=== PATIENT | male | born 1935 | race Caucasian/White ===

== ENCOUNTER → 2016-11-27 | Outpatient (CLI) | payer MEDICARE ==
[2016-11-27 10:07] LABS: ANION GAP 12 (5-19); BLOOD UREA NITROGEN 22 mg/dL (7-20); CALCIUM 8.8 mg/dL (8.4-10.2); CARBON DIOXIDE 26 mmol/L (22-30); CHLORIDE 103 mmol/L (98-107); CREATININE RESULT 1.17 mg/dL (0.52-1.25); GLUCOSE 99 mg/dL (75-110); POTASSIUM 4.2 mmol/L (3.6-5.0); SODIUM 140.5 mmol/L (137-145)
== END ==
LOC: OD 08:36
PROVIDERS: ATTEND Internal Medicine
DX: I50.22 Chronic systolic (congestive) heart failure (principal); I10 Essential (primary) hypertension; I49.3 Ventricular premature depolarization; I27.2 Other secondary pulmonary hypertension; I42.9 Cardiomyopathy, unspecified; J44.9 Chronic obstructive pulmonary disease, unspecified; Z79.899 Other long term (current) drug therapy
CPT/HCPCS: 36415; 80048; 83880

== ENCOUNTER → 2017-02-16 | Outpatient (CLI) | payer MEDICARE ==
--- NOTE | 2017-02-16 11:06 | RADIOLOGY REPORT (SQ) ---
EXAM DESCRIPTION: CHEST PA/LATERAL COMPLETED DATE/TIME: 02/16/2017 10:07 am REASON FOR STUDY: CHRONIC OBSTRUCTIVE PULMONARY DISEASE, UNSPECIFIED COMPARISON: 12/07/2015 EXAM PARAMETERS: NUMBER OF VIEWS: two views TECHNIQUE: Digital Frontal and Lateral radiographic views of the chest acquired. RADIATION DOSE: NA LIMITATIONS: none FINDINGS: LUNGS AND PLEURA: An ill-defined infiltrate is present the right middle lobe. MEDIASTINUM AND HILAR STRUCTURES: No masses or contour abnormalities. HEART AND VASCULAR STRUCTURES: Cardiomegaly with no evidence of failure. BONES: No acute findings. HARDWARE: None in the chest. OTHER: No other significant finding. IMPRESSION: Ill-defined right middle lobe pneumonia. TECHNICAL DOCUMENTATION: JOB ID: [id number] [employer]- All Rights Reserved
== END ==
LOC: OD 09:52
PROVIDERS: ATTEND Physician Assistant
DX: J44.9 Chronic obstructive pulmonary disease, unspecified (principal)
CPT/HCPCS: 71020

== ENCOUNTER 2017-02-19 12:29 | Inpatient (IN) | payer MEDICARE ==
--- NOTE | 2017-02-19 11:35 | PDOC H&P ---
History of Present Illness Admission Date/PCP: 02/19/17 11:09 JOELLEN JIMENEZ MD Patient complains of: Shortness of the breath and weakness History of Present Illness: DARCIE AUSTIN is a 81 year old male This is a 81-year-old male with significant history of the COPD and history of the congestive heart failure and hypertension's came to the last Sunday with increasing more cough congestion of the fever and patient's chest x-ray was consistent with the pneumoniaAnd patient was started on the p.o. Levaquin. Patient's white count was also normalPatients came today in office is not feeling well still complaining of a lot of short of breath and increasing more cough and some low-grade fever.Patient also noticed was some black stools for the last couple of days. Patient is not taking any anticoagulationsPatient have a recently endoscopy and colonoscopy done couple of years back by Dr. Lunsford and was stable Patient also see her Dr. Medrano 2 weeks back and suggest a follow echocardiogram in 2 months Patients at this point decided to admit in the hospital for further evaluation and treatments and discussed with the family and all agree Patient's desire to be a no code Past Medical History Cardiac Medical History: Reports: Hypertension Pulmonary Medical History: Reports: Asthma, Bronchitis, Chronic Obstructive Pulmonary Disease (COPD), Pneumonia Denies: Tuberculosis Neurological Medical History: Denies: Seizures Neurological History Note: Acoustic neuroma Malignancy Medical History: Reports: Other Malignancy History Note: Prostate cancer GI Medical History: Reports: Gastroesophageal Reflux Disease Musculoskeltal Medical History: Reports: Arthritis Psychiatric Medical History: Reports: Depression Past Surgical History Past Surgical History: Reports: Herniorrhaphy - Bilateral inguinal repair Denies: Pacemaker Social History Smoking Status: Former Smoker Frequency of Alcohol Use: None Hx Recreational Drug Use: No Drugs: None Hx Prescription Drug Abuse: No Family History Family History: Reviewed & Not Pertinent Parental Family History Reviewed: Yes Children Family History Reviewed: Yes Sibling(s) Family History Reviewed.: Yes Medication/Allergy Home Medications: Aspirin [Ecotrin 81 mg EC Tablet] 81 mg PO DAILY 09/18/11 Meclizine HCl [Antivert 25 mg Tablet] 25 mg PO BID 09/18/11 Omeprazole [Prilosec] 20 mg PO DAILY 09/18/11 Terazosin HCl 10 mg PO DAILY 09/18/11 Tramadol HCl [Ultram 50 mg Tablet] 50 mg PO BID PRN 09/18/11 Hydralazine HCl [Apresoline 25 Mg Tablet] 25 mg PO BID 09/22/11 Ascorbate Calcium [Vitamin C] 500 mg PO DAILY 08/18/15 Budesonide/Formoterol Fumarate [Symbicort HFA 160-4.5 mcg Inhaler 6 gm] 2 puff IH BID 08/18/15 Clotrimazole/Betamethasone Dip [Lotrisone Cream] 1 applic TP BID 08/18/15 Dm/PE/Acetaminophen/Doxylamine [[place] Plus Allerg-Cough] 1 cap PO DAILY 08/18/15 Hydrochlorothiazide 12.5 mg PO DAILY 08/18/15 Multivitamin [Multivitamins] 1 tab PO DAILY 08/18/15 Mupirocin [Bactroban 2% Ointment 22 gm] 1 applic TP TID 08/18/15 Nifedipine [Nifedipine ER] 60 mg PO BID 08/18/15 Polyethylene Glycol 3350 [Miralax Powder 17 gm/Packet] 17 gm PO DAILY 08/18/15 Tiotropium [place] [Spiriva Handihaler 18 mcg/dose (30 Dose)] 18 mcg IH DAILY Allergies/Adverse Reactions: meperidine HCl [From Demerol] Allergy (Verified 01/15/12 23:43) Review of Systems Constitutional: PRESENT: chills, fatigue, fever(s), weakness. ABSENT: headache( s), weight gain, weight loss Eyes: ABSENT: visual disturbances Ears: ABSENT: hearing changes Cardiovascular: PRESENT: dyspnea on exertion. ABSENT: chest pain, edema, orthropnea, palpitations Respiratory: PRESENT: cough, dyspnea. ABSENT: hemoptysis Gastrointestinal: ABSENT: abdominal pain, constipation, diarrhea, hematemesis, hematochezia, nausea, vomiting Genitourinary: ABSENT: dysuria, hematuria Musculoskeletal: ABSENT: joint swelling Integumentary: ABSENT: rash, wounds Neurological: ABSENT: abnormal gait, abnormal speech, confusion, dizziness, focal weakness, syncope Psychiatric: ABSENT: anxiety, depression, homidical ideation, suicidal ideation Endocrine: ABSENT: cold intolerance, heat intolerance, menstrual abnormalities, polydipsia, polyuria Hematologic/Lymphatic: ABSENT: easy bleeding, easy bruising, lymphadenopathy Physical Exam General appearance: PRESENT: no acute distress, well-developed, well-nourished Head exam: PRESENT: atraumatic, normocephalic Eye exam: PRESENT: conjunctiva pink, EOMI, PERRLA. ABSENT: scleral icterus Ear exam: PRESENT: normal external ear exam Mouth exam: PRESENT: moist, tongue midline Neck exam: PRESENT: full ROM. ABSENT: carotid bruit, JVD, lymphadenopathy, thyromegaly Respiratory exam: PRESENT: decreased breath sounds, wheezes Cardiovascular exam: PRESENT: RRR, +S1, +S2. ABSENT: diastolic murmur, rubs, systolic murmur Pulses: PRESENT: normal dorsalis pedis pul, +2 pedal pulses bilateral Vascular exam: PRESENT: normal capillary refill GI/Abdominal exam: PRESENT: normal bowel sounds, soft. ABSENT: distended, guarding, mass, organolmegaly, rebound, tenderness Rectal exam: PRESENT: deferred Extremities exam: ABSENT: pedal edema Musculoskeletal exam: PRESENT: ambulatory Neurological exam: PRESENT: alert, awake, oriented to person, oriented to place , oriented to time, oriented to situation, CN II-XII grossly intact. ABSENT: motor sensory deficit Psychiatric exam: PRESENT: appropriate affect, normal mood. ABSENT: homicidal ideation, suicidal ideation Skin exam: PRESENT: dry, intact, warm. ABSENT: cyanosis, rash Assessment & Plan - Diagnosis (1) Pneumonia Qualifiers: Pneumonia type: due to unspecified organism Laterality: unspecified laterality Is this a current diagnosis for this admission?: YesPlan: Start the patient on IV antibiotic patient spelled the p.o. antibiotic (2) COPD (chronic obstructive pulmonary disease) with acute bronchitis Is this a current diagnosis for this admission?: YesPlan: Start the patient on nebulizer treatments (3) Diastolic heart failure Qualifiers: Heart failure chronicity: acute on chronic Qualified Code(s): I50.33 - Acute on chronic diastolic (congestive) heart failure Is this a current diagnosis for this admission?: YesPlan: Start the patient on IV Lasix patient echo was done in 2014 the EF was 50-55 persons and patient supposed to have another echo done by Dr. álvarez office consult to Dr. urias (4) Dyslipidemia Is this a current diagnosis for this admission?: YesPlan: Continues to current medications (5) Hypertension Qualifiers: Hypertension type: essential hypertension Qualified Code(s): I10 - Essential (primary) hypertension Is this a current diagnosis for this admission?: YesPlan: Continues current med (6) Anemia Qualifiers: Anemia type: other cause Is this a current diagnosis for this admission?: YesPlan: Patient is complaining of some black stool with rule out the GI bleed and consult Dr. Lunsford (7) Prostate cancer Is this a current diagnosis for this admission?: YesPlan: We will check the PSA (8) Chronic kidney disease Qualifiers: Chronic kidney disease stage: stage 2 (mild) Qualified Code(s): N18.2 - Chronic kidney disease, stage 2 (mild) Is this a current diagnosis for this admission?: YesPlan: Currently stable (9) Weakness Is this a current diagnosis for this admission?: YesPlan: Due to multiple comorbidity will get the physical therapy - Time Time Spent: 30 to 50 Minutes Medications reviewed and adjusted accordingly: Yes Anticipated discharge: Home Within: Other - Inpatient Certification Medical Necessity: Need Close Monitoring Due to Risk of Patient Decompensation, Need for IV Antibiotics 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 Patients expressed DNR/DNI
[~2017-02-19 12:29] MED LIST: ACETAMINOPHEN 325 MG TABLET PO PRN; CEFTRIAXONE 1 GM/D5W RTU 50 ML IV SCH; LEVOFLOXACIN 500 MG/D5W RTU 100 ML IV SCH
[2017-02-19] MEDS ORDERED: ACETAMINOPHEN 325 MG TABLET PO PRN (12:33)
[2017-02-19] MEDS ORDERED: CEFTRIAXONE 1 GM/D5W RTU 1 GM/50 ML RTUPB IV ONE (13:00)
[2017-02-19] MEDS ORDERED: LEVOFLOXACIN 500 MG/D5W RTU 500 MG/100 ML RTUPB IV ONE ×2 (13:00→18:30)
[2017-02-19] MEDS ORDERED: LEVALBUTEROL HCL NEB 1.25 MG/3 ML AMPUL NEB SCH (14:00)
[2017-02-19] MEDS ORDERED: FUROSEMIDE INJ/PF 20 MG/2 ML SDV IV SCH (14:00)
[2017-02-19 14:19] LABS: ABSOLUTE LYMPHOCYTES (AUTO) 0.8 10^3/uL (0.5-4.7); ABSOLUTE NEUT (AUTO) 7.4 10^3/uL (1.7-8.2); BASOPHILS % (AUTO) 0.3 % (0-2); EOSINOPHILS % (AUTO) 0.3 % (0-6); HEMOGLOBIN 9.3 g/dL (13.5-17.0); HGB HCT DIFFERENCE -0.1; LYMPHOCYTES % (AUTO) 8.3 % (13-45); MEAN CORPUSCULAR HEMOGLOBIN 29.5 pg (27.0-33.4); MEAN CORPUSCULAR HGB CONC 33.4 g/dL (32.0-36.0); MEAN CORPUSCULAR VOLUME 88 fl (80-97); MONOCYTES % (AUTO) 11.1 % (3-13); RED BLOOD COUNT 3.17 10^6/uL (4.35-5.55); RED CELL DISTRIBUTION WIDTH 13.8 % (11.5-14.0); WHITE BLOOD COUNT 9.2 10^3/uL (4.0-10.5)
[2017-02-19 14:42] LABS: ALANINE AMINOTRANSFERASE 25 U/L (21-72); ALBUMIN 3.2 g/dL (3.5-5.0); ALKALINE PHOSPHATASE 98 U/L (38-126); ANION GAP 12 (5-19); ASPARTATE AMINO TRANSFERASE 24 U/L (17-59); BILIRUBIN,DIRECT 0.4 mg/dL (0.0-0.4); BLOOD UREA NITROGEN 43 mg/dL (7-20); CALCIUM 8.5 mg/dL (8.4-10.2); CARBON DIOXIDE 28 mmol/L (22-30); CHLORIDE 93 mmol/L (98-107); GLUCOSE 103 mg/dL (75-110); POTASSIUM 4.2 mmol/L (3.6-5.0); SODIUM 132.7 mmol/L (137-145)
[2017-02-19] MEDS ORDERED: LEVALBUTEROL HCL NEB 1.25 MG/3 ML AMPUL NEB ONE ×2 (14:46→21:00)
--- NOTE | 2017-02-19 15:43 | RADIOLOGY REPORT (SQ) ---
EXAM DESCRIPTION: CHEST PA/LAT COMPLETED DATE/TIME: 02/19/2017 3:33 pm REASON FOR STUDY: pnemonia COMPARISON: 12/07/2015 EXAM PARAMETERS: NUMBER OF VIEWS: two views TECHNIQUE: Digital Frontal and Lateral radiographic views of the chest acquired. RADIATION DOSE: NA LIMITATIONS: none FINDINGS: LUNGS AND PLEURA: There is bilateral perihilar and basilar interstitial airspace disease. There is hyperexpansion. Small effusions cannot be excluded. MEDIASTINUM AND HILAR STRUCTURES: No masses or contour abnormalities. HEART AND VASCULAR STRUCTURES: Heart is enlarged. There is central vascular prominence. BONES: No acute findings. HARDWARE: None in the chest. OTHER: No other significant finding. IMPRESSION: Findings are most consistent with vascular congestion rather than pneumonia. Clinical c orrelation is needed. TECHNICAL DOCUMENTATION: JOB ID: [id number] [employer]- All Rights Reserved
[2017-02-19] MEDS ORDERED: LANSOPRAZOLE 30 MG TAB.RAP.DR PO SCH (17:00)
[2017-02-19] MEDS ORDERED: FUROSEMIDE INJ/PF 20 MG/2 ML SDV IV ONE ×2 (17:30→23:00)
[2017-02-19] MEDS ORDERED: LANSOPRAZOLE 30 MG TAB.RAP.DR PO ONE (17:30)
[2017-02-19] MEDS: CEFTRIAXONE 1 GM/D5W RTU 1 GM/50 ML RTUPB IV SCH (17:46)
[2017-02-19] MEDS: DOCUSATE SODIUM 100 MG CAPSULE PO SCH (17:46)
--- NOTE | 2017-02-19 17:57 | EKG REPORT ---
SEVERITY:- ABNORMAL ECG - SINUS RHYTHM ABERRANT COMPLEX NONSPECIFIC INTRAVENTRICULAR CONDUCTION DELAY BORDERLINE R WAVE PROGRESSION, ANTERIOR LEADS : Confirmed by: Saranya Medrano MD 19-Feb-2017 17:55:43
[2017-02-19] MEDS ORDERED: DOCUSATE SODIUM 100 MG CAPSULE PO SCH (18:00)
[2017-02-19] MEDS ORDERED: FUROSEMIDE INJ/PF 40 MG/4 ML SDV IV ONE (20:15)
--- NOTE | 2017-02-19 20:36 | PDOC CONSULTATION ---
Consultation Consult Date: 02/19/17 Attending physician:: JOELLEN JIMENEZ Consult reason:: CHF History of Present Illness Admission Date/PCP: 02/19/17 12:34 JOELLEN JIMENEZ MD Patient complains of: Shortness of breath History of Present Illness: DARCIE AUSTIN is a 81 year old male with significant history of the COPD and history of the congestive heart failure and hypertension's came to the last Sunday with increasing more cough, congestion and fever. Patient's chest x-ray was consistent with the pneumonia. Patient was started on the p.o. Levaquin. Patient's white count was also normal. Patients came today in office is not feeling well still complaining of a lot of short of breath and increasing more cough and some low-grade fever. Patient also noticed was some black stools for the last couple of days. Patient is not taking any anticoagulations. Patient have a recently endoscopy and colonoscopy done couple of years back by Dr. Lunsford and was stable Patient also see her Dr. Medrano 2 weeks back and suggest a follow echocardiogram in 2 months Patients at this point decided to admit in the hospital for further evaluation and I was consulted to help with management. When patient seen this evening, patient was noted to be short of breath and was noted to be hypoxemic with O2 sat of 87% even with oxygen. Patient was ordered to be placed on bilevel therapy with positive pressure ventilation and ordered that patient be given IV Lasix 40 mg in addition to 20 mg that he had received earlier in the emergency room. On questioning patient admitted to being short of breath and significant pedal edema but denied any chest discomfort. Patient's desire to be a no code Past Medical History Cardiac Medical History: Reports: Hypertension Pulmonary Medical History: Reports: Asthma, Bronchitis, Chronic Obstructive Pulmonary Disease (COPD), Pneumonia Denies: Tuberculosis Neurological Medical History: Denies: Seizures Malignancy Medical History: Reports: Other GI Medical History: Reports: Gastroesophageal Reflux Disease Musculoskeltal Medical History: Reports: Arthritis Psychiatric Medical History: Reports: Depression Past Surgical History Past Surgical History: Reports: Herniorrhaphy - Bilateral inguinal repair Denies: Pacemaker Social History Information Source: Patient Smoking Status: Former Smoker Frequency of Alcohol Use: Rare Hx Recreational Drug Use: No Drugs: None Hx Prescription Drug Abuse: No - Advance Directive Resuscitation Status: Do Not Resuscitate Surrogate healthcare decision maker:: Patient's Family History Family History: CAD, Hypertension Parental Family History Reviewed: Yes Children Family History Reviewed: Yes Sibling(s) Family History Reviewed.: Yes Medication/Allergy Home Medications: Acetaminophen [Tylenol 325 mg Tablet] 650 mg PO Q6HP PRN 02/19/17 Amiodarone HCl [Cordarone 200 mg Tablet] 200 mg PO DAILY 02/19/17 Ascorbic Acid [Vitamin C 500 mg Tablet] 500 mg PO DAILY 02/19/17 Aspirin [Aspirin 81 mg Chewable Tablet] 81 mg PO DAILY 02/19/17 Docusate Sodium [Colace 100 mg Capsule] 100 mg PO DAILY 02/19/17 Doxazosin Mesylate [Cardura] 8 mg PO DAILY 02/19/17 Isosorbide Mononitrate [Imdur 60 mg Tablet.er] 60 mg PO DAILY 02/19/17 Levalbuterol HCl [Xopenex Neb 0.63 mg/3 ml Ampul] 0.63 mg NEB [id number] PRN Metoprolol Tartrate [Lopressor 25 mg Tablet] 25 mg PO Q12 02/19/17 Multivit-Min/FA/Lycopen/Lutein [Centrum Silver Men Tablet] 1 tab PO DAILY Nifedipine [Procardia XL 60 mg Tablet] 60 mg PO Q12 02/19/17 Polyethylene Glycol 3350 [Miralax Powder 17 gm/Packet] 1 packet PO DAILY Tiotropium [place] [Spiriva Handihaler 18 mcg/dose (30 Dose)] 1 cap IH DAILY Allergies/Adverse Reactions: meperidine HCl [From Demerol] Allergy (Verified 01/15/12 23:43) Review of Systems Review of Systems: Please see history of present illness and past medical history as wall. Constitutional: Positive fever or chills reported. Head : No recent chronic headaches, recent head injury. Eyes: No recent eye pain, diplopia, redness, discharge, acute visual changes. Ears: No recent chronic ear pain, acute hearing loss, ear discharge. Oral cavity: No recent ulcerations, bleeding, oral cavity discomfort. Neck: No recent acute neck pain reported. Hematologic: No recent easy bruising or bleeding or hematologic malignancy reported. Lymphatic: No recent lymphatic malignancy, chronic lymphadenopathy reported yet Cardiovascular system review: See history of present illness. Increasing pedal edema noted. Respiratory system review: No recent chronic cough, hemoptysis, blood clots in the lungs reported. Shortness of breath on exertion Gastrointestinal system review: Negative for any recent acute or chronic abdominal pain, hematemesis, melena, recent change in bowel habits. Genitourinary system review: No recent acute or chronic hematuria, flank pain, UTI etc. reported. Skin system review: Negative for any recent abnormal bruising, no rash, no pruritus reported. Neurologic: No prior history of strokes, mini strokes, seizure disorder. Psychologic: No history of major psychosis or major depression reported. Musculoskeletal: Minor aches and pains reported. No acute joint swelling reported. Endocrine: No recent polyuria, polydipsia, recent heat or cold intolerance. Physical Exam Vital Signs: Temp Pulse Resp BP Pulse Ox 97.6 F 68 24 H 137/46 H 92 02/19/17 17:51 02/19/17 17:51 02/19/17 17:51 02/19/17 17:51 02/19/17 17:51 Intake & Output 02/18/17 02/19/17 02/20/17 06:59 06:59 06:59 Weight 108.1 kg Exam: GENERAL: well-nourished and in no acute distress. Alert and oriented x3 HEAD: Atraumatic, normocephalic. EYES: Pupils equal round and reactive to light, extraocular movements intact, sclera anicteric, conjunctiva are normal. ENT: TMs normal, nares patent, oropharynx clear without exudates. Moist mucous membranes. No oral ulcerations or bleeding gums noted NECK: supple without lymphadenopathy. Trachea is central. No cervical or axillary lymphadenopathy noted. Carotids are 2+, JVD 14 cm LUNGS: Respiration seems nonlabored, no significant accessory muscle action noted. Bibasilar fine crackles noted and mild dullness noted both bases. CHEST: Palpation of the chest wall shows no significant chest wall tenderness. No other significant abnormalities noted. 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 ABDOMEN: Soft, no significant tenderness appreciated, normoactive bowel sounds. No guarding, no rebound. No rigidity noted . No masses appreciated. EXTREMITIES: Pedal pulses are 1-2+, no calf tenderness noted. No clubbing or cyanosis. 2-3 + pedal edema noted NEUROLOGICAL: Focused neurological exam showed no significant neurologic deficit. Normal speech, no focal weakness appreciated. PSYCH: Normal mood, normal affect. Judgment and insight within normal limits. SKIN: No significant ecchymosis, rash, ulcerations or signs of pruritus noted. MUSCULOSKELETAL EXAM: No significant joint swelling noted. Results Laboratory Results: 02/19/17 14:00 02/19/17 14:00 02/19/17 02/19/17 02/19/17 14:00 14:00 14:00 WBC 9.2 RBC 3.17 L Hgb 9.3 L Hct 28.0 L MCV 88 MCH 29.5 MCHC 33.4 RDW 13.8 Plt Count 227 Seg Neutrophils % 80.0 H Lymphocytes % 8.3 L Monocytes % 11.1 Eosinophils % 0.3 Basophils % 0.3 Absolute Neutrophils 7.4 Absolute Lymphocytes 0.8 Absolute Monocytes 1.0 Absolute Eosinophils 0.0 Absolute Basophils 0.0 Sodium 132.7 L Potassium 4.2 Chloride 93 L Carbon Dioxide 28 Anion Gap 12 BUN 43 H Creatinine 1.90 H Est GFR ( Amer) 42 L Est GFR (Non-Af Amer) 34 L Glucose 103 Calcium 8.5 Total Bilirubin 1.0 AST 24 ALT 25 Alkaline Phosphatase 98 Total Protein 6.0 L Albumin 3.2 L TSH 3.34 02/19/17 14:00 NT-Pro-B Natriuret Pep 5880 H EKG Comments: Sinus rhythm, nonspecific IVCD left bundle branch block type, primary T-wave changes lateral chest leads Impressions: Chest X-Ray 02/19/17 11:18 IMPRESSION: Findings are most consistent with vascular congestion rather than pneumonia. Clinical correlation is needed. Assessment & Plan - Diagnosis (1) Congestive heart failure Is this a current diagnosis for this admission?: Yes (2) Acute and chronic respiratory failure Qualifiers: Respiratory failure complication: hypoxia Qualified Code(s): J96.21 - Acute and chronic respiratory failure with hypoxia Is this a current diagnosis for this admission?: Yes (3) Chronic kidney disease Qualifiers: Chronic kidney disease stage: stage 3 (moderate) Qualified Code(s): N18.3 - Chronic kidney disease, stage 3 (moderate) Is this a current diagnosis for this admission?: Yes (4) COPD (chronic obstructive pulmonary disease) with acute bronchitis Is this a current diagnosis for this admission?: Yes (5) Dyslipidemia Is this a current diagnosis for this admission?: Yes (6) Hypertension Qualifiers: Hypertension type: essential hypertension Qualified Code(s): I10 - Essential (primary) hypertension Is this a current diagnosis for this admission?: Yes - Notes Notes: 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 Twelve-lead EKG, these were reviewed. Chest x-ray: Results reviewed. Medications: These were reviewed. Labs: These were reviewed. 2D echo ordered. IV Lasix 40 mg ordered to be given now. Bilevel therapy to be monitored by respiratory therapy ordered. Adjust bilevel therapy to maintain O2 sat above 92%. Treatment/care plan: This was reviewed and discussed with involved personnel in the care of this patient and patient. CHF: Patient clearly volume overloaded. IV Lasix ordered. Acute on chronic hypoxemic respiratory failure: Apply positive pressure bilevel noninvasive ventilatory support and supplement oxygen. May consider pulmonary evaluation. Patient may benefit from a sleep study to be scheduled as an outpatient if not performed previously. Chronic kidney disease: Monitor renal function. Avoid nephrotoxic agents. COPD with acute bronchitis: Continue with bronchodilator antibiotic therapy. Consider pulmonary consultation and evaluation. Dyslipidemia: Recommend statin therapy. Hypertension: Recommend good control of blood pressure but avoid any hypotension. - Time Time Spent: 50 to 70 Minutes - CODE STATUS was discussed, patient remains full code. Surrogate decision-maker patient's son.. Multiple medical problems were addressed. More than 50% of the time spent coordinating care, discussing management plans with involved caregivers. Management plans discussed with involved personnels. Medical decision making was of moderate to high complexity , patient's has multiple comorbidities. Medications reviewed and adjusted accordingly: Yes
[2017-02-20] MEDS: LEVALBUTEROL HCL NEB 1.25 MG/3 ML AMPUL NEB SCH ×4 (02:29→19:59)
[2017-02-20] MEDS: LANSOPRAZOLE 30 MG TAB.RAP.DR PO SCH ×2 (05:21→17:33)
[2017-02-20] MEDS: FUROSEMIDE INJ/PF 20 MG/2 ML SDV IV SCH ×3 (05:21→21:18)
[2017-02-20 05:55] LABS: ABSOLUTE EOSINOPHILS # (AUTO) 0.1 10^3/uL (0.0-0.6); ABSOLUTE LYMPHOCYTES (AUTO) 0.7 10^3/uL (0.5-4.7); ABSOLUTE MONOCYTES (AUTO) 0.8 10^3/uL (0.1-1.4); ABSOLUTE NEUT (AUTO) 5.5 10^3/uL (1.7-8.2); BASOPHILS % (AUTO) 0.4 % (0-2); EOSINOPHILS % (AUTO) 0.7 % (0-6); HEMATOCRIT 26.2 % (37.9-51.0); HGB HCT DIFFERENCE 0.8; LYMPHOCYTES % (AUTO) 9.9 % (13-45); MEAN CORPUSCULAR HEMOGLOBIN 29.9 pg (27.0-33.4); MEAN CORPUSCULAR HGB CONC 34.4 g/dL (32.0-36.0); MEAN CORPUSCULAR VOLUME 87 fl (80-97); MONOCYTES % (AUTO) 11.1 % (3-13); RED BLOOD COUNT 3.01 10^6/uL (4.35-5.55); RED CELL DISTRIBUTION WIDTH 13.6 % (11.5-14.0); SEGMENTED NEUTROPHILS % (AUTO) 77.9 % (42-78); WHITE BLOOD COUNT 7.1 10^3/uL (4.0-10.5)
[2017-02-20 06:15] LABS: CALCIUM 8.2 mg/dL (8.4-10.2); GLUCOSE 121 mg/dL (75-110)
[2017-02-20 06:16] LABS: ANION GAP 11 (5-19); BLOOD UREA NITROGEN 37 mg/dL (7-20); CARBON DIOXIDE 26 mmol/L (22-30); CHLORIDE 97 mmol/L (98-107); CREATININE RESULT 1.75 mg/dL (0.52-1.25); POTASSIUM 3.6 mmol/L (3.6-5.0); SODIUM 134.2 mmol/L (137-145)
[2017-02-20] MEDS ORDERED: ACETAMINOPHEN 325 MG TABLET PO PRN (07:19)
[2017-02-20] MEDS: ASPIRIN 81 MG TABLET, CHEWABLE PO SCH (09:03)
[2017-02-20] MEDS: MULTIVITAMIN TABLET PO SCH (09:03)
[2017-02-20] MEDS: ASCORBIC ACID 500 MG TABLET PO SCH (09:03)
[2017-02-20] MEDS: DOXAZOSIN MESYLATE 4 MG TABLET PO SCH (09:03)
[2017-02-20] MEDS: ISOSORBIDE MONONITRATE 60 MG TAB.ER.24H PO SCH (09:04)
[2017-02-20] MEDS: AMIODARONE HCL 200 MG TABLET PO SCH (09:04)
[2017-02-20] MEDS: METOPROLOL TARTRATE 25 MG TABLET PO SCH ×2 (09:04→21:18)
[2017-02-20] MEDS: NIFEDIPINE 30 MG TAB.ER.24 PO SCH ×2 (09:04→21:18)
[2017-02-20] MEDS: DOCUSATE SODIUM 100 MG CAPSULE PO SCH ×2 (09:05→17:26)
[2017-02-20] MEDS: POLYETHYLENE GLYCOL 3350 POWDER 17 GM/1 PACKET PO SCH (09:05)
[2017-02-20] MEDS ORDERED: (PENDING PHARMACY ID) (Multivit-Min/Fa/Lycopen/Lutein [Centrum Silver Men Tablet] 1 TAB) PO SCH (10:00)
[2017-02-20] MEDS ORDERED: (PENDING PHARMACY ID) (Doxazosin Mesylate [Cardura] 8 MG) PO SCH (10:00)
[2017-02-20] MEDS ORDERED: CEFTRIAXONE 1 GM/D5W RTU 1 GM/50 ML RTUPB IV SCH (10:00)
[2017-02-20] MEDS ORDERED: (PENDING PHARMACY ID) (Nifedipine [Procardia Xl 60 Mg Tablet] 60 MG) PO SCH (10:00)
--- NOTE | 2017-02-20 11:47 | PDOC PROGRESS REPORT ---
Subjective Progress Note for:: 02/20/17 Subjective:: Patient seems to be doing better with gradual improvement. Pt is denying any chest arm or neck discomfort. Patient denying any PND, orthopnea. Patient denied any sustained palpitations, dizziness, syncope, near syncope. Patient denying any fever chills. Patient denying any other significant discomfort. Patient is maintaining sinus rhythm. Review of systems: Rest review of systems negative. Medications: Medications have been reviewed. Physical Exam Vital Signs: Temp Pulse Resp BP Pulse Ox 98.2 F 75 22 H 146/54 H 96 02/20/17 07:38 02/20/17 07:38 02/20/17 07:38 02/20/17 07:38 02/20/17 07:38 Intake & Output 02/19/17 02/20/17 02/21/17 06:59 06:59 06:59 Intake Total 38 Output Total 100 Balance -62 Weight 108.8 kg Exam: GENERAL: well-nourished and in no acute distress. Alert and oriented x3 HEAD: Atraumatic, normocephalic. EYES: Pupils equal round and reactive to light, extraocular movements intact, sclera anicteric, conjunctiva are normal. ENT: TMs normal, nares patent, oropharynx clear without exudates. Moist mucous membranes. No oral ulcerations or bleeding gums noted NECK: supple without lymphadenopathy. Trachea is central. No cervical or axillary lymphadenopathy noted. Carotids are 2+, JVD 12 cm LUNGS: Respiration seems nonlabored, no significant accessory muscle action noted. Bibasilar fine crackles and few wheezes rales or rhonchi noted. No significant dullness noted on percussion. CHEST: Palpation of the chest wall shows no significant chest wall tenderness. No other significant abnormalities noted. 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 ABDOMEN: Soft, no significant tenderness appreciated, normoactive bowel sounds. No guarding, no rebound. No rigidity noted . No masses appreciated. EXTREMITIES: Pedal pulses are 1-2+, no calf tenderness noted. No clubbing or cyanosis. 2 + pedal edema noted NEUROLOGICAL: Focused neurological exam showed no significant neurologic deficit. Normal speech, no focal weakness appreciated. PSYCH: Normal mood, normal affect. Judgment and insight within normal limits. SKIN: No significant ecchymosis, rash, ulcerations or signs of pruritus noted. MUSCULOSKELETAL EXAM: No significant joint swelling noted. Results Laboratory Results: 02/20/17 05:29 02/20/17 05:29 02/19/17 02/19/17 02/19/17 14:00 14:00 14:00 WBC 9.2 RBC 3.17 L Hgb 9.3 L Hct 28.0 L MCV 88 MCH 29.5 MCHC 33.4 RDW 13.8 Plt Count 227 Seg Neutrophils % 80.0 H Lymphocytes % 8.3 L Monocytes % 11.1 Eosinophils % 0.3 Basophils % 0.3 Absolute Neutrophils 7.4 Absolute Lymphocytes 0.8 Absolute Monocytes 1.0 Absolute Eosinophils 0.0 Absolute Basophils 0.0 Sodium 132.7 L Potassium 4.2 Chloride 93 L Carbon Dioxide 28 Anion Gap 12 BUN 43 H Creatinine 1.90 H Est GFR ( Amer) 42 L Est GFR (Non-Af Amer) 34 L Glucose 103 Calcium 8.5 Total Bilirubin 1.0 AST 24 ALT 25 Alkaline Phosphatase 98 Total Protein 6.0 L Albumin 3.2 L TSH 3.34 02/20/17 02/20/17 05:29 05:29 WBC 7.1 RBC 3.01 L Hgb 9.0 L Hct 26.2 L MCV 87 MCH 29.9 MCHC 34.4 RDW 13.6 Plt Count 217 Seg Neutrophils % 77.9 Lymphocytes % 9.9 L Monocytes % 11.1 Eosinophils % 0.7 Basophils % 0.4 Absolute Neutrophils 5.5 Absolute Lymphocytes 0.7 Absolute Monocytes 0.8 Absolute Eosinophils 0.1 Absolute Basophils 0.0 Sodium 134.2 L Potassium 3.6 Chloride 97 L Carbon Dioxide 26 Anion Gap 11 BUN 37 H Creatinine 1.75 H Est GFR ( Amer) 46 L Est GFR (Non-Af Amer) 38 L Glucose 121 H Calcium 8.2 L Total Bilirubin AST ALT Alkaline Phosphatase Total Protein Albumin TSH 02/20/17 05:25 Sputum Gram Stain - Final 02/20/17 05:25 Sputum Sputum Culture - Final 02/19/17 14:00 NT-Pro-B Natriuret Pep 5880 H Impressions: Chest X-Ray 02/19/17 11:18 IMPRESSION: Findings are most consistent with vascular congestion rather than pneumonia. Clinical correlation is needed. Assessment & Plan - Diagnosis (1) Congestive heart failure Is this a current diagnosis for this admission?: Yes (2) Acute and chronic respiratory failure Qualifiers: Respiratory failure complication: hypoxia Qualified Code(s): J96.21 - Acute and chronic respiratory failure with hypoxia Is this a current diagnosis for this admission?: Yes (3) Chronic kidney disease Qualifiers: Chronic kidney disease stage: stage 3 (moderate) Qualified Code(s): N18.3 - Chronic kidney disease, stage 3 (moderate) Is this a current diagnosis for this admission?: Yes (4) COPD (chronic obstructive pulmonary disease) with acute bronchitis Is this a current diagnosis for this admission?: Yes (5) Dyslipidemia Is this a current diagnosis for this admission?: Yes (6) Hypertension Qualifiers: Hypertension type: essential hypertension Qualified Code(s): I10 - Essential (primary) hypertension Is this a current diagnosis for this admission?: Yes - Notes Notes: monitoring manager, 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 Twelve-lead EKG, these were reviewed. Showed sinus with left bundle branch block pattern. Chest x-ray: Results reviewed. It showed congestive heart failure and cardiomegaly. Medications: These were reviewed. Labs: These were reviewed. Treatment/care plan: This was reviewed and discussed with involved personnel in the care of this patient and patient. CHF: This seems decompensated on clinical exam. Continue baseline diuretic therapy. Patient should be educated in CHF pathway. This should include salt and fluid restriction, daily weighing, adjustment of diuretic therapy based on weight gain et cetera. Patient to be educated that if there is gain of more than 2 pounds in a day or more than 5 pounds in a week, this indicates fluid retention and patient may need to adjust the diuretic therapy. Symptoms associated with CHF exacerbation to be discussed with the patient. This could include rapid weight gain, abdominal bloating, increased shortness of breath, fatigue, tiredness, cardiac arrhythmias et cetera. Acute on chronic respiratory failure: This has improved with treatment of CHF. Chronic kidney disease: Lab work reviewed. This seems stable. Continue to monitor renal functions. COPD with acute bronchitis: Continue bronchodilator therapy. Dyslipidemia: Currently stable. Hypertension: Currently blood pressure is under satisfactory control. Further adjustment will be made after 2D echocardiogram. Patient's medical regimen reviewed. This seems satisfactory at this point. Further adjustment will be made as needed. - Time Time with patient: Greater than 35 minutes - More than 50% of the time spent coordinating care, discussing management plans with involved caregivers. Management plans discussed with involved personnels. Medical decision making was of high complexity, patient's has multiple comorbidities. CODE STATUS was discussed, patient remains full code. Surrogate decision-maker patient's son. Multiple medical problems were addressed. Medications reviewed and adjusted accordingly: Yes
--- NOTE | 2017-02-20 12:24 | PDOC PROGRESS REPORT ---
Subjective Progress Note for:: 02/20/17 Subjective:: Patient's currently denied any chest pain denied any shortness of the breath. Patient having no fever overnight. Patient's chest x-ray was consistent for some vascular congestions and a heart failure. Patient was complaining some more loose stool denied any abdominal painPatient seen by the cardiology and waiting for GI evaluations Physical Exam Vital Signs: Temp Pulse Resp BP Pulse Ox 98.4 F 69 20 135/54 H 93 02/20/17 11:19 02/20/17 11:19 02/20/17 11:19 02/20/17 11:19 02/20/17 11:19 Intake & Output 02/19/17 02/20/17 02/21/17 06:59 06:59 06:59 Intake Total 38 Output Total 100 Balance -62 Weight 108.8 kg General appearance: PRESENT: no acute distress, well-developed, well-nourished Head exam: PRESENT: atraumatic, normocephalic Eye exam: PRESENT: conjunctiva pink, EOMI, PERRLA. ABSENT: scleral icterus Ear exam: PRESENT: normal external ear exam Mouth exam: PRESENT: moist, tongue midline Neck exam: PRESENT: full ROM. ABSENT: carotid bruit, JVD, lymphadenopathy, thyromegaly Respiratory exam: PRESENT: clear to auscultation alphonse Cardiovascular exam: PRESENT: RRR. ABSENT: diastolic murmur, rubs, systolic murmur Pulses: PRESENT: normal dorsalis pedis pul, +2 pedal pulses bilateral Vascular exam: PRESENT: normal capillary refill GI/Abdominal exam: PRESENT: normal bowel sounds, soft. ABSENT: distended, guarding, mass, organolmegaly, rebound, tenderness Rectal exam: PRESENT: deferred Neurological exam: PRESENT: alert, awake, oriented to person, oriented to place , oriented to time, oriented to situation, CN II-XII grossly intact. ABSENT: motor sensory deficit Psychiatric exam: PRESENT: appropriate affect, normal mood. ABSENT: homicidal ideation, suicidal ideation Skin exam: PRESENT: dry, intact, warm. ABSENT: cyanosis, rash Results Laboratory Results: 02/20/17 05:29 02/20/17 05:29 02/19/17 02/19/17 02/19/17 14:00 14:00 14:00 WBC 9.2 RBC 3.17 L Hgb 9.3 L Hct 28.0 L MCV 88 MCH 29.5 MCHC 33.4 RDW 13.8 Plt Count 227 Seg Neutrophils % 80.0 H Lymphocytes % 8.3 L Monocytes % 11.1 Eosinophils % 0.3 Basophils % 0.3 Absolute Neutrophils 7.4 Absolute Lymphocytes 0.8 Absolute Monocytes 1.0 Absolute Eosinophils 0.0 Absolute Basophils 0.0 Sodium 132.7 L Potassium 4.2 Chloride 93 L Carbon Dioxide 28 Anion Gap 12 BUN 43 H Creatinine 1.90 H Est GFR ( Amer) 42 L Est GFR (Non-Af Amer) 34 L Glucose 103 Calcium 8.5 Total Bilirubin 1.0 AST 24 ALT 25 Alkaline Phosphatase 98 Total Protein 6.0 L Albumin 3.2 L TSH 3.34 02/20/17 02/20/17 05:29 05:29 WBC 7.1 RBC 3.01 L Hgb 9.0 L Hct 26.2 L MCV 87 MCH 29.9 MCHC 34.4 RDW 13.6 Plt Count 217 Seg Neutrophils % 77.9 Lymphocytes % 9.9 L Monocytes % 11.1 Eosinophils % 0.7 Basophils % 0.4 Absolute Neutrophils 5.5 Absolute Lymphocytes 0.7 Absolute Monocytes 0.8 Absolute Eosinophils 0.1 Absolute Basophils 0.0 Sodium 134.2 L Potassium 3.6 Chloride 97 L Carbon Dioxide 26 Anion Gap 11 BUN 37 H Creatinine 1.75 H Est GFR ( Amer) 46 L Est GFR (Non-Af Amer) 38 L Glucose 121 H Calcium 8.2 L Total Bilirubin AST ALT Alkaline Phosphatase Total Protein Albumin TSH 02/20/17 05:25 Sputum Gram Stain - Final 02/20/17 05:25 Sputum Sputum Culture - Final 02/19/17 14:00 NT-Pro-B Natriuret Pep 5880 H Impressions: Chest X-Ray 02/19/17 11:18 IMPRESSION: Findings are most consistent with vascular congestion rather than pneumonia. Clinical correlation is needed. Assessment & Plan - Diagnosis (1) Pneumonia Qualifiers: Pneumonia type: due to unspecified organism Laterality: unspecified laterality Is this a current diagnosis for this admission?: YesPlan: Start the patient on IV antibiotic patient spelled the p.o. antibiotic (2) COPD (chronic obstructive pulmonary disease) with acute bronchitis Is this a current diagnosis for this admission?: YesPlan: Start the patient on nebulizer treatments (3) Diastolic heart failure Qualifiers: Heart failure chronicity: acute on chronic Qualified Code(s): I50.33 - Acute on chronic diastolic (congestive) heart failure Is this a current diagnosis for this admission?: YesPlan: Start the patient on IV Lasix patient echo was done in 2014 the EF was 50-55 persons and patient supposed to have another echo done by Dr. álvarez office consult to Dr. urias (4) Dyslipidemia Is this a current diagnosis for this admission?: YesPlan: Continues to current medications (5) Hypertension Qualifiers: Hypertension type: essential hypertension Qualified Code(s): I10 - Essential (primary) hypertension Is this a current diagnosis for this admission?: YesPlan: Continues current med (6) Anemia Qualifiers: Anemia type: other cause Is this a current diagnosis for this admission?: YesPlan: Patient is complaining of some black stool with rule out the GI bleed and consult Dr. Lunsford (7) Prostate cancer Is this a current diagnosis for this admission?: Yes (8) Chronic kidney disease Qualifiers: Chronic kidney disease stage: stage 3 (moderate) Qualified Code(s): N18.3 - Chronic kidney disease, stage 3 (moderate) Is this a current diagnosis for this admission?: YesPlan: Currently stable (9) Weakness Is this a current diagnosis for this admission?: YesPlan: Due to multiple comorbidity will get the physical therapy - Time Time Spent with patient: 15-24 minutes Medications reviewed and adjusted accordingly: Yes Anticipated discharge: Home Within: Other - Inpatient Certification Medical Necessity: Need Close Monitoring Due to Risk of Patient Decompensation, Need for IV Antibiotics 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
[2017-02-20] MEDS ORDERED: LEVOFLOXACIN 500 MG/D5W RTU 500 MG/100 ML RTUPB IV SCH (14:00)
[2017-02-20] MEDS ORDERED: NALOXONE HCL INJ/PF 0.4 MG/1 ML SDV ONE (15:20)
[2017-02-20] MEDS ORDERED: GLUCAGON,HUMAN RECOMB 1 MG INJ ONE (15:21)
[2017-02-20] MEDS ORDERED: FENTANYL CITRATE INJ/PF 100 MCG/2 ML AMPUL ONE (15:21)
[2017-02-20] MEDS ORDERED: FLUMAZENIL INJ 0.5 MG/5 ML VIAL IV ONE (15:21)
[2017-02-20] MEDS ORDERED: EPINEPHRINE INJ 1 MG/10 ML DISP.SYRIN ONE (15:21)
[2017-02-20] MEDS: MIDAZOLAM 2 MG/2 ML INJ ONE ×2 (16:35→16:40)
--- NOTE | 2017-02-20 16:55 | PDOC CONSULTATION ---
Consultation Consult Date: 02/19/17 History of Present Illness Admission Date/PCP: 02/19/17 12:34 JOELLEN JIMENEZ MD History of Present Illness: This is a 81-year-old patient who was admitted with possible pneumonia and COPD. Consultation was requested for anemia and melena. Patient has a chronic history of anemia and review of his previous blood work showed a hemoglobin of 9.2 in August 2015 10.2 in December 2015 and 9.3 on admission this time. He was evaluated for anemia about a year ago with an EGD, colonoscopy, and capsule endoscopy. No significant pathology was identified. He is not taking any anticoagulant. He denies abdominal pain, nausea, or vomiting Past Medical History Cardiac Medical History: Reports: Hypertension Pulmonary Medical History: Reports: Asthma, Bronchitis, Chronic Obstructive Pulmonary Disease (COPD), Pneumonia Denies: Tuberculosis Neurological Medical History: Denies: Seizures Malignancy Medical History: Reports: Other GI Medical History: Reports: Gastroesophageal Reflux Disease Musculoskeltal Medical History: Reports: Arthritis Psychiatric Medical History: Reports: Depression Past Surgical History Past Surgical History: EGD, colonoscopy, and capsule endoscopy in January 2016 Past Surgical History: Reports: Herniorrhaphy - Bilateral inguinal repair Denies: Pacemaker Social History Smoking Status: Former Smoker Frequency of Alcohol Use: Rare Hx Recreational Drug Use: No Drugs: None Hx Prescription Drug Abuse: No - Advance Directive Resuscitation Status: Full Code Family History Family History: CAD, Hypertension Parental Family History Reviewed: No Children Family History Reviewed: NA Sibling(s) Family History Reviewed.: NA Medication/Allergy Home Medications: Acetaminophen [Tylenol 325 mg Tablet] 650 mg PO Q6HP PRN 02/19/17 Amiodarone HCl [Cordarone 200 mg Tablet] 200 mg PO DAILY 02/19/17 Ascorbic Acid [Vitamin C 500 mg Tablet] 500 mg PO DAILY 02/19/17 Aspirin [Aspirin 81 mg Chewable Tablet] 81 mg PO DAILY 02/19/17 Docusate Sodium [Colace 100 mg Capsule] 100 mg PO DAILY 02/19/17 Doxazosin Mesylate [Cardura] 8 mg PO DAILY 02/19/17 Isosorbide Mononitrate [Imdur 60 mg Tablet.er] 60 mg PO DAILY 02/19/17 Levalbuterol HCl [Xopenex Neb 0.63 mg/3 ml Ampul] 0.63 mg NEB RTQ8HP PRN Metoprolol Tartrate [Lopressor 25 mg Tablet] 25 mg PO Q12 02/19/17 Multivit-Min/FA/Lycopen/Lutein [Centrum Silver Men Tablet] 1 tab PO DAILY Nifedipine [Procardia XL 60 mg Tablet] 60 mg PO Q12 02/19/17 Polyethylene Glycol 3350 [Miralax Powder 17 gm/Packet] 1 packet PO DAILY Tiotropium [place] [Spiriva Handihaler 18 mcg/dose (30 Dose)] 1 cap IH DAILY Allergies/Adverse Reactions: meperidine HCl [From Demerol] Allergy (Verified 01/15/12 23:43) Review of Systems All systems: reviewed and no additional remarkable complaints except as stated Physical Exam Vital Signs: Temp Pulse Resp BP Pulse Ox 98.4 F 69 21 H 134/45 H 89 L 02/20/17 15:18 02/20/17 16:50 02/20/17 16:50 02/20/17 16:50 02/20/17 16:50 Intake & Output 02/19/17 02/20/17 02/21/17 06:59 06:59 06:59 Intake Total 38 410 Output Total 100 775 Balance -62 -365 Weight 108.8 kg Exam: General: Patient is alert and looks well. HEENT: There is some pallor but no jaundice PERRLA. Oropharynx normal Respiratory: Kyphosis. No respiratory distress. Chest wall palpitation was unremarkable. Breath sounds were normal Cardiovascular: Heart sounds 1 and 2 normal with no murmurs. Abdominal: Not distended. Soft and nontender. Liver and spleen not palpable. No ascites demonstrated. Bowel sounds active. Rectal examination was deferred. Extremities: No edema Neurological: Alert and oriented x4. Grossly nonfocal. Normal speech Skin: No significant rash Psychological: Normal affect Results Laboratory Results: 02/20/17 05:29 02/20/17 05:29 02/20/17 02/20/17 02/20/17 05:29 05:29 11:58 WBC 7.1 RBC 3.01 L Hgb 9.0 L Hct 26.2 L MCV 87 MCH 29.9 MCHC 34.4 RDW 13.6 Plt Count 217 Seg Neutrophils % 77.9 Lymphocytes % 9.9 L Monocytes % 11.1 Eosinophils % 0.7 Basophils % 0.4 Absolute Neutrophils 5.5 Absolute Lymphocytes 0.7 Absolute Monocytes 0.8 Absolute Eosinophils 0.1 Absolute Basophils 0.0 Sodium 134.2 L Potassium 3.6 Chloride 97 L Carbon Dioxide 26 Anion Gap 11 BUN 37 H Creatinine 1.75 H Est GFR ( Amer) 46 L Est GFR (Non-Af Amer) 38 L Glucose 121 H Calcium 8.2 L Stool Occult Blood NEGATIVE 02/20/17 05:25 Sputum Gram Stain - Final 02/20/17 05:25 Sputum Sputum Culture - Final 02/19/17 14:00 NT-Pro-B Natriuret Pep 5880 H Impressions: Chest X-Ray 02/19/17 11:18 IMPRESSION: Findings are most consistent with vascular congestion rather than pneumonia. Clinical correlation is needed. Assessment & Plan - Diagnosis (1) Melena Is this a current diagnosis for this admission?: YesPlan: He did have some dark or black stools for a few days which I suspect may have been from diet. He will undergo an EGD to rule out any significant pathology. He had a colonoscopy about a year ago that was unremarkable. (2) Anemia Qualifiers: Anemia type: other cause Is this a current diagnosis for this admission?: YesPlan: He has chronic anemia with a stable hemoglobin. (3) COPD (chronic obstructive pulmonary disease) with acute bronchitis Is this a current diagnosis for this admission?: Yes (4) Hypertension Qualifiers: Hypertension type: essential hypertension Qualified Code(s): I10 - Essential (primary) hypertension Is this a current diagnosis for this admission?: Yes
--- NOTE | 2017-02-20 16:57 | Operative Report ---
Operative Report DATE OF SURGERY: 02/20/17 Operative Report: Pre-op diagnosis: Anemia and melena Post-op diagnosis: Antral gastritis Surgery: Esophagogastroduodenoscopy with biopsy Medications: Versed 2mg Fentanyl 50mcg IV push Tissue removed: Antral biopsy for pathology Procedure: After informed consent obtained from patient, the throat was sprayed with Hurricane and conscious sedation was achieved. The upper endoscope was inserted into the esophagus under direct vision and advanced into the stomach. The duodenum was entered and examined to the second part. Endoscope was then slowly pulled out of the patient as the mucosa was examined into details. Patient tolerated procedure well. Findings Esophagus: Normal Z-line at: 40 cm Antrum: Mild erythema with some areas of atrophy Body: Normal Fundus: Normal Duodenum first part: Normal Duodenum second part: Normal Plan: Await pathology. Continue Prevacid OPERATION: .
[2017-02-20] MEDS: CEFTRIAXONE 1 GM/D5W RTU 1 GM/50 ML RTUPB IV SCH (17:33)
--- NOTE | 2017-02-20 18:50 | XCELERA REPORT ---
[address] [address] Transthoracic Echocardiogram Report Name: DARCIE AUSTIN Age: 81 yrs Gender: Male : 1935 Patient Status: Inpatient Patient Location: [id number]\S\336\S\A Study Date: 02/20/2017 10:07 AM Height: 70 in Weight: 238 lb BSA: 2.2 m2 Procedure: A complete two-dimensional transthoracic echocardiogram was performed (2D, M-mode, spectral and color flow Doppler). The study was technically difficult with many images being suboptimal in quality. Reason For Study: CHF Ordering Physician: AISHA KLEIN Performed By: Day Brennan Interpretation Summary The study was technically difficult with many images being suboptimal in quality. Left ventricular systolic function is low normal. Doppler measurements suggest pseudonormalized left ventricular relaxation, which is associated with grade II/IV or mild to moderate diastolic dysfunction There is mild concentric left ventricular hypertrophy. The left ventricle is grossly normal size. Regional wall motion abnormalities cannot be excluded due to limited visualization. The right ventricle is mildly dilated. The right ventricular systolic function is normal. The right ventricle appears to be hypertrophied The left atrium is moderately dilated. The right atrium is mildly dilated. There is a mild to moderate amount of mitral regurgitation There is no mitral valve stenosis. There is a trace amount of aortic regurgitation There is no aortic valve stenosis There is a mild amount of tricuspid regurgitation There is moderate pulmonary hypertension by echo Right ventricular systolic pressure is estimated to be elevated at 50- 60mmHg. The aortic root is not well visualized but is probably normal size. The inferior vena cava appeared normal and decreased < 50% with respiration (RAP 10-15 mmHg) Minimal pericardial effusion. MMode/2D Measurements \T\ Calculations RVDd: 3.7 cm LVIDd: 6.5 cm FS: 34.6 % Ao root diam: 3.3 cm IVSd: 1.0 cm LVIDs: 4.2 cm EDV(Teich): 212.5 ml LVPWd: 0.95 cm ESV(Teich): 79.4 ml Ao root area: 8.5 cm2 EF(Teich): 62.7 % LA dimension: 4.6 cm Doppler Measurements \T\ Calculations MV E max sofia: MV P1/2t max sofia: Ao V2 max: LV V1 max P.4 cm/sec 119.9 cm/sec 172.6 cm/sec 5.6 mmHg MV A max sofia: MV P1/2t: 83.5 msec Ao max PG: LV V1 max: 103.7 cm/sec 11.9 mmHg 118.5 cm/sec MV E/A: 1.2 MVA(P1/2t): 2.6 cm2 MV dec slope: 420.5 cm/sec2 MV dec time: 0.29 sec PA V2 max: TR max sofia: 103.2 cm/sec 326.9 cm/sec PA max PG: TR max P.7 mmHg 4.3 mmHg Left Ventricle The left ventricle is grossly normal size. There is mild concentric left ventricular hypertrophy. Left ventricular systolic function is low normal. Doppler measurements suggest pseudonormalized left ventricular relaxation, which is associated with grade II/IV or mild to moderate diastolic dysfunction. Regional wall motion abnormalities cannot be excluded due to limited visualization. Right Ventricle The right ventricle is mildly dilated. The right ventricle appears to be hypertrophied. The right ventricular systolic function is normal. Atria The right atrium is mildly dilated. The left atrium is moderately dilated. Interarterial septum not well visualized and not well dopplered. Cannot comment on ASD/PFO presence. Mitral Valve The mitral valve leaflets are sclerotic, but show no functional abnormalities. There is no mitral valve stenosis. There is a mild to moderate amount of mitral regurgitation. Aortic Valve The aortic valve is not well visualized secondary to technical limitations. There is no aortic valve stenosis. There is a trace amount of aortic regurgitation. Tricuspid Valve The tricuspid valve is not well visualized, but is grossly normal. There is no tricuspid stenosis. There is a mild amount of tricuspid regurgitation. There is moderate pulmonary hypertension by echo. Right ventricular systolic pressure is estimated to be elevated at 50-60mmHg. Pulmonic Valve The pulmonic valve is not well visualized. Great Vessels The aortic root is not well visualized but is probably normal size. The inferior vena cava appeared normal and decreased < 50% with respiration (RAP 10-15 mmHg). Effusions Minimal pericardial effusion. : AISHA KLEIN > Aisha Klein
[2017-02-21] MEDS: LEVALBUTEROL HCL NEB 1.25 MG/3 ML AMPUL NEB SCH ×4 (02:14→20:43)
[2017-02-21] MEDS: LANSOPRAZOLE 30 MG TAB.RAP.DR PO SCH ×2 (05:48→17:12)
[2017-02-21] MEDS: FUROSEMIDE INJ/PF 20 MG/2 ML SDV IV SCH (05:49)
[2017-02-21 05:56] LABS: ABSOLUTE EOSINOPHILS # (AUTO) 0.2 10^3/uL (0.0-0.6); ABSOLUTE LYMPHOCYTES (AUTO) 0.8 10^3/uL (0.5-4.7); ABSOLUTE MONOCYTES (AUTO) 0.8 10^3/uL (0.1-1.4); ABSOLUTE NEUT (AUTO) 4.5 10^3/uL (1.7-8.2); BASOPHILS % (AUTO) 0.6 % (0-2); EOSINOPHILS % (AUTO) 3.3 % (0-6); HEMATOCRIT 28.9 % (37.9-51.0); HEMOGLOBIN 9.5 g/dL (13.5-17.0); HGB HCT DIFFERENCE -0.4; LYMPHOCYTES % (AUTO) 13.1 % (13-45); MEAN CORPUSCULAR HEMOGLOBIN 29.6 pg (27.0-33.4); MEAN CORPUSCULAR VOLUME 90 fl (80-97); MONOCYTES % (AUTO) 12.1 % (3-13); RED BLOOD COUNT 3.22 10^6/uL (4.35-5.55); RED CELL DISTRIBUTION WIDTH 13.9 % (11.5-14.0); SEGMENTED NEUTROPHILS % (AUTO) 70.9 % (42-78); WHITE BLOOD COUNT 6.3 10^3/uL (4.0-10.5)
[2017-02-21 06:08] LABS: ANION GAP 10 (5-19); BLOOD UREA NITROGEN 24 mg/dL (7-20); CALCIUM 8.3 mg/dL (8.4-10.2); CARBON DIOXIDE 28 mmol/L (22-30); CHLORIDE 101 mmol/L (98-107); CREATININE RESULT 1.39 mg/dL (0.52-1.25); GLUCOSE 98 mg/dL (75-110); POTASSIUM 3.7 mmol/L (3.6-5.0); SODIUM 138.6 mmol/L (137-145)
[2017-02-21 08:47] LABS: PROSTATE SPECIFIC ANTIGEN <0.1 ng/mL (0.0-4.0); PSA FREE <0.01 ng/mL
[2017-02-21] MEDS: LEVOFLOXACIN 500 MG TABLET PO SCH (10:17)
[2017-02-21] MEDS: ISOSORBIDE MONONITRATE 60 MG TAB.ER.24H PO SCH (10:17)
[2017-02-21] MEDS: DOXAZOSIN MESYLATE 4 MG TABLET PO SCH (10:18)
[2017-02-21] MEDS: MULTIVITAMIN TABLET PO SCH (10:18)
[2017-02-21] MEDS: FUROSEMIDE 40 MG TABLET PO SCH ×2 (10:18→17:12)
[2017-02-21] MEDS: NIFEDIPINE 30 MG TAB.ER.24 PO SCH ×2 (10:18→21:19)
[2017-02-21] MEDS: ASPIRIN 81 MG TABLET, CHEWABLE PO SCH (10:18)
[2017-02-21] MEDS: ASCORBIC ACID 500 MG TABLET PO SCH (10:18)
[2017-02-21] MEDS: AMIODARONE HCL 200 MG TABLET PO SCH (10:19)
[2017-02-21] MEDS: POLYETHYLENE GLYCOL 3350 POWDER 17 GM/1 PACKET PO SCH (10:19)
[2017-02-21] MEDS: DOCUSATE SODIUM 100 MG CAPSULE PO SCH ×2 (10:19→17:13)
[2017-02-21] MEDS: METOPROLOL TARTRATE 25 MG TABLET PO SCH (10:19)
--- NOTE | 2017-02-21 11:15 | PDOC PROGRESS REPORT ---
Subjective Progress Note for:: 02/21/17 Subjective:: Patient is currently doing wellPatient have endoscopy done yesterday no active bleeding is not is. Patient's denied any chest pain denied any shortness of the breath Physical Exam Vital Signs: Temp Pulse Resp BP Pulse Ox 98.0 F 95 17 145/68 H 91 L 02/21/17 07:38 02/21/17 08:21 02/21/17 08:21 02/21/17 07:38 02/21/17 08:21 Intake & Output 02/20/17 02/21/17 02/22/17 06:59 06:59 06:59 Intake Total 38 621 Output Total 100 1999 Balance -62 -6503 Weight 108.8 kg 108.3 kg General appearance: PRESENT: no acute distress, well-developed, well-nourished Head exam: PRESENT: atraumatic, normocephalic Eye exam: PRESENT: conjunctiva pink, EOMI, PERRLA. ABSENT: scleral icterus Ear exam: PRESENT: normal external ear exam Mouth exam: PRESENT: moist, tongue midline Neck exam: PRESENT: full ROM. ABSENT: carotid bruit, JVD, lymphadenopathy, thyromegaly Respiratory exam: PRESENT: clear to auscultation alphonse Cardiovascular exam: PRESENT: RRR. ABSENT: diastolic murmur, rubs, systolic murmur Pulses: PRESENT: normal dorsalis pedis pul, +2 pedal pulses bilateral Vascular exam: PRESENT: normal capillary refill GI/Abdominal exam: PRESENT: normal bowel sounds, soft. ABSENT: distended, guarding, mass, organolmegaly, rebound, tenderness Rectal exam: PRESENT: deferred Neurological exam: PRESENT: alert, awake, oriented to person, oriented to place , oriented to time, oriented to situation, CN II-XII grossly intact. ABSENT: motor sensory deficit Psychiatric exam: PRESENT: appropriate affect, normal mood. ABSENT: homicidal ideation, suicidal ideation Skin exam: PRESENT: dry, intact, warm. ABSENT: cyanosis, rash Results Laboratory Results: 02/21/17 05:38 02/21/17 05:38 02/20/17 02/20/17 02/21/17 05:29 11:58 05:38 WBC 6.3 RBC 3.22 L Hgb 9.5 L Hct 28.9 L MCV 90 MCH 29.6 MCHC 33.0 RDW 13.9 Plt Count 234 Seg Neutrophils % 70.9 Lymphocytes % 13.1 Monocytes % 12.1 Eosinophils % 3.3 Basophils % 0.6 Absolute Neutrophils 4.5 Absolute Lymphocytes 0.8 Absolute Monocytes 0.8 Absolute Eosinophils 0.2 Absolute Basophils 0.0 Sodium Potassium Chloride Carbon Dioxide Anion Gap BUN Creatinine Est GFR ( Amer) Est GFR (Non-Af Amer) Glucose Calcium Prostate Specific Ag <0.1 Free PSA <0.01 % Free PSA TNP Stool Occult Blood NEGATIVE 02/21/17 05:38 WBC RBC Hgb Hct MCV MCH MCHC RDW Plt Count Seg Neutrophils % Lymphocytes % Monocytes % Eosinophils % Basophils % Absolute Neutrophils Absolute Lymphocytes Absolute Monocytes Absolute Eosinophils Absolute Basophils Sodium 138.6 Potassium 3.7 Chloride 101 Carbon Dioxide 28 Anion Gap 10 BUN 24 H Creatinine 1.39 H Est GFR ( Amer) > 60 Est GFR (Non-Af Amer) 49 L Glucose 98 Calcium 8.3 L Prostate Specific Ag Free PSA % Free PSA Stool Occult Blood 02/20/17 05:25 Sputum Gram Stain - Final 02/20/17 05:25 Sputum Sputum Culture - Final 02/19/17 14:00 NT-Pro-B Natriuret Pep 5880 H Impressions: Chest X-Ray 02/19/17 11:18 IMPRESSION: Findings are most consistent with vascular congestion rather than pneumonia. Clinical correlation is needed. Assessment & Plan - Diagnosis (1) Pneumonia Qualifiers: Pneumonia type: due to unspecified organism Laterality: unspecified laterality Is this a current diagnosis for this admission?: YesPlan: All resolved with switch the p.o. antibiotic (2) COPD (chronic obstructive pulmonary disease) with acute bronchitis Is this a current diagnosis for this admission?: YesPlan: Start the patient on nebulizer treatments (3) Diastolic heart failure Qualifiers: Heart failure chronicity: acute on chronic Qualified Code(s): I50.33 - Acute on chronic diastolic (congestive) heart failure Is this a current diagnosis for this admission?: YesPlan: Switch IV to the p.o. Lasix (4) Dyslipidemia Is this a current diagnosis for this admission?: YesPlan: Continues to current medications (5) Hypertension Qualifiers: Hypertension type: essential hypertension Qualified Code(s): I10 - Essential (primary) hypertension Is this a current diagnosis for this admission?: YesPlan: Continues current med (6) Anemia Qualifiers: Anemia type: other cause Is this a current diagnosis for this admission?: YesPlan: Currently all stable status post endoscopy (7) Prostate cancer Is this a current diagnosis for this admission?: YesPlan: While PSA is normal (8) Chronic kidney disease Qualifiers: Chronic kidney disease stage: stage 3 (moderate) Qualified Code(s): N18.3 - Chronic kidney disease, stage 3 (moderate) Is this a current diagnosis for this admission?: YesPlan: Currently all improving (9) Weakness Is this a current diagnosis for this admission?: YesPlan: Feeling much better continues to physical therapy - Time Time Spent with patient: 15-24 minutes Medications reviewed and adjusted accordingly: Yes Anticipated discharge: Home Within: within 24 hours - Inpatient Certification Medical Necessity: Need Close Monitoring Due to Risk of Patient Decompensation, Need for IV Antibiotics Post Hospital Care: D/C Ict Development Manager Documentation - Plan Summary Plan Summary: We will switch to the IV to the p.o. medications continues to physical therapy repeat the chest x-ray and if is remained stable discharge home soon
--- NOTE | 2017-02-21 13:03 | RADIOLOGY REPORT (SQ) ---
EXAM DESCRIPTION: CHEST PA/LAT COMPLETED DATE/TIME: 02/21/2017 12:44 pm REASON FOR STUDY: chf COMPARISON: CT chest 11/20/2006 Chest films 12/07/2015, 02/16/2017, 02/19/2017 EXAM PARAMETERS: NUMBER OF VIEWS: two views TECHNIQUE: Digital Frontal and Lateral radiographic views of the chest acquired. RADIATION DOSE: NA LIMITATIONS: none FINDINGS: LUNGS AND PLEURA: Low lung volumes. Trace fluid in the lateral and posterior costophrenic sulci with patchy airspace disease just above the right and left hemidiaphragms. More diffuse airsp mary disease in the right upper lobe. Findings likely represent fluid overload or congestive failure are with patchy alveolar edema and trace pleural effusions. No pneumothorax. No dense lobar consolidation worrisome for pneumonia MEDIASTINUM AND HILAR STRUCTURES: No masses or contour abnormalities. HEART AND VASCULAR STRUCTURES: Moderate cardiomegaly. No evidence for failure. BONES: No acute findings. HARDWARE: None in the chest. OTHER: No other significant finding. IMPRESSION: Mild alveolar edema with trace bilateral pleural effusions. TECHNICAL DOCUMENTATION: JOB ID: [id number]- All Rights Reserved
[2017-02-21 18:43] LABS: ARTERIAL BLOOD BASE EXCESS 4.1 mmol/L; ARTERIAL BLOOD O2 SATURATION 94.2 % (94-98)
[2017-02-22] MEDS: LEVALBUTEROL HCL NEB 1.25 MG/3 ML AMPUL NEB SCH ×4 (02:55→20:28)
[2017-02-22] MEDS: LANSOPRAZOLE 30 MG TAB.RAP.DR PO SCH ×2 (04:59→17:20)
[2017-02-22 06:16] LABS: ABSOLUTE BASOPHILS # (AUTO) 0.1 10^3/uL (0.0-0.2); ABSOLUTE EOSINOPHILS # (AUTO) 0.3 10^3/uL (0.0-0.6); ABSOLUTE LYMPHOCYTES (AUTO) 0.9 10^3/uL (0.5-4.7); ABSOLUTE MONOCYTES (AUTO) 0.9 10^3/uL (0.1-1.4); ABSOLUTE NEUT (AUTO) 5.1 10^3/uL (1.7-8.2); BASOPHILS % (AUTO) 0.7 % (0-2); EOSINOPHILS % (AUTO) 4.7 % (0-6); HEMATOCRIT 29.8 % (37.9-51.0); HEMOGLOBIN 9.7 g/dL (13.5-17.0); HGB HCT DIFFERENCE -0.7; LYMPHOCYTES % (AUTO) 12.4 % (13-45); MEAN CORPUSCULAR HEMOGLOBIN 29.1 pg (27.0-33.4); MEAN CORPUSCULAR HGB CONC 32.7 g/dL (32.0-36.0); MEAN CORPUSCULAR VOLUME 89 fl (80-97); MONOCYTES % (AUTO) 11.9 % (3-13); RED BLOOD COUNT 3.35 10^6/uL (4.35-5.55); RED CELL DISTRIBUTION WIDTH 13.6 % (11.5-14.0); SEGMENTED NEUTROPHILS % (AUTO) 70.3 % (42-78); WHITE BLOOD COUNT 7.3 10^3/uL (4.0-10.5)
[2017-02-22 06:33] LABS: ANION GAP 10 (5-19); BLOOD UREA NITROGEN 20 mg/dL (7-20); CALCIUM 8.2 mg/dL (8.4-10.2); CARBON DIOXIDE 28 mmol/L (22-30); CHLORIDE 101 mmol/L (98-107); GLUCOSE 104 mg/dL (75-110); POTASSIUM 3.7 mmol/L (3.6-5.0)
--- NOTE | 2017-02-22 09:50 | PDOC PROGRESS REPORT ---
Subjective Progress Note for:: 02/22/17 Subjective:: Patient is currently doing fair. No chest pain no shortness of the breath. Patient heart rate was running low yesterday and Dr. Araujo stop the amiodarone and the beta-danyelle.Patient's otherwise did not walk yesterday Physical Exam Vital Signs: Temp Pulse Resp BP Pulse Ox 97.5 F 80 19 118/59 L 92 02/22/17 07:32 02/22/17 07:32 02/22/17 07:32 02/22/17 07:32 02/22/17 07:32 Intake & Output 02/21/17 02/22/17 02/23/17 06:59 06:59 06:59 Intake Total 621 974 Output Total 1999 2400 Balance -1379 -1426 Weight 108.3 kg 108 kg General appearance: PRESENT: no acute distress, well-developed, well-nourished Head exam: PRESENT: atraumatic, normocephalic Eye exam: PRESENT: conjunctiva pink, EOMI, PERRLA. ABSENT: scleral icterus Ear exam: PRESENT: normal external ear exam Mouth exam: PRESENT: moist, tongue midline Neck exam: PRESENT: full ROM. ABSENT: carotid bruit, JVD, lymphadenopathy, thyromegaly Respiratory exam: PRESENT: clear to auscultation alphonse Cardiovascular exam: PRESENT: RRR. ABSENT: diastolic murmur, rubs, systolic murmur Pulses: PRESENT: normal dorsalis pedis pul, +2 pedal pulses bilateral Vascular exam: PRESENT: normal capillary refill GI/Abdominal exam: PRESENT: normal bowel sounds, soft. ABSENT: distended, guarding, mass, organolmegaly, rebound, tenderness Rectal exam: PRESENT: deferred Neurological exam: PRESENT: alert, awake, oriented to person, oriented to place , oriented to time, oriented to situation, CN II-XII grossly intact. ABSENT: motor sensory deficit Psychiatric exam: PRESENT: appropriate affect, normal mood. ABSENT: homicidal ideation, suicidal ideation Skin exam: PRESENT: dry, intact, warm. ABSENT: cyanosis, rash Results Laboratory Results: 02/22/17 05:53 02/22/17 05:53 02/21/17 02/22/17 02/22/17 18:34 05:53 05:53 WBC 7.3 RBC 3.35 L Hgb 9.7 L Hct 29.8 L MCV 89 MCH 29.1 MCHC 32.7 RDW 13.6 Plt Count 253 Seg Neutrophils % 70.3 Lymphocytes % 12.4 L Monocytes % 11.9 Eosinophils % 4.7 Basophils % 0.7 Absolute Neutrophils 5.1 Absolute Lymphocytes 0.9 Absolute Monocytes 0.9 Absolute Eosinophils 0.3 Absolute Basophils 0.1 Carbonic Acid 1.16 HCO3/H2CO3 Ratio 23:1 ABG pH 7.48 H ABG pCO2 38.4 ABG pO2 65.3 L ABG HCO3 27.8 H ABG O2 Saturation 94.2 ABG Base Excess 4.1 FiO2 2L Sodium 139.0 Potassium 3.7 Chloride 101 Carbon Dioxide 28 Anion Gap 10 BUN 20 Creatinine 1.40 H Est GFR ( Amer) 59 L Est GFR (Non-Af Amer) 49 L Glucose 104 Calcium 8.2 L 02/19/17 02/22/17 14:00 05:53 NT-Pro-B Natriuret Pep 5880 H 3900 H Impressions: Chest X-Ray 02/21/17 00:00 IMPRESSION: Mild alveolar edema with trace bilateral pleural effusions. Assessment & Plan - Diagnosis (1) Pneumonia Qualifiers: Pneumonia type: due to unspecified organism Laterality: unspecified laterality Is this a current diagnosis for this admission?: YesPlan: Continues to p.oHaresh John (2) COPD (chronic obstructive pulmonary disease) with acute bronchitis Is this a current diagnosis for this admission?: YesPlan: Start the patient on nebulizer treatments (3) Diastolic heart failure Qualifiers: Heart failure chronicity: acute on chronic Qualified Code(s): I50.33 - Acute on chronic diastolic (congestive) heart failure Is this a current diagnosis for this admission?: YesPlan: Continues to p.o. Lassandra (4) Dyslipidemia Is this a current diagnosis for this admission?: YesPlan: Continues to current medications (5) Hypertension Qualifiers: Hypertension type: essential hypertension Qualified Code(s): I10 - Essential (primary) hypertension Is this a current diagnosis for this admission?: YesPlan: Continues current med (6) Anemia Qualifiers: Anemia type: other cause Is this a current diagnosis for this admission?: YesPlan: Currently all stable status post endoscopy (7) Prostate cancer Is this a current diagnosis for this admission?: YesPlan: While PSA is normal (8) Chronic kidney disease Qualifiers: Chronic kidney disease stage: stage 3 (moderate) Qualified Code(s): N18.3 - Chronic kidney disease, stage 3 (moderate) Is this a current diagnosis for this admission?: YesPlan: Currently all improving (9) Weakness Is this a current diagnosis for this admission?: Yes - Time Time Spent with patient: 15-24 minutes Medications reviewed and adjusted accordingly: Yes Anticipated discharge: Home Within: within 24 hours - Inpatient Certification Medical Necessity: Need Close Monitoring Due to Risk of Patient Decompensation Post Hospital Care: D/C Engraver Tender Documentation - Plan Summary Plan Summary: Today get the physical therapy evaluations continues to current p.o. medications
[2017-02-22] MEDS: DOXAZOSIN MESYLATE 4 MG TABLET PO SCH (10:08)
[2017-02-22] MEDS: LEVOFLOXACIN 500 MG TABLET PO SCH (10:09)
[2017-02-22] MEDS: FUROSEMIDE 40 MG TABLET PO SCH ×2 (10:09→17:20)
[2017-02-22] MEDS: ASCORBIC ACID 500 MG TABLET PO SCH (10:09)
[2017-02-22] MEDS: NIFEDIPINE 30 MG TAB.ER.24 PO SCH ×2 (10:09→23:11)
[2017-02-22] MEDS: ISOSORBIDE MONONITRATE 60 MG TAB.ER.24H PO SCH (10:10)
[2017-02-22] MEDS: ASPIRIN 81 MG TABLET, CHEWABLE PO SCH (10:10)
[2017-02-22] MEDS: DOCUSATE SODIUM 100 MG CAPSULE PO SCH ×2 (10:10→17:23)
[2017-02-22] MEDS: POLYETHYLENE GLYCOL 3350 POWDER 17 GM/1 PACKET PO SCH (10:10)
[2017-02-22] MEDS: MULTIVITAMIN TABLET PO SCH (10:10)
--- NOTE | 2017-02-22 10:45 | EKG REPORT ---
SEVERITY:- ABNORMAL ECG - SINUS RHYTHM FIRST DEGREE AV BLOCK RBBB AND LPFB ST DEPRESSION, CONSIDER ISCHEMIA, ANT-LAT LDS : Confirmed by: Saranya Medrano MD 22-Feb-2017 10:45:12
--- NOTE | 2017-02-22 12:14 | PDOC PROGRESS REPORT ---
Subjective Progress Note for:: 02/21/17 Subjective:: Patient seems to be doing better with gradual improvement. Pt is denying any chest arm or neck discomfort. Patient denying any PND, orthopnea. Patient denied any sustained palpitations, dizziness, syncope, near syncope. Patient denying any fever chills. Patient denying any other significant discomfort. Patient is maintaining sinus rhythm. I was called back to see patient in the evening when he was noted to be severely bradycardic. Review of systems: Rest review of systems negative. Medications: Medications have been reviewed. Physical Exam Vital Signs: Temp Pulse Resp BP Pulse Ox 98.1 F 63 19 149/46 H 95 02/21/17 16:39 02/21/17 16:39 02/21/17 16:39 02/21/17 16:39 02/21/17 16:39 Intake & Output 02/20/17 02/21/17 02/22/17 06:59 06:59 06:59 Intake Total 38 621 490 Output Total 100 2000 900 Balance -62 -1916 -410 Weight 108.8 kg 108.3 kg Exam: GENERAL: well-nourished and in no acute distress. Alert and oriented x3 HEAD: Atraumatic, normocephalic. EYES: Pupils equal round and reactive to light, extraocular movements intact, sclera anicteric, conjunctiva are normal. ENT: TMs normal, nares patent, oropharynx clear without exudates. Moist mucous membranes. No oral ulcerations or bleeding gums noted NECK: supple without lymphadenopathy. Trachea is central. No cervical or axillary lymphadenopathy noted. Carotids are 2+, JVD 10 cm LUNGS: Respiration seems nonlabored, no significant accessory muscle action noted. Breath sounds clear to auscultation bilaterally and equal noted. No wheezes rales or rhonchi noted. No significant dullness noted on percussion. CHEST: Palpation of the chest wall shows no significant chest wall tenderness. No other significant abnormalities noted. HEART: [place] VBA DEVELOPER, No PSH, 1/6 PEDRO aortic area, 1/6 fan systolic murmur mitral area, no rubs, no gallops. ABDOMEN: Soft, no significant tenderness appreciated, normoactive bowel sounds. No guarding, no rebound. No rigidity noted . No masses appreciated. EXTREMITIES: Pedal pulses are 1-2+, no calf tenderness noted. No clubbing or cyanosis. 1+ pedal edema noted NEUROLOGICAL: Focused neurological exam showed no significant neurologic deficit. Normal speech, no focal weakness appreciated. PSYCH: Normal mood, normal affect. Judgment and insight within normal limits. SKIN: No significant ecchymosis, rash, ulcerations or signs of pruritus noted. MUSCULOSKELETAL EXAM: No significant joint swelling noted. Results Laboratory Results: 02/21/17 05:38 02/21/17 05:38 02/20/17 02/21/17 02/21/17 05:29 05:38 05:38 WBC 6.3 RBC 3.22 L Hgb 9.5 L Hct 28.9 L MCV 90 MCH 29.6 MCHC 33.0 RDW 13.9 Plt Count 234 Seg Neutrophils % 70.9 Lymphocytes % 13.1 Monocytes % 12.1 Eosinophils % 3.3 Basophils % 0.6 Absolute Neutrophils 4.5 Absolute Lymphocytes 0.8 Absolute Monocytes 0.8 Absolute Eosinophils 0.2 Absolute Basophils 0.0 Carbonic Acid HCO3/H2CO3 Ratio ABG pH ABG pCO2 ABG pO2 ABG HCO3 ABG O2 Saturation ABG Base Excess FiO2 Sodium 138.6 Potassium 3.7 Chloride 101 Carbon Dioxide 28 Anion Gap 10 BUN 24 H Creatinine 1.39 H Est GFR ( Amer) > 60 Est GFR (Non-Af Amer) 49 L Glucose 98 Calcium 8.3 L Prostate Specific Ag <0.1 Free PSA <0.01 % Free PSA TNP 02/21/17 18:34 WBC RBC Hgb Hct MCV MCH MCHC RDW Plt Count Seg Neutrophils % Lymphocytes % Monocytes % Eosinophils % Basophils % Absolute Neutrophils Absolute Lymphocytes Absolute Monocytes Absolute Eosinophils Absolute Basophils Carbonic Acid 1.16 HCO3/H2CO3 Ratio 23:1 ABG pH 7.48 H ABG pCO2 38.4 ABG pO2 65.3 L ABG HCO3 27.8 H ABG O2 Saturation 94.2 ABG Base Excess 4.1 FiO2 2L Sodium Potassium Chloride Carbon Dioxide Anion Gap BUN Creatinine Est GFR ( Amer) Est GFR (Non-Af Amer) Glucose Calcium Prostate Specific Ag Free PSA % Free PSA 02/19/17 14:00 NT-Pro-B Natriuret Pep 5880 H EKG Comments: EKG rhythm strips reviewed. 12-lead EKG is reviewed which showed sinus rhythm with nonspecific IVCD. Impressions: Chest X-Ray 02/21/17 00:00 IMPRESSION: Mild alveolar edema with trace bilateral pleural effusions. Assessment & Plan - Diagnosis (1) Congestive heart failure Is this a current diagnosis for this admission?: Yes (2) Acute and chronic respiratory failure Qualifiers: Respiratory failure complication: hypoxia Qualified Code(s): J96.21 - Acute and chronic respiratory failure with hypoxia Is this a current diagnosis for this admission?: Yes (3) Chronic kidney disease Qualifiers: Chronic kidney disease stage: stage 3 (moderate) Qualified Code(s): N18.3 - Chronic kidney disease, stage 3 (moderate) Is this a current diagnosis for this admission?: Yes (4) COPD (chronic obstructive pulmonary disease) with acute bronchitis Is this a current diagnosis for this admission?: Yes (5) Dyslipidemia Is this a current diagnosis for this admission?: Yes (6) Hypertension Qualifiers: Hypertension type: essential hypertension Qualified Code(s): I10 - Essential (primary) hypertension Is this a current diagnosis for this admission?: Yes (7) Bradycardia Is this a current diagnosis for this admission?: Yes - Notes Notes: I was called to see the patient again because of severe bradycardia at around 5 PM. Patient telemetry strips were reviewed. Have ordered to discontinue beta- danyelle and amiodarone pending further review of patient's cardiovascular status. Twelve-lead EKG was ordered. ABG ordered. vehicle monitor technician, 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 Patient noted to have intermittent severe bradycardia with heart rate in the high 30s. Twelve-lead EKG, these were reviewed. Showed sinus with nonspecific IVCD. Chest x-ray: Results reviewed. It showed congestive heart failure and cardiomegaly. Medications: These were reviewed. Labs: These were reviewed. Treatment/care plan: This was reviewed and discussed with involved personnel in the care of this patient and patient. Bradycardia: Most likely related to underlying sick sinus syndrome and conduction disease. Have discontinued beta-danyelle and amiodarone. Recommend event monitoring. CHF: This seems significantly improved on clinical exam. Continue baseline diuretic therapy. Patient should be educated in CHF pathway. This should include salt and fluid restriction, daily weighing, adjustment of diuretic therapy based on weight gain et cetera. Patient to be educated that if there is gain of more than 2 pounds in a day or more than 5 pounds in a week, this indicates fluid retention and patient may need to adjust the diuretic therapy. Symptoms associated with CHF exacerbation to be discussed with the patient. This could include rapid weight gain, abdominal bloating, increased shortness of breath, fatigue, tiredness, cardiac arrhythmias et cetera. Acute on chronic respiratory failure: This has improved with treatment of CHF. Chronic kidney disease: Lab work reviewed. This seems stable. Continue to monitor renal functions. COPD with acute bronchitis: Continue bronchodilator therapy. Dyslipidemia: Currently stable. Hypertension: Currently blood pressure is under satisfactory control. Patient's medical regimen reviewed. This seems satisfactory at this point. Further adjustment will be made as needed. - Time Time with patient: Greater than 35 minutes - Patient was seen twice. Total time exceeds about 40 minutes. CODE STATUS was discussed, patient remains full code. Surrogate decision-maker unchanged. Multiple medical problems were addressed. More than 50% of the time spent coordinating care, discussing management plans with involved caregivers. Management plans discussed with involved personnels. Medical decision making was of high complexity, patient's has multiple comorbidities. Medications reviewed and adjusted accordingly: Yes
--- NOTE | 2017-02-22 12:27 | PDOC PROGRESS REPORT ---
Subjective Progress Note for:: 02/22/17 Subjective:: Patient seems to be doing better with gradual improvement. Pt is denying any chest arm or neck discomfort. Patient denying any PND, orthopnea. Patient denied any sustained palpitations, dizziness, syncope, near syncope. Patient denying any fever chills. Patient denying any other significant discomfort. Patient is maintaining sinus rhythm. Heart rhythm more stable, no further bradycardia noted. Review of systems: Rest review of systems negative. Medications: Medications have been reviewed. Physical Exam Vital Signs: Temp Pulse Resp BP Pulse Ox 97.5 F 80 19 118/59 L 92 02/22/17 07:32 02/22/17 07:32 02/22/17 07:32 02/22/17 07:32 02/22/17 07:32 Intake & Output 02/21/17 02/22/17 02/23/17 06:59 06:59 06:59 Intake Total 621 974 Output Total 2000 2400 Balance -1379 -1426 Weight 108.3 kg 108 kg Exam: GENERAL: well-nourished and in no acute distress. Alert and oriented x3 HEAD: Atraumatic, normocephalic. EYES: Pupils equal round and reactive to light, extraocular movements intact, sclera anicteric, conjunctiva are normal. ENT: TMs normal, nares patent, oropharynx clear without exudates. Moist mucous membranes. No oral ulcerations or bleeding gums noted NECK: supple without lymphadenopathy. Trachea is central. No cervical or axillary lymphadenopathy noted. Carotids are 2+, JVD WNL LUNGS: Respiration seems nonlabored, no significant accessory muscle action noted. Breath sounds clear to auscultation bilaterally and equal noted. No wheezes rales or rhonchi noted. No significant dullness noted on percussion. CHEST: Palpation of the chest wall shows no significant chest wall tenderness. No other significant abnormalities noted. 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 ABDOMEN: Soft, no significant tenderness appreciated, normoactive bowel sounds. No guarding, no rebound. No rigidity noted . No masses appreciated. EXTREMITIES: Pedal pulses are 1-2+, no calf tenderness noted. No clubbing or cyanosis. 1+ pedal edema noted NEUROLOGICAL: Focused neurological exam showed no significant neurologic deficit. Normal speech, no focal weakness appreciated. PSYCH: Normal mood, normal affect. Judgment and insight within normal limits. SKIN: No significant ecchymosis, rash, ulcerations or signs of pruritus noted. MUSCULOSKELETAL EXAM: No significant joint swelling noted. Results Laboratory Results: 02/22/17 05:53 02/22/17 05:53 02/21/17 02/22/17 02/22/17 18:34 05:53 05:53 WBC 7.3 RBC 3.35 L Hgb 9.7 L Hct 29.8 L MCV 89 MCH 29.1 MCHC 32.7 RDW 13.6 Plt Count 253 Seg Neutrophils % 70.3 Lymphocytes % 12.4 L Monocytes % 11.9 Eosinophils % 4.7 Basophils % 0.7 Absolute Neutrophils 5.1 Absolute Lymphocytes 0.9 Absolute Monocytes 0.9 Absolute Eosinophils 0.3 Absolute Basophils 0.1 Carbonic Acid 1.16 HCO3/H2CO3 Ratio 23:1 ABG pH 7.48 H ABG pCO2 38.4 ABG pO2 65.3 L ABG HCO3 27.8 H ABG O2 Saturation 94.2 ABG Base Excess 4.1 FiO2 2L Sodium 139.0 Potassium 3.7 Chloride 101 Carbon Dioxide 28 Anion Gap 10 BUN 20 Creatinine 1.40 H Est GFR ( Amer) 59 L Est GFR (Non-Af Amer) 49 L Glucose 104 Calcium 8.2 L 02/20/17 05:25 Clean Catch Midstream Urine Culture - Final NO GROWTH 2 DAYS 02/19/17 02/22/17 14:00 05:53 NT-Pro-B Natriuret Pep 5880 H 3900 H EKG Comments: ABDs and twelve-lead EKG from yesterday reviewed. Impressions: Chest X-Ray 02/21/17 00:00 IMPRESSION: Mild alveolar edema with trace bilateral pleural effusions. Assessment & Plan - Diagnosis (1) Congestive heart failure Is this a current diagnosis for this admission?: Yes (2) Acute and chronic respiratory failure Qualifiers: Respiratory failure complication: hypoxia Qualified Code(s): J96.21 - Acute and chronic respiratory failure with hypoxia Is this a current diagnosis for this admission?: Yes (3) Chronic kidney disease Qualifiers: Chronic kidney disease stage: stage 3 (moderate) Qualified Code(s): N18.3 - Chronic kidney disease, stage 3 (moderate) Is this a current diagnosis for this admission?: Yes (4) COPD (chronic obstructive pulmonary disease) with acute bronchitis Is this a current diagnosis for this admission?: Yes (5) Dyslipidemia Is this a current diagnosis for this admission?: Yes (6) Hypertension Qualifiers: Hypertension type: essential hypertension Qualified Code(s): I10 - Essential (primary) hypertension Is this a current diagnosis for this admission?: Yes (7) Bradycardia Is this a current diagnosis for this admission?: Yes - Notes Notes: quality assurance monitor chassis, 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 Twelve-lead EKG, these were reviewed. Showed sinus with left bundle branch block pattern. Chest x-ray: Results reviewed from yesterday. It showed congestive heart failure and cardiomegaly. Medications: These were reviewed. Stop beta-danyelle and amiodarone. Labs: These were reviewed. Treatment/care plan: This was reviewed and discussed with involved personnel in the care of this patient and patient. CHF: This seems improved on clinical exam. Continue current dose of diuretics. Patient should be educated in CHF pathway. This should include salt and fluid restriction, daily weighing, adjustment of diuretic therapy based on weight gain et cetera. Patient to be educated that if there is gain of more than 2 pounds in a day or more than 5 pounds in a week, this indicates fluid retention and patient may need to adjust the diuretic therapy. Symptoms associated with CHF exacerbation to be discussed with the patient. This could include rapid weight gain, abdominal bloating, increased shortness of breath, fatigue, tiredness, cardiac arrhythmias et cetera. Acute on chronic respiratory failure: This has improved with treatment of CHF. Chronic kidney disease: Lab work reviewed. This seems stable. Continue to monitor renal functions. COPD with acute bronchitis: Continue bronchodilator therapy. Dyslipidemia: Currently stable. Hypertension: Currently blood pressure is under satisfactory control. 2D echo shows low normal LVEF. This was reviewed with the patient and patient' s attending. Patient's medical regimen reviewed. This seems satisfactory at this point. Further adjustment will be made as needed. - Time Time with patient: Greater than 35 minutes - CODE STATUS was discussed, patient remains full code. Surrogate decision-maker unchanged. Multiple medical problems were addressed. More than 50% of the time spent coordinating care, discussing management plans with involved caregivers. Management plans discussed with involved personnels. Medical decision making was of moderate to high complexity, patient's has multiple comorbidities. Medications reviewed and adjusted accordingly: Yes
[2017-02-23] MEDS: LEVALBUTEROL HCL NEB 1.25 MG/3 ML AMPUL NEB SCH ×4 (02:05→20:24)
[2017-02-23] MEDS: LANSOPRAZOLE 30 MG TAB.RAP.DR PO SCH ×2 (05:18→17:42)
[2017-02-23 06:07] LABS: ANION GAP 11 (5-19); BLOOD UREA NITROGEN 22 mg/dL (7-20); CALCIUM 8.3 mg/dL (8.4-10.2); CARBON DIOXIDE 29 mmol/L (22-30); CHLORIDE 100 mmol/L (98-107); CREATININE RESULT 1.51 mg/dL (0.52-1.25); GLUCOSE 110 mg/dL (75-110); POTASSIUM 3.9 mmol/L (3.6-5.0); SODIUM 139.5 mmol/L (137-145)
--- NOTE | 2017-02-23 09:26 | RADIOLOGY REPORT (SQ) ---
EXAM DESCRIPTION: CHEST PA/LAT COMPLETED DATE/TIME: 02/23/2017 8:45 am REASON FOR STUDY: chf COMPARISON: 02/21/2017 EXAM PARAMETERS: NUMBER OF VIEWS: two views TECHNIQUE: Digital Frontal and Lateral radiographic views of the chest acquired. RADIATION DOSE: NA LIMITATIONS: none FINDINGS: LUNGS AND PLEURA: The previously described alveolar edema appears improved. There is some minimal residual blunting of the costophrenic angles consistent with tiny pleural effusions. MEDIASTINUM AND HILAR STRUCTURES: No masses or contour abnormalities. HEART AND VASCULAR STRUCTURES: Cardiac silhouette appears less prominent. BONES: No acute findings. HARDWARE: None in the chest. OTHER: No other significant finding. IMPRESSION: Interval improvement as noted above. TECHNICAL DOCUMENTATION: JOB ID: [id number] [facility]- All Rights Reserved
[2017-02-23] MEDS: NIFEDIPINE 30 MG TAB.ER.24 PO SCH ×2 (10:02→22:19)
[2017-02-23] MEDS: POLYETHYLENE GLYCOL 3350 POWDER 17 GM/1 PACKET PO SCH (10:02)
[2017-02-23] MEDS: ISOSORBIDE MONONITRATE 60 MG TAB.ER.24H PO SCH (10:03)
[2017-02-23] MEDS: DOXAZOSIN MESYLATE 4 MG TABLET PO SCH (10:03)
[2017-02-23] MEDS: DOCUSATE SODIUM 100 MG CAPSULE PO SCH ×2 (10:03→17:42)
[2017-02-23] MEDS: FUROSEMIDE 40 MG TABLET PO SCH (10:04)
[2017-02-23] MEDS: MULTIVITAMIN TABLET PO SCH (10:04)
[2017-02-23] MEDS: LEVOFLOXACIN 500 MG TABLET PO SCH (10:04)
[2017-02-23] MEDS: ASCORBIC ACID 500 MG TABLET PO SCH (10:04)
[2017-02-23] MEDS: ASPIRIN 81 MG TABLET, CHEWABLE PO SCH (10:05)
--- NOTE | 2017-02-23 15:21 | PDOC PROGRESS REPORT ---
Subjective Progress Note for:: 02/23/17 Subjective:: Patient is feeling much better. Patient's denied any chest pain denied any shortness of the breath.Patients walk on the hallway without any oxygen's yesterday. Patient still needed oxygen at night go to up to 88 Patient's chest x-ray is also improving Discussed with the Dr. Gayle and suggest the patient schedule total 60 mg Lasix daily and follow outpatient Physical Exam Vital Signs: Temp Pulse Resp BP Pulse Ox 97.7 F 70 16 148/51 H 94 02/23/17 07:37 02/23/17 08:20 02/23/17 08:20 02/23/17 07:37 02/23/17 08:20 Intake & Output 02/22/17 02/23/17 02/24/17 06:59 06:59 06:59 Intake Total 974 1088 Output Total 2400 800 Balance -1426 288 Weight 108 kg 108 kg General appearance: PRESENT: no acute distress, well-developed, well-nourished Head exam: PRESENT: atraumatic, normocephalic Eye exam: PRESENT: conjunctiva pink, EOMI, PERRLA. ABSENT: scleral icterus Ear exam: PRESENT: normal external ear exam Mouth exam: PRESENT: moist, tongue midline Neck exam: PRESENT: full ROM. ABSENT: carotid bruit, JVD, lymphadenopathy, thyromegaly Respiratory exam: PRESENT: clear to auscultation alphonse Cardiovascular exam: PRESENT: RRR. ABSENT: diastolic murmur, rubs, systolic murmur Pulses: PRESENT: normal dorsalis pedis pul, +2 pedal pulses bilateral Vascular exam: PRESENT: normal capillary refill GI/Abdominal exam: PRESENT: normal bowel sounds, soft. ABSENT: distended, guarding, mass, organolmegaly, rebound, tenderness Rectal exam: PRESENT: deferred Neurological exam: PRESENT: alert, awake, oriented to person, oriented to place , oriented to time, oriented to situation, CN II-XII grossly intact. ABSENT: motor sensory deficit Psychiatric exam: PRESENT: appropriate affect, normal mood. ABSENT: homicidal ideation, suicidal ideation Skin exam: PRESENT: dry, intact, warm. ABSENT: cyanosis, rash Results Laboratory Results: 02/22/17 05:53 02/23/17 05:25 02/23/17 05:25 Sodium 139.5 Potassium 3.9 Chloride 100 Carbon Dioxide 29 Anion Gap 11 BUN 22 H Creatinine 1.51 H Est GFR ( Amer) 54 L Est GFR (Non-Af Amer) 45 L Glucose 110 Calcium 8.3 L 02/20/17 11:58 Stool - Stool - Final 02/20/17 11:58 Stool - Stool Stool Culture - Final C.albicans/C.dubliniensis 02/20/17 05:25 Clean Catch Midstream Urine Culture - Final NO GROWTH 2 DAYS 02/19/17 02/22/17 14:00 05:53 NT-Pro-B Natriuret Pep 5880 H 3900 H Impressions: Chest X-Ray 02/23/17 00:00 IMPRESSION: Interval improvement as noted above. Assessment & Plan - Diagnosis (1) Pneumonia Qualifiers: Pneumonia type: due to unspecified organism Laterality: unspecified laterality Is this a current diagnosis for this admission?: YesPlan: Continues to p.o. Levaquin for another 5 days (2) COPD (chronic obstructive pulmonary disease) with acute bronchitis Is this a current diagnosis for this admission?: YesPlan: Start the patient on nebulizer treatments (3) Diastolic heart failure Qualifiers: Heart failure chronicity: acute on chronic Qualified Code(s): I50.33 - Acute on chronic diastolic (congestive) heart failure Is this a current diagnosis for this admission?: YesPlan: Continues to Lasix total 60 mg daily (4) Dyslipidemia Is this a current diagnosis for this admission?: YesPlan: Continues to current medications (5) Hypertension Qualifiers: Hypertension type: essential hypertension Qualified Code(s): I10 - Essential (primary) hypertension Is this a current diagnosis for this admission?: YesPlan: Continues current med (6) Anemia Qualifiers: Anemia type: other cause Is this a current diagnosis for this admission?: YesPlan: Currently all stable status post endoscopy (7) Prostate cancer Is this a current diagnosis for this admission?: YesPlan: While PSA is normal (8) Chronic kidney disease Qualifiers: Chronic kidney disease stage: stage 3 (moderate) Qualified Code(s): N18.3 - Chronic kidney disease, stage 3 (moderate) Is this a current diagnosis for this admission?: YesPlan: Currently all improving (9) Weakness Is this a current diagnosis for this admission?: YesPlan: Feeling much better continues to physical therapy - Time Time Spent with patient: 15-24 minutes Medications reviewed and adjusted accordingly: Yes Within: within 24 hours - Inpatient Certification Medical Necessity: Need Close Monitoring Due to Risk of Patient Decompensation Post Hospital Care: D/C Business Developer Documentation - Plan Summary Plan Summary: Continues current medications. As per discussed with the Dr. Medrano patient 's discharge home with the 60 mg Lasix and follow outpatients with him in the Levaquin 500 mg daily for 5 days
--- NOTE | 2017-02-23 20:38 | PROGRESS NOTE E ---
Progress Note NAME: DARCIE AUSTIN : 1935 AGE: 81Y DATE: 02/23/2017 ROOM: 336 SUBJECTIVE: Note that the patient denies any chest pain or discomfort. There is no shortness of breath. There is no PND or orthopnea. He desaturates if he takes his oxygen off and hence, he is on oxygen now. The patient remains in sinus rhythm, although the bradycardia resolved with the pulse rate being 68 to 70. At one episode the patient had where the heart rate went down to 38 beats per minute with stable blood pressure and the patient was asymptomatic. There is no PND, orthopnea, leg edema or TIA or CVA symptoms. His weakness is much improved. There is no dizziness, syncope or near syncope. Note that his medications have been reviewed. REVIEW OF SYMPTOMS: Negative except for history of present illness done in the progress note in the above. OBJECTIVE: GENERAL: The patient is mildly obese in no acute distress. VITAL SIGNS: Earlier this morning, he was afebrile with a temperature of 97.7 degrees Fahrenheit. Pulse is 70 beats per minute. Blood pressure 148/51. Respirations 18 per minute. O2 saturation 96% on 2.5L of nasal cannula. HEENT: Head is atraumatic and normocephalic. Eyes, pupils are equal, round, regular, reactive to light and accommodation. Extraocular movements are normal. There is no conjunctival pallor. There is no scleral icterus. ENT; the tympanic membranes are intact. External auditory canal clear. Nose, there is no deviated nasal septum. There is no inflammation of the nasal mucous membranes. Mouth; mucous membranes of the mouth are moist. Tongue is moist. There are no ulcers and no bleeding from the gums. Throat, there is redness of the oropharynx. There are no exudates. NECK: Neck is supple. There is no JVD. Carotids are equal without any bruits. There is no goiter. Trachea is central. There is no cervical or axillary lymph note enlargement. LUNGS: Respirations are nonlabored. There is no accessory muscles or respiration in use. Breath sounds are clear. There are no wheezing, rales or rhonchi noted. There is no significant dullness noted on percussion. There is diminished air entry and prolonged expiration. There is hyperresonance on percussion. CHEST: Palpation of the chest wall shows no tenderness. HEART: S1 and S2 are heard. There is no S3 gallop. There is no S4 gallop. There is a systolic murmur at the left sternal border at the apex. There is no rub. ABDOMEN: Soft, nontender. There is no hepatosplenomegaly. Bowel sounds are well heard. There are no tender areas or masses. EXTREMITIES: Femorals are slightly diminished. There are no femoral bruits. Leg pulses are mildly diminished. There is trace pedal edema. There is no cyanosis or clubbing. There is no calf tenderness. CENTRAL NERVOUS SYSTEM: The patient is conscious, awake, alert, oriented x3 with no focal deficits. PSYCHIATRIC: The patient's judgment and insight are intact. His affect is normal. SKIN: There is no ecchymosis, rash, ulcerations or other signs of pruritus. INTAKE AND OUTPUT: The patient's 24-hour intake was 1088 mL, output of 800 mL. IMAGING: The patient's chest x-ray shows improvement in the patient's congestive heart failure. The heart appears to be less prominent in size. LABORATORY: Sodium 139.5, potassium 3.9, chloride 100, CO2 of 29, BUN 22, creatinine 1.51, GFR 45 which is chronic kidney disease stage 3, glucose 110, calcium 8.3. NT-proBNP yesterday was 3900. IMPRESSION: 1. CONGESTIVE HEART FAILURE. At present, he seems to be much improved and at present, compensated. 2. ACUTE ON CHRONIC RESPIRATORY FAILURE WITH HYPOXIA DUE TO COPD ACUTE EXACERBATION AND CONGESTIVE HEART FAILURE, NOW MUCH IMPROVED. Patient much more stable, but still requires oxygen. Continue respiratory therapy with Xopenex. 3. CHRONIC KIDNEY DISEASE STAGE 3. The patient's renal function seems to be stable. 4. COPD WITH ACUTE EXACERBATION/ACUTE BRONCHITIS. The patient is on anti-COPD medication, continue that. Also continue Levaquin at 500 mg p.o. daily. 5. DYSLIPIDEMIA. The patient is on diet control. 6. BRADYCARDIA SECONDARY TO MEDICATION. This seems to have resolved, although the patient had 1 episode. Note that the patient's metoprolol and amiodarone have been discontinued. Would strongly recommend that the patient have a 30 day event monitor which can be done as an outpatient. 7. HYPERTENSION. Blood pressure seems to be well controlled. The patient denies any history of coronary artery disease or history of [place]. His LV function is low normal, hence, I am not sure why the patient is on isosorbide. We will leave that to *------*, discussed with him, the attending patient on record. We will also check the patient's office records to see if her really needs the isosorbide. RECOMMENDATIONS: I would strongly recommend that the patient have an outpatient 30 day event monitor which can be arranged at my office since he is a patient of mine. TIME SPENT: 25 minutes spent on this patient, including review of patient's medications and I have discussed with the other caregiving providers on the case. The patient's congestive heart failure is most likely secondary to systolic heart failure due to volume overload due to the patient's chronic kidney disease. Would agree with starting the patient on amiodarone and the patient's beta danyelle in view of the bradycardia. Note, this was a moderate to high complex medical decision making on this case in view of the bradycardia and the multiple comorbidities. Will sign off the case, please call us if you needs us. DISPOSITION: The patient is a FULL CODE. His son is surrogate healthcare decision maker. DICTATING PHYSICIAN: JOSE ALFREDO SCHULZ M.D. [id number] HAN#: [id number] ID: [id number] JOB#: [id number] ACCT: [id number] cc: >
[2017-02-24] MEDS: LEVALBUTEROL HCL NEB 1.25 MG/3 ML AMPUL NEB SCH ×4 (02:25→20:12)
[2017-02-24] MEDS: LANSOPRAZOLE 30 MG TAB.RAP.DR PO SCH ×2 (06:12→17:30)
[2017-02-24] MEDS: LEVOFLOXACIN 500 MG TABLET PO SCH (09:33)
[2017-02-24] MEDS: ASPIRIN 81 MG TABLET, CHEWABLE PO SCH (09:33)
[2017-02-24] MEDS: POLYETHYLENE GLYCOL 3350 POWDER 17 GM/1 PACKET PO SCH (09:33)
[2017-02-24] MEDS: MULTIVITAMIN TABLET PO SCH (09:33)
[2017-02-24] MEDS: ASCORBIC ACID 500 MG TABLET PO SCH (09:33)
[2017-02-24] MEDS: ISOSORBIDE MONONITRATE 60 MG TAB.ER.24H PO SCH (09:33)
[2017-02-24] MEDS: DOCUSATE SODIUM 100 MG CAPSULE PO SCH ×2 (09:33→17:30)
[2017-02-24] MEDS: FUROSEMIDE 20 MG TABLET PO SCH (09:33)
[2017-02-24] MEDS: NIFEDIPINE 30 MG TAB.ER.24 PO SCH ×2 (09:33→21:31)
[2017-02-24] MEDS: DOXAZOSIN MESYLATE 4 MG TABLET PO SCH (09:34)
[2017-02-24] MEDS ORDERED: FUROSEMIDE 40 MG TABLET PO SCH (10:00)
--- NOTE | 2017-02-24 12:37 | PDOC PROGRESS REPORT ---
Subjective Progress Note for:: 02/24/17 Subjective:: Patient seems to be doing better with gradual improvement. Pt is denying any chest arm or neck discomfort. Patient denying any PND, orthopnea. Patient denied any sustained palpitations, dizziness, syncope, near syncope. Patient denying any fever chills. Patient denying any other significant discomfort. Patient is maintaining sinus rhythm. Rhythm strip shows grouped beating indicative of Wenckebach but happened in the pharmaceutical representative hours. Heart rhythm more stable, no symptomatic bradycardia noted. Review of systems: Rest review of systems negative. Medications: Medications have been reviewed. Physical Exam Vital Signs: Temp Pulse Resp BP Pulse Ox 98.1 F 62 20 138/47 H 94 02/24/17 07:55 02/24/17 08:57 02/24/17 08:57 02/24/17 07:55 02/24/17 08:57 Pulse Oximeter Nocturnal Start: 02/23/17 22: 26 Freq: Status: Active Document 02/24/17 04:25 JSM (Rec: 02/24/17 04:33 JSM [email or web address]) Nocturnal Pulse Oximetry Equipment Usage Equipment in Use Oxygen Delivery Method (includes room Room Air air) O2 Sat by Pulse Oximetry (92-100) 87 Continuous SpO2 Machine # 1 Other Placed pt on 1LPM O2. Sat up to 90% Intake & Output 02/23/17 02/24/17 02/25/17 06:59 06:59 06:59 Intake Total 1088 956 Output Total 800 1150 Balance 288 -194 Weight 108 kg 110 kg Exam: GENERAL: well-nourished and in no acute distress. Alert and oriented x3 HEAD: Atraumatic, normocephalic. EYES: Pupils equal round and reactive to light, extraocular movements intact, sclera anicteric, conjunctiva are normal. ENT: TMs normal, nares patent, oropharynx clear without exudates. Moist mucous membranes. No oral ulcerations or bleeding gums noted NECK: supple without lymphadenopathy. Trachea is central. No cervical or axillary lymphadenopathy noted. Carotids are 2+, JVD WNL LUNGS: Respiration seems nonlabored, no significant accessory muscle action noted. Breath sounds clear to auscultation bilaterally and equal noted. No wheezes rales or rhonchi noted. No significant dullness noted on percussion. CHEST: Palpation of the chest wall shows no significant chest wall tenderness. No other significant abnormalities noted. HEART: [place] [employer], No PSH, 1/6 PEDRO aortic area, 1/6 fan systolic murmur mitral area, no rubs, no gallops. ABDOMEN: Soft, no significant tenderness appreciated, normoactive bowel sounds. No guarding, no rebound. No rigidity noted . No masses appreciated. EXTREMITIES: Pedal pulses are 1-2+, no calf tenderness noted. No clubbing or cyanosis. 1+ pedal edema noted NEUROLOGICAL: Focused neurological exam showed no significant neurologic deficit. Normal speech, no focal weakness appreciated. PSYCH: Normal mood, normal affect. Judgment and insight within normal limits. SKIN: No significant ecchymosis, rash, ulcerations or signs of pruritus noted. MUSCULOSKELETAL EXAM: No significant joint swelling noted. Results Laboratory Results: 02/22/17 05:53 02/23/17 05:25 02/19/17 02/22/17 14:00 05:53 NT-Pro-B Natriuret Pep 5880 H 3900 H Impressions: Chest X-Ray 02/23/17 00:00 IMPRESSION: Interval improvement as noted above. Assessment & Plan - Diagnosis (1) Congestive heart failure Is this a current diagnosis for this admission?: Yes (2) Acute and chronic respiratory failure Qualifiers: Respiratory failure complication: hypoxia Qualified Code(s): J96.21 - Acute and chronic respiratory failure with hypoxia Is this a current diagnosis for this admission?: Yes (3) Chronic kidney disease Qualifiers: Chronic kidney disease stage: stage 3 (moderate) Qualified Code(s): N18.3 - Chronic kidney disease, stage 3 (moderate) Is this a current diagnosis for this admission?: Yes (4) COPD (chronic obstructive pulmonary disease) with acute bronchitis Is this a current diagnosis for this admission?: Yes (5) Dyslipidemia Is this a current diagnosis for this admission?: Yes (6) Hypertension Qualifiers: Hypertension type: essential hypertension Qualified Code(s): I10 - Essential (primary) hypertension Is this a current diagnosis for this admission?: Yes (7) Bradycardia Is this a current diagnosis for this admission?: Yes - Notes Notes: athletic monitor, 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 Grouped beating indicative of Wenckebach and increased vagal tone noted. This was in the pharmaceutical representative hours. Previous twelve-lead EKG, these were reviewed. Chest x-ray: Yesterday's chest x-ray reviewed. It showed improved congestive heart failure and mild cardiomegaly. Medications: These were reviewed. Stop beta-danyelle and amiodarone. Labs: These were reviewed. Treatment/care plan: This was reviewed and discussed with involved personnel in the care of this patient and patient. Bradycardia: Currently is stable. Patient has conduction system disease therefore high likelihood of ending up needing pacemaker. Patient will benefit from close follow-up including event monitor. Would also recommend that patient be scheduled for a sleep study as sleep apnea is associated with increased need for needing pacemaker. CHF: This seems improved on clinical exam. Patient placed on p.o. diuretics. Patient should be educated in CHF pathway. This should include salt and fluid restriction, daily weighing, adjustment of diuretic therapy based on weight gain et cetera. Patient to be educated that if there is gain of more than 2 pounds in a day or more than 5 pounds in a week, this indicates fluid retention and patient may need to adjust the diuretic therapy. Symptoms associated with CHF exacerbation to be discussed with the patient. This could include rapid weight gain, abdominal bloating, increased shortness of breath, fatigue, tiredness, cardiac arrhythmias et cetera. Acute on chronic respiratory failure: This has improved with treatment of CHF. Chronic kidney disease: Lab work reviewed. This seems stable. Continue to monitor renal functions. COPD with acute bronchitis: Continue bronchodilator therapy. Dyslipidemia: Currently stable. Hypertension: Currently blood pressure is under satisfactory control. 2D echo shows low normal LVEF. This was reviewed with the patient and patient' s attending. Patient's medical regimen reviewed. This seems satisfactory at this point. Further adjustment will be made as needed. - Time Time with patient: Greater than 35 minutes - CODE STATUS was discussed, patient remains full code. Surrogate decision-maker unchanged. Multiple medical problems were addressed. More than 50% of the time spent coordinating care, discussing management plans with involved caregivers. Management plans discussed with involved personnels. Medical decision making was of moderate to high complexity, patient's has multiple comorbidities. Medications reviewed and adjusted accordingly: Yes
--- NOTE | 2017-02-24 15:03 | PDOC PROGRESS REPORT ---
Subjective Progress Note for:: 02/24/17 Subjective:: He was seen by the bedside, he was admitted for the management of pneumonia Physical Exam Vital Signs: Temp Pulse Resp BP Pulse Ox 97.6 F 65 18 135/54 H 94 02/24/17 11:46 02/24/17 14:25 02/24/17 14:25 02/24/17 11:46 02/24/17 14:25 Pulse Oximeter Nocturnal Start: 02/23/17 22: 26 Freq: Status: Active Document 02/24/17 04:25 JSM (Rec: 02/24/17 04:33 JSM [email or web address]) Nocturnal Pulse Oximetry Equipment Usage Equipment in Use Oxygen Delivery Method (includes room Room Air air) O2 Sat by Pulse Oximetry (92-100) 87 Continuous SpO2 Machine # 1 Other Placed pt on 1LPM O2. Sat up to 90% Intake & Output 02/23/17 02/24/17 02/25/17 06:59 06:59 06:59 Intake Total 1088 956 598 Output Total 800 1150 600 Balance 288 -194 -2 Weight 108 kg 110 kg General appearance: PRESENT: no acute distress Eye exam: PRESENT: PERRLA Respiratory exam: PRESENT: rhonchi Cardiovascular exam: PRESENT: +S1, +S2 GI/Abdominal exam: PRESENT: soft Neurological exam: PRESENT: alert, CN II-XII grossly intact Results Laboratory Results: 02/22/17 05:53 02/23/17 05:25 02/19/17 14:00 Blood Blood Culture - Final NO GROWTH IN 5 DAYS 02/19/17 02/22/17 14:00 05:53 NT-Pro-B Natriuret Pep 5880 H 3900 H Impressions: Chest X-Ray 02/23/17 00:00 IMPRESSION: Interval improvement as noted above. Assessment & Plan - Diagnosis (1) Acute and chronic respiratory failure Qualifiers: Respiratory failure complication: hypoxia Qualified Code(s): J96.21 - Acute and chronic respiratory failure with hypoxia Is this a current diagnosis for this admission?: Yes (2) Chronic kidney disease Qualifiers: Chronic kidney disease stage: stage 3 (moderate) Qualified Code(s): N18.3 - Chronic kidney disease, stage 3 (moderate) Is this a current diagnosis for this admission?: Yes (3) Congestive heart failure Is this a current diagnosis for this admission?: Yes (4) Pneumonia Is this a current diagnosis for this admission?: Yes (5) Prostate cancer Is this a current diagnosis for this admission?: Yes - Plan Summary Plan Summary: Continue antibiotic and other treatment
[2017-02-25] MEDS: LEVALBUTEROL HCL NEB 1.25 MG/3 ML AMPUL NEB SCH ×4 (02:15→20:15)
[2017-02-25] MEDS: LANSOPRAZOLE 30 MG TAB.RAP.DR PO SCH ×2 (05:04→17:10)
[2017-02-25] MEDS: ASPIRIN 81 MG TABLET, CHEWABLE PO SCH (09:18)
[2017-02-25] MEDS: LEVOFLOXACIN 500 MG TABLET PO SCH (09:18)
[2017-02-25] MEDS: ISOSORBIDE MONONITRATE 60 MG TAB.ER.24H PO SCH (09:18)
[2017-02-25] MEDS: ASCORBIC ACID 500 MG TABLET PO SCH (09:18)
[2017-02-25] MEDS: POLYETHYLENE GLYCOL 3350 POWDER 17 GM/1 PACKET PO SCH (09:18)
[2017-02-25] MEDS: NIFEDIPINE 30 MG TAB.ER.24 PO SCH ×2 (09:19→22:17)
[2017-02-25] MEDS: DOXAZOSIN MESYLATE 4 MG TABLET PO SCH (09:19)
[2017-02-25] MEDS: DOCUSATE SODIUM 100 MG CAPSULE PO SCH ×2 (09:19→17:10)
[2017-02-25] MEDS: FUROSEMIDE 20 MG TABLET PO SCH (09:19)
[2017-02-25] MEDS: MULTIVITAMIN TABLET PO SCH (09:19)
--- NOTE | 2017-02-25 13:36 | PDOC PROGRESS REPORT ---
Subjective Progress Note for:: 02/25/17 Subjective:: He was seen by the bedside, he was admitted for the management of pneumonia Physical Exam Vital Signs: Temp Pulse Resp BP Pulse Ox 97.6 F 85 18 120/79 96 02/25/17 11:37 02/25/17 11:37 02/25/17 11:37 02/25/17 11:37 02/25/17 11:37 Pulse Oximeter Nocturnal Start: 02/23/17 22: 26 Freq: Status: Active Document 02/24/17 04:25 JSM (Rec: 02/24/17 04:33 JSM [email or web address]) Nocturnal Pulse Oximetry Equipment Usage Equipment in Use Oxygen Delivery Method (includes room Room Air air) O2 Sat by Pulse Oximetry (92-100) 87 Continuous SpO2 Machine # 1 Other Placed pt on 1LPM O2. Sat up to 90% Intake & Output 02/24/17 02/25/17 02/26/17 06:59 06:59 06:59 Intake Total 956 1877 Output Total 1150 1900 Balance -194 -23 Weight 110 kg 98.2 kg General appearance: PRESENT: no acute distress Eye exam: PRESENT: PERRLA Respiratory exam: PRESENT: rhonchi Cardiovascular exam: PRESENT: +S1, +S2 GI/Abdominal exam: PRESENT: soft Neurological exam: PRESENT: alert, CN II-XII grossly intact Results Laboratory Results: 02/22/17 05:53 02/23/17 05:25 02/19/17 16:35 Blood Blood Culture - Final NO GROWTH IN 5 DAYS 02/19/17 14:00 Blood Blood Culture - Final NO GROWTH IN 5 DAYS 02/19/17 02/22/17 14:00 05:53 NT-Pro-B Natriuret Pep 5880 H 3900 H Impressions: Chest X-Ray 02/23/17 00:00 IMPRESSION: Interval improvement as noted above. Assessment & Plan - Diagnosis (1) Acute and chronic respiratory failure Qualifiers: Respiratory failure complication: hypoxia Qualified Code(s): J96.21 - Acute and chronic respiratory failure with hypoxia Is this a current diagnosis for this admission?: Yes (2) Chronic kidney disease Qualifiers: Chronic kidney disease stage: stage 3 (moderate) Qualified Code(s): N18.3 - Chronic kidney disease, stage 3 (moderate) Is this a current diagnosis for this admission?: Yes (3) Congestive heart failure Is this a current diagnosis for this admission?: Yes (4) Pneumonia Is this a current diagnosis for this admission?: Yes (5) Prostate cancer Is this a current diagnosis for this admission?: Yes
[2017-02-26] MEDS: LEVALBUTEROL HCL NEB 1.25 MG/3 ML AMPUL NEB SCH ×2 (01:47→08:48)
[2017-02-26 06:15] LABS: HEMATOCRIT 31.5 % (37.9-51.0); HEMOGLOBIN 10.6 g/dL (13.5-17.0); HGB HCT DIFFERENCE 0.3; MEAN CORPUSCULAR HEMOGLOBIN 29.7 pg (27.0-33.4); MEAN CORPUSCULAR HGB CONC 33.6 g/dL (32.0-36.0); MEAN CORPUSCULAR VOLUME 88 fl (80-97); RED BLOOD COUNT 3.58 10^6/uL (4.35-5.55); RED CELL DISTRIBUTION WIDTH 13.9 % (11.5-14.0); WHITE BLOOD COUNT 7.5 10^3/uL (4.0-10.5)
[2017-02-26 06:30] LABS: ANION GAP 11 (5-19); BLOOD UREA NITROGEN 20 mg/dL (7-20); CALCIUM 8.7 mg/dL (8.4-10.2); CARBON DIOXIDE 24 mmol/L (22-30); CHLORIDE 104 mmol/L (98-107); CREATININE RESULT 1.35 mg/dL (0.52-1.25); GLUCOSE 99 mg/dL (75-110); POTASSIUM 4.2 mmol/L (3.6-5.0); SODIUM 138.8 mmol/L (137-145)
[2017-02-26] MEDS: LANSOPRAZOLE 30 MG TAB.RAP.DR PO SCH (06:34)
[2017-02-26 06:39] LABS: BAND NEUTROPHILS % (MANUAL) 1 % (3-5); BASOPHILS % (MANUAL) 1 % (0-2); EOSINOPHILS % (MANUAL) 3 % (0-6); LYMPHOCYTES % (MANUAL) 13 % (13-45); TOTAL CELLS COUNTED 100
[2017-02-26 06:40] LABS: ACANTHOCYTES 1+; OVALOCYTES 1+; POIKILOCYTOSIS 1+; TOXIC GRANULATION 1+
[2017-02-26 09:31] VITALS: BP 137/46
[2017-02-26] MEDS: FUROSEMIDE 20 MG TABLET PO SCH (10:03)
[2017-02-26] MEDS: ASPIRIN 81 MG TABLET, CHEWABLE PO SCH (10:03)
[2017-02-26] MEDS: LEVOFLOXACIN 500 MG TABLET PO SCH (10:05)
[2017-02-26] MEDS: ASCORBIC ACID 500 MG TABLET PO SCH (10:05)
[2017-02-26] MEDS: DOXAZOSIN MESYLATE 4 MG TABLET PO SCH (10:06)
[2017-02-26] MEDS: NIFEDIPINE 30 MG TAB.ER.24 PO SCH (10:06)
[2017-02-26] MEDS: MULTIVITAMIN TABLET PO SCH (10:07)
[2017-02-26] MEDS: DOCUSATE SODIUM 100 MG CAPSULE PO SCH (10:07)
[2017-02-26] MEDS: POLYETHYLENE GLYCOL 3350 POWDER 17 GM/1 PACKET PO SCH (10:08)
[2017-02-26] MEDS: ISOSORBIDE MONONITRATE 60 MG TAB.ER.24H PO SCH (10:08)
--- NOTE | 2017-02-26 11:26 | PDOC DISCHARGE SUMMARY ---
General - Admit/Disc Date/PCP Admission Date/Primary Care Provider: 02/19/17 12:34 JOELLEN JIMENEZ MD Discharge Date: 02/26/17 - Discharge Diagnosis (1) Pneumonia Is this a current diagnosis for this admission?: YesSummary: All resolved (2) COPD (chronic obstructive pulmonary disease) with acute bronchitis Is this a current diagnosis for this admission?: YesSummary: All resolved Patient O2 sats to go up to 80%'s during the night and patient needed 2 L oxygen 's at night (3) Diastolic heart failure Is this a current diagnosis for this admission?: YesSummary: Continues to Lasix 40 mg p.o. daily (4) Dyslipidemia Is this a current diagnosis for this admission?: YesSummary: Continues current medications (5) Hypertension Is this a current diagnosis for this admission?: Yes (6) Anemia Is this a current diagnosis for this admission?: YesSummary: Currently all stable status post endoscopy (7) Prostate cancer Is this a current diagnosis for this admission?: YesSummary: PSA is all normal (8) Chronic kidney disease Is this a current diagnosis for this admission?: YesSummary: The creatinine discharge is 1.35 (9) Weakness Is this a current diagnosis for this admission?: YesSummary: Patient's p.o. intake is good and patient's walk in the hallway without any problems and no need an oxygen's. - Additional Information Resuscitation Status: Full Code Discharge Diet: Cardiac Discharge Activity: Activity As Tolerated, Balance Activity w/Rest, Weigh Daily Home Medications: Acetaminophen [Tylenol 325 mg Tablet] 650 mg PO Q6HP PRN 02/19/17 Ascorbic Acid [Vitamin C 500 mg Tablet] 500 mg PO DAILY 02/19/17 Aspirin [Aspirin 81 mg Chewable Tablet] 81 mg PO DAILY 02/19/17 Docusate Sodium [Colace 100 mg Capsule] 100 mg PO DAILY 02/19/17 Doxazosin Mesylate [Cardura] 8 mg PO DAILY 02/19/17 Isosorbide Mononitrate [Imdur 60 mg Tablet.er] 60 mg PO DAILY 02/19/17 Levalbuterol HCl [Xopenex Neb 0.63 mg/3 ml Ampul] 0.63 mg NEB RTQ8HP PRN Multivit-Min/FA/Lycopen/Lutein [Centrum Silver Men Tablet] 1 tab PO DAILY Nifedipine [Procardia XL 60 mg Tablet] 60 mg PO Q12 02/19/17 Polyethylene Glycol 3350 [Miralax Powder 17 gm/Packet] 1 packet PO DAILY Tiotropium [place] [Spiriva Handihaler 18 mcg/dose (30 Dose)] 1 cap IH DAILY Furosemide [Lasix 20 mg Tablet] 20 mg PO BID #60 tablet 02/26/17 History of Present Illness History of Present Illness: DARCIE AUSTIN is a 81 year old male This is a 81-year-old male with significant history of the COPD and history of the congestive heart failure and hypertension's came to the last Sunday with increasing more cough congestion of the fever and patient's chest x-ray was consistent with the pneumoniaAnd patient was started on the p.o. Levaquin. Patient's white count was also normalPatients came today in office is not feeling well still complaining of a lot of short of breath and increasing more cough and some low-grade fever.Patient also noticed was some black stools for the last couple of days. Patient is not taking any anticoagulationsPatient have a recently endoscopy and colonoscopy done couple of years back by Dr. Lunsford and was stable Patient also see her Dr. Medrano 2 weeks back and suggest a follow echocardiogram in 2 months Patients at this point decided to admit in the hospital for further evaluation and treatments and discussed with the family and all agree Patient's desire to be a no code Hospital Course Hospital Course: This is a 81-year-old male with the history of pneumonia and COPD and CHF came to the office with a failed to the p.o. antibiotic and patient was admitting in the hospitalBut IV antibiotic and for the CHF. Patient's have echocardiogram done in the EF is in the lower range and cardiology was consulted and adjust the medications Patient also running some bradycardia and patient's beta-danyelle and amiodarone was completely stop and discussed with the cardiology and suggest the events monitor and follow outpatient Patient's otherwise all the pneumonia is resolved and the heart failure is also resolved Patient's p.o. intake is good patient walking the hallway without any problem Patient's discharge home with the stable conditions and discussed with the family about the patient's current condition and follow-up Physical Exam Vital Signs: Temp Pulse Resp BP Pulse Ox 98.0 F 71 18 137/46 H 93 02/26/17 09:16 02/26/17 09:16 02/26/17 09:16 02/26/17 09:16 02/26/17 09:16 Pulse Oximeter Nocturnal Start: 02/23/17 22: 26 Freq: Status: Active Document 02/24/17 04:25 JSM (Rec: 02/24/17 04:33 JSM [email or web address]) Nocturnal Pulse Oximetry Equipment Usage Equipment in Use Oxygen Delivery Method (includes room Room Air air) O2 Sat by Pulse Oximetry (92-100) 87 Continuous SpO2 Machine # 1 Other Placed pt on 1LPM O2. Sat up to 90% Intake & Output 02/25/17 02/26/17 02/27/17 06:59 06:59 06:59 Intake Total 1877 992 Output Total 1900 1475 Balance -23 -483 Weight 98.2 kg 99.2 kg General appearance: PRESENT: no acute distress, well-developed, well-nourished Head exam: PRESENT: atraumatic, normocephalic Eye exam: PRESENT: conjunctiva pink, EOMI, PERRLA. ABSENT: scleral icterus Ear exam: PRESENT: normal external ear exam Mouth exam: PRESENT: moist, tongue midline Neck exam: PRESENT: full ROM. ABSENT: carotid bruit, JVD, lymphadenopathy, thyromegaly Respiratory exam: PRESENT: clear to auscultation alphonse Cardiovascular exam: PRESENT: RRR. ABSENT: diastolic murmur, rubs, systolic murmur Pulses: PRESENT: normal dorsalis pedis pul, +2 pedal pulses bilateral Vascular exam: PRESENT: normal capillary refill GI/Abdominal exam: PRESENT: normal bowel sounds, soft. ABSENT: distended, guarding, mass, organolmegaly, rebound, tenderness Rectal exam: PRESENT: deferred Neurological exam: PRESENT: alert, awake, oriented to person, oriented to place , oriented to time, oriented to situation, CN II-XII grossly intact. ABSENT: motor sensory deficit Psychiatric exam: PRESENT: appropriate affect, normal mood. ABSENT: homicidal ideation, suicidal ideation Skin exam: PRESENT: dry, intact, warm. ABSENT: cyanosis, rash Results Laboratory Results: 02/26/17 05:57 02/26/17 05:57 02/26/17 02/26/17 05:57 05:57 WBC 7.5 RBC 3.58 L Hgb 10.6 L Hct 31.5 L MCV 88 MCH 29.7 MCHC 33.6 RDW 13.9 Plt Count 271 Seg Neutrophils % Not Reportable Lymphocytes % Not Reportable Monocytes % Not Reportable Eosinophils % Not Reportable Basophils % Not Reportable Absolute Neutrophils Not Reportable Absolute Lymphocytes Not Reportable Absolute Monocytes Not Reportable Absolute Eosinophils Not Reportable Absolute Basophils Not Reportable Sodium 138.8 Potassium 4.2 Chloride 104 Carbon Dioxide 24 Anion Gap 11 BUN 20 Creatinine 1.35 H Est GFR ( Amer) > 60 Est GFR (Non-Af Amer) 51 L Glucose 99 Calcium 8.7 02/19/17 02/22/17 14:00 05:53 NT-Pro-B Natriuret Pep 5880 H 3900 H Impressions: Chest X-Ray 02/23/17 00:00 IMPRESSION: Interval improvement as noted above. Plan Time Spent: Greater than 30 Minutes - Patient's discharge home with the home O2 at night and patient is to follow with the cardiology office but the events monitor. Patient's metoprolol and amiodarone was DC Following office in 1 week and will repeat the Chem-7 and CBC
== END 2017-02-26 13:16 | disposition home health service (06) | DRG 189 ==
LOC: EDSTATUS 12:29 → ER 12:29 → EH 12:34 → 3S 14:36
PROVIDERS: ADMIT Family Medicine; ATTEND Family Medicine
PROC: 0DB68ZX Excision of Stomach, Via Natural or Artificial Opening Endoscopic, Diagnostic (ICD-10-PCS; principal; 2017-02-20 17:30)
DX: J96.21 Acute and chronic respiratory failure with hypoxia (principal); J18.9 Pneumonia, unspecified organism; I50.33 Acute on chronic diastolic (congestive) heart failure; J44.0 Chronic obstructive pulmonary disease with (acute) lower respiratory infection; I13.0 Hypertensive heart and chronic kidney disease with heart failure and stage 1 through stage 4 chronic kidney disease, or unspecified chronic kidney disease; N18.3 Chronic kidney disease, stage 3 (moderate); J20.9 Acute bronchitis, unspecified; K29.70 Gastritis, unspecified, without bleeding; D64.9 Anemia, unspecified; R00.1 Bradycardia, unspecified; T50.995A Adverse effect of other drugs, medicaments and biological substances, initial encounter; C61 Malignant neoplasm of prostate; K21.9 Gastro-esophageal reflux disease without esophagitis; E78.5 Hyperlipidemia, unspecified; M19.90 Unspecified osteoarthritis, unspecified site; F32.9 Major depressive disorder, single episode, unspecified; Z79.82 Long term (current) use of aspirin; Z79.899 Other long term (current) drug therapy; Z87.891 Personal history of nicotine dependence; Z88.8 Allergy status to other drugs, medicaments and biological substances
CPT/HCPCS: 36415; 43239; 71020; 80048; 80053; 82272; 82803; 82962; 83880; 84154; 84443; 85025; 87040; 87045; 87086; 87205; 87493; 88305; 88342; 93005; 93010; 93306; 94640; 94762; G8978-GP; G8979-GP; J0171; J0696; J1610; J1940; J1956; J2250; J2310; J3010; J3490

== ENCOUNTER → 2017-09-13 | Outpatient (CLI) | payer MEDICARE ==
[2017-09-13 09:42] LABS: ANION GAP 10 (5-19); BLOOD UREA NITROGEN 20 mg/dL (7-20); CALCIUM 9.1 mg/dL (8.4-10.2); CARBON DIOXIDE 28 mmol/L (22-30); CHLORIDE 101 mmol/L (98-107); GLUCOSE 82 mg/dL (75-110); POTASSIUM 4.3 mmol/L (3.6-5.0); SODIUM 138.9 mmol/L (137-145)
[2017-09-13 09:57] LABS: FREE T3 3.26 pg/mL (2.77-5.27)
[2017-09-13 10:03] LABS: FREE T4 (FREE THYROXINE) 1.06 ng/dL (0.78-2.19)
[2017-09-13 10:11] LABS: THYROID STIMULATING HORMONE 3.41 uIU/mL (0.47-4.68)
== END ==
LOC: OD 08:18
PROVIDERS: ATTEND Internal Medicine
DX: I50.32 Chronic diastolic (congestive) heart failure (principal); I10 Essential (primary) hypertension; I49.3 Ventricular premature depolarization; I27.20 Pulmonary hypertension, unspecified; I42.9 Cardiomyopathy, unspecified; J44.9 Chronic obstructive pulmonary disease, unspecified; R06.09 Other forms of dyspnea; E78.5 Hyperlipidemia, unspecified; Z79.899 Other long term (current) drug therapy
CPT/HCPCS: 36415; 80048; 84439; 84443; 84481

== ENCOUNTER 2017-12-16 15:40 | Inpatient (IN) | payer MEDICARE, MEDICAID ==
--- NOTE | 2017-12-16 15:49 | ER Document Report ---
ED Respiratory Problem - General Stated Complaint: RESPIRATORY DISTRESS Time Seen by Provider: 12/16/17 15:48 Mode of Arrival: Medic Information source: Patient, Relative Notes: 82-year-old gentleman with past medical history of right-sided heart failure, COPD? Who presented today for evaluation of shortness of breath as well as fever. Patient reported that his shortness of breath has been getting worse for the past few weeks. Yesterday patient went to the mailbox and was very dyspneic and short of breath after walking approximately 20 feet. Patient appears to be febrile, short of breath as well as hypoxic. Patient able to maintain his airway at present time. Patient's primary care physician is Dr. Talavera. TRAVEL OUTSIDE OF THE [place] IN LAST 30 DAYS: No - Related Data Allergies/Adverse Reactions: meperidine HCl [From Demerol] Allergy (Verified 01/15/12 23:43) Past Medical History - General Information source: Patient - Social History Smoking Status: Unknown if Ever Smoked Family History: CAD, Hypertension - Past Medical History Cardiac Medical History: Reports: Hx Hypertension Pulmonary Medical History: Reports: Hx Asthma, Hx Bronchitis, Hx COPD, Hx Pneumonia Denies: Hx Tuberculosis Neurological Medical History: Denies: Hx Seizures Renal/ Medical History: Reports: Hx Benign Prostatic Hyperplasia GI Medical History: Reports: Hx Gastroesophageal Reflux Disease Musculoskeltal Medical History: Reports Hx Arthritis Psychiatric Medical History: Reports: Hx Depression Past Surgical History: Reports: Hx Herniorrhaphy - Bilateral inguinal repair. Denies: Hx Pacemaker - Immunizations Hx Diphtheria, Pertussis, Tetanus Vaccination: Yes Hx Pneumococcal Vaccination: 09/03/11 Review of Systems - Review of Systems Notes: REVIEW OF SYSTEMS: CONSTITUTIONAL: +fevers, -chills EENT: -eye pain, -difficulty swallowing, -nasal congestion CARDIOVASCULAR: -chest pain, -syncope, + lower extremity edema RESPIRATORY: + Cough, + shortness of breath, + dyspnea GASTROINTESTINAL: -abdominal pain, -nausea, -vomiting, -diarrhea GENITOURINARY: -dysuria, -hematuria MUSCULOSKELETAL: -back pain, -neck pain SKIN: -rash or skin lesions. HEMATOLOGIC: -easy bruising or bleeding. LYMPHATIC: -swollen, enlarged glands. NEUROLOGICAL: -altered mental status or loss of consciousness, -headache, - neurologic symptoms PSYCHIATRIC: -anxiety, -depression. ALL OTHER SYSTEMS REVIEWED AND NEGATIVE. Physical Exam - Vital signs Vitals: Pulse Ox 90 L 12/16/17 15:40 - Notes Notes: Reviewed vital signs and nursing note as charted by RN. CONSTITUTIONAL: Alert and oriented and responds appropriately to questions HEAD: Normocephalic; atraumatic EYES: PERRL; Conjunctivae clear, sclerae non-icteric ENT: normal nose NECK: Supple without meningismus; non-tender; no cervical lymphadenopathy, no masses CARD: Bradycardia; no murmurs, no clicks, no rubs, no gallops; symmetric distal pulses RESP: Patient has mild respiratory distress with hypoxemia, patient has crackles at his bases bilaterally ABD/GI: Normal bowel sounds; non-distended; soft, no tenderness BACK: The back appears normal and is non-tender to palpation EXT: Normal ROM in all joints; non-tender to palpation; no cyanosis, no effusions, lower extremity edema SKIN: Warm and diaphoretic NEURO: .Cranial nerves 3-12 intact. Motor strength 5/5 bilaterally. Sensation intact to touch bilaterally. No pronator drift. Finger to nose intact bilaterally PSYCH: The patient's mood and manner are appropriate. Grooming and personal hygiene are appropriate. Course - Re-evaluation Re-evalutation: 82-year-old male with past medical history of heart failure who is here for evaluation of dyspnea and shortness of breath Patient noted to be febrile upon arrival Differential diagnoses includes pneumonia, pleural effusion, heart failure exacerbation, viral illness, acute cystitis, sepsis We will obtain basic lab work including CBC, CMP, urinalysis, blood cultures, lactic acid level Chest x-ray, EKG, cardiac biomarkers, BNP VBG Continuous cardiac monitoring as well as pulse oximetry We will place patient on supplemental oxygen We will give patient a dose of Lasix as well as a dose of steroids and DuoNeb Reassess patient 12/16/17 17:20 Patient has leukocytosis, chest x-ray with no obvious infiltrate but possible early pneumonia Patient also has slightly elevated troponin, will continue to trend the troponins Patient was started on levofloxacin IV Anticipate admission to Dr. Felton given that he is covering Dr. Talavera's patient's today No response at 5:20 PM 12/16/17 17:50 Discussed the case with Dr. Felton, agree with admission - Vital Signs Vital signs: Temp Pulse Resp BP Pulse Ox 98.7 F 18 171/57 H 90 L 12/16/17 15:57 12/16/17 16:01 12/16/17 16:01 12/16/17 16:01 - Laboratory Result Diagrams: 12/16/17 15:48 12/16/17 15:48 Laboratory results interpreted by me: 12/16/17 12/16/17 12/16/17 15:48 15:48 15:48 WBC 14.1 H RBC 4.00 L Hgb 11.6 L Hct 34.6 L Seg Neutrophils % 79.1 H Lymphocytes % 5.9 L Monocytes % 14.8 H Absolute Neutrophils 11.2 H Absolute Monocytes 2.1 H VBG pH 7.44 H BUN 22 H Est GFR (Non-Af Amer) 58 L Glucose 157 H ALT 14 L Creatine Kinase 53 L Urine Protein Urine Blood 12/16/17 17:15 WBC RBC Hgb Hct Seg Neutrophils % Lymphocytes % Monocytes % Absolute Neutrophils Absolute Monocytes VBG pH BUN Est GFR (Non-Af Amer) Glucose ALT Creatine Kinase Urine Protein 30 H Urine Blood SMALL H - Diagnostic Test Radiology reviewed: Image reviewed - EXAM DESCRIPTION: CHEST SINGLE VIEW COMPLETED DATE/TIME: 12/16/2017 4:08 pm REASON FOR STUDY: sob COMPARISON: NUMBER OF VIEWS: One view. TECHNIQUE: Single frontal radiographic view of the chest acquired. LIMITATIONS: None. FINDINGS: LUNGS AND PLEURA: No opacities, masses or pneumothorax. No pleural effusion. MEDIASTINUM AND HILAR STRUCTURES: No masses or contour abnormality. HEART AND VASCULATURE: Cardiac enlargement. Vascular congestion. BONES: No acute findings. HARDWARE: None in the chest. OTHER: No other significant finding. IMPRESSION: CARDIAC ENLARGEMENT. VASCULAR CONGESTION. TECHNICAL DOCUMENTATION: JOB ID: [id number] [employer]- All Rights Reserved Reading location - IP/ workstation name: [email or web address] Dictated by: ASHLEY CYR MD DD: [id number] CC: RALPH CHEUNG MD Critical Care Note - Critical Care Note Comments: Critical Care Time: 35 minutes Critical care provider statement: Critical care time was exclusive of: Separately billable procedures and treating other patients and teaching time Critical care was time spent personally by me on the following activities: Blood draw for specimens, development of treatment plan with patient or surrogate, evaluation of patient's response to treatment, examination of patient , obtaining history from patient or surrogate, ordering and performing treatments and interventions, ordering and review of laboratory studies, ordering and review of radiographic studies, pulse oximetry, re-evaluation of patient's condition and review of old charts I assumed direction of critical care for this patient from another provider in my specialty: no Discharge - Discharge Clinical Impression: Hypoxemia Acute heart failure Qualifiers: Heart failure type: unspecified Qualified Code(s): I50.9 - Heart failure, unspecified Pneumonia Qualifiers: Aspiration pneumonia type: unspecified Laterality: unspecified laterality Lung location: unspecified part of lung Condition: Stable Disposition: ADMITTED INPATIENT Admitting Provider: [facility] Unit Admitted: IMCU Referrals: JOELLEN TALAVERA MD [Primary Care Provider] - Follow up as needed
[2017-12-16] MEDS ORDERED: IPRATROPIUM/ALBUTEROL 0.5-2.5 MG/3 ML AMPUL NEB ONE ×2 (15:52→21:00)
[2017-12-16] MEDS ORDERED: FUROSEMIDE INJ/PF 40 MG/4 ML SDV IV ONE ×2 (15:52→22:30)
[2017-12-16] MEDS ORDERED: METHYLPREDNISOLONE INJ 125 MG/2 ML SDV IV ONE (15:53)
--- NOTE | 2017-12-16 16:21 | RADIOLOGY REPORT (SQ) ---
EXAM DESCRIPTION: CHEST SINGLE VIEW COMPLETED DATE/TIME: 12/16/2017 4:08 pm REASON FOR STUDY: sob COMPARISON: 02/23/2017 NUMBER OF VIEWS: One view. TECHNIQUE: Single frontal radiographic view of the chest acquired. LIMITATIONS: None. FINDINGS: LUNGS AND PLEURA: No opacities, masses or pneumothorax. No pleural effusion. MEDIASTINUM AND HILAR STRUCTURES: No masses or contour abnormality. HEART AND VASCULATURE: Cardiac enlargement. Vascular congestion. BONES: No acute findings. HARDWARE: None in the chest. OTHER: No other significant finding. IMPRESSION: CARDIAC ENLARGEMENT. VASCULAR CONGESTION. TECHNICAL DOCUMENTATION: JOB ID: [id number] [employer]- All Rights Reserved Reading location - IP/workstation name: [email or web address]
[2017-12-16 16:22] LABS: ABSOLUTE LYMPHOCYTES (AUTO) 0.8 10^3/uL (0.5-4.7); ABSOLUTE MONOCYTES (AUTO) 2.1 10^3/uL (0.1-1.4); ABSOLUTE NEUT (AUTO) 11.2 10^3/uL (1.7-8.2); BASOPHILS % (AUTO) 0.2 % (0-2); HEMATOCRIT 34.6 % (37.9-51.0); HEMOGLOBIN 11.6 g/dL (13.5-17.0); LYMPHOCYTES % (AUTO) 5.9 % (13-45); MEAN CORPUSCULAR HEMOGLOBIN 28.9 pg (27.0-33.4); MEAN CORPUSCULAR HGB CONC 33.4 g/dL (32.0-36.0); MEAN CORPUSCULAR VOLUME 87 fl (80-97); MONOCYTES % (AUTO) 14.8 % (3-13); PLATELET COUNT 184 10^3/uL (150-450); RED CELL DISTRIBUTION WIDTH 13.9 % (11.5-14.0); SEGMENTED NEUTROPHILS % (AUTO) 79.1 % (42-78); TOTAL CELLS COUNTED % (AUTO) 100 %; WHITE BLOOD COUNT 14.1 10^3/uL (4.0-10.5)
[2017-12-16 16:24] LABS: VENOUS BLOOD HCO3 26.1 mmol/L (20-32); VENOUS BLOOD PH 7.44 (7.30-7.42)
[2017-12-16 16:28] LABS: ALANINE AMINOTRANSFERASE 14 U/L (21-72); ALBUMIN 3.9 g/dL (3.5-5.0); ALKALINE PHOSPHATASE 108 U/L (38-126); ANION GAP 14 (5-19); ASPARTATE AMINO TRANSFERASE 17 U/L (17-59); BILIRUBIN,DIRECT 0.1 mg/dL (0.0-0.4); BILIRUBIN,TOTAL 0.8 mg/dL (0.2-1.3); BLOOD UREA NITROGEN 22 mg/dL (7-20); CALCIUM 8.6 mg/dL (8.4-10.2); CARBON DIOXIDE 25 mmol/L (22-30); CHLORIDE 99 mmol/L (98-107); CREATINE KINASE 53 U/L (55-170); GLUCOSE 157 mg/dL (75-110); POTASSIUM 4.2 mmol/L (3.6-5.0); SODIUM 138.2 mmol/L (137-145); TOTAL PROTEIN 6.4 g/dL (6.3-8.2)
[2017-12-16 16:40] LABS: CREATINE KINASE MB 0.59 ng/mL (<4.55)
[2017-12-16 16:43] LABS: TROPONIN I 0.126 ng/mL
[2017-12-16] MEDS ORDERED: LEVOFLOXACIN 750 MG/D5W RTU 750 MG/150 ML RTUPB IV SCH (17:00)
[2017-12-16 17:31] LABS: APPEARANCE,URINE CLEAR; BILIRUBIN,URINE NEGATIVE (NEGATIVE); COLOR,URINE STRAW; GLUCOSE, URINE NEGATIVE (NEGATIVE); KETONES,URINE NEGATIVE (NEGATIVE); LEUKOCYTE ESTERASE,URINE NEGATIVE (NEGATIVE); NITRITE,URINE NEGATIVE (NEGATIVE); PROTEIN,URINE 30 mg/dL (NEGATIVE); URINE SPECIFIC GRAVITY 1.004; UROBILINOGEN,URINE NEGATIVE mg/dL (<2.0)
--- NOTE | 2017-12-16 20:08 | EKG REPORT ---
SEVERITY:- ABNORMAL ECG - SINUS BRADYCARDIA 31/MIN COMPLETE AVB WITH IDIOVENTRICULAR RHYTHM AT 58 /MIN. : Confirmed by: Flaquito Amado MD 16-Dec-2017 20:07:34
[2017-12-16 21:24] LABS: PHOSPHORUS 3.4 mg/dL (2.5-4.5)
[2017-12-16 21:26] LABS: AMYLASE < 30 U/L (30-110)
--- NOTE | 2017-12-16 21:37 | RADIOLOGY REPORT (SQ) ---
EXAM DESCRIPTION: CTA CHEST COMPLETED DATE/TIME: 12/16/2017 9:26 pm REASON FOR STUDY: SHORTNESS OF BREATH ? PE COMPARISON: Chest TECHNIQUE: CT scan of the chest performed using helical scanning technique with dynamic intravenous contrast injection. Images reviewed with lung, soft tissue and bone windows. Reconstructed coronal and sagittal MPR images reviewed. Additional 3 dimensional post-processing performed to develop Maximal Intensity Projection images (CO P). All images stored on PACS. All CT scanners at this facility use dose modulation, iterative reconstruction, and/or weight based d osing when appropriate to reduce radiation dose to as low as reasonably achievable (ALARA). [facility]: Dose Right [facility]: CareDose [facility]: Dose Right [facility]: Teradose 4D [facility]: Keldeal CONTRAST TYPE AND DOSE: contrast/concentration: Isovue 370.00 mg/ml; Total Contrast Delivered: 80.0 ml; Total Saline Delivered: 110.0 ml Contrast bolus optimized for the pulmonary arteries. Not diagnostic for the aorta. RENAL FUNCTION: Creatinine 1.21 RADIATION DOSE: CT Rad equipment meets quality standard of care and radiation dose reduction techniq ues were employed. CTDIvol: 23.2 - 26.6 mGy. DLP: 1181 mGy-cm. . LIMITATIONS: None. FINDINGS: LUNGS AND PLEURA: Bilateral pleural effusions parenchymal opacities at the bases. Some mo tion artifact. Patchy areas of ground-glass opacity. AORTA AND GREAT VESSELS: No aneurysm. Contrast bolus not optimized for the aorta. HEART: No pericardial effusion. No significant coronary artery calcifications. PULMONARY ARTERIES: No emboli visualized in the main pulmonary arteries or the segmental branches. HILAR AND MEDIASTINAL STRUCTURES: No identified masses or abnormal nodes. HARDWARE: None in the chest. UPPER ABDOMEN: No significant findings. Limited exam. THYROID AND OTHER SOFT TISSUES: No masses. No adenopathy. BONES: No acute or significant finding. 3D MIPS: Confirm above findings. OTHER: No other significant finding. IMPRESSION: Bilateral pleural effusions with basilar opacities. Patchy areas of ground-glass. No p ulmonary emboli. Vascular congestion. COMMENT: Quality ID # [id number]: Final reports with documentation of one or more dose reduction techniques (e.g., Automated exposure control, adjustment of the mA and/or kV according to patient size, use of iterative reconstruction technique) TECHNICAL DOCUMENTATION: JOB ID: [id number] [employer]- All Rights Reserved Reading location - IP/workstation name: [email or web address]
[2017-12-16 21:38] LABS: CREATINE KINASE MB 1.09 ng/mL (<4.55); D-DIMER 0.69 ug/mL (0.00-0.50); INTERNATIONAL RATION (INR) 1.15; PARTIAL THROMBOPLASTIN TIME 43.3 SEC (23.5-35.8); PROTHROMBIN TIME 15.3 SEC (11.4-15.4)
[2017-12-16 21:42] LABS: FREE T4 (FREE THYROXINE) 0.96 ng/dL (0.78-2.19)
[2017-12-16 21:45] LABS: TROPONIN I 0.162 ng/mL
[2017-12-16 21:56] LABS: THYROID STIMULATING HORMONE 0.91 uIU/mL (0.47-4.68)
[2017-12-16 22:06] LABS: ARTERIAL BLOOD BASE EXCESS 1.2 mmol/L; ARTERIAL BLOOD HCO3 24.9 mmol/L (20-26); ARTERIAL BLOOD O2 SATURATION 96.1 % (94-98); ARTERIAL BLOOD PCO2 36.4 mmHg (35-45); ARTERIAL BLOOD PH 7.45 (7.35-7.45); ARTERIAL BLOOD PO2 77.9 mmHg (80-100)
[2017-12-16 22:07] LABS: ARTERIAL BLOOD FIO2 4.5L
[2017-12-16] MEDS: IPRATROPIUM/ALBUTEROL 0.5-2.5 MG/3 ML AMPUL NEB SCH (23:54)
[2017-12-17 00:46] LABS: APPEARANCE,URINE CLEAR; BILIRUBIN,URINE NEGATIVE (NEGATIVE); COLOR,URINE STRAW; GLUCOSE, URINE NEGATIVE (NEGATIVE); KETONES,URINE NEGATIVE (NEGATIVE); LEUKOCYTE ESTERASE,URINE NEGATIVE (NEGATIVE); NITRITE,URINE NEGATIVE (NEGATIVE); PROTEIN,URINE 100 mg/dL (NEGATIVE); URINE SPECIFIC GRAVITY 1.018; UROBILINOGEN,URINE NEGATIVE mg/dL (<2.0)
[2017-12-17 01:20] LABS: URINE AMPHETAMINES SCREEN NEGATIVE; URINE BARBITURATES SCREEN NEGATIVE; URINE BENZODIAZEPINES SCREEN NEGATIVE; URINE MARIJUANA (THC) SCREEN NEGATIVE; URINE METHADONE SCREEN NEGATIVE; URINE PHENCYCLIDINE SCREEN NEGATIVE
[2017-12-17] MEDS: IPRATROPIUM/ALBUTEROL 0.5-2.5 MG/3 ML AMPUL NEB SCH ×2 (03:03→08:31)
[2017-12-17 03:07] LABS: HEMATOCRIT 33.1 % (37.9-51.0); HEMOGLOBIN 11.4 g/dL (13.5-17.0); MEAN CORPUSCULAR HEMOGLOBIN 29.4 pg (27.0-33.4); MEAN CORPUSCULAR HGB CONC 34.4 g/dL (32.0-36.0); MEAN CORPUSCULAR VOLUME 85 fl (80-97); PLATELET COUNT 164 10^3/uL (150-450); RED BLOOD COUNT 3.89 10^6/uL (4.35-5.55); RED CELL DISTRIBUTION WIDTH 13.7 % (11.5-14.0); WHITE BLOOD COUNT 8.5 10^3/uL (4.0-10.5)
[2017-12-17 03:18] LABS: URINE COCAINE SCREEN NEGATIVE
[2017-12-17 03:22] LABS: ALANINE AMINOTRANSFERASE 14 U/L (21-72); ALBUMIN 3.5 g/dL (3.5-5.0); ALKALINE PHOSPHATASE 83 U/L (38-126); ANION GAP 12 (5-19); ASPARTATE AMINO TRANSFERASE 16 U/L (17-59); BILIRUBIN,DIRECT 0.4 mg/dL (0.0-0.4); BILIRUBIN,TOTAL 0.5 mg/dL (0.2-1.3); BLOOD UREA NITROGEN 26 mg/dL (7-20); CALCIUM 8.6 mg/dL (8.4-10.2); CARBON DIOXIDE 24 mmol/L (22-30); CHLORIDE 104 mmol/L (98-107); CHOLESTEROL 115.39 mg/dL (0-200); GLUCOSE 201 mg/dL (75-110); POTASSIUM 3.8 mmol/L (3.6-5.0); TOTAL PROTEIN 6.1 g/dL (6.3-8.2); TRIGLYCERIDES 40 mg/dL (<150)
[2017-12-17 03:29] LABS: ABSOLUTE LYMPHOCYTES# (MANUAL) 0.5 10^3/uL (0.5-4.7); ABSOLUTE MONOCYTES # (MANUAL) 0.4 10^3/uL (0.1-1.4); ABSOLUTE NEUTROPHILS# (MANUAL) 7.6 10^3/uL (1.7-8.2); BAND NEUTROPHILS % (MANUAL) 3 % (3-5); BASOPHILS % (MANUAL) 0 % (0-2); EOSINOPHILS % (MANUAL) 0 % (0-6); LYMPHOCYTES % (MANUAL) 6 % (13-45); MONOCYTES % (MANUAL) 5 % (3-13); PLATELET COMMENT ADEQUATE; SEGMENTED NEUTROPHILS % (MAN) 86 % (42-78); TOTAL CELLS COUNTED 100
[2017-12-17 03:30] LABS: RBC MORPHOLOGY COMMENT NORMO-CYTIC/CHROMIC
[2017-12-17 03:32] LABS: CREATINE KINASE MB 1.51 ng/mL (<4.55)
[2017-12-17 03:33] LABS: DIRECT LDL 55 mg/dL (<100)
[2017-12-17 03:40] LABS: TROPONIN I 0.114 ng/mL
--- NOTE | 2017-12-17 06:14 | EKG REPORT ---
SEVERITY:- ABNORMAL ECG - SINUS RHYTHM WITH AVB, AND ESCAPE RHYTHM VENTRICULAR PREMATURE COMPLEX LEFT BUNDLE BRANCH BLOCK : Confirmed by: Flaquito Amado MD 17-Dec-2017 06:13:42
[2017-12-17] MEDS ORDERED: ACETAMINOPHEN 325 MG TABLET PO PRN (06:46)
[2017-12-17] MEDS ORDERED: LANSOPRAZOLE 30 MG TAB.RAP.DR PO ONE (07:30)
[2017-12-17 09:40] LABS: CREATINE KINASE MB 1.77 ng/mL (<4.55); TROPONIN I 0.088 ng/mL
[2017-12-17] MEDS ORDERED: (PENDING PHARMACY ID) (Nifedipine [Procardia Xl 60 Mg Tablet] 60 MG) PO SCH (10:00)
[2017-12-17] MEDS ORDERED: ENOXAPARIN SODIUM INJ 40 MG/0.4 ML DISP.SYRIN SUBCUT SCH (10:00)
[2017-12-17] MEDS ORDERED: (PENDING PHARMACY ID) (Doxazosin Mesylate [Cardura] 8 MG) PO SCH (10:00)
[2017-12-17] MEDS: DOCUSATE SODIUM 100 MG CAPSULE PO SCH (11:38)
[2017-12-17] MEDS: FERROUS SULFATE 325 MG TABLET PO SCH (11:38)
[2017-12-17] MEDS: ISOSORBIDE MONONITRATE 60 MG TAB.ER.24H PO SCH (11:38)
[2017-12-17] MEDS: ASPIRIN 81 MG TABLET, CHEWABLE PO SCH (11:39)
[2017-12-17] MEDS: NIFEDIPINE 30 MG TAB.ER.24 PO SCH ×2 (11:39→23:02)
[2017-12-17] MEDS: POLYETHYLENE GLYCOL 3350 POWDER 17 GM/1 PACKET PO SCH (11:40)
[2017-12-17] MEDS: ASCORBIC ACID 500 MG TABLET PO SCH (11:40)
[2017-12-17] MEDS: TIOTROPIUM BROMIDE DPI 5 CAP/KIT (18 MCG/CAP) IH SCH (11:40)
--- NOTE | 2017-12-17 13:05 | PDOC H&P ---
History of Present Illness Admission Date/PCP: 12/16/17 18:23 MESFIN HOLMAN MD Patient complains of: Shortness of the breath History of Present Illness: DARCIE AUSTIN is a 82 year old male This is a 82-year-old male with a significant history of the COPD and a history of the congestive heart failure with the mostly a diastolic dysfunctions with low normal EF and a history of the multiple other issues not as increasing the leg swelling in the shortness of the breath since last 3 daysAnd patients came to the emergency departments where patient was found with the bronchitis and congestive heart failure and patients decided to admit in the hospital for further evaluations When I saw the patient's patients denied any chest pain denied any shortness of the blood patients. Much better Patients received the prednisone and also received IV antibiotic in the ER and IV Lasix An initial evaluations the patient's troponin was 0.162 and trending down and no any acute EKG changes in patients clinically denied any chest pain Discussed with the [facility] cardiology and suggest that most likely from underlying CHF and patients does not have any symptoms and trending down just need echocardiogram no need for cardiac cath and no need for transfer unless patients wants to comeAll the patient have a develop any clinical symptoms Patient's at this point discuss with him patient's preferred not to go to the [facility] at this point we will does not have any symptoms Patient also see her Dr. Medrano as outpatients and according to the patient everything was stable when the last time was on the last month Past Medical History Cardiac Medical History: Reports: Hypertension Pulmonary Medical History: Reports: Asthma, Bronchitis, Chronic Obstructive Pulmonary Disease (COPD), Pneumonia Denies: Tuberculosis Neurological Medical History: Denies: Seizures GI Medical History: Reports: Gastroesophageal Reflux Disease Musculoskeltal Medical History: Reports: Arthritis Psychiatric Medical History: Reports: Depression Past Surgical History Past Surgical History: Reports: Herniorrhaphy - Bilateral inguinal repair Denies: Pacemaker Social History Smoking Status: Former Smoker Last Time Smoked: 1983 Frequency of Alcohol Use: Rare Hx Recreational Drug Use: No Drugs: None Hx Prescription Drug Abuse: No - Advance Directive Resuscitation Status: Full Code Family History Family History: Reviewed & Not Pertinent, CAD, Hypertension Parental Family History Reviewed: Yes Children Family History Reviewed: Yes Sibling(s) Family History Reviewed.: Yes Medication/Allergy Home Medications: Budesonide/Formoterol Fumarate [Symbicort HFA 160-4.5 mcg Inhaler 6 gm] 2 puff IH Q12 12/17/17 Cetirizine HCl [Zyrtec 10 mg Tablet] 10 mg PO DAILY 12/17/17 Doxazosin Mesylate [Cardura] 8 mg PO DAILY 12/17/17 Ferrous Sulfate [Feosol 325 mg Tablet] 325 mg PO DAILY 12/17/17 Fluticasone Propionate [Flonase Nasal Whitney 50 Mcg/Whitney 16 gm] 1 spray NASL DAILY 12/17/17 Furosemide [Lasix 20 mg Tablet] 20 mg PO BID 12/17/17 Isosorbide Mononitrate [Imdur 60 mg Tablet.er] 60 mg PO DAILY 12/17/17 Nifedipine [Nifedipine ER] 60 mg PO Q12 12/17/17 Omeprazole 40 mg PO DAILY 12/17/17 Polyethylene Glycol 3350 [Miralax Powder 17 gm/Packet] 17 gm PO DAILYP PRN 12/17 Tiotropium [place] [Spiriva Handihaler 5 Cap/Kit (18 Mcg/Cap)] 1 puff IH DAILY 12/17/17 Allergies/Adverse Reactions: meperidine HCl [From Demerol] Allergy (Verified 01/15/12 23:43) Review of Systems Constitutional: ABSENT: chills, fever(s), headache(s), weight gain, weight loss Eyes: ABSENT: visual disturbances Ears: ABSENT: hearing changes Cardiovascular: PRESENT: dyspnea on exertion. ABSENT: chest pain, edema, orthropnea, palpitations Respiratory: PRESENT: cough, dyspnea. ABSENT: hemoptysis Gastrointestinal: ABSENT: abdominal pain, constipation, diarrhea, hematemesis, hematochezia, nausea, vomiting Genitourinary: ABSENT: dysuria, hematuria Musculoskeletal: ABSENT: joint swelling Integumentary: ABSENT: rash, wounds Neurological: ABSENT: abnormal gait, abnormal speech, confusion, dizziness, focal weakness, syncope Psychiatric: ABSENT: anxiety, depression, homidical ideation, suicidal ideation Endocrine: ABSENT: cold intolerance, heat intolerance, menstrual abnormalities, polydipsia, polyuria Hematologic/Lymphatic: ABSENT: easy bleeding, easy bruising, lymphadenopathy Physical Exam Vital Signs: Temp Pulse Resp BP Pulse Ox 98.0 F 54 L 18 155/79 H 96 12/17/17 07:45 12/17/17 08:31 12/17/17 08:31 12/17/17 07:45 12/17/17 08:31 Intake & Output 12/16/17 12/17/17 12/18/17 06:59 06:59 06:59 Intake Total 514 Output Total 1350 Balance -836 Weight 99.2 kg General appearance: PRESENT: no acute distress, well-developed, well-nourished Head exam: PRESENT: atraumatic, normocephalic Eye exam: PRESENT: conjunctiva pink, EOMI, PERRLA. ABSENT: scleral icterus Ear exam: PRESENT: normal external ear exam Mouth exam: PRESENT: moist, tongue midline Neck exam: PRESENT: full ROM. ABSENT: carotid bruit, JVD, lymphadenopathy, thyromegaly Respiratory exam: PRESENT: clear to auscultation alphonse Cardiovascular exam: PRESENT: RRR. ABSENT: diastolic murmur, rubs, systolic murmur Pulses: PRESENT: normal dorsalis pedis pul, +2 pedal pulses bilateral Vascular exam: PRESENT: normal capillary refill GI/Abdominal exam: PRESENT: normal bowel sounds, soft. ABSENT: distended, guarding, mass, organolmegaly, rebound, tenderness Rectal exam: PRESENT: deferred Neurological exam: PRESENT: alert, awake, oriented to person, oriented to place , oriented to time, oriented to situation, CN II-XII grossly intact. ABSENT: motor sensory deficit Psychiatric exam: PRESENT: appropriate affect, normal mood. ABSENT: homicidal ideation, suicidal ideation Skin exam: PRESENT: dry, intact, warm. ABSENT: cyanosis, rash Results Laboratory Results: 12/17/17 02:52 12/17/17 02:52 12/16/17 12/16/17 12/16/17 20:55 20:55 20:55 WBC RBC Hgb Hct MCV MCH MCHC RDW Plt Count Seg Neutrophils % Lymphocytes % Monocytes % Eosinophils % Basophils % Absolute Neutrophils Absolute Lymphocytes Absolute Monocytes Absolute Eosinophils Absolute Basophils Carbonic Acid HCO3/H2CO3 Ratio ABG pH ABG pCO2 ABG pO2 ABG HCO3 ABG O2 Saturation ABG Base Excess FiO2 Sodium Potassium Chloride Carbon Dioxide Anion Gap BUN Creatinine Est GFR ( Amer) Est GFR (Non-Af Amer) Glucose Calcium Phosphorus 3.4 Magnesium 2.8 H Total Bilirubin AST ALT Alkaline Phosphatase Ammonia < 8.7 L Total Protein Albumin Triglycerides Cholesterol LDL Cholesterol Direct VLDL Cholesterol HDL Cholesterol Amylase < 30 L Lipase 37.0 TSH 0.91 Free T4 0.96 Urine Color Urine Appearance Urine pH Ur Specific [place] Urine Protein Urine Glucose (UA) Urine Ketones Urine Blood Urine Nitrite Ur Leukocyte Esterase Urine RBC (Auto) 12/16/17 12/17/17 12/17/17 21:50 00:00 02:52 WBC 8.5 RBC 3.89 L Hgb 11.4 L Hct 33.1 L MCV 85 MCH 29.4 MCHC 34.4 RDW 13.7 Plt Count 164 Seg Neutrophils % Not Reportable Lymphocytes % Not Reportable Monocytes % Not Reportable Eosinophils % Not Reportable Basophils % Not Reportable Absolute Neutrophils Not Reportable Absolute Lymphocytes Not Reportable Absolute Monocytes Not Reportable Absolute Eosinophils Not Reportable Absolute Basophils Not Reportable Carbonic Acid 1.10 HCO3/H2CO3 Ratio 22:1 ABG pH 7.45 ABG pCO2 36.4 ABG pO2 77.9 L ABG HCO3 24.9 ABG O2 Saturation 96.1 ABG Base Excess 1.2 FiO2 4.5L Sodium Potassium Chloride Carbon Dioxide Anion Gap BUN Creatinine Est GFR ( Amer) Est GFR (Non-Af Amer) Glucose Calcium Phosphorus Magnesium Total Bilirubin AST ALT Alkaline Phosphatase Ammonia Total Protein Albumin Triglycerides Cholesterol LDL Cholesterol Direct VLDL Cholesterol HDL Cholesterol Amylase Lipase TSH Free T4 Urine Color STRAW Urine Appearance CLEAR Urine pH 8.0 Ur Specific [place] 1.018 Urine Protein 100 H Urine Glucose (UA) NEGATIVE Urine Ketones NEGATIVE Urine Blood NEGATIVE Urine Nitrite NEGATIVE Ur Leukocyte Esterase NEGATIVE Urine RBC (Auto) 1 12/17/17 02:52 WBC RBC Hgb Hct MCV MCH MCHC RDW Plt Count Seg Neutrophils % Lymphocytes % Monocytes % Eosinophils % Basophils % Absolute Neutrophils Absolute Lymphocytes Absolute Monocytes Absolute Eosinophils Absolute Basophils Carbonic Acid HCO3/H2CO3 Ratio ABG pH ABG pCO2 ABG pO2 ABG HCO3 ABG O2 Saturation ABG Base Excess FiO2 Sodium 140.0 Potassium 3.8 Chloride 104 Carbon Dioxide 24 Anion Gap 12 BUN 26 H Creatinine 1.28 H Est GFR ( Amer) > 60 Est GFR (Non-Af Amer) 54 L Glucose 201 H Calcium 8.6 Phosphorus Magnesium Total Bilirubin 0.5 AST 16 L ALT 14 L Alkaline Phosphatase 83 Ammonia Total Protein 6.1 L Albumin 3.5 Triglycerides 40 Cholesterol 115.39 LDL Cholesterol Direct 55 VLDL Cholesterol 8.0 L HDL Cholesterol 44 Amylase Lipase TSH Free T4 Urine Color Urine Appearance Urine pH Ur Specific [place] Urine Protein Urine Glucose (UA) Urine Ketones Urine Blood Urine Nitrite Ur Leukocyte Esterase Urine RBC (Auto) 12/16/17 12/16/17 12/16/17 20:55 20:55 20:55 Creatine Kinase Cancelled 59 CK-MB (CK-2) 1.09 Troponin I 0.162 NT-Pro-B Natriuret Pep 12/17/17 12/17/17 12/17/17 02:52 02:52 02:52 Creatine Kinase 52 L CK-MB (CK-2) 1.51 Troponin I 0.114 NT-Pro-B Natriuret Pep [id number] H 12/17/17 12/17/17 08:28 08:28 Creatine Kinase 49 L CK-MB (CK-2) 1.77 Troponin I 0.088 NT-Pro-B Natriuret Pep Impressions: Chest/Abdomen CTA 12/16/17 00:00 IMPRESSION: Bilateral pleural effusions with basilar opacities. Patchy areas of ground-glass. No pulmonary emboli. Vascular congestion. Chest X-Ray 12/16/17 15:47 IMPRESSION: CARDIAC ENLARGEMENT. VASCULAR CONGESTION. Assessment & Plan - Diagnosis (1) Congestive heart failure Is this a current diagnosis for this admission?: Yes Plan: Most likely her diastolic heart failure we will continues IV LasixGet the echocardiogram (2) Hypoxemia Is this a current diagnosis for this admission?: Yes Plan: Patient was CT angiogram was all negative currently all stable with the cannula Consult the cardiology and pulmonary for further evaluations (3) Acute and chronic respiratory failure Qualifiers: Respiratory failure complication: hypoxia Qualified Code(s): J96.21 - Acute and chronic respiratory failure with hypoxia Is this a current diagnosis for this admission?: Yes Plan: Currently all stable (4) COPD (chronic obstructive pulmonary disease) with acute bronchitis Is this a current diagnosis for this admission?: Yes Plan: Continues to nebulizer treatments (5) Chronic kidney disease Qualifiers: Chronic kidney disease stage: stage 3 (moderate) Qualified Code(s): N18.3 - Chronic kidney disease, stage 3 (moderate) Is this a current diagnosis for this admission?: Yes Plan: Will continues to monitor due to the IV contrast (6) Dyslipidemia Is this a current diagnosis for this admission?: Yes (7) Hypertension Qualifiers: Hypertension type: essential hypertension Qualified Code(s): I10 - Essential (primary) hypertension Is this a current diagnosis for this admission?: Yes (8) Bradycardia Is this a current diagnosis for this admission?: Yes Plan: The last admissions patient have a bradycardic episode which unable to tolerate the amiodarone and beta-danyelle (9) Paroxysmal atrial fibrillation Is this a current diagnosis for this admission?: Yes Plan: As per discussed with Dr. Araujo start the patient on Eliquis and will get the echocardiogram (10) Elevated troponin Is this a current diagnosis for this admission?: Yes Plan: Most likely due to the hypoxia and the congestive heart failure as per discussed with the cardiology at [facility] no need to transport and patient do not want to go well patient does not have any symptoms will continues closely monitor and repeat the cardiac enzyme and EKG (11) Leukocytosis Qualifiers: Leukocytosis type: unspecified Qualified Code(s): D72.829 - Elevated white blood cell count, unspecified Is this a current diagnosis for this admission?: Yes Plan: Start the patient on IV antibiotics get the blood culture urine culture and sputum culture to rule out any infectious process - Time Time Spent: 30 to 50 Minutes Medications reviewed and adjusted accordingly: Yes Anticipated discharge: Home Within: Other - Inpatient Certification Medical Necessity: Need Close Monitoring Due to Risk of Patient Decompensation, Need For IV Fluids, Need for IV Antibiotics Post Hospital Care: 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
[2017-12-17] MEDS: LEVALBUTEROL HCL NEB 1.25 MG/3 ML AMPUL NEB SCH ×2 (14:00→20:39)
--- NOTE | 2017-12-17 14:24 | PDOC CONSULTATION ---
Consultation Consult Date: 12/17/17 Attending physician:: JOELLEN JIMENEZ Consult reason:: Dyspnea/chest pain History of Present Illness Admission Date/PCP: 12/16/17 18:23 MESFIN HOLMAN MD History of Present Illness: DARCIE AUSTIN is a 82 year old male with a history of chest pain and dyspnea that increased while at home and subsequently that him to come to the emergency room and negative CTA and EKGs appeared to be normal he does have a history of COPD and wears oxygen at home at night he also has a history of coronary artery disease. He denies a cough or hemoptysis his PPD status is unknown is in no history of chronic lung disease as a child or adolescent he admits to exposure to large amounts of passive smoke as a child as well as an adult. He is self smoked 2 packs a day for approximately 47 years but has not smoked in the last 20 years. 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 He admits to snoring restless sleep nocturia 2-3 times per night unrestful sleep and excessive daytime somnolence. Past Medical History Cardiac Medical History: Reports: Hypertension Pulmonary Medical History: Reports: Asthma, Bronchitis, Chronic Obstructive Pulmonary Disease (COPD), Pneumonia Denies: Tuberculosis Neurological Medical History: Denies: Seizures GI Medical History: Reports: Gastroesophageal Reflux Disease Musculoskeltal Medical History: Reports: Arthritis Psychiatric Medical History: Reports: Depression Past Surgical History Past Surgical History: Reports: Herniorrhaphy - Bilateral inguinal repair Denies: Pacemaker Social History Information Source: Parent, [facility] Records Smoking Status: Former Smoker Cigarettes Packs Per Day: 2 Last Time Smoked: 1983 Passive smoke exposure as: Both Frequency of Alcohol Use: Rare Hx Recreational Drug Use: No Drugs: None Hx Prescription Drug Abuse: No Do you have pets?: No Have you had any respiratory illnesses as a child?: No Have you been exposed to any sick contacts recently?: No Have you had any recent respiratory illnesses?: No Have you travelled outside of [place] in the past 12 months?: No - Advance Directive Resuscitation Status: Full Code Family History Family History: CAD, Hypertension Parental Family History Reviewed: Yes Children Family History Reviewed: Yes Sibling(s) Family History Reviewed.: Yes Medication/Allergy Home Medications: Budesonide/Formoterol Fumarate [Symbicort HFA 160-4.5 mcg Inhaler 6 gm] 2 puff IH Q12 12/17/17 Cetirizine HCl [Zyrtec 10 mg Tablet] 10 mg PO DAILY 12/17/17 Doxazosin Mesylate [Cardura] 8 mg PO DAILY 12/17/17 Ferrous Sulfate [Feosol 325 mg Tablet] 325 mg PO DAILY 12/17/17 Fluticasone Propionate [Flonase Nasal [place] 50 Mcg/[place] 16 gm] 1 spray NASL DAILY 12/17/17 Furosemide [Lasix 20 mg Tablet] 20 mg PO BID 12/17/17 Isosorbide Mononitrate [Imdur 60 mg Tablet.er] 60 mg PO DAILY 12/17/17 Nifedipine [Nifedipine ER] 60 mg PO Q12 12/17/17 Omeprazole 40 mg PO DAILY 12/17/17 Polyethylene Glycol 3350 [Miralax Powder 17 gm/Packet] 17 gm PO DAILYP PRN 12/17 Tiotropium [place] [Spiriva Handihaler 5 Cap/Kit (18 Mcg/Cap)] 1 puff IH DAILY 12/17/17 Allergies/Adverse Reactions: meperidine HCl [From Demerol] Allergy (Verified 01/15/12 23:43) Review of Systems Constitutional: ABSENT: anorexia, chills, fever(s), night sweats Eyes: ABSENT: visual disturbances Ears: ABSENT: hearing changes Nose, Mouth, and Throat: ABSENT: mouth pain, sore throat Cardiovascular: PRESENT: chest pain, edema. ABSENT: orthropnea, palpitations Respiratory: ABSENT: cough, hemoptysis Gastrointestinal: PRESENT: heartburn. ABSENT: abdominal pain, bloating, coffee ground emesis, diarrhea, hematemesis, hematochezia, melena, nausea, vomiting Genitourinary: PRESENT: nocturia. ABSENT: difficulty urinating, dysuria, hematuria Musculoskeletal: ABSENT: deformity, joint swelling Integumentary: ABSENT: pruritus, rash Neurological: ABSENT: abnormal gait, abnormal movements, abnormal speech, confusion, focal weakness, frequent falls, lack of coordination, memory loss, syncope Psychiatric: ABSENT: hallucinations, homidical ideation, suicidal ideation Endocrine: ABSENT: cold intolerance, heat intolerance, polydipsia, polyuria Hematologic/Lymphatic: ABSENT: easy bruising Allergic/Immunologic: ABSENT: seasonal rhinorrhea Physical Exam Vital Signs: Temp Pulse Resp BP Pulse Ox 98.0 F 54 L 18 155/79 H 96 12/17/17 07:45 12/17/17 08:31 12/17/17 08:31 12/17/17 07:45 12/17/17 08:31 Intake & Output 12/16/17 12/17/17 12/18/17 06:59 06:59 06:59 Intake Total 514 Output Total 1350 Balance -836 Weight 99.2 kg Neck exam: ABSENT: carotid bruit, JVD, lymphadenopathy, thyromegaly, tracheal deviation, tracheostomy Respiratory exam: PRESENT: decreased breath sounds, prolonged expiratory phas, rales, rhonchi, symmetrical, unlabored, wheezes. ABSENT: retraction, stridor, tachypnea Cardiovascular exam: PRESENT: RRR, +S1, +S2 Pulses: PRESENT: normal radial pulses GI/Abdominal exam: PRESENT: diminished bowel sounds, soft Extremities exam: ABSENT: calf tenderness, clubbing, joint swelling Musculoskeletal exam: ABSENT: deformity, dislocation Neurological exam: PRESENT: alert, awake Psychiatric exam: PRESENT: flat affect Skin exam: PRESENT: dry, warm Results Laboratory Results: 12/17/17 02:52 12/17/17 02:52 12/16/17 12/16/17 12/16/17 20:55 20:55 20:55 WBC RBC Hgb Hct MCV MCH MCHC RDW Plt Count Seg Neutrophils % Lymphocytes % Monocytes % Eosinophils % Basophils % Absolute Neutrophils Absolute Lymphocytes Absolute Monocytes Absolute Eosinophils Absolute Basophils Carbonic Acid HCO3/H2CO3 Ratio ABG pH ABG pCO2 ABG pO2 ABG HCO3 ABG O2 Saturation ABG Base Excess FiO2 Sodium Potassium Chloride Carbon Dioxide Anion Gap BUN Creatinine Est GFR ( Amer) Est GFR (Non-Af Amer) Glucose Calcium Phosphorus 3.4 Magnesium 2.8 H Total Bilirubin AST ALT Alkaline Phosphatase Ammonia < 8.7 L Total Protein Albumin Triglycerides Cholesterol LDL Cholesterol Direct VLDL Cholesterol HDL Cholesterol Amylase < 30 L Lipase 37.0 TSH 0.91 Free T4 0.96 Urine Color Urine Appearance Urine pH Ur Specific [place] Urine Protein Urine Glucose (UA) Urine Ketones Urine Blood Urine Nitrite Ur Leukocyte Esterase Urine RBC (Auto) 12/16/17 12/17/17 12/17/17 21:50 00:00 02:52 WBC 8.5 RBC 3.89 L Hgb 11.4 L Hct 33.1 L MCV 85 MCH 29.4 MCHC 34.4 RDW 13.7 Plt Count 164 Seg Neutrophils % Not Reportable Lymphocytes % Not Reportable Monocytes % Not Reportable Eosinophils % Not Reportable Basophils % Not Reportable Absolute Neutrophils Not Reportable Absolute Lymphocytes Not Reportable Absolute Monocytes Not Reportable Absolute Eosinophils Not Reportable Absolute Basophils Not Reportable Carbonic Acid 1.10 HCO3/H2CO3 Ratio 22:1 ABG pH 7.45 ABG pCO2 36.4 ABG pO2 77.9 L ABG HCO3 24.9 ABG O2 Saturation 96.1 ABG Base Excess 1.2 FiO2 4.5L Sodium Potassium Chloride Carbon Dioxide Anion Gap BUN Creatinine Est GFR ( Amer) Est GFR (Non-Af Amer) Glucose Calcium Phosphorus Magnesium Total Bilirubin AST ALT Alkaline Phosphatase Ammonia Total Protein Albumin Triglycerides Cholesterol LDL Cholesterol Direct VLDL Cholesterol HDL Cholesterol Amylase Lipase TSH Free T4 Urine Color STRAW Urine Appearance CLEAR Urine pH 8.0 Ur Specific [place] 1.018 Urine Protein 100 H Urine Glucose (UA) NEGATIVE Urine Ketones NEGATIVE Urine Blood NEGATIVE Urine Nitrite NEGATIVE Ur Leukocyte Esterase NEGATIVE Urine RBC (Auto) 1 12/17/17 02:52 WBC RBC Hgb Hct MCV MCH MCHC RDW Plt Count Seg Neutrophils % Lymphocytes % Monocytes % Eosinophils % Basophils % Absolute Neutrophils Absolute Lymphocytes Absolute Monocytes Absolute Eosinophils Absolute Basophils Carbonic Acid HCO3/H2CO3 Ratio ABG pH ABG pCO2 ABG pO2 ABG HCO3 ABG O2 Saturation ABG Base Excess FiO2 Sodium 140.0 Potassium 3.8 Chloride 104 Carbon Dioxide 24 Anion Gap 12 BUN 26 H Creatinine 1.28 H Est GFR ( Amer) > 60 Est GFR (Non-Af Amer) 54 L Glucose 201 H Calcium 8.6 Phosphorus Magnesium Total Bilirubin 0.5 AST 16 L ALT 14 L Alkaline Phosphatase 83 Ammonia Total Protein 6.1 L Albumin 3.5 Triglycerides 40 Cholesterol 115.39 LDL Cholesterol Direct 55 VLDL Cholesterol 8.0 L HDL Cholesterol 44 Amylase Lipase TSH Free T4 Urine Color Urine Appearance Urine pH Ur Specific [place] Urine Protein Urine Glucose (UA) Urine Ketones Urine Blood Urine Nitrite Ur Leukocyte Esterase Urine RBC (Auto) 12/16/17 12/16/17 12/16/17 20:55 20:55 20:55 Creatine Kinase Cancelled 59 CK-MB (CK-2) 1.09 Troponin I 0.162 NT-Pro-B Natriuret Pep 12/17/17 12/17/17 12/17/17 02:52 02:52 02:52 Creatine Kinase 52 L CK-MB (CK-2) 1.51 Troponin I 0.114 NT-Pro-B Natriuret Pep [id number] H 12/17/17 12/17/17 08:28 08:28 Creatine Kinase 49 L CK-MB (CK-2) 1.77 Troponin I 0.088 NT-Pro-B Natriuret Pep Impressions: Chest/Abdomen CTA 12/16/17 00:00 IMPRESSION: Bilateral pleural effusions with basilar opacities. Patchy areas of ground-glass. No pulmonary emboli. Vascular congestion. Chest X-Ray 12/16/17 15:47 IMPRESSION: CARDIAC ENLARGEMENT. VASCULAR CONGESTION. Assessment & Plan - Diagnosis (1) Acute heart failure Qualifiers: Heart failure type: unspecified Qualified Code(s): I50.9 - Heart failure, unspecified (2) Hypoxemia Is this a current diagnosis for this admission?: Yes (3) Leukocytosis Qualifiers: Leukocytosis type: unspecified Qualified Code(s): D72.829 - Elevated white blood cell count, unspecified Is this a current diagnosis for this admission?: Yes (4) Paroxysmal atrial fibrillation Is this a current diagnosis for this admission?: Yes (5) Acute and chronic respiratory failure Qualifiers: Respiratory failure complication: hypoxia Qualified Code(s): J96.21 - Acute and chronic respiratory failure with hypoxia Is this a current diagnosis for this admission?: Yes
[2017-12-17] MEDS: FUROSEMIDE INJ/PF 20 MG/2 ML SDV IV SCH ×2 (14:56→23:01)
[2017-12-17 15:10] LABS: CREATINE KINASE MB 1.96 ng/mL (<4.55); TROPONIN I 0.083 ng/mL
--- NOTE | 2017-12-17 15:10 | EKG REPORT ---
SEVERITY:- ABNORMAL ECG - ATRIAL FIBRILLATION VENTRICULAR BIGEMINY LEFT BUNDLE BRANCH BLOCK VS V PACED BEATS : Confirmed by: Aisha Araujo 17-Dec-2017 15:10:04
[2017-12-17] MEDS: APIXABAN 2.5 MG TABLET PO SCH (18:57)
[2017-12-17] MEDS ORDERED: DOXAZOSIN MESYLATE 4 MG TABLET PO SCH (22:00)
[2017-12-17] MEDS ORDERED: (PENDING PHARMACY ID) (Magnesium [Magnesium] 250 MG) PO SCH (22:00)
[2017-12-17] MEDS ORDERED: MAGNESIUM OXIDE 400 MG TABLET PO SCH (22:00)
[2017-12-17 22:03] LABS: CREATINE KINASE MB 2.04 ng/mL (<4.55); TROPONIN I 0.069 ng/mL
[2017-12-18] MEDS: LEVALBUTEROL HCL NEB 1.25 MG/3 ML AMPUL NEB SCH ×4 (02:02→19:51)
[2017-12-18] MEDS: FUROSEMIDE INJ/PF 20 MG/2 ML SDV IV SCH ×3 (05:45→21:21)
[2017-12-18] MEDS: LANSOPRAZOLE 30 MG TAB.RAP.DR PO SCH (05:54)
[2017-12-18 06:26] LABS: ABSOLUTE MONOCYTES (AUTO) 1.1 10^3/uL (0.1-1.4); ABSOLUTE NEUT (AUTO) 8.1 10^3/uL (1.7-8.2); BASOPHILS % (AUTO) 0.3 % (0-2); EOSINOPHILS % (AUTO) 0.4 % (0-6); HEMATOCRIT 29.3 % (37.9-51.0); LYMPHOCYTES % (AUTO) 9.6 % (13-45); MEAN CORPUSCULAR HEMOGLOBIN 29.3 pg (27.0-33.4); MEAN CORPUSCULAR HGB CONC 34.2 g/dL (32.0-36.0); MEAN CORPUSCULAR VOLUME 86 fl (80-97); MONOCYTES % (AUTO) 11.1 % (3-13); PLATELET COUNT 166 10^3/uL (150-450); RED BLOOD COUNT 3.42 10^6/uL (4.35-5.55); RED CELL DISTRIBUTION WIDTH 13.9 % (11.5-14.0); SEGMENTED NEUTROPHILS % (AUTO) 78.6 % (42-78); TOTAL CELLS COUNTED % (AUTO) 100 %; WHITE BLOOD COUNT 10.3 10^3/uL (4.0-10.5)
[2017-12-18 06:42] LABS: ALANINE AMINOTRANSFERASE 24 U/L (21-72); ALBUMIN 3.2 g/dL (3.5-5.0); ALKALINE PHOSPHATASE 81 U/L (38-126); ANION GAP 8 (5-19); ASPARTATE AMINO TRANSFERASE 18 U/L (17-59); BILIRUBIN,DIRECT 0.1 mg/dL (0.0-0.4); BILIRUBIN,TOTAL 0.3 mg/dL (0.2-1.3); BLOOD UREA NITROGEN 36 mg/dL (7-20); CALCIUM 8.3 mg/dL (8.4-10.2); CARBON DIOXIDE 27 mmol/L (22-30); CHLORIDE 104 mmol/L (98-107); GLUCOSE 123 mg/dL (75-110); POTASSIUM 3.4 mmol/L (3.6-5.0); SODIUM 139.4 mmol/L (137-145); TOTAL PROTEIN 5.7 g/dL (6.3-8.2)
[2017-12-18] MEDS ORDERED: POTASSIUM CHLORIDE 10 MEQ TABLET.SA PO ONE (09:00)
[2017-12-18] MEDS: FERROUS SULFATE 325 MG TABLET PO SCH (09:14)
[2017-12-18] MEDS: ASPIRIN 81 MG TABLET, CHEWABLE PO SCH (09:15)
[2017-12-18] MEDS: ISOSORBIDE MONONITRATE 60 MG TAB.ER.24H PO SCH (09:15)
[2017-12-18] MEDS: ASCORBIC ACID 500 MG TABLET PO SCH (09:15)
[2017-12-18] MEDS: DOCUSATE SODIUM 100 MG CAPSULE PO SCH (09:15)
[2017-12-18] MEDS: NIFEDIPINE 30 MG TAB.ER.24 PO SCH ×2 (09:15→21:20)
[2017-12-18] MEDS: LEVOFLOXACIN 500 MG/D5W RTU 500 MG/100 ML RTUPB IV SCH (09:16)
[2017-12-18] MEDS: POLYETHYLENE GLYCOL 3350 POWDER 17 GM/1 PACKET PO SCH (09:17)
[2017-12-18] MEDS: TIOTROPIUM BROMIDE DPI 5 CAP/KIT (18 MCG/CAP) IH SCH (09:19)
[2017-12-18] MEDS: APIXABAN 2.5 MG TABLET PO SCH ×2 (09:19→17:37)
--- NOTE | 2017-12-18 09:25 | EKG REPORT ---
SEVERITY:- ABNORMAL ECG - ATRIAL FIBRILLATION NONSPECIFIC INTRAVENTRICULAR CONDUCTION DELAY PROBABLE LEFT VENTRICULAR HYPERTROPHY : Confirmed by: Aisha Araujo 18-Dec-2017 09:23:54
[2017-12-18 09:56] LABS: CREATINE KINASE MB 1.43 ng/mL (<4.55); TROPONIN I 0.049 ng/mL
--- NOTE | 2017-12-18 11:32 | PDOC PROGRESS REPORT ---
Subjective Progress Note for:: 12/18/17 Subjective:: Patient is currently feeling much better Patient's denied any chest pain denied any shortness of the breath Patient's cardiac enzyme is also trending down Reason For Visit: SHORTNESS OF BREATH ? ACUTE DIASTOLIC HEART Physical Exam Vital Signs: Temp Pulse Resp BP Pulse Ox 97.9 F 54 L 16 137/53 H 92 12/18/17 08:25 12/18/17 08:37 12/18/17 08:37 12/18/17 08:25 12/18/17 08:37 Intake & Output 12/17/17 12/18/17 12/19/17 06:59 06:59 06:59 Intake Total 514 1253 Output Total 1350 1950 Balance -836 -697 Weight 99.2 kg 99.9 kg General appearance: PRESENT: no acute distress, well-developed, well-nourished Head exam: PRESENT: atraumatic, normocephalic Eye exam: PRESENT: conjunctiva pink, EOMI, PERRLA. ABSENT: scleral icterus Ear exam: PRESENT: normal external ear exam Mouth exam: PRESENT: moist, tongue midline Neck exam: PRESENT: full ROM. ABSENT: carotid bruit, JVD, lymphadenopathy, thyromegaly Respiratory exam: PRESENT: clear to auscultation alphonse Cardiovascular exam: PRESENT: RRR. ABSENT: diastolic murmur, rubs, systolic murmur Pulses: PRESENT: normal dorsalis pedis pul, +2 pedal pulses bilateral Vascular exam: PRESENT: normal capillary refill GI/Abdominal exam: PRESENT: normal bowel sounds, soft. ABSENT: distended, guarding, mass, organolmegaly, rebound, tenderness Rectal exam: PRESENT: deferred Extremities exam: ABSENT: pedal edema Musculoskeletal exam: PRESENT: ambulatory Neurological exam: PRESENT: alert, awake, oriented to person, oriented to place , oriented to time, oriented to situation, CN II-XII grossly intact. ABSENT: motor sensory deficit Psychiatric exam: PRESENT: appropriate affect, normal mood. ABSENT: homicidal ideation, suicidal ideation Skin exam: PRESENT: dry, intact, warm. ABSENT: cyanosis, rash Results Laboratory Results: 12/18/17 05:35 12/18/17 05:35 12/18/17 12/18/17 05:35 05:35 WBC 10.3 RBC 3.42 L Hgb 10.0 L Hct 29.3 L MCV 86 MCH 29.3 MCHC 34.2 RDW 13.9 Plt Count 166 Seg Neutrophils % 78.6 H Lymphocytes % 9.6 L Monocytes % 11.1 Eosinophils % 0.4 Basophils % 0.3 Absolute Neutrophils 8.1 Absolute Lymphocytes 1.0 Absolute Monocytes 1.1 Absolute Eosinophils 0.0 Absolute Basophils 0.0 Sodium 139.4 Potassium 3.4 L Chloride 104 Carbon Dioxide 27 Anion Gap 8 BUN 36 H Creatinine 1.29 H Est GFR ( Amer) > 60 Est GFR (Non-Af Amer) 54 L Glucose 123 H Calcium 8.3 L Total Bilirubin 0.3 AST 18 ALT 24 Alkaline Phosphatase 81 Total Protein 5.7 L Albumin 3.2 L 12/16/17 12/16/17 12/16/17 20:55 20:55 20:55 Creatine Kinase Cancelled 59 CK-MB (CK-2) 1.09 Troponin I 0.162 NT-Pro-B Natriuret Pep 12/17/17 12/17/17 12/17/17 02:52 02:52 02:52 Creatine Kinase 52 L CK-MB (CK-2) 1.51 Troponin I 0.114 NT-Pro-B Natriuret Pep [id number] H 12/17/17 12/17/17 12/17/17 08:28 08:28 14:17 Creatine Kinase 49 L 48 L CK-MB (CK-2) 1.77 Troponin I 0.088 NT-Pro-B Natriuret Pep 12/17/17 12/17/17 12/17/17 14:17 21:20 21:20 Creatine Kinase 52 L CK-MB (CK-2) 1.96 2.04 Troponin I 0.083 0.069 NT-Pro-B Natriuret Pep 12/18/17 12/18/17 08:49 08:49 Creatine Kinase 45 L CK-MB (CK-2) 1.43 Troponin I 0.049 NT-Pro-B Natriuret Pep Impressions: Chest/Abdomen CTA 12/16/17 00:00 IMPRESSION: Bilateral pleural effusions with basilar opacities. Patchy areas of ground-glass. No pulmonary emboli. Vascular congestion. Chest X-Ray 12/16/17 15:47 IMPRESSION: CARDIAC ENLARGEMENT. VASCULAR CONGESTION. Assessment & Plan - Diagnosis (1) Congestive heart failure Is this a current diagnosis for this admission?: Yes Plan: Currently all improving (2) Hypoxemia Is this a current diagnosis for this admission?: Yes Plan: Patient was CT angiogram was all negative currently all stable with the cannula Consult the cardiology and pulmonary for further evaluations (3) Acute and chronic respiratory failure Qualifiers: Respiratory failure complication: hypoxia Qualified Code(s): J96.21 - Acute and chronic respiratory failure with hypoxia Is this a current diagnosis for this admission?: Yes Plan: Currently all stable (4) COPD (chronic obstructive pulmonary disease) with acute bronchitis Is this a current diagnosis for this admission?: Yes Plan: Continues to nebulizer treatments (5) Chronic kidney disease Qualifiers: Chronic kidney disease stage: stage 3 (moderate) Qualified Code(s): N18.3 - Chronic kidney disease, stage 3 (moderate) Is this a current diagnosis for this admission?: Yes Plan: Will continues to monitor due to the IV contrast (6) Dyslipidemia Is this a current diagnosis for this admission?: Yes (7) Hypertension Qualifiers: Hypertension type: essential hypertension Qualified Code(s): I10 - Essential (primary) hypertension Is this a current diagnosis for this admission?: Yes (8) Bradycardia Is this a current diagnosis for this admission?: Yes Plan: Currently follow with cardiology (9) Paroxysmal atrial fibrillation Is this a current diagnosis for this admission?: Yes Plan: Continues to Eliquis and follow with the cardiology (10) Elevated troponin Is this a current diagnosis for this admission?: Yes Plan: Most likely due to the hypoxia and the congestive heart failure as per discussed with the cardiology at [place] no need to transport and patient do not want to go well patient does not have any symptoms will continues closely monitor and repeat the cardiac enzyme and EKG (11) Leukocytosis Qualifiers: Leukocytosis type: unspecified Qualified Code(s): D72.829 - Elevated white blood cell count, unspecified Is this a current diagnosis for this admission?: Yes Plan: Start the patient on IV antibiotics get the blood culture urine culture and sputum culture to rule out any infectious process - Time Time Spent with patient: 15-24 minutes Medications reviewed and adjusted accordingly: Yes Anticipated discharge: Home Within: Other - Inpatient Certification Medical Necessity: Need Close Monitoring Due to Risk of Patient Decompensation Post Hospital Care: D/C Senior Caregiver Documentation - Plan Summary Plan Summary: Continues to current medications
[2017-12-18 16:12] LABS: CREATINE KINASE MB 1.41 ng/mL (<4.55); TROPONIN I 0.038 ng/mL
--- NOTE | 2017-12-18 19:26 | XCELERA REPORT ---
[address] [address] Transthoracic Echocardiogram Report Name: DARCIE AUSTIN Age: 82 yrs Gender: Male : 1935 Patient Status: Inpatient Patient Location: [address] [place] [address] Study Date: 12/18/2017 10:06 AM Height: 70 in Weight: 217 lb BSA: 2.2 m2 Procedure: A complete two-dimensional transthoracic echocardiogram was performed (2D, M-mode, spectral and color flow Doppler). The study was technically difficult with many images being suboptimal in quality. Reason For Study: Acute heart failure Ordering Physician: MESFIN HOLMNA Performed By: Shalonda Howell Interpretation Summary Left ventricular systolic function is mildly reduced. The Ejection Fraction estimate is 40-45% LV diastolic function could not be adequately assessed. There is mild global hypokinesis of the left ventricle. The left ventricle is grossly normal size. There is mild concentric left ventricular hypertrophy. Borderline right ventricular enlargement. The right ventricular systolic function is normal. The right atrium is mildly dilated. The left atrium is mildly dilated. There is a moderate amount of mitral regurgitation There is no mitral valve stenosis. There is no aortic valve stenosis No aortic regurgitation is present. There is a trace or physiologic amount of tricuspid regurgitation Tricuspid regurgitation jet envelope not well defined to measure RV systolic pressure accurately. The aortic root is not well visualized but is probably normal size. The inferior vena cava was not well visualized Minimal pericardial effusion. MMode/2D Measurements & Calculations RVDd: 2.3 cm LVIDd: 5.7 cm FS: 31.4 % Ao root diam: 2.5 cm IVSd: 1.1 cm LVIDs: 3.9 cm EDV(Teich): 161.3 ml LVPWd: 1.1 cm ESV(Teich): 67.0 ml Ao root area: 5.0 cm2 EF(Teich): 58.5 % Doppler Measurements & Calculations MV E max sofia: MV dec slope: Ao V2 max: LV V1 max P.3 cm/sec 187.1 cm/sec 3.6 mmHg MV A max sofia: 693.5 cm/sec2 Ao max PG: LV V1 max: 104.6 cm/sec MV dec time: 14.0 mmHg 94.3 cm/sec MV E/A: 1.4 0.20 sec PA V2 max: TR max sofia: 134.2 cm/sec 270.7 cm/sec PA max P.2 mmHg TR max P.7 mmHg Left Ventricle The left ventricle is grossly normal size. There is mild concentric left ventricular hypertrophy. Left ventricular systolic function is mildly reduced. The Ejection Fraction estimate is 40-45%. LV diastolic function could not be adequately assessed. There is mild global hypokinesis of the left ventricle. Right Ventricle Borderline right ventricular enlargement. There is normal right ventricular wall thickness. The right ventricular systolic function is normal. Atria The right atrium is mildly dilated. The left atrium is mildly dilated. Interarterial septum not well visualized and not well dopplered. Cannot comment on ASD/PFO presence. Mitral Valve The mitral valve leaflets are sclerotic, but show no functional abnormalities. There is no mitral valve stenosis. There is a moderate amount of mitral regurgitation. Aortic Valve The aortic valve is not well visualized secondary to technical limitations. There is no aortic valve stenosis. No aortic regurgitation is present. Tricuspid Valve The tricuspid valve is not well visualized, but is grossly normal. There is no tricuspid stenosis. There is a trace or physiologic amount of tricuspid regurgitation. Tricuspid regurgitation jet envelope not well defined to measure RV systolic pressure accurately. Pulmonic Valve The pulmonic valve is not well visualized. Great Vessels The aortic root is not well visualized but is probably normal size. The inferior vena cava was not well visualized. Effusions Minimal pericardial effusion. : MESFIN HOLMAN > Aisha Araujo
--- NOTE | 2017-12-18 19:46 | PDOC CONSULTATION ---
Consultation Consult Date: 12/18/17 Attending physician:: JOELLEN JIMENEZ Consult reason:: Cardiac dysrhythmia and CHF History of Present Illness Admission Date/PCP: 12/16/17 18:23 MESFIN HOLMAN MD Patient complains of: Shortness of breath History of Present Illness: DARCIE AUSTIN is a 82 year old male with a significant history of the COPD and a history of the congestive heart failure with the mostly a diastolic dysfunctions with low normal EF and a history of the multiple other issues not as increasing the leg swelling in the shortness of the breath since last 3 daysAnd patients came to the emergency departments where patient was found with the bronchitis and congestive heart failure and patients decided to admit in the hospital for further evaluations When I saw the patient's patients denied any chest pain denied any shortness of the blood patients. Much better Patients received the prednisone and also received IV antibiotic in the ER and IV Lasix An initial evaluations the patient's troponin was 0.162 and trending down and no any acute EKG changes in patients clinically denied any chest pain Discussed with the [facility] and suggest that most likely from underlying CHF and patients does not have any symptoms and trending down just need echocardiogram no need for cardiac cath and no need for transfer unless patients wants to comeAll the patient have a develop any clinical symptoms Patient's at this point discuss with him patient's preferred not to go to the [facility] at this point we will does not have any symptoms Patient also see Dr. Medrano as outpatients and according to the patient everything was stable when the last time was on the last month. My previous evaluations were reviewed. Patient on telemetry strips is noted to have frequent VPCs, some intermittent mild bradycardia. Patient however denied ever having any syncope, near syncope. He was admitted with progressive shortness of breath and some pedal edema. Currently denies any chest pain. He denied any known history of coronary artery disease. Past Medical History Cardiac Medical History: Reports: Hypertension Pulmonary Medical History: Reports: Asthma, Bronchitis, Chronic Obstructive Pulmonary Disease (COPD), Pneumonia Denies: Tuberculosis Neurological Medical History: Denies: Seizures GI Medical History: Reports: Gastroesophageal Reflux Disease Musculoskeltal Medical History: Reports: Arthritis Psychiatric Medical History: Reports: Depression Past Surgical History Past Surgical History: Reports: Herniorrhaphy - Bilateral inguinal repair Denies: Pacemaker Social History Information Source: Patient Smoking Status: Former Smoker Cigarettes Packs Per Day: 2 Last Time Smoked: 1983 Frequency of Alcohol Use: Rare Hx Recreational Drug Use: No Drugs: None Hx Prescription Drug Abuse: No - Advance Directive Resuscitation Status: Full Code Surrogate healthcare decision maker:: Patient's son is the surrogate decision-maker Family History Family History: CAD, Hypertension Parental Family History Reviewed: Yes Children Family History Reviewed: Yes Sibling(s) Family History Reviewed.: Yes Medication/Allergy Home Medications: Budesonide/Formoterol Fumarate [Symbicort HFA 160-4.5 mcg Inhaler 6 gm] 2 puff IH Q12 12/17/17 Cetirizine HCl [Zyrtec 10 mg Tablet] 10 mg PO DAILY 12/17/17 Doxazosin Mesylate [Cardura] 8 mg PO DAILY 12/17/17 Ferrous Sulfate [Feosol 325 mg Tablet] 325 mg PO DAILY 12/17/17 Fluticasone Propionate [Flonase Nasal [place] 50 Mcg/[place] 16 gm] 1 spray NASL DAILY 12/17/17 Furosemide [Lasix 20 mg Tablet] 20 mg PO BID 12/17/17 Isosorbide Mononitrate [Imdur 60 mg Tablet.er] 60 mg PO DAILY 12/17/17 Nifedipine [Nifedipine ER] 60 mg PO Q12 12/17/17 Omeprazole 40 mg PO DAILY 12/17/17 Polyethylene Glycol 3350 [Miralax Powder 17 gm/Packet] 17 gm PO DAILYP PRN 12/17 Tiotropium Cisco [Spiriva Handihaler 5 Cap/Kit (18 Mcg/Cap)] 1 puff IH DAILY 12/17/17 Allergies/Adverse Reactions: meperidine HCl [From Demerol] Allergy (Verified 01/15/12 23:43) Review of Systems Review of Systems: Please see history of present illness and past medical history as wall. Constitutional: No fever or chills reported. Head : No recent chronic headaches, recent head injury. Eyes: No recent eye pain, diplopia, redness, discharge, acute visual changes. Ears: No recent chronic ear pain, acute hearing loss, ear discharge. Oral cavity: No recent ulcerations, bleeding, oral cavity discomfort. Neck: No recent acute neck pain reported. Hematologic: No recent easy bruising or bleeding or hematologic malignancy reported. Lymphatic: No recent lymphatic malignancy, chronic lymphadenopathy reported yet Cardiovascular system review: See history of present illness. Respiratory system review: No recent chronic cough, hemoptysis, blood clots in the lungs reported. Shortness of breath on exertion. patient denied any prior history of syncope, near syncope. Gastrointestinal system review: Negative for any recent acute or chronic abdominal pain, hematemesis, melena, recent change in bowel habits. Genitourinary system review: No recent acute or chronic hematuria, flank pain, UTI etc. reported. Skin system review: Negative for any recent abnormal bruising, no rash, no pruritus reported. Neurologic: No prior history of strokes, mini strokes, seizure disorder. Psychologic: No history of major psychosis or major depression reported. Musculoskeletal: Minor aches and pains reported. No acute joint swelling reported. Endocrine: No recent polyuria, polydipsia, recent heat or cold intolerance. Physical Exam Vital Signs: Temp Pulse Resp BP Pulse Ox 98.0 F 51 L 16 128/44 H 95 12/18/17 16:35 12/18/17 16:35 12/18/17 16:35 12/18/17 16:35 12/18/17 16:35 Intake & Output 12/17/17 12/18/17 12/19/17 06:59 06:59 06:59 Intake Total 514 1253 1848 Output Total 1350 1950 750 Balance -836 -697 1098 Weight 99.2 kg 99.9 kg Exam: GENERAL: well-nourished and in no acute distress. Alert and oriented x3 HEAD: Atraumatic, normocephalic. EYES: Pupils equal round and reactive to light, extraocular movements intact, sclera anicteric, conjunctiva are normal. ENT: TMs normal, nares patent, oropharynx clear without exudates. Moist mucous membranes. No oral ulcerations or bleeding gums noted NECK: supple without lymphadenopathy. Trachea is central. No cervical or axillary lymphadenopathy noted. Carotids are 2+, JVD 10 cm LUNGS: Respiration seems nonlabored, no significant accessory muscle action noted. Bibasilar fine crackles are noted. No wheezes rales or rhonchi noted. No significant dullness noted on percussion. CHEST: Palpation of the chest wall shows no significant chest wall tenderness. No other significant abnormalities noted. HEART: [place] DELIVERY NURSE, No PSH, 1/6 PEDRO aortic area,2/6 fan systolic murmur mitral area , no rubs, no gallops. ABDOMEN: Soft, no significant tenderness appreciated, normoactive bowel sounds. No guarding, no rebound. No rigidity noted . No masses appreciated. EXTREMITIES: Pedal pulses are 1-2+, no calf tenderness noted. No clubbing or cyanosis. 1+ pedal edema noted NEUROLOGICAL: Focused neurological exam showed no significant neurologic deficit. Normal speech, no focal weakness appreciated. PSYCH: Normal mood, normal affect. Judgment and insight within normal limits. SKIN: No significant ecchymosis, skin is noted to be warm. MUSCULOSKELETAL EXAM: No significant acute joint swelling noted. Results Laboratory Results: 12/18/17 05:35 12/18/17 05:35 12/18/17 12/18/17 05:35 05:35 WBC 10.3 RBC 3.42 L Hgb 10.0 L Hct 29.3 L MCV 86 MCH 29.3 MCHC 34.2 RDW 13.9 Plt Count 166 Seg Neutrophils % 78.6 H Lymphocytes % 9.6 L Monocytes % 11.1 Eosinophils % 0.4 Basophils % 0.3 Absolute Neutrophils 8.1 Absolute Lymphocytes 1.0 Absolute Monocytes 1.1 Absolute Eosinophils 0.0 Absolute Basophils 0.0 Sodium 139.4 Potassium 3.4 L Chloride 104 Carbon Dioxide 27 Anion Gap 8 BUN 36 H Creatinine 1.29 H Est GFR ( Amer) > 60 Est GFR (Non-Af Amer) 54 L Glucose 123 H Calcium 8.3 L Total Bilirubin 0.3 AST 18 ALT 24 Alkaline Phosphatase 81 Total Protein 5.7 L Albumin 3.2 L 12/16/17 12/16/17 12/16/17 20:55 20:55 20:55 Creatine Kinase Cancelled 59 CK-MB (CK-2) 1.09 Troponin I 0.162 NT-Pro-B Natriuret Pep 12/17/17 12/17/17 12/17/17 02:52 02:52 02:52 Creatine Kinase 52 L CK-MB (CK-2) 1.51 Troponin I 0.114 NT-Pro-B Natriuret Pep 18468 H 12/17/17 12/17/17 12/17/17 08:28 08:28 14:17 Creatine Kinase 49 L 48 L CK-MB (CK-2) 1.77 Troponin I 0.088 NT-Pro-B Natriuret Pep 12/17/17 12/17/17 12/17/17 14:17 21:20 21:20 Creatine Kinase 52 L CK-MB (CK-2) 1.96 2.04 Troponin I 0.083 0.069 NT-Pro-B Natriuret Pep 12/18/17 12/18/17 12/18/17 08:49 08:49 15:25 Creatine Kinase 45 L 43 L CK-MB (CK-2) 1.43 Troponin I 0.049 NT-Pro-B Natriuret Pep 12/18/17 15:25 Creatine Kinase CK-MB (CK-2) 1.41 Troponin I 0.038 NT-Pro-B Natriuret Pep EKG Comments: Twelve-lead EKG shows atrial fibrillation with frequent VPCs. Impressions: Chest/Abdomen CTA 12/16/17 00:00 IMPRESSION: Bilateral pleural effusions with basilar opacities. Patchy areas of ground-glass. No pulmonary emboli. Vascular congestion. Chest X-Ray 12/16/17 15:47 IMPRESSION: CARDIAC ENLARGEMENT. VASCULAR CONGESTION. Assessment & Plan - Diagnosis (1) Congestive heart failure Is this a current diagnosis for this admission?: Yes (2) Atrial fibrillation Qualifiers: Atrial fibrillation type: unspecified Qualified Code(s): I48.91 - Unspecified atrial fibrillation Is this a current diagnosis for this admission?: Yes (3) Hypertension Qualifiers: Hypertension type: essential hypertension Qualified Code(s): I10 - Essential (primary) hypertension Is this a current diagnosis for this admission?: Yes (4) Bradycardia Is this a current diagnosis for this admission?: Yes (5) Mitral regurgitation Qualifiers: Cardiac valve disease etiology: etiology unspecified Qualified Code(s): I34.0 - Nonrheumatic mitral (valve) insufficiency Is this a current diagnosis for this admission?: Yes (6) Elevated troponin I level Is this a current diagnosis for this admission?: Yes (7) Elevated troponin Is this a current diagnosis for this admission?: Yes - Notes Notes: Congestive heart failure: Most likely related to systolic and diastolic dysfunction along with contribution from mitral regurgitation. Patient definitely has fluid overload. Agree with IV Lasix. Will place patient on entresto. Recommend hydralazine nitrate combination. Mitral regurgitation: Patient has moderate mitral regurgitation. Recommend stopping or gradually reducing nifedipine and replacing with hydralazine nitrate combination. Entresto therapy will also help. Bradycardia: Currently mild and asymptomatic. Observe patient. Low threshold for pacemaker placement since patient has CHF. So far do not have any evidence for symptomatic bradycardia. Elevated troponin I: Possibly related to CHF. Atrial fibrillation: Probably paroxysmal. Patient already on Eliquis therapy. Continue with it. Rate is well controlled. Overall prognosis is guarded. - Time Time Spent: 50 to 70 Minutes - CODE STATUS was discussed, patient remains full code. Surrogate decision-maker unchanged. Multiple medical problems were addressed. More than 50% of the time spent coordinating care, discussing management plans with involved caregivers. Management plans discussed with involved personnels. Medical decision making was of moderate to high complexity , patient's has multiple comorbidities. Medications reviewed and adjusted accordingly: Yes
[2017-12-18] MEDS ORDERED: TAMSULOSIN HCL 0.4 MG CAP.SR.24H PO ONE (20:30)
[2017-12-18] MEDS ORDERED: SACUBITRIL/VALSARTAN 24 MG/26 MG TABLET PO ONE (20:30)
[2017-12-18 22:04] LABS: CREATINE KINASE MB 1.57 ng/mL (<4.55); TROPONIN I 0.039 ng/mL
[2017-12-19] MEDS: LEVALBUTEROL HCL NEB 1.25 MG/3 ML AMPUL NEB SCH ×4 (01:40→19:48)
[2017-12-19] MEDS: LANSOPRAZOLE 30 MG TAB.RAP.DR PO SCH (05:36)
[2017-12-19] MEDS: FUROSEMIDE INJ/PF 20 MG/2 ML SDV IV SCH ×3 (05:37→22:20)
[2017-12-19 06:48] LABS: ABSOLUTE EOSINOPHILS # (AUTO) 0.5 10^3/uL (0.0-0.6); ABSOLUTE LYMPHOCYTES (AUTO) 1.2 10^3/uL (0.5-4.7); ABSOLUTE MONOCYTES (AUTO) 0.8 10^3/uL (0.1-1.4); ABSOLUTE NEUT (AUTO) 5.3 10^3/uL (1.7-8.2); BASOPHILS % (AUTO) 0.6 % (0-2); EOSINOPHILS % (AUTO) 5.7 % (0-6); HEMATOCRIT 30.1 % (37.9-51.0); HEMOGLOBIN 10.2 g/dL (13.5-17.0); LYMPHOCYTES % (AUTO) 15.3 % (13-45); MEAN CORPUSCULAR HEMOGLOBIN 29.2 pg (27.0-33.4); MEAN CORPUSCULAR HGB CONC 33.9 g/dL (32.0-36.0); MEAN CORPUSCULAR VOLUME 86 fl (80-97); MONOCYTES % (AUTO) 10.6 % (3-13); PLATELET COUNT 194 10^3/uL (150-450); RED CELL DISTRIBUTION WIDTH 13.6 % (11.5-14.0); SEGMENTED NEUTROPHILS % (AUTO) 67.8 % (42-78); TOTAL CELLS COUNTED % (AUTO) 100 %; WHITE BLOOD COUNT 7.9 10^3/uL (4.0-10.5)
[2017-12-19 07:07] LABS: BLOOD UREA NITROGEN 37 mg/dL (7-20); CALCIUM 8.5 mg/dL (8.4-10.2); GLUCOSE 110 mg/dL (75-110)
[2017-12-19 07:08] LABS: ALANINE AMINOTRANSFERASE 21 U/L (21-72); ALBUMIN 3.2 g/dL (3.5-5.0); ALKALINE PHOSPHATASE 83 U/L (38-126); ANION GAP 12 (5-19); ASPARTATE AMINO TRANSFERASE 12 U/L (17-59); BILIRUBIN,DIRECT 0.3 mg/dL (0.0-0.4); BILIRUBIN,TOTAL 0.4 mg/dL (0.2-1.3); CARBON DIOXIDE 24 mmol/L (22-30); CHLORIDE 106 mmol/L (98-107); POTASSIUM 3.8 mmol/L (3.6-5.0); SODIUM 141.8 mmol/L (137-145); TOTAL PROTEIN 5.6 g/dL (6.3-8.2)
--- NOTE | 2017-12-19 08:31 | PDOC PROGRESS REPORT ---
Subjective Progress Note for:: 12/19/17 Subjective:: Patient is feeling much better but still short of breath Patient's denied any chest pain denied any nausea no vomiting Patient have a frequent PVC As per discussed with the cardiology start on entesto And adjust the nifedipine dose Reason For Visit: SHORTNESS OF BREATH ? ACUTE DIASTOLIC HEART Physical Exam Vital Signs: Temp Pulse Resp BP Pulse Ox 98.2 F 49 L 18 126/48 H 95 12/19/17 03:40 12/19/17 07:00 12/19/17 03:40 12/19/17 03:40 12/19/17 03:40 Intake & Output 12/18/17 12/19/17 12/20/17 06:59 06:59 06:59 Intake Total 1253 2178 Output Total 1950 1150 Balance -697 1028 Weight 99.9 kg 99.2 kg General appearance: PRESENT: no acute distress, well-developed, well-nourished Head exam: PRESENT: atraumatic, normocephalic Eye exam: PRESENT: conjunctiva pink, EOMI, PERRLA. ABSENT: scleral icterus Ear exam: PRESENT: normal external ear exam Mouth exam: PRESENT: moist, tongue midline Neck exam: PRESENT: full ROM. ABSENT: carotid bruit, JVD, lymphadenopathy, thyromegaly Respiratory exam: PRESENT: clear to auscultation alphonse Cardiovascular exam: PRESENT: RRR. ABSENT: diastolic murmur, rubs, systolic murmur Pulses: PRESENT: normal dorsalis pedis pul, +2 pedal pulses bilateral Vascular exam: PRESENT: normal capillary refill GI/Abdominal exam: PRESENT: normal bowel sounds, soft. ABSENT: distended, guarding, mass, organolmegaly, rebound, tenderness Rectal exam: PRESENT: deferred Extremities exam: ABSENT: pedal edema Musculoskeletal exam: PRESENT: ambulatory Neurological exam: PRESENT: alert, awake, oriented to person, oriented to place , oriented to time, oriented to situation, CN II-XII grossly intact. ABSENT: motor sensory deficit Psychiatric exam: PRESENT: appropriate affect, normal mood. ABSENT: homicidal ideation, suicidal ideation Skin exam: PRESENT: dry, intact, warm. ABSENT: cyanosis, rash Results Laboratory Results: 12/19/17 05:50 12/19/17 05:50 12/19/17 12/19/17 05:50 05:50 WBC 7.9 RBC 3.50 L Hgb 10.2 L Hct 30.1 L MCV 86 MCH 29.2 MCHC 33.9 RDW 13.6 Plt Count 194 Seg Neutrophils % 67.8 Lymphocytes % 15.3 Monocytes % 10.6 Eosinophils % 5.7 Basophils % 0.6 Absolute Neutrophils 5.3 Absolute Lymphocytes 1.2 Absolute Monocytes 0.8 Absolute Eosinophils 0.5 Absolute Basophils 0.0 Sodium 141.8 Potassium 3.8 Chloride 106 Carbon Dioxide 24 Anion Gap 12 BUN 37 H Creatinine 1.41 H Est GFR ( Amer) 59 L Est GFR (Non-Af Amer) 48 L Glucose 110 Calcium 8.5 Total Bilirubin 0.4 AST 12 L ALT 21 Alkaline Phosphatase 83 Total Protein 5.6 L Albumin 3.2 L 12/16/17 12/16/17 12/16/17 20:55 20:55 20:55 Creatine Kinase Cancelled 59 CK-MB (CK-2) 1.09 Troponin I 0.162 NT-Pro-B Natriuret Pep 12/17/17 12/17/17 12/17/17 02:52 02:52 02:52 Creatine Kinase 52 L CK-MB (CK-2) 1.51 Troponin I 0.114 NT-Pro-B Natriuret Pep 56404 H 12/17/17 12/17/17 12/17/17 08:28 08:28 14:17 Creatine Kinase 49 L 48 L CK-MB (CK-2) 1.77 Troponin I 0.088 NT-Pro-B Natriuret Pep 12/17/17 12/17/17 12/17/17 14:17 21:20 21:20 Creatine Kinase 52 L CK-MB (CK-2) 1.96 2.04 Troponin I 0.083 0.069 NT-Pro-B Natriuret Pep 12/18/17 12/18/17 12/18/17 08:49 08:49 15:25 Creatine Kinase 45 L 43 L CK-MB (CK-2) 1.43 Troponin I 0.049 NT-Pro-B Natriuret Pep 12/18/17 12/18/17 12/18/17 15:25 21:05 21:05 Creatine Kinase 48 L CK-MB (CK-2) 1.41 1.57 Troponin I 0.038 0.039 NT-Pro-B Natriuret Pep Impressions: Chest/Abdomen CTA 12/16/17 00:00 IMPRESSION: Bilateral pleural effusions with basilar opacities. Patchy areas of ground-glass. No pulmonary emboli. Vascular congestion. Chest X-Ray 12/16/17 15:47 IMPRESSION: CARDIAC ENLARGEMENT. VASCULAR CONGESTION. Assessment & Plan - Diagnosis (1) Congestive heart failure Is this a current diagnosis for this admission?: Yes Plan: Reduce the Lasix twice a day due to the worsening the creatinineFollow with cardiology (2) Hypoxemia Is this a current diagnosis for this admission?: Yes Plan: Patient was CT angiogram was all negative currently all stable with the cannula Consult the cardiology and pulmonary for further evaluations (3) Acute and chronic respiratory failure Qualifiers: Respiratory failure complication: hypoxia Qualified Code(s): J96.21 - Acute and chronic respiratory failure with hypoxia Is this a current diagnosis for this admission?: Yes Plan: Currently all stable (4) COPD (chronic obstructive pulmonary disease) with acute bronchitis Is this a current diagnosis for this admission?: Yes Plan: Continues to nebulizer treatments (5) Chronic kidney disease Qualifiers: Chronic kidney disease stage: stage 3 (moderate) Qualified Code(s): N18.3 - Chronic kidney disease, stage 3 (moderate) Is this a current diagnosis for this admission?: Yes Plan: Will continues to monitor due to the IV contrast (6) Dyslipidemia Is this a current diagnosis for this admission?: Yes (7) Hypertension Qualifiers: Hypertension type: essential hypertension Qualified Code(s): I10 - Essential (primary) hypertension Is this a current diagnosis for this admission?: Yes (8) Bradycardia Is this a current diagnosis for this admission?: Yes Plan: Currently follow with cardiology (9) Paroxysmal atrial fibrillation Is this a current diagnosis for this admission?: Yes Plan: Continues to Eliquis and follow with the cardiology (10) Elevated troponin Is this a current diagnosis for this admission?: Yes Plan: Most likely underlying congestive heart failure as per appian bpm developer (11) Leukocytosis Qualifiers: Leukocytosis type: unspecified Qualified Code(s): D72.829 - Elevated white blood cell count, unspecified Is this a current diagnosis for this admission?: Yes - Time Time Spent with patient: 15-24 minutes Medications reviewed and adjusted accordingly: Yes Anticipated discharge: Home Within: Other - Inpatient Certification Medical Necessity: Need Close Monitoring Due to Risk of Patient Decompensation, Need for IV Antibiotics Post Hospital Care: D/C [facility] Documentation - Plan Summary Plan Summary: We will repeat the chest x-ray reduce the Lasix dose follow with the appian bpm developer discussed with the patient about all the test reports
[2017-12-19] MEDS: FERROUS SULFATE 325 MG TABLET PO SCH (09:13)
[2017-12-19] MEDS: DOCUSATE SODIUM 100 MG CAPSULE PO SCH (09:13)
[2017-12-19] MEDS: ISOSORBIDE MONONITRATE 60 MG TAB.ER.24H PO SCH (09:14)
[2017-12-19] MEDS: ASCORBIC ACID 500 MG TABLET PO SCH (09:14)
[2017-12-19] MEDS: POLYETHYLENE GLYCOL 3350 POWDER 17 GM/1 PACKET PO SCH (09:14)
[2017-12-19] MEDS: ASPIRIN 81 MG TABLET, CHEWABLE PO SCH (09:14)
[2017-12-19] MEDS: NIFEDIPINE 30 MG TAB.ER.24 PO SCH ×2 (09:14→22:21)
[2017-12-19] MEDS: LEVOFLOXACIN 500 MG/D5W RTU 500 MG/100 ML RTUPB IV SCH (09:14)
[2017-12-19] MEDS: TIOTROPIUM BROMIDE DPI 5 CAP/KIT (18 MCG/CAP) IH SCH (09:21)
[2017-12-19] MEDS: APIXABAN 2.5 MG TABLET PO SCH ×2 (09:21→17:41)
[2017-12-19] MEDS: SACUBITRIL/VALSARTAN 24 MG/26 MG TABLET PO SCH ×2 (09:21→17:41)
--- NOTE | 2017-12-19 09:44 | EKG REPORT ---
SEVERITY:- ABNORMAL ECG - SINUS RHYTHM VENTRICULAR BIGEMINY LEFT BUNDLE BRANCH BLOCK : Confirmed by: Aisha Araujo 19-Dec-2017 09:43:28
--- NOTE | 2017-12-19 10:43 | RADIOLOGY REPORT (SQ) ---
EXAM DESCRIPTION: CHEST 2 VIEWS COMPLETED DATE/TIME: 12/19/2017 9:44 am REASON FOR STUDY: chf/copd COMPARISON: None. TECHNIQUE: Frontal and lateral radiographic views of the chest acquired. NUMBER OF VIEWS: Two view. LIMITATIONS: None. FINDINGS: LUNGS AND PLEURA: Mild central vascular congestion. Small pleural effusions with blunting of the costophrenic angles bilaterally. MEDIASTINUM AND HILAR STRUCTURES: Grossly stable contours. HEART AND VASCULAR STRUCTURES: Cardiac enlargement. BONES: No acute findings. HARDWARE: None in the chest. OTHER: No other significant finding. IMPRESSION: Findings likely reflecting mild CHF. Vascular congestion and cardiomegaly. TECHNICAL DOCUMENTATION: JOB ID: [id number] [email or web address] Rights Reserved Reading location - IP/workstation name: [email or web address]
[2017-12-19] MEDS: TAMSULOSIN HCL 0.4 MG CAP.SR.24H PO SCH (17:41)
--- NOTE | 2017-12-19 20:09 | PDOC PROGRESS REPORT ---
Subjective Progress Note for:: 12/19/17 Subjective:: Patient seems to be doing better with gradual improvement. Patient still has shortness of breath. Pt is denying any chest arm or neck discomfort. Patient denying any PND, orthopnea. Patient denied any sustained palpitations, dizziness, syncope, near syncope. Patient denying any fever chills. Patient denying any other significant discomfort. Patient underlying heart rhythm is difficult to assess. Patient noted to have frequent ventricular ectopy and occasional Wenckebach. Review of systems: Rest review of systems negative. Medications: Medications have been reviewed. Reason For Visit: SHORTNESS OF BREATH ? ACUTE DIASTOLIC HEART Physical Exam Vital Signs: Temp Pulse Resp BP Pulse Ox 97.4 F 84 20 146/81 H 95 12/19/17 19:19 12/19/17 19:19 12/19/17 19:19 12/19/17 19:19 12/19/17 19:19 Intake & Output 12/18/17 12/19/17 12/20/17 06:59 06:59 06:59 Intake Total 1253 2178 2128 Output Total 1950 1150 275 Balance -697 1028 1853 Weight 99.9 kg 99.2 kg Exam: GENERAL: well-nourished and in no acute distress. Alert and oriented x3 HEAD: Atraumatic, normocephalic. EYES: Pupils equal round and reactive to light, extraocular movements intact, sclera anicteric, conjunctiva are normal. ENT: TMs normal, nares patent, oropharynx clear without exudates. Moist mucous membranes. No oral ulcerations or bleeding gums noted NECK: supple without lymphadenopathy. Trachea is central. No cervical or axillary lymphadenopathy noted. Carotids are 2+, JVD 8-10 cm LUNGS: Respiration seems nonlabored, no significant accessory muscle action noted. Bibasilar fine crackles are noted. No wheezes rales or rhonchi noted. No significant dullness noted on percussion. CHEST: Palpation of the chest wall shows no significant chest wall tenderness. No other significant abnormalities noted. 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 ABDOMEN: Soft, no significant tenderness appreciated, normoactive bowel sounds. No guarding, no rebound. No rigidity noted . No masses appreciated. EXTREMITIES: Pedal pulses are 1-2+, no calf tenderness noted. No clubbing or cyanosis. negative pedal edema noted NEUROLOGICAL: Focused neurological exam showed no significant neurologic deficit. Normal speech, no focal weakness appreciated. PSYCH: Normal mood, normal affect. Judgment and insight within normal limits. SKIN: No significant ecchymosis, skin is noted to be warm. MUSCULOSKELETAL EXAM: No significant acute joint swelling noted. Results Laboratory Results: 12/19/17 05:50 12/19/17 05:50 12/19/17 12/19/17 12/19/17 05:50 05:50 05:50 WBC 7.9 RBC 3.50 L Hgb 10.2 L Hct 30.1 L MCV 86 MCH 29.2 MCHC 33.9 RDW 13.6 Plt Count 194 Seg Neutrophils % 67.8 Lymphocytes % 15.3 Monocytes % 10.6 Eosinophils % 5.7 Basophils % 0.6 Absolute Neutrophils 5.3 Absolute Lymphocytes 1.2 Absolute Monocytes 0.8 Absolute Eosinophils 0.5 Absolute Basophils 0.0 Sodium 141.8 Potassium 3.8 Chloride 106 Carbon Dioxide 24 Anion Gap 12 BUN 37 H Creatinine 1.41 H Est GFR ( Amer) 59 L Est GFR (Non-Af Amer) 48 L Glucose 110 Calcium 8.5 Magnesium 2.1 Total Bilirubin 0.4 AST 12 L ALT 21 Alkaline Phosphatase 83 Total Protein 5.6 L Albumin 3.2 L 12/17/17 00:00 Clean Catch Midstream Urine Culture - Final NO GROWTH 2 DAYS 12/16/17 12/16/17 12/16/17 20:55 20:55 20:55 Creatine Kinase Cancelled 59 CK-MB (CK-2) 1.09 Troponin I 0.162 NT-Pro-B Natriuret Pep 12/17/17 12/17/17 12/17/17 02:52 02:52 02:52 Creatine Kinase 52 L CK-MB (CK-2) 1.51 Troponin I 0.114 NT-Pro-B Natriuret Pep 99319 H 12/17/17 12/17/17 12/17/17 08:28 08:28 14:17 Creatine Kinase 49 L 48 L CK-MB (CK-2) 1.77 Troponin I 0.088 NT-Pro-B Natriuret Pep 12/17/17 12/17/17 12/17/17 14:17 21:20 21:20 Creatine Kinase 52 L CK-MB (CK-2) 1.96 2.04 Troponin I 0.083 0.069 NT-Pro-B Natriuret Pep 12/18/17 12/18/17 12/18/17 08:49 08:49 15:25 Creatine Kinase 45 L 43 L CK-MB (CK-2) 1.43 Troponin I 0.049 NT-Pro-B Natriuret Pep 12/18/17 12/18/17 12/18/17 15:25 21:05 21:05 Creatine Kinase 48 L CK-MB (CK-2) 1.41 1.57 Troponin I 0.038 0.039 NT-Pro-B Natriuret Pep EKG Comments: Shows frequent ventricular ectopy and occasional Wenckebach. Impressions: Chest/Abdomen CTA 12/16/17 00:00 IMPRESSION: Bilateral pleural effusions with basilar opacities. Patchy areas of ground-glass. No pulmonary emboli. Vascular congestion. Chest X-Ray 12/19/17 00:00 IMPRESSION: Findings likely reflecting mild CHF. Vascular congestion and cardiomegaly. Assessment & Plan - Diagnosis (1) Congestive heart failure Is this a current diagnosis for this admission?: Yes (2) Atrial fibrillation Qualifiers: Atrial fibrillation type: unspecified Qualified Code(s): I48.91 - Unspecified atrial fibrillation Is this a current diagnosis for this admission?: Yes (3) Hypertension Qualifiers: Hypertension type: essential hypertension Qualified Code(s): I10 - Essential (primary) hypertension Is this a current diagnosis for this admission?: Yes (4) Bradycardia Is this a current diagnosis for this admission?: Yes (5) Mitral regurgitation Qualifiers: Cardiac valve disease etiology: etiology unspecified Qualified Code(s): I34.0 - Nonrheumatic mitral (valve) insufficiency Is this a current diagnosis for this admission?: Yes (6) Elevated troponin I level Is this a current diagnosis for this admission?: Yes (7) Elevated troponin Is this a current diagnosis for this admission?: Yes - Notes Notes: Patient is symptomatically improved. Chest x-ray and telemetry strips reviewed. Medication changes performed as noted below. Please see orders. Congestive heart failure: Most likely related to systolic and diastolic dysfunction along with contribution from mitral regurgitation. Patient definitely has fluid overload. Agree with IV Lasix. Continue patient on entresto. Recommend hydralazine nitrate combination. Have reduced Procardia XL to 30 mg p.o. twice daily. Will replace with hydralazine as blood pressure will allow. Mitral regurgitation: Patient has moderate mitral regurgitation. Recommend stopping or gradually reducing nifedipine and replacing with hydralazine nitrate combination. Entresto therapy will also help. Bradycardia: Currently mild and asymptomatic. Observe patient. Low threshold for pacemaker placement since patient has CHF. So far do not have any evidence for symptomatic bradycardia. Elevated troponin I: Possibly related to CHF. Atrial fibrillation: Probably paroxysmal. Patient already on Eliquis therapy. Continue with it. Rate is well controlled. Overall prognosis is guarded. - Time Time with patient: Greater than 35 minutes - CODE STATUS was discussed, patient remains full code. Surrogate decision-maker unchanged. Multiple medical problems were addressed. More than 50% of the time spent coordinating care, discussing management plans with involved caregivers. Management plans discussed with involved personnels. Medical decision making was of moderate to high complexity, patient's has multiple comorbidities. 2D echocardiogram results were reviewed with the patient in detail. Patient questions were answered. Medications reviewed and adjusted accordingly: Yes
[2017-12-20] MEDS: LEVALBUTEROL HCL NEB 1.25 MG/3 ML AMPUL NEB SCH ×4 (01:41→20:30)
[2017-12-20 05:39] LABS: ABSOLUTE EOSINOPHILS # (AUTO) 0.7 10^3/uL (0.0-0.6); ABSOLUTE LYMPHOCYTES (AUTO) 1.2 10^3/uL (0.5-4.7); ABSOLUTE MONOCYTES (AUTO) 0.8 10^3/uL (0.1-1.4); ABSOLUTE NEUT (AUTO) 4.2 10^3/uL (1.7-8.2); BASOPHILS % (AUTO) 0.6 % (0-2); EOSINOPHILS % (AUTO) 10.5 % (0-6); HEMATOCRIT 31.8 % (37.9-51.0); HEMOGLOBIN 10.8 g/dL (13.5-17.0); LYMPHOCYTES % (AUTO) 17.7 % (13-45); MEAN CORPUSCULAR HEMOGLOBIN 29.1 pg (27.0-33.4); MEAN CORPUSCULAR HGB CONC 33.8 g/dL (32.0-36.0); MEAN CORPUSCULAR VOLUME 86 fl (80-97); MONOCYTES % (AUTO) 10.8 % (3-13); PLATELET COUNT 224 10^3/uL (150-450); RED CELL DISTRIBUTION WIDTH 13.7 % (11.5-14.0); SEGMENTED NEUTROPHILS % (AUTO) 60.4 % (42-78); TOTAL CELLS COUNTED % (AUTO) 100 %
[2017-12-20 05:55] LABS: ANION GAP 11 (5-19); BLOOD UREA NITROGEN 35 mg/dL (7-20); CALCIUM 8.2 mg/dL (8.4-10.2); CARBON DIOXIDE 26 mmol/L (22-30); CHLORIDE 105 mmol/L (98-107); GLUCOSE 110 mg/dL (75-110); POTASSIUM 4.1 mmol/L (3.6-5.0); SODIUM 141.9 mmol/L (137-145)
[2017-12-20] MEDS: LANSOPRAZOLE 30 MG TAB.RAP.DR PO SCH (06:49)
--- NOTE | 2017-12-20 09:05 | PDOC PROGRESS REPORT ---
Subjective Progress Note for:: 12/20/17 Subjective:: Patient is feeling much better Patient's denied any chest pain denied any shortness of the breath Patient's ambulateWithout any problems Reason For Visit: SHORTNESS OF BREATH ? ACUTE DIASTOLIC HEART Physical Exam Vital Signs: Temp Pulse Resp BP Pulse Ox 97.7 F 55 L 18 139/47 H 96 12/19/17 23:42 12/20/17 08:06 12/20/17 08:06 12/19/17 23:42 12/20/17 08:06 Intake & Output 12/19/17 12/20/17 12/21/17 06:59 06:59 06:59 Intake Total 2178 2688 Output Total 1150 770 Balance 1028 1918 Weight 99.2 kg 100 kg General appearance: PRESENT: no acute distress, well-developed, well-nourished Head exam: PRESENT: atraumatic, normocephalic Eye exam: PRESENT: conjunctiva pink, EOMI, PERRLA. ABSENT: scleral icterus Ear exam: PRESENT: normal external ear exam Mouth exam: PRESENT: moist, tongue midline Neck exam: PRESENT: full ROM. ABSENT: carotid bruit, JVD, lymphadenopathy, thyromegaly Respiratory exam: PRESENT: clear to auscultation alphonse Cardiovascular exam: PRESENT: RRR. ABSENT: diastolic murmur, rubs, systolic murmur Pulses: PRESENT: normal dorsalis pedis pul, +2 pedal pulses bilateral Vascular exam: PRESENT: normal capillary refill GI/Abdominal exam: PRESENT: normal bowel sounds, soft. ABSENT: distended, guarding, mass, organolmegaly, rebound, tenderness Rectal exam: PRESENT: deferred Musculoskeletal exam: PRESENT: ambulatory Neurological exam: PRESENT: alert, awake, oriented to person, oriented to place , oriented to time, oriented to situation, CN II-XII grossly intact. ABSENT: motor sensory deficit Psychiatric exam: PRESENT: appropriate affect, normal mood. ABSENT: homicidal ideation, suicidal ideation Skin exam: PRESENT: dry, intact, warm. ABSENT: cyanosis, rash Results Laboratory Results: 12/20/17 05:26 12/20/17 05:26 12/20/17 12/20/17 05:26 05:26 WBC 7.0 RBC 3.70 L Hgb 10.8 L Hct 31.8 L MCV 86 MCH 29.1 MCHC 33.8 RDW 13.7 Plt Count 224 Seg Neutrophils % 60.4 Lymphocytes % 17.7 Monocytes % 10.8 Eosinophils % 10.5 H Basophils % 0.6 Absolute Neutrophils 4.2 Absolute Lymphocytes 1.2 Absolute Monocytes 0.8 Absolute Eosinophils 0.7 H Absolute Basophils 0.0 Sodium 141.9 Potassium 4.1 Chloride 105 Carbon Dioxide 26 Anion Gap 11 BUN 35 H Creatinine 1.31 H Est GFR ( Amer) > 60 Est GFR (Non-Af Amer) 53 L Glucose 110 Calcium 8.2 L 12/17/17 00:00 Clean Catch Midstream Urine Culture - Final NO GROWTH 2 DAYS 12/16/17 12/16/17 12/16/17 20:55 20:55 20:55 Creatine Kinase Cancelled 59 CK-MB (CK-2) 1.09 Troponin I 0.162 NT-Pro-B Natriuret Pep 12/17/17 12/17/17 12/17/17 02:52 02:52 02:52 Creatine Kinase 52 L CK-MB (CK-2) 1.51 Troponin I 0.114 NT-Pro-B Natriuret Pep 79855 H 12/17/17 12/17/17 12/17/17 08:28 08:28 14:17 Creatine Kinase 49 L 48 L CK-MB (CK-2) 1.77 Troponin I 0.088 NT-Pro-B Natriuret Pep 12/17/17 12/17/17 12/17/17 14:17 21:20 21:20 Creatine Kinase 52 L CK-MB (CK-2) 1.96 2.04 Troponin I 0.083 0.069 NT-Pro-B Natriuret Pep 12/18/17 12/18/17 12/18/17 08:49 08:49 15:25 Creatine Kinase 45 L 43 L CK-MB (CK-2) 1.43 Troponin I 0.049 NT-Pro-B Natriuret Pep 12/18/17 12/18/17 12/18/17 15:25 21:05 21:05 Creatine Kinase 48 L CK-MB (CK-2) 1.41 1.57 Troponin I 0.038 0.039 NT-Pro-B Natriuret Pep Impressions: Chest/Abdomen CTA 12/16/17 00:00 IMPRESSION: Bilateral pleural effusions with basilar opacities. Patchy areas of ground-glass. No pulmonary emboli. Vascular congestion. Chest X-Ray 12/19/17 00:00 IMPRESSION: Findings likely reflecting mild CHF. Vascular congestion and cardiomegaly. Assessment & Plan - Diagnosis (1) Congestive heart failure Is this a current diagnosis for this admission?: Yes Plan: Currently doing well continues to current IV Lasix twice a day (2) Hypoxemia Is this a current diagnosis for this admission?: Yes Plan: Patient was CT angiogram was all negative currently all stable with the cannula Consult the cardiology and pulmonary for further evaluations (3) Acute and chronic respiratory failure Qualifiers: Respiratory failure complication: hypoxia Qualified Code(s): J96.21 - Acute and chronic respiratory failure with hypoxia Is this a current diagnosis for this admission?: Yes Plan: Currently all stable (4) COPD (chronic obstructive pulmonary disease) with acute bronchitis Is this a current diagnosis for this admission?: Yes Plan: Continues to nebulizer treatments (5) Chronic kidney disease Qualifiers: Chronic kidney disease stage: stage 3 (moderate) Qualified Code(s): N18.3 - Chronic kidney disease, stage 3 (moderate) Is this a current diagnosis for this admission?: Yes Plan: Will continues to monitor due to the IV contrast (6) Dyslipidemia Is this a current diagnosis for this admission?: Yes (7) Hypertension Qualifiers: Hypertension type: essential hypertension Qualified Code(s): I10 - Essential (primary) hypertension Is this a current diagnosis for this admission?: Yes (8) Bradycardia Is this a current diagnosis for this admission?: Yes (9) Paroxysmal atrial fibrillation Is this a current diagnosis for this admission?: Yes (10) Elevated troponin Is this a current diagnosis for this admission?: Yes (11) Leukocytosis Qualifiers: Leukocytosis type: unspecified Qualified Code(s): D72.829 - Elevated white blood cell count, unspecified Is this a current diagnosis for this admission?: Yes - Time Time Spent with patient: 15-24 minutes Medications reviewed and adjusted accordingly: Yes Anticipated discharge: Home, Other Within: Other - Inpatient Certification Medical Necessity: Need Close Monitoring Due to Risk of Patient Decompensation, Need for IV Antibiotics Post Hospital Care: D/C Careers Adviser Documentation - Plan Summary Plan Summary: Continues to current medications follow with the cardiology to adjust some medications
[2017-12-20] MEDS: ASPIRIN 81 MG TABLET, CHEWABLE PO SCH (09:20)
[2017-12-20] MEDS: FERROUS SULFATE 325 MG TABLET PO SCH (09:20)
[2017-12-20] MEDS: LEVOFLOXACIN 500 MG TABLET PO SCH (09:20)
[2017-12-20] MEDS: FUROSEMIDE INJ/PF 20 MG/2 ML SDV IV SCH ×2 (09:20→17:55)
[2017-12-20] MEDS: DOCUSATE SODIUM 100 MG CAPSULE PO SCH (09:21)
[2017-12-20] MEDS: APIXABAN 2.5 MG TABLET PO SCH ×2 (09:21→17:55)
[2017-12-20] MEDS: POLYETHYLENE GLYCOL 3350 POWDER 17 GM/1 PACKET PO SCH (09:21)
[2017-12-20] MEDS: ASCORBIC ACID 500 MG TABLET PO SCH (09:21)
[2017-12-20] MEDS: TIOTROPIUM BROMIDE DPI 5 CAP/KIT (18 MCG/CAP) IH SCH (09:21)
[2017-12-20] MEDS: SACUBITRIL/VALSARTAN 24 MG/26 MG TABLET PO SCH ×2 (14:26→17:55)
[2017-12-20] MEDS: ISOSORBIDE MONONITRATE 60 MG TAB.ER.24H PO SCH (14:26)
[2017-12-20] MEDS: NIFEDIPINE 30 MG TAB.ER.24 PO SCH ×2 (14:26→21:15)
[2017-12-20] MEDS: TAMSULOSIN HCL 0.4 MG CAP.SR.24H PO SCH (17:51)
--- NOTE | 2017-12-20 20:38 | PDOC PROGRESS REPORT ---
Subjective Progress Note for:: 12/20/17 Subjective:: Patient seems to be doing better with gradual improvement. Patient still has shortness of breath. Pt is denying any chest arm or neck discomfort. Patient denying any PND, orthopnea. Patient denied any sustained palpitations, dizziness, syncope, near syncope. Patient denying any fever chills. Patient denying any other significant discomfort. Patient underlying heart rhythm is difficult to assess. Patient noted to have frequent ventricular ectopy and occasional Wenckebach. Review of systems: Rest review of systems negative. Medications: Medications have been reviewed. Reason For Visit: SHORTNESS OF BREATH ? ACUTE DIASTOLIC HEART Physical Exam Vital Signs: Temp Pulse Resp BP Pulse Ox 97.2 F 67 20 166/107 H 97 12/20/17 19:44 12/20/17 19:44 12/20/17 19:44 12/20/17 19:44 12/20/17 19:44 Intake & Output 12/19/17 12/20/17 12/21/17 06:59 06:59 06:59 Intake Total 2178 2688 2468 Output Total 1150 770 Balance 1028 1918 2468 Weight 99.2 kg 100 kg Results Laboratory Results: 12/20/17 05:26 12/20/17 05:26 12/20/17 12/20/17 05:26 05:26 WBC 7.0 RBC 3.70 L Hgb 10.8 L Hct 31.8 L MCV 86 MCH 29.1 MCHC 33.8 RDW 13.7 Plt Count 224 Seg Neutrophils % 60.4 Lymphocytes % 17.7 Monocytes % 10.8 Eosinophils % 10.5 H Basophils % 0.6 Absolute Neutrophils 4.2 Absolute Lymphocytes 1.2 Absolute Monocytes 0.8 Absolute Eosinophils 0.7 H Absolute Basophils 0.0 Sodium 141.9 Potassium 4.1 Chloride 105 Carbon Dioxide 26 Anion Gap 11 BUN 35 H Creatinine 1.31 H Est GFR ( Amer) > 60 Est GFR (Non-Af Amer) 53 L Glucose 110 Calcium 8.2 L 12/16/17 12/16/17 12/16/17 20:55 20:55 20:55 Creatine Kinase Cancelled 59 CK-MB (CK-2) 1.09 Troponin I 0.162 NT-Pro-B Natriuret Pep 04/16/18 04/16/18 04/16/18 02:52 02:52 02:52 Creatine Kinase 52 L CK-MB (CK-2) 1.51 Troponin I 0.114 NT-Pro-B Natriuret Pep 16500 H 12/17/17 12/17/17 12/17/17 08:28 08:28 14:17 Creatine Kinase 49 L 48 L CK-MB (CK-2) 1.77 Troponin I 0.088 NT-Pro-B Natriuret Pep 12/17/17 12/17/17 12/17/17 14:17 21:20 21:20 Creatine Kinase 52 L CK-MB (CK-2) 1.96 2.04 Troponin I 0.083 0.069 NT-Pro-B Natriuret Pep 12/18/17 12/18/17 12/18/17 08:49 08:49 15:25 Creatine Kinase 45 L 43 L CK-MB (CK-2) 1.43 Troponin I 0.049 NT-Pro-B Natriuret Pep 12/18/17 12/18/17 12/18/17 15:25 21:05 21:05 Creatine Kinase 48 L CK-MB (CK-2) 1.41 1.57 Troponin I 0.038 0.039 NT-Pro-B Natriuret Pep Impressions: Chest/Abdomen CTA 12/16/17 00:00 IMPRESSION: Bilateral pleural effusions with basilar opacities. Patchy areas of ground-glass. No pulmonary emboli. Vascular congestion. Chest X-Ray 12/19/17 00:00 IMPRESSION: Findings likely reflecting mild CHF. Vascular congestion and cardiomegaly. Assessment & Plan - Diagnosis (1) Congestive heart failure Is this a current diagnosis for this admission?: Yes (2) Atrial fibrillation Qualifiers: Atrial fibrillation type: unspecified Qualified Code(s): I48.91 - Unspecified atrial fibrillation Is this a current diagnosis for this admission?: Yes (3) Hypertension Qualifiers: Hypertension type: essential hypertension Qualified Code(s): I10 - Essential (primary) hypertension Is this a current diagnosis for this admission?: Yes (4) Bradycardia Is this a current diagnosis for this admission?: Yes (5) Mitral regurgitation Qualifiers: Cardiac valve disease etiology: etiology unspecified Qualified Code(s): I34.0 - Nonrheumatic mitral (valve) insufficiency Is this a current diagnosis for this admission?: Yes (6) Elevated troponin I level Is this a current diagnosis for this admission?: Yes (7) Elevated troponin Is this a current diagnosis for this admission?: Yes - Notes Notes: Will review patient's records. Medication changes performed. Will evaluate need for any stress testing tomorrow morning. Will discuss management further with Dr. Talavera. Congestive heart failure: Most likely related to systolic and diastolic dysfunction along with contribution from mitral regurgitation. Patient definitely has fluid overload. Agree with IV Lasix. Continue patient on entresto, will upgrade to full dose as blood pressure will tolerate this. Recommend hydralazine nitrate combination. Have reduced Procardia XL to 30 mg p.o. twice daily. Will replace with hydralazine as blood pressure will allow. Mitral regurgitation: Patient has moderate mitral regurgitation. Recommend stopping or gradually reducing nifedipine and replacing with hydralazine nitrate combination. Entresto therapy will also help. Bradycardia: Currently mild and asymptomatic. Observe patient. Low threshold for pacemaker placement since patient has CHF. So far do not have any evidence for symptomatic bradycardia. Elevated troponin I: Possibly related to CHF. Atrial fibrillation: Probably paroxysmal. Patient already on Eliquis therapy. Continue with it. Rate is well controlled. Overall prognosis is guarded. - Time Time with patient: Greater than 35 minutes - CODE STATUS was discussed, patient remains full code. Surrogate decision-maker unchanged. Multiple medical problems were addressed. More than 50% of the time spent coordinating care, discussing management plans with involved caregivers. Management plans discussed with involved personnels. Medical decision making was of moderate to high complexity, patient's has multiple comorbidities. Medications reviewed and adjusted accordingly: Yes
--- NOTE | 2017-12-20 21:40 | PDOC PROGRESS REPORT ---
Subjective Progress Note for:: 12/20/17 Subjective:: getting better Reason For Visit: SHORTNESS OF BREATH ? ACUTE DIASTOLIC HEART Physical Exam Vital Signs: Temp Pulse Resp BP Pulse Ox 97.2 F 67 20 166/107 H 97 12/20/17 19:44 12/20/17 19:44 12/20/17 19:44 12/20/17 19:44 12/20/17 19:44 Intake & Output 12/19/17 12/20/17 12/21/17 06:59 06:59 06:59 Intake Total 2178 2688 2468 Output Total 1150 770 Balance 1028 1918 2468 Weight 99.2 kg 100 kg General appearance: PRESENT: no acute distress, cooperative, disheveled, obese, well-developed, well-nourished Head exam: PRESENT: atraumatic, normocephalic Eye exam: PRESENT: conjunctiva pale, EOMI. ABSENT: nystagmus, periorbital swelling, scleral icterus Mouth exam: PRESENT: dry mucosa, neck supple, tongue midline Neck exam: ABSENT: carotid bruit, JVD, lymphadenopathy, thyromegaly, tracheal deviation, tracheostomy Respiratory exam: PRESENT: decreased breath sounds, prolonged expiratory phas, rhonchi, symmetrical, unlabored, wheezes. ABSENT: retraction, stridor, tachypnea Cardiovascular exam: PRESENT: RRR, +S1, +S2, systolic murmur Pulses: PRESENT: normal radial pulses GI/Abdominal exam: PRESENT: diminished bowel sounds, soft Extremities exam: ABSENT: calf tenderness, clubbing, joint swelling Musculoskeletal exam: PRESENT: ambulatory, deformity, dislocation Neurological exam: PRESENT: alert, awake Psychiatric exam: PRESENT: normal mood Skin exam: PRESENT: dry, warm Results Laboratory Results: 12/20/17 05:26 12/20/17 05:26 12/20/17 12/20/17 05:26 05:26 WBC 7.0 RBC 3.70 L Hgb 10.8 L Hct 31.8 L MCV 86 MCH 29.1 MCHC 33.8 RDW 13.7 Plt Count 224 Seg Neutrophils % 60.4 Lymphocytes % 17.7 Monocytes % 10.8 Eosinophils % 10.5 H Basophils % 0.6 Absolute Neutrophils 4.2 Absolute Lymphocytes 1.2 Absolute Monocytes 0.8 Absolute Eosinophils 0.7 H Absolute Basophils 0.0 Sodium 141.9 Potassium 4.1 Chloride 105 Carbon Dioxide 26 Anion Gap 11 BUN 35 H Creatinine 1.31 H Est GFR ( Amer) > 60 Est GFR (Non-Af Amer) 53 L Glucose 110 Calcium 8.2 L 12/16/17 12/16/17 12/16/17 20:55 20:55 20:55 Creatine Kinase Cancelled 59 CK-MB (CK-2) 1.09 Troponin I 0.162 NT-Pro-B Natriuret Pep 12/17/17 12/17/17 12/17/17 02:52 02:52 02:52 Creatine Kinase 52 L CK-MB (CK-2) 1.51 Troponin I 0.114 NT-Pro-B Natriuret Pep 53709 H 12/17/17 12/17/17 12/17/17 08:28 08:28 14:17 Creatine Kinase 49 L 48 L CK-MB (CK-2) 1.77 Troponin I 0.088 NT-Pro-B Natriuret Pep 12/17/17 12/17/17 12/17/17 14:17 21:20 21:20 Creatine Kinase 52 L CK-MB (CK-2) 1.96 2.04 Troponin I 0.083 0.069 NT-Pro-B Natriuret Pep 12/18/17 12/18/17 12/18/17 08:49 08:49 15:25 Creatine Kinase 45 L 43 L CK-MB (CK-2) 1.43 Troponin I 0.049 NT-Pro-B Natriuret Pep 12/18/17 12/18/17 12/18/17 15:25 21:05 21:05 Creatine Kinase 48 L CK-MB (CK-2) 1.41 1.57 Troponin I 0.038 0.039 NT-Pro-B Natriuret Pep Impressions: Chest/Abdomen CTA 12/16/17 00:00 IMPRESSION: Bilateral pleural effusions with basilar opacities. Patchy areas of ground-glass. No pulmonary emboli. Vascular congestion. Chest X-Ray 12/19/17 00:00 IMPRESSION: Findings likely reflecting mild CHF. Vascular congestion and cardiomegaly. Assessment & Plan - Diagnosis (1) Acute heart failure Qualifiers: Heart failure type: unspecified Qualified Code(s): I50.9 - Heart failure, unspecified (2) Hypoxemia Is this a current diagnosis for this admission?: Yes (3) Leukocytosis Qualifiers: Leukocytosis type: unspecified Qualified Code(s): D72.829 - Elevated white blood cell count, unspecified Is this a current diagnosis for this admission?: No (4) Paroxysmal atrial fibrillation Is this a current diagnosis for this admission?: Yes (5) Acute and chronic respiratory failure Qualifiers: Respiratory failure complication: hypoxia Qualified Code(s): J96.21 - Acute and chronic respiratory failure with hypoxia Is this a current diagnosis for this admission?: Yes
--- NOTE | 2017-12-20 21:42 | PDOC PROGRESS REPORT ---
Subjective Progress Note for:: 12/19/17 Subjective:: a little weak Reason For Visit: SHORTNESS OF BREATH ? ACUTE DIASTOLIC HEART Physical Exam Vital Signs: Temp Pulse Resp BP Pulse Ox 98.1 F 61 17 141/41 H 91 L 12/19/17 07:46 12/19/17 14:20 12/19/17 14:20 12/19/17 07:46 12/19/17 14:20 Intake & Output 12/18/17 12/19/17 12/20/17 06:59 06:59 06:59 Intake Total 1253 2178 190 Output Total 1950 1150 Balance -697 1028 190 Weight 99.9 kg 99.2 kg General appearance: PRESENT: no acute distress, cooperative, disheveled, obese Head exam: PRESENT: atraumatic, normocephalic Eye exam: PRESENT: conjunctiva pale, EOMI. ABSENT: nystagmus, periorbital swelling, scleral icterus Mouth exam: PRESENT: dry mucosa, neck supple, tongue midline Neck exam: ABSENT: carotid bruit, JVD, lymphadenopathy, thyromegaly, tracheal deviation, tracheostomy Respiratory exam: PRESENT: decreased breath sounds, prolonged expiratory phas, rhonchi, symmetrical, unlabored, wheezes. ABSENT: retraction, stridor, tachypnea Cardiovascular exam: PRESENT: RRR, +S1, +S2, systolic murmur Pulses: PRESENT: normal radial pulses GI/Abdominal exam: PRESENT: diminished bowel sounds, soft Extremities exam: ABSENT: calf tenderness, clubbing, joint swelling Musculoskeletal exam: ABSENT: deformity, dislocation Neurological exam: PRESENT: alert, awake Psychiatric exam: PRESENT: normal mood Skin exam: PRESENT: dry, warm Results Laboratory Results: 12/19/17 05:50 12/19/17 05:50 12/19/17 12/19/17 12/19/17 05:50 05:50 05:50 WBC 7.9 RBC 3.50 L Hgb 10.2 L Hct 30.1 L MCV 86 MCH 29.2 MCHC 33.9 RDW 13.6 Plt Count 194 Seg Neutrophils % 67.8 Lymphocytes % 15.3 Monocytes % 10.6 Eosinophils % 5.7 Basophils % 0.6 Absolute Neutrophils 5.3 Absolute Lymphocytes 1.2 Absolute Monocytes 0.8 Absolute Eosinophils 0.5 Absolute Basophils 0.0 Sodium 141.8 Potassium 3.8 Chloride 106 Carbon Dioxide 24 Anion Gap 12 BUN 37 H Creatinine 1.41 H Est GFR ( Amer) 59 L Est GFR (Non-Af Amer) 48 L Glucose 110 Calcium 8.5 Magnesium 2.1 Total Bilirubin 0.4 AST 12 L ALT 21 Alkaline Phosphatase 83 Total Protein 5.6 L Albumin 3.2 L 12/17/17 00:00 Clean Catch Midstream Urine Culture - Final NO GROWTH 2 DAYS 12/16/17 12/16/17 12/16/17 20:55 20:55 20:55 Creatine Kinase Cancelled 59 CK-MB (CK-2) 1.09 Troponin I 0.162 NT-Pro-B Natriuret Pep 12/17/17 12/17/17 12/17/17 02:52 02:52 02:52 Creatine Kinase 52 L CK-MB (CK-2) 1.51 Troponin I 0.114 NT-Pro-B Natriuret Pep 49207 H 12/17/17 12/17/17 12/17/17 08:28 08:28 14:17 Creatine Kinase 49 L 48 L CK-MB (CK-2) 1.77 Troponin I 0.088 NT-Pro-B Natriuret Pep 12/17/17 12/17/17 12/17/17 14:17 21:20 21:20 Creatine Kinase 52 L CK-MB (CK-2) 1.96 2.04 Troponin I 0.083 0.069 NT-Pro-B Natriuret Pep 12/18/17 12/18/17 12/18/17 08:49 08:49 15:25 Creatine Kinase 45 L 43 L CK-MB (CK-2) 1.43 Troponin I 0.049 NT-Pro-B Natriuret Pep 12/18/17 12/18/17 12/18/17 15:25 21:05 21:05 Creatine Kinase 48 L CK-MB (CK-2) 1.41 1.57 Troponin I 0.038 0.039 NT-Pro-B Natriuret Pep Impressions: Chest/Abdomen CTA 12/16/17 00:00 IMPRESSION: Bilateral pleural effusions with basilar opacities. Patchy areas of ground-glass. No pulmonary emboli. Vascular congestion. Chest X-Ray 12/19/17 00:00 IMPRESSION: Findings likely reflecting mild CHF. Vascular congestion and cardiomegaly. Assessment & Plan - Diagnosis (1) Acute heart failure Qualifiers: Heart failure type: unspecified Qualified Code(s): I50.9 - Heart failure, unspecified (2) Hypoxemia Is this a current diagnosis for this admission?: Yes (3) Leukocytosis Qualifiers: Leukocytosis type: unspecified Qualified Code(s): D72.829 - Elevated white blood cell count, unspecified Is this a current diagnosis for this admission?: Yes (4) Paroxysmal atrial fibrillation Is this a current diagnosis for this admission?: Yes (5) Acute and chronic respiratory failure Qualifiers: Respiratory failure complication: hypoxia Qualified Code(s): J96.21 - Acute and chronic respiratory failure with hypoxia Is this a current diagnosis for this admission?: Yes
--- NOTE | 2017-12-20 21:43 | PDOC PROGRESS REPORT ---
Subjective Progress Note for:: 12/18/17 Subjective:: a little weak Reason For Visit: SHORTNESS OF BREATH ? ACUTE DIASTOLIC HEART Physical Exam Vital Signs: Temp Pulse Resp BP Pulse Ox 98.1 F 61 17 141/41 H 91 L 12/19/17 07:46 12/19/17 14:20 12/19/17 14:20 12/19/17 07:46 12/19/17 14:20 Intake & Output 12/18/17 12/19/17 12/20/17 06:59 06:59 06:59 Intake Total 1253 2178 190 Output Total 1950 1150 Balance -697 1028 190 Weight 99.9 kg 99.2 kg General appearance: PRESENT: no acute distress, cooperative, disheveled, obese, well-developed Head exam: PRESENT: atraumatic, normocephalic Eye exam: PRESENT: conjunctiva pale, EOMI. ABSENT: nystagmus, periorbital swelling, scleral icterus Mouth exam: PRESENT: dry mucosa, neck supple, tongue midline Neck exam: ABSENT: carotid bruit, JVD, lymphadenopathy, thyromegaly, tracheal deviation, tracheostomy Respiratory exam: PRESENT: decreased breath sounds, prolonged expiratory phas, rhonchi, symmetrical, unlabored, wheezes. ABSENT: retraction, stridor, tachypnea Cardiovascular exam: PRESENT: RRR, +S1, +S2, systolic murmur. ABSENT: tachycardia Pulses: PRESENT: normal radial pulses GI/Abdominal exam: PRESENT: diminished bowel sounds, soft Extremities exam: ABSENT: calf tenderness, clubbing, joint swelling Musculoskeletal exam: ABSENT: deformity, dislocation Neurological exam: PRESENT: alert, awake Psychiatric exam: PRESENT: normal mood Skin exam: PRESENT: dry, warm Results Laboratory Results: 12/19/17 05:50 12/19/17 05:50 12/19/17 12/19/17 12/19/17 05:50 05:50 05:50 WBC 7.9 RBC 3.50 L Hgb 10.2 L Hct 30.1 L MCV 86 MCH 29.2 MCHC 33.9 RDW 13.6 Plt Count 194 Seg Neutrophils % 67.8 Lymphocytes % 15.3 Monocytes % 10.6 Eosinophils % 5.7 Basophils % 0.6 Absolute Neutrophils 5.3 Absolute Lymphocytes 1.2 Absolute Monocytes 0.8 Absolute Eosinophils 0.5 Absolute Basophils 0.0 Sodium 141.8 Potassium 3.8 Chloride 106 Carbon Dioxide 24 Anion Gap 12 BUN 37 H Creatinine 1.41 H Est GFR ( Amer) 59 L Est GFR (Non-Af Amer) 48 L Glucose 110 Calcium 8.5 Magnesium 2.1 Total Bilirubin 0.4 AST 12 L ALT 21 Alkaline Phosphatase 83 Total Protein 5.6 L Albumin 3.2 L 12/17/17 00:00 Clean Catch Midstream Urine Culture - Final NO GROWTH 2 DAYS 12/16/17 12/16/17 12/16/17 20:55 20:55 20:55 Creatine Kinase Cancelled 59 CK-MB (CK-2) 1.09 Troponin I 0.162 NT-Pro-B Natriuret Pep 12/17/17 12/17/17 12/17/17 02:52 02:52 02:52 Creatine Kinase 52 L CK-MB (CK-2) 1.51 Troponin I 0.114 NT-Pro-B Natriuret Pep 60038 H 12/17/17 12/17/17 12/17/17 08:28 08:28 14:17 Creatine Kinase 49 L 48 L CK-MB (CK-2) 1.77 Troponin I 0.088 NT-Pro-B Natriuret Pep 12/17/17 12/17/17 12/17/17 14:17 21:20 21:20 Creatine Kinase 52 L CK-MB (CK-2) 1.96 2.04 Troponin I 0.083 0.069 NT-Pro-B Natriuret Pep 12/18/17 12/18/17 12/18/17 08:49 08:49 15:25 Creatine Kinase 45 L 43 L CK-MB (CK-2) 1.43 Troponin I 0.049 NT-Pro-B Natriuret Pep 12/18/17 12/18/17 12/18/17 15:25 21:05 21:05 Creatine Kinase 48 L CK-MB (CK-2) 1.41 1.57 Troponin I 0.038 0.039 NT-Pro-B Natriuret Pep Impressions: Chest/Abdomen CTA 12/16/17 00:00 IMPRESSION: Bilateral pleural effusions with basilar opacities. Patchy areas of ground-glass. No pulmonary emboli. Vascular congestion. Chest X-Ray 12/19/17 00:00 IMPRESSION: Findings likely reflecting mild CHF. Vascular congestion and cardiomegaly. Assessment & Plan - Diagnosis (1) Acute heart failure Qualifiers: Heart failure type: unspecified Qualified Code(s): I50.9 - Heart failure, unspecified (2) Hypoxemia Is this a current diagnosis for this admission?: Yes (3) Leukocytosis Qualifiers: Leukocytosis type: unspecified Qualified Code(s): D72.829 - Elevated white blood cell count, unspecified Is this a current diagnosis for this admission?: Yes (4) Paroxysmal atrial fibrillation Is this a current diagnosis for this admission?: Yes (5) Acute and chronic respiratory failure Qualifiers: Respiratory failure complication: hypoxia Qualified Code(s): J96.21 - Acute and chronic respiratory failure with hypoxia Is this a current diagnosis for this admission?: Yes
[2017-12-21] MEDS: LEVALBUTEROL HCL NEB 1.25 MG/3 ML AMPUL NEB SCH ×4 (01:45→20:59)
[2017-12-21] MEDS: FUROSEMIDE INJ/PF 20 MG/2 ML SDV IV SCH ×2 (05:35→17:22)
[2017-12-21] MEDS: LANSOPRAZOLE 30 MG TAB.RAP.DR PO SCH (05:36)
[2017-12-21 06:13] LABS: ANION GAP 11 (5-19); BLOOD UREA NITROGEN 33 mg/dL (7-20); CALCIUM 8.4 mg/dL (8.4-10.2); CARBON DIOXIDE 23 mmol/L (22-30); CHLORIDE 107 mmol/L (98-107); GLUCOSE 103 mg/dL (75-110); POTASSIUM 3.9 mmol/L (3.6-5.0); SODIUM 140.7 mmol/L (137-145)
--- NOTE | 2017-12-21 09:20 | PDOC PROGRESS REPORT ---
Subjective Progress Note for:: 12/21/17 Subjective:: Patient is currently doing much better Patient's denied any chest pain denied any shortness of the breath Patient's heart rate is still going down to bradycardia range Patient's otherwise denied any other complaints Reason For Visit: SHORTNESS OF BREATH ? ACUTE DIASTOLIC HEART Physical Exam Vital Signs: Temp Pulse Resp BP Pulse Ox 97.8 F 58 L 16 155/53 H 98 12/21/17 07:45 12/21/17 07:58 12/21/17 07:58 12/21/17 07:45 12/21/17 07:58 Intake & Output 12/20/17 12/21/17 12/22/17 06:59 06:59 06:59 Intake Total 2688 2838 Output Total 770 Balance 1918 2838 Weight 100 kg 98.5 kg General appearance: PRESENT: no acute distress, well-developed, well-nourished Head exam: PRESENT: atraumatic, normocephalic Eye exam: PRESENT: conjunctiva pink, EOMI, PERRLA. ABSENT: scleral icterus Ear exam: PRESENT: normal external ear exam Mouth exam: PRESENT: moist, tongue midline Neck exam: PRESENT: full ROM. ABSENT: carotid bruit, JVD, lymphadenopathy, thyromegaly Respiratory exam: PRESENT: clear to auscultation alphonse Cardiovascular exam: PRESENT: RRR. ABSENT: diastolic murmur, rubs, systolic murmur Pulses: PRESENT: normal dorsalis pedis pul, +2 pedal pulses bilateral Vascular exam: PRESENT: normal capillary refill GI/Abdominal exam: PRESENT: normal bowel sounds, soft. ABSENT: distended, guarding, mass, organolmegaly, rebound, tenderness Rectal exam: PRESENT: deferred Extremities exam: ABSENT: pedal edema Musculoskeletal exam: PRESENT: ambulatory Neurological exam: PRESENT: alert, awake, oriented to person, oriented to place , oriented to time, oriented to situation, CN II-XII grossly intact. ABSENT: motor sensory deficit Psychiatric exam: PRESENT: appropriate affect, normal mood. ABSENT: homicidal ideation, suicidal ideation Skin exam: PRESENT: dry, intact, warm. ABSENT: cyanosis, rash Results Laboratory Results: 12/20/17 05:26 12/21/17 05:33 12/21/17 05:33 Sodium 140.7 Potassium 3.9 Chloride 107 Carbon Dioxide 23 Anion Gap 11 BUN 33 H Creatinine 1.15 Est GFR ( Amer) > 60 Est GFR (Non-Af Amer) > 60 Glucose 103 Calcium 8.4 12/16/17 12/16/17 12/16/17 20:55 20:55 20:55 Creatine Kinase Cancelled 59 CK-MB (CK-2) 1.09 Troponin I 0.162 NT-Pro-B Natriuret Pep 12/17/17 12/17/17 12/17/17 02:52 02:52 02:52 Creatine Kinase 52 L CK-MB (CK-2) 1.51 Troponin I 0.114 NT-Pro-B Natriuret Pep 48538 H 12/17/17 12/17/17 12/17/17 08:28 08:28 14:17 Creatine Kinase 49 L 48 L CK-MB (CK-2) 1.77 Troponin I 0.088 NT-Pro-B Natriuret Pep 12/17/17 12/17/17 12/17/17 14:17 21:20 21:20 Creatine Kinase 52 L CK-MB (CK-2) 1.96 2.04 Troponin I 0.083 0.069 NT-Pro-B Natriuret Pep 12/18/17 12/18/17 12/18/17 08:49 08:49 15:25 Creatine Kinase 45 L 43 L CK-MB (CK-2) 1.43 Troponin I 0.049 NT-Pro-B Natriuret Pep 12/18/17 12/18/17 12/18/17 15:25 21:05 21:05 Creatine Kinase 48 L CK-MB (CK-2) 1.41 1.57 Troponin I 0.038 0.039 NT-Pro-B Natriuret Pep Impressions: Chest/Abdomen CTA 12/16/17 00:00 IMPRESSION: Bilateral pleural effusions with basilar opacities. Patchy areas of ground-glass. No pulmonary emboli. Vascular congestion. Chest X-Ray 12/19/17 00:00 IMPRESSION: Findings likely reflecting mild CHF. Vascular congestion and cardiomegaly. Assessment & Plan - Diagnosis (1) Congestive heart failure Is this a current diagnosis for this admission?: Yes Plan: Switch to the p.o. Lasix (2) Hypoxemia Is this a current diagnosis for this admission?: Yes Plan: Patient was CT angiogram was all negative currently all stable with the cannula Consult the cardiology and pulmonary for further evaluations (3) Acute and chronic respiratory failure Qualifiers: Respiratory failure complication: hypoxia Qualified Code(s): J96.21 - Acute and chronic respiratory failure with hypoxia Is this a current diagnosis for this admission?: Yes Plan: Currently all stable (4) COPD (chronic obstructive pulmonary disease) with acute bronchitis Is this a current diagnosis for this admission?: Yes Plan: Continues to nebulizer treatments (5) Chronic kidney disease Qualifiers: Chronic kidney disease stage: stage 3 (moderate) Qualified Code(s): N18.3 - Chronic kidney disease, stage 3 (moderate) Is this a current diagnosis for this admission?: Yes Plan: Currently all stable (6) Dyslipidemia Is this a current diagnosis for this admission?: Yes (7) Hypertension Qualifiers: Hypertension type: essential hypertension Qualified Code(s): I10 - Essential (primary) hypertension Is this a current diagnosis for this admission?: Yes (8) Bradycardia Is this a current diagnosis for this admission?: Yes Plan: Follow with the cardiology (9) Paroxysmal atrial fibrillation Is this a current diagnosis for this admission?: Yes Plan: Continues to Eliquis and follow with the cardiology (10) Elevated troponin Is this a current diagnosis for this admission?: Yes (11) Leukocytosis Qualifiers: Leukocytosis type: unspecified Qualified Code(s): D72.829 - Elevated white blood cell count, unspecified Is this a current diagnosis for this admission?: Yes - Time Time Spent with patient: 15-24 minutes Medications reviewed and adjusted accordingly: Yes Anticipated discharge: Home Within: Other - Inpatient Certification Medical Necessity: Need Close Monitoring Due to Risk of Patient Decompensation Post Hospital Care: D/C [employer] Documentation - Plan Summary Plan Summary: As per discussed with the cardiology possible scheduled for the stress test
[2017-12-21] MEDS: POLYETHYLENE GLYCOL 3350 POWDER 17 GM/1 PACKET PO SCH (09:43)
[2017-12-21] MEDS: ASPIRIN 81 MG TABLET, CHEWABLE PO SCH (09:44)
[2017-12-21] MEDS: ASCORBIC ACID 500 MG TABLET PO SCH (09:44)
[2017-12-21] MEDS: DOCUSATE SODIUM 100 MG CAPSULE PO SCH (09:44)
[2017-12-21] MEDS: FERROUS SULFATE 325 MG TABLET PO SCH (09:44)
[2017-12-21] MEDS: ISOSORBIDE MONONITRATE 60 MG TAB.ER.24H PO SCH (09:44)
[2017-12-21] MEDS: NIFEDIPINE 30 MG TAB.ER.24 PO SCH (09:45)
[2017-12-21] MEDS: SACUBITRIL/VALSARTAN 49 MG/51 MG TABLET PO SCH ×2 (09:51→17:23)
[2017-12-21] MEDS: TIOTROPIUM BROMIDE DPI 5 CAP/KIT (18 MCG/CAP) IH SCH (09:51)
[2017-12-21] MEDS: APIXABAN 2.5 MG TABLET PO SCH ×2 (09:51→17:23)
[2017-12-21] MEDS: LEVOFLOXACIN 500 MG TABLET PO SCH (09:54)
[2017-12-21] MEDS: TAMSULOSIN HCL 0.4 MG CAP.SR.24H PO SCH (17:23)
--- NOTE | 2017-12-21 20:23 | PDOC PROGRESS REPORT ---
Subjective Progress Note for:: 12/21/17 Subjective:: Patient seems to be doing better. Patient was noted to ambulate in the hallway briskly without any discomfort. Pt is denying any chest arm or neck discomfort. Patient denying any PND, orthopnea. Patient denied any sustained palpitations, dizziness, syncope, near syncope. Patient denying any fever chills. Patient denying any other significant discomfort. Patient noted to have frequent ventricular ectopy and occasional Wenckebach. Heart rates generally noted to be low. Review of systems: Rest review of systems negative. Medications: Medications have been reviewed. Reason For Visit: SHORTNESS OF BREATH ? ACUTE DIASTOLIC HEART Physical Exam Vital Signs: Temp Pulse Resp BP Pulse Ox 97.7 F 58 L 12 148/42 H 100 12/21/17 15:53 12/21/17 15:53 12/21/17 15:53 12/21/17 15:53 12/21/17 15:53 Intake & Output 12/20/17 12/21/17 12/22/17 06:59 06:59 06:59 Intake Total 2688 2838 1038 Output Total 770 Balance 1918 2838 1038 Weight 100 kg 98.5 kg Exam: GENERAL: well-nourished and in no acute distress. Alert and oriented x3 HEAD: Atraumatic, normocephalic. EYES: Pupils equal round and reactive to light, extraocular movements intact, sclera anicteric, conjunctiva are normal. ENT: TMs normal, nares patent, oropharynx clear without exudates. Moist mucous membranes. No oral ulcerations or bleeding gums noted NECK: supple without lymphadenopathy. Trachea is central. No cervical or axillary lymphadenopathy noted. Carotids are 2+, JVD WNL LUNGS: Respiration seems nonlabored, no significant accessory muscle action noted. Breath sounds clear to auscultation bilaterally and equal noted. No wheezes rales or rhonchi noted. No significant dullness noted on percussion. CHEST: Palpation of the chest wall shows no significant chest wall tenderness. HEART: [place] PATIENT RELATIONS LIAISON, No PSH, 1/6 PEDRO aortic area, 1/6 fan systolic murmur mitral area, no rubs, no gallops. ABDOMEN: Soft, no significant tenderness appreciated, normoactive bowel sounds. No guarding, no rebound. No rigidity noted . No masses appreciated. EXTREMITIES: Pedal pulses are 1-2+, no calf tenderness noted. No clubbing or cyanosis. negative pedal edema noted NEUROLOGICAL: Focused neurological exam showed no significant neurologic deficit. Normal speech, no focal weakness appreciated. PSYCH: Normal mood, normal affect. Judgment and insight within normal limits. SKIN: No significant ecchymosis, skin is noted to be warm. MUSCULOSKELETAL EXAM: No significant acute joint swelling noted. Results Laboratory Results: 12/20/17 05:26 12/21/17 05:33 12/21/17 05:33 Sodium 140.7 Potassium 3.9 Chloride 107 Carbon Dioxide 23 Anion Gap 11 BUN 33 H Creatinine 1.15 Est GFR ( Amer) > 60 Est GFR (Non-Af Amer) > 60 Glucose 103 Calcium 8.4 12/16/17 12/16/17 12/16/17 20:55 20:55 20:55 Creatine Kinase Cancelled 59 CK-MB (CK-2) 1.09 Troponin I 0.162 NT-Pro-B Natriuret Pep 12/17/17 12/17/17 12/17/17 02:52 02:52 02:52 Creatine Kinase 52 L CK-MB (CK-2) 1.51 Troponin I 0.114 NT-Pro-B Natriuret Pep 70650 H 12/17/17 12/17/17 12/17/17 08:28 08:28 14:17 Creatine Kinase 49 L 48 L CK-MB (CK-2) 1.77 Troponin I 0.088 NT-Pro-B Natriuret Pep 12/17/17 12/17/17 12/17/17 14:17 21:20 21:20 Creatine Kinase 52 L CK-MB (CK-2) 1.96 2.04 Troponin I 0.083 0.069 NT-Pro-B Natriuret Pep 12/18/17 12/18/17 12/18/17 08:49 08:49 15:25 Creatine Kinase 45 L 43 L CK-MB (CK-2) 1.43 Troponin I 0.049 NT-Pro-B Natriuret Pep 12/18/17 12/18/17 12/18/17 15:25 21:05 21:05 Creatine Kinase 48 L CK-MB (CK-2) 1.41 1.57 Troponin I 0.038 0.039 NT-Pro-B Natriuret Pep Impressions: Chest/Abdomen CTA 12/16/17 00:00 IMPRESSION: Bilateral pleural effusions with basilar opacities. Patchy areas of ground-glass. No pulmonary emboli. Vascular congestion. Chest X-Ray 12/19/17 00:00 IMPRESSION: Findings likely reflecting mild CHF. Vascular congestion and cardiomegaly. Assessment & Plan - Diagnosis (1) Congestive heart failure Is this a current diagnosis for this admission?: Yes (2) Atrial fibrillation Qualifiers: Atrial fibrillation type: unspecified Qualified Code(s): I48.91 - Unspecified atrial fibrillation Is this a current diagnosis for this admission?: Yes (3) Hypertension Qualifiers: Hypertension type: essential hypertension Qualified Code(s): I10 - Essential (primary) hypertension Is this a current diagnosis for this admission?: Yes (4) Bradycardia Is this a current diagnosis for this admission?: Yes (5) Mitral regurgitation Qualifiers: Cardiac valve disease etiology: etiology unspecified Qualified Code(s): I34.0 - Nonrheumatic mitral (valve) insufficiency Is this a current diagnosis for this admission?: Yes (6) Elevated troponin I level Is this a current diagnosis for this admission?: Yes (7) Elevated troponin Is this a current diagnosis for this admission?: Yes - Notes Notes: Congestive heart failure: Most likely related to systolic and diastolic dysfunction along with contribution from mitral regurgitation. Patient seems fairly compensated. Will obtain chest x-ray and predischarge BNP level. Mitral regurgitation: Patient has moderate mitral regurgitation. Recommend hydralazine nitrate combination. Bradycardia: Currently mild and asymptomatic. Observe patient. Low threshold for pacemaker placement since patient has CHF. So far do not have any evidence for symptomatic bradycardia. Elevated troponin I: Possibly related to CHF. Atrial fibrillation: Probably paroxysmal. Patient already on Eliquis therapy. Continue with it. Rate is well controlled. Overall prognosis is guarded. - Time Time with patient: Greater than 35 minutes - CODE STATUS was discussed, patient remains full code. Surrogate decision-maker unchanged. Multiple medical problems were addressed. More than 50% of the time spent coordinating care, discussing management plans with involved caregivers. Management plans discussed with involved personnels. Medical decision making was of moderate to high complexity, patient's has multiple comorbidities. Medications reviewed and adjusted accordingly: Yes
--- NOTE | 2017-12-21 21:19 | EKG REPORT ---
SEVERITY:- ABNORMAL ECG - SINUS RHYTHM AV BLOCK, MOBITZ TYPE 1 LEFT BUNDLE BRANCH BLOCK : Confirmed by: Aisha Araujo 21-Dec-2017 21:19:20
[2017-12-21] MEDS: HYDRALAZINE HCL 25 MG TABLET PO SCH (21:34)
[2017-12-22] MEDS: LEVALBUTEROL HCL NEB 1.25 MG/3 ML AMPUL NEB SCH ×3 (02:00→13:36)
[2017-12-22] MEDS: LANSOPRAZOLE 30 MG TAB.RAP.DR PO SCH (06:03)
[2017-12-22] MEDS: HYDRALAZINE HCL 25 MG TABLET PO SCH ×2 (06:03→13:32)
[2017-12-22] MEDS: FUROSEMIDE INJ/PF 20 MG/2 ML SDV IV SCH ×2 (06:03→18:32)
[2017-12-22 06:56] LABS: ANION GAP 13 (5-19); BLOOD UREA NITROGEN 30 mg/dL (7-20); CALCIUM 8.7 mg/dL (8.4-10.2); CARBON DIOXIDE 23 mmol/L (22-30); CHLORIDE 106 mmol/L (98-107); GLUCOSE 104 mg/dL (75-110); POTASSIUM 4.3 mmol/L (3.6-5.0); SODIUM 141.9 mmol/L (137-145)
--- NOTE | 2017-12-22 09:20 | EKG REPORT ---
SEVERITY:- ABNORMAL ECG - SINUS RHYTHM VENTRICULAR PREMATURE COMPLEX NONSPECIFIC INTRAVENTRICULAR CONDUCTION DELAY ST DEPRESSION, CONSIDER ISCHEMIA, DIFFUSE LDS BLOCKED APC : Confirmed by: Aisha Araujo 22-Dec-2017 09:20:12
--- NOTE | 2017-12-22 11:06 | PDOC PROGRESS REPORT ---
Subjective Progress Note for:: 12/22/17 Subjective:: Patient is currently doing much better Patient's denied any chest pain denied any shortness of the breath Patient's heart rate is still going down to bradycardia range Patient's otherwise denied any other complaints Reason For Visit: SHORTNESS OF BREATH ? ACUTE DIASTOLIC HEART Physical Exam Vital Signs: Temp Pulse Resp BP Pulse Ox 97.6 F 54 L 16 164/59 H 100 12/22/17 08:09 12/22/17 08:09 12/22/17 08:09 12/22/17 08:09 12/22/17 08:09 Intake & Output 12/21/17 12/22/17 12/23/17 06:59 06:59 06:59 Intake Total 2838 1352 Balance 2838 1352 Weight 98.5 kg 96.7 kg General appearance: PRESENT: no acute distress, well-developed, well-nourished Head exam: PRESENT: atraumatic, normocephalic Eye exam: PRESENT: conjunctiva pink, EOMI, PERRLA. ABSENT: scleral icterus Ear exam: PRESENT: normal external ear exam Mouth exam: PRESENT: moist, tongue midline Neck exam: PRESENT: full ROM. ABSENT: carotid bruit, JVD, lymphadenopathy, thyromegaly Respiratory exam: PRESENT: clear to auscultation alphonse Cardiovascular exam: PRESENT: RRR. ABSENT: diastolic murmur, rubs, systolic murmur Pulses: PRESENT: normal dorsalis pedis pul, +2 pedal pulses bilateral Vascular exam: PRESENT: normal capillary refill GI/Abdominal exam: PRESENT: normal bowel sounds, soft. ABSENT: distended, guarding, mass, organolmegaly, rebound, tenderness Rectal exam: PRESENT: deferred Extremities exam: ABSENT: pedal edema Musculoskeletal exam: PRESENT: ambulatory Neurological exam: PRESENT: alert, awake, oriented to person, oriented to place , oriented to time, oriented to situation, CN II-XII grossly intact. ABSENT: motor sensory deficit Psychiatric exam: PRESENT: appropriate affect, normal mood. ABSENT: homicidal ideation, suicidal ideation Skin exam: PRESENT: dry, intact, warm. ABSENT: cyanosis, rash Results Laboratory Results: 12/20/17 05:26 12/22/17 05:51 12/21/17 12/22/17 05:33 05:51 Sodium 141.9 Potassium 4.3 Chloride 106 Carbon Dioxide 23 Anion Gap 13 BUN 30 H Creatinine 1.09 Est GFR ( Amer) > 60 Est GFR (Non-Af Amer) > 60 Glucose 104 Calcium 8.7 Free T3 pg/mL 3.68 12/16/17 12/16/17 12/16/17 20:55 20:55 20:55 Creatine Kinase Cancelled 59 CK-MB (CK-2) 1.09 Troponin I 0.162 NT-Pro-B Natriuret Pep 12/17/17 12/17/17 12/17/17 02:52 02:52 02:52 Creatine Kinase 52 L CK-MB (CK-2) 1.51 Troponin I 0.114 NT-Pro-B Natriuret Pep 68769 H 12/17/17 12/17/17 12/17/17 08:28 08:28 14:17 Creatine Kinase 49 L 48 L CK-MB (CK-2) 1.77 Troponin I 0.088 NT-Pro-B Natriuret Pep 12/17/17 12/17/17 12/17/17 14:17 21:20 21:20 Creatine Kinase 52 L CK-MB (CK-2) 1.96 2.04 Troponin I 0.083 0.069 NT-Pro-B Natriuret Pep 12/18/17 12/18/17 12/18/17 08:49 08:49 15:25 Creatine Kinase 45 L 43 L CK-MB (CK-2) 1.43 Troponin I 0.049 NT-Pro-B Natriuret Pep 12/18/17 12/18/17 12/18/17 15:25 21:05 21:05 Creatine Kinase 48 L CK-MB (CK-2) 1.41 1.57 Troponin I 0.038 0.039 NT-Pro-B Natriuret Pep Impressions: Chest/Abdomen CTA 12/16/17 00:00 IMPRESSION: Bilateral pleural effusions with basilar opacities. Patchy areas of ground-glass. No pulmonary emboli. Vascular congestion. Chest X-Ray 12/19/17 00:00 IMPRESSION: Findings likely reflecting mild CHF. Vascular congestion and cardiomegaly. Assessment & Plan - Diagnosis (1) Congestive heart failure Is this a current diagnosis for this admission?: Yes Plan: Switch to the p.o. Lasix (2) Hypoxemia Is this a current diagnosis for this admission?: Yes Plan: Patient was CT angiogram was all negative currently all stable with the cannula Consult the cardiology and pulmonary for further evaluations (3) Acute and chronic respiratory failure Qualifiers: Respiratory failure complication: hypoxia Qualified Code(s): J96.21 - Acute and chronic respiratory failure with hypoxia Is this a current diagnosis for this admission?: Yes Plan: Currently all stable (4) COPD (chronic obstructive pulmonary disease) with acute bronchitis Is this a current diagnosis for this admission?: Yes Plan: Continues to nebulizer treatments (5) Chronic kidney disease Qualifiers: Chronic kidney disease stage: stage 3 (moderate) Qualified Code(s): N18.3 - Chronic kidney disease, stage 3 (moderate) Is this a current diagnosis for this admission?: Yes Plan: Currently all stable (6) Dyslipidemia Is this a current diagnosis for this admission?: Yes (7) Hypertension Qualifiers: Hypertension type: essential hypertension Qualified Code(s): I10 - Essential (primary) hypertension Is this a current diagnosis for this admission?: Yes (8) Bradycardia Is this a current diagnosis for this admission?: Yes (9) Paroxysmal atrial fibrillation Is this a current diagnosis for this admission?: Yes (10) Elevated troponin Is this a current diagnosis for this admission?: Yes (11) Leukocytosis Qualifiers: Leukocytosis type: unspecified Qualified Code(s): D72.829 - Elevated white blood cell count, unspecified Is this a current diagnosis for this admission?: Yes - Time Time Spent with patient: 15-24 minutes Medications reviewed and adjusted accordingly: Yes Anticipated discharge: Other Within: Other - Inpatient Certification Medical Necessity: Need Close Monitoring Due to Risk of Patient Decompensation 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
[2017-12-22] MEDS ORDERED: AMINOPHYLLINE INJ/PF 250 MG/10 ML SDV IV ONE (11:26)
[2017-12-22] MEDS ORDERED: REGADENOSON INJ 0.4 MG/5 ML DISP.SYRIN IV ONE (11:26)
[2017-12-22] MEDS: ASCORBIC ACID 500 MG TABLET PO SCH (12:00)
[2017-12-22] MEDS: ASPIRIN 81 MG TABLET, CHEWABLE PO SCH (12:00)
[2017-12-22] MEDS: ISOSORBIDE MONONITRATE 60 MG TAB.ER.24H PO SCH (12:00)
[2017-12-22] MEDS: LEVOFLOXACIN 500 MG TABLET PO SCH (12:00)
[2017-12-22] MEDS: SACUBITRIL/VALSARTAN 49 MG/51 MG TABLET PO SCH ×2 (12:01→18:31)
[2017-12-22] MEDS: APIXABAN 2.5 MG TABLET PO SCH ×2 (12:01→18:31)
[2017-12-22] MEDS: TIOTROPIUM BROMIDE DPI 5 CAP/KIT (18 MCG/CAP) IH SCH (12:02)
[2017-12-22] MEDS: DOCUSATE SODIUM 100 MG CAPSULE PO SCH (12:08)
[2017-12-22] MEDS: POLYETHYLENE GLYCOL 3350 POWDER 17 GM/1 PACKET PO SCH (12:08)
--- NOTE | 2017-12-22 12:41 | PDOC TRANSFER SUMMARY ---
General Admission Date/PCP: 12/16/17 18:23 MESFIN HOLMAN MD Transfer Date: 12/22/17 Accepting Facility: [facility] Resuscitation Status: Full Code - Transfer Diagnosis (1) Congestive heart failure Is this a current diagnosis for this admission?: Yes Diagnosis Summary: stable (2) Hypoxemia Is this a current diagnosis for this admission?: Yes (3) Acute and chronic respiratory failure Is this a current diagnosis for this admission?: Yes (4) COPD (chronic obstructive pulmonary disease) with acute bronchitis Is this a current diagnosis for this admission?: Yes (5) Chronic kidney disease Is this a current diagnosis for this admission?: Yes (6) Dyslipidemia Is this a current diagnosis for this admission?: Yes (7) Hypertension Is this a current diagnosis for this admission?: Yes (8) Bradycardia Is this a current diagnosis for this admission?: Yes Diagnosis Summary: refer to [facility] for pacmaker evaution (9) Paroxysmal atrial fibrillation Is this a current diagnosis for this admission?: Yes (10) Elevated troponin Is this a current diagnosis for this admission?: Yes (11) Leukocytosis Is this a current diagnosis for this admission?: Yes - Transfer Medications Home Medications: Budesonide/Formoterol Fumarate [Symbicort HFA 160-4.5 mcg Inhaler 6 gm] 2 puff IH Q12 12/17/17 Cetirizine HCl [Zyrtec 10 mg Tablet] 10 mg PO DAILY 12/17/17 Doxazosin Mesylate [Cardura] 8 mg PO DAILY 12/17/17 Ferrous Sulfate [Feosol 325 mg Tablet] 325 mg PO DAILY 12/17/17 Fluticasone Propionate [Flonase Nasal [place] 50 Mcg/[place] 16 gm] 1 spray NASL DAILY 12/17/17 Furosemide [Lasix 20 mg Tablet] 20 mg PO BID 12/17/17 Isosorbide Mononitrate [Imdur 60 mg Tablet.er] 60 mg PO DAILY 12/17/17 Nifedipine [Nifedipine ER] 60 mg PO Q12 12/17/17 Omeprazole 40 mg PO DAILY 12/17/17 Polyethylene Glycol 3350 [Miralax Powder 17 gm/Packet] 17 gm PO DAILYP PRN 12/17 Tiotropium [place] [Spiriva Handihaler 5 Cap/Kit (18 Mcg/Cap)] 1 puff IH DAILY 12/17/17 Transfer Medications: Current Medications Acetaminophen (Tylenol 325 Mg Tablet) 650 mg PO Q6HP PRN PRN Reason: FOR PAIN Stop: 01/16/18 06:45 Last Admin: 12/22/17 12:04 Dose: 650 mg Apixaban (Eliquis 2.5 Mg Tablet) 2.5 mg PO BID PCAHECO Stop: 01/16/18 17:59 Last Admin: 12/22/17 12:01 Dose: 2.5 mg Ascorbic Acid (Vitamin C 500 Mg Tablet) 500 mg PO DAILY PACHECO Stop: 01/16/18 09:59 Last Admin: 12/22/17 12:00 Dose: 500 mg Aspirin (Aspirin 81 Mg Chewable Tablet) 81 mg PO DAILY PACHECO Stop: 01/16/18 09:59 Last Admin: 12/22/17 12:00 Dose: 81 mg Docusate Sodium (Colace 100 Mg Capsule) 100 mg PO DAILY PACHECO Stop: 01/16/18 09:59 Last Admin: 12/22/17 12:08 Dose: Not Given Ferrous Sulfate (Feosol 325 Mg Tablet) 325 mg PO DAILY PACHECO Stop: 01/16/18 09:59 Last Admin: 12/21/17 09:44 Dose: 325 mg Furosemide (Lasix Inj/Pf 20 Mg/2 Ml Sdv) 20 mg IV Q12A PACHECO Stop: 01/19/18 17:59 Last Admin: 12/22/17 06:03 Dose: 20 mg Hydralazine HCl (Apresoline 25 Mg Tablet) 25 mg PO Q8 PACHECO Stop: 01/20/18 21:59 Last Admin: 12/22/17 06:03 Dose: 25 mg Isosorbide Mononitrate (Imdur 60 Mg Tablet.Er) 60 mg PO DAILY PACHECO Stop: 01/16/18 09:59 Last Admin: 12/22/17 12:00 Dose: 60 mg Lansoprazole (Prevacid 30 Mg Odt Tablet) 30 mg PO Q6AM PACHECO Stop: 01/17/18 05:59 Last Admin: 12/22/17 06:03 Dose: 30 mg Levalbuterol HCl (Xopenex Neb 1.25 Mg/3 Ml Ampul) 1.25 mg NEB RTQ6 PACHECO Stop: 01/16/18 13:59 Last Admin: 12/22/17 08:03 Dose: 1.25 mg Levofloxacin (Levaquin 500 Mg Tablet) 500 mg PO QAM PACHECO Stop: 12/25/17 07:59 Last Admin: 12/22/17 12:00 Dose: 500 mg Polyethylene Glycol (Miralax Powder 17 Gm/Packet) 17 gm PO DAILY PACHECO Stop: 01/16/18 09:59 Last Admin: 12/22/17 12:08 Dose: Not Given Sacubitril/Valsartan (Entresto 49 Mg/51 Mg Tablet) 1 tab PO BID PACHECO Stop: 01/20/18 09:59 Last Admin: 12/22/17 12:01 Dose: 1 tab Tamsulosin HCl (Flomax 0.4 Mg Cap.Sr) 0.4 mg PO PCSUPPER PACHECO Stop: 01/18/18 17:59 Last Admin: 12/21/17 17:23 Dose: 0.4 mg Tiotropium [place] (Spiriva Handihaler 5 Cap/Kit (18 Mcg/Cap)) 1 cap IH DAILY PACHECO Stop: 01/16/18 09:59 Last Admin: 12/22/17 12:02 Dose: 1 cap - Allergies Allergies/Adverse Reactions: meperidine HCl [From Demerol] Allergy (Verified 01/15/12 23:43) - Diet/Activity Discharge Diet: Cardiac Hospital Course Hospital Course: pt was admitted for chf/copd pt also noticed bradycardia pt was on b danyelle and stop in past due to bradycadia pt was seen by cardilogist and 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 ABSENT: scleral icterus Ear exam: PRESENT: normal external ear exam Mouth exam: PRESENT: moist, tongue midline Neck exam: ABSENT: carotid bruit, JVD, lymphadenopathy, thyromegaly Respiratory exam: PRESENT: clear to auscultation alphonse. ABSENT: rales, rhonchi, wheezes Cardiovascular exam: PRESENT: RRR. ABSENT: diastolic murmur, rubs, systolic murmur Pulses: PRESENT: normal dorsalis pedis pul Vascular exam: PRESENT: normal capillary refill GI/Abdominal exam: PRESENT: normal bowel sounds, soft. ABSENT: distended, guarding, mass, organolmegaly, rebound, tenderness Rectal exam: PRESENT: deferred Extremities exam: PRESENT: full ROM. ABSENT: calf tenderness, clubbing, pedal edema Neurological exam: PRESENT: alert, awake, oriented to person, oriented to place , oriented to time, oriented to situation, CN II-XII grossly intact. ABSENT: motor sensory deficit Psychiatric exam: PRESENT: appropriate affect, normal mood. ABSENT: homicidal ideation, suicidal ideation Skin exam: PRESENT: dry, intact, warm. ABSENT: cyanosis, rash Results Laboratory Results: 12/20/17 05:26 12/22/17 05:51 12/21/17 12/22/17 05:33 05:51 Sodium 141.9 Potassium 4.3 Chloride 106 Carbon Dioxide 23 Anion Gap 13 BUN 30 H Creatinine 1.09 Est GFR ( Amer) > 60 Est GFR (Non-Af Amer) > 60 Glucose 104 Calcium 8.7 Free T3 pg/mL 3.68 12/16/17 12/16/17 12/16/17 20:55 20:55 20:55 Creatine Kinase Cancelled 59 CK-MB (CK-2) 1.09 Troponin I 0.162 NT-Pro-B Natriuret Pep 12/17/17 12/17/17 12/17/17 02:52 02:52 02:52 Creatine Kinase 52 L CK-MB (CK-2) 1.51 Troponin I 0.114 NT-Pro-B Natriuret Pep 83746 H 12/17/17 12/17/17 12/17/17 08:28 08:28 14:17 Creatine Kinase 49 L 48 L CK-MB (CK-2) 1.77 Troponin I 0.088 NT-Pro-B Natriuret Pep 12/17/17 12/17/17 12/17/17 14:17 21:20 21:20 Creatine Kinase 52 L CK-MB (CK-2) 1.96 2.04 Troponin I 0.083 0.069 NT-Pro-B Natriuret Pep 12/18/17 12/18/17 12/18/17 08:49 08:49 15:25 Creatine Kinase 45 L 43 L CK-MB (CK-2) 1.43 Troponin I 0.049 NT-Pro-B Natriuret Pep 12/18/17 12/18/17 12/18/17 15:25 21:05 21:05 Creatine Kinase 48 L CK-MB (CK-2) 1.41 1.57 Troponin I 0.038 0.039 NT-Pro-B Natriuret Pep Impressions: Chest/Abdomen CTA 12/16/17 00:00 IMPRESSION: Bilateral pleural effusions with basilar opacities. Patchy areas of ground-glass. No pulmonary emboli. Vascular congestion. Chest X-Ray 12/19/17 00:00 IMPRESSION: Findings likely reflecting mild CHF. Vascular congestion and cardiomegaly. Plan Time Spent: Greater than 30 Minutes - d/w pt and son and agree about plan
[2017-12-22] MEDS: FERROUS SULFATE 325 MG TABLET PO SCH (13:32)
--- NOTE | 2017-12-22 14:19 | DRAGON STRESS TEST REPORT ---
INTRAVENOUS LEXISCAN CARDIOLITE STRESS TEST USING SINGLE PHOTON EMMISION COMPUTERIZED TOMOGRAPHIC. DATE OF PROCEDURE: December 22, 2017, INDICATION : Cardiac dysrhythmia, increased ventricular ectopy. CARDIAC RISK FACTORS: Hypertension, tobacco abuse, CAD RESTING EKG: Sinus rhythm with left bundle branch block pattern. STRESS EKG: No significant ST segment changes noted with LexiScan bolus, patient to have intermittent Wenckebach. Occasional VPCs noted. REASON FOR TERMINATION: Protocol. PROCEDURE REPORT: Baseline heart rate 53 beats per minute with blood pressure of 158/54. Patient had no significant complaints. Patient was bolused with Lexiscan 0.4 mg intravenously followed by saline bolus. Heart rate at 2 minutes post bolus 74 with a blood pressure of 162/43. 3 minutes post bolus heart rate 52 with blood pressure of 159/49. No significant EKG changes were noted. Patient had no significant complaints during the procedure or postprocedure. Patient injected with Aminophyllin 75 mg at 3 minutes or later after Lexiscan bolus. CONCLUSIONS: Normal EKG and hemodynamic response to IV LexiScan. NUCLEAR DATA: At rest the patient was given 14.13 millicuries of technetium 99 sestamibi injected intravenously. As per protocol rest gated SPECT images were obtained. On day of stress test, the patient was given intravenous LexiScan at a dose of 0.4 mg in 5 mL intravenously, followed by flush with normal saline. Subsequently the stress dose of 42.6 millicuries of technetium 99 sestamibi was injected intravenously. As per protocol stress gated images were obtained. NUCLEAR INTERPRETATION: Both raw and processed data were used for interpretation. Visual, qualitative, computer-generated quantitative data was used. There was good myocardial uptake of technetium compound. Motion artifact and soft tissue attenuations were noted. Increased visceral uptake was noted. No definitive areas of transient perfusion defect noted, No definitive areas of fixed perfusion defect or scars noted. EKG gated imaging showed LV EF at 43 %, rest and stress gated EF similar visually. T. I D. ratio was 1.05. Lung heart ratio noted to be within normal limits 0.42. No significant extracardiac and abnormal radiotracer activities were noted. RV free wall uptake was noted to be WNL. LVH noted. IMPRESSION: Also refer to comments under nuclear interpretation. Also test results needs to be interpreted in the context of pretest probability. 1. No definitive areas of transient perfusion defect noted. 2. There is no definitive scintigraphic evidence of myocardial infarction/scar. 3. EKG gated imaging shows left ventricular ejection fraction of approx. 43 %. LVH noted. 4. Clinical correlation requested as occasionally single vessel disease or balanced ischemia could be missed. In approximately 10% of the cases Lexiscan may not cause adequate vasodilatory stress. RECOMMENDATIONS: Aggressive risk factor modification and medical management. Further evaluation may be needed if continued symptoms or other high risk indicators are noted on clinical evaluation. Close cardiology follow-up is also recommended. Clinical correlation with echocardiogram derived ejection fraction. Inability to exercise by itself can lead to increased cardiovascular event risks. Consider cardiology consultation and or follow-up if clinically indicated. I am available for cardiology evaluation and consultation if requested by the geothermal operating engineer, unless patient already has a health care coordinator. CORDELIA
[2017-12-22 18:27] VITALS: BP 142/42
[2017-12-22] MEDS: TAMSULOSIN HCL 0.4 MG CAP.SR.24H PO SCH (18:31)
--- NOTE | 2017-12-22 18:54 | PDOC PROGRESS REPORT ---
Subjective Progress Note for:: 12/22/17 Subjective:: Patient seems to be doing better. Patient was noted to ambulate in the hallway briskly without any discomfort. Pt is denying any chest arm or neck discomfort. Patient denying any PND, orthopnea. Patient denied any sustained palpitations, dizziness, syncope, near syncope. Patient denying any fever chills. Patient denying any other significant discomfort. Nuclear stress test procedure was discussed with the patient. Relative contraindications discussed. Patient wishes to proceed with the nuclear stress test. Patient did undergo a stress test without any complications. Patient noted to have frequent ventricular ectopy and occasional Wenckebach. Heart rates generally noted to be low. Review of systems: Rest review of systems negative. Medications: Medications have been reviewed. Reason For Visit: SHORTNESS OF BREATH ? ACUTE DIASTOLIC HEART Physical Exam Vital Signs: Temp Pulse Resp BP Pulse Ox 98.5 F 63 16 142/42 H 97 12/22/17 15:41 12/22/17 15:41 12/22/17 15:41 12/22/17 15:41 12/22/17 15:41 Intake & Output 12/21/17 12/22/17 12/23/17 06:59 06:59 06:59 Intake Total 2838 1352 1183 Balance 2838 1352 1183 Weight 98.5 kg 96.7 kg Exam: GENERAL: well-nourished and in no acute distress. Alert and oriented x3 HEAD: Atraumatic, normocephalic. EYES: Pupils equal round and reactive to light, extraocular movements intact, sclera anicteric, conjunctiva are normal. ENT: TMs normal, nares patent, oropharynx clear without exudates. Moist mucous membranes. No oral ulcerations or bleeding gums noted NECK: supple without lymphadenopathy. Trachea is central. No cervical or axillary lymphadenopathy noted. Carotids are 2+, JVD WNL LUNGS: Respiration seems nonlabored, no significant accessory muscle action noted. Breath sounds clear to auscultation bilaterally and equal noted. No wheezes rales or rhonchi noted. No significant dullness noted on percussion. CHEST: Palpation of the chest wall shows no significant chest wall tenderness. HEART: [place] REGISTERED PHYSICAL THERAPIST, No PSH, 1/6 PEDRO aortic area, 1/6 fan systolic murmur mitral area, no rubs, no gallops. ABDOMEN: Soft, no significant tenderness appreciated, normoactive bowel sounds. No guarding, no rebound. No rigidity noted . No masses appreciated. EXTREMITIES: Pedal pulses are 1-2+, no calf tenderness noted. No clubbing or cyanosis. negative pedal edema noted NEUROLOGICAL: Focused neurological exam showed no significant neurologic deficit. Normal speech, no focal weakness appreciated. PSYCH: Normal mood, normal affect. Judgment and insight within normal limits. SKIN: No significant ecchymosis, skin is noted to be warm. MUSCULOSKELETAL EXAM: No significant acute joint swelling noted. Results Laboratory Results: 12/20/17 05:26 12/22/17 05:51 12/21/17 12/22/17 05:33 05:51 Sodium 141.9 Potassium 4.3 Chloride 106 Carbon Dioxide 23 Anion Gap 13 BUN 30 H Creatinine 1.09 Est GFR ( Amer) > 60 Est GFR (Non-Af Amer) > 60 Glucose 104 Calcium 8.7 Free T3 pg/mL 3.68 12/16/17 12/16/17 12/16/17 20:55 20:55 20:55 Creatine Kinase Cancelled 59 CK-MB (CK-2) 1.09 Troponin I 0.162 NT-Pro-B Natriuret Pep 12/17/17 12/17/17 12/17/17 02:52 02:52 02:52 Creatine Kinase 52 L CK-MB (CK-2) 1.51 Troponin I 0.114 NT-Pro-B Natriuret Pep 91421 H 12/17/17 12/17/17 12/17/17 08:28 08:28 14:17 Creatine Kinase 49 L 48 L CK-MB (CK-2) 1.77 Troponin I 0.088 NT-Pro-B Natriuret Pep 12/17/17 12/17/17 12/17/17 14:17 21:20 21:20 Creatine Kinase 52 L CK-MB (CK-2) 1.96 2.04 Troponin I 0.083 0.069 NT-Pro-B Natriuret Pep 12/18/17 12/18/17 12/18/17 08:49 08:49 15:25 Creatine Kinase 45 L 43 L CK-MB (CK-2) 1.43 Troponin I 0.049 NT-Pro-B Natriuret Pep 12/18/17 12/18/1712/18/18 15:25 21:05 21:05 Creatine Kinase 48 L CK-MB (CK-2) 1.41 1.57 Troponin I 0.038 0.039 NT-Pro-B Natriuret Pep EKG Comments: Telemetry strips shows difficult to determine underlying rhythm, most likely sinus with frequent Wenckebach, frequent ectopy APCs and VPCs. Impressions: Chest/Abdomen CTA 12/16/17 00:00 IMPRESSION: Bilateral pleural effusions with basilar opacities. Patchy areas of ground-glass. No pulmonary emboli. Vascular congestion. Chest X-Ray 12/19/17 00:00 IMPRESSION: Findings likely reflecting mild CHF. Vascular congestion and cardiomegaly. Assessment & Plan - Diagnosis (1) Congestive heart failure Is this a current diagnosis for this admission?: Yes (2) Atrial fibrillation Qualifiers: Atrial fibrillation type: unspecified Qualified Code(s): I48.91 - Unspecified atrial fibrillation Is this a current diagnosis for this admission?: Yes (3) Hypertension Qualifiers: Hypertension type: essential hypertension Qualified Code(s): I10 - Essential (primary) hypertension Is this a current diagnosis for this admission?: Yes (4) Bradycardia Is this a current diagnosis for this admission?: Yes (5) Mitral regurgitation Qualifiers: Cardiac valve disease etiology: etiology unspecified Qualified Code(s): I34.0 - Nonrheumatic mitral (valve) insufficiency Is this a current diagnosis for this admission?: Yes (6) Elevated troponin I level Is this a current diagnosis for this admission?: Yes (7) Elevated troponin Is this a current diagnosis for this admission?: Yes - Notes Notes: Nuclear stress test was negative for any pharmacologic stress-induced ischemia. Agree with decision to transfer patient as he is likely to end up needing pacemaker therapy. Patient would need to be placed on beta-danyelle therapy. And this may tip him into needing a pacemaker. Congestive heart failure: Most likely related to systolic and diastolic dysfunction along with contribution from mitral regurgitation. Patient seems fairly compensated. Mitral regurgitation: Patient has moderate mitral regurgitation. Recommend hydralazine nitrate combination. Bradycardia: Currently mild and asymptomatic. Observe patient. Low threshold for pacemaker placement since patient has CHF. Patient is quite vague about his symptoms. It is felt that patient would need to be on beta-danyelle therapy for both CAD and also for CHF which will tip him into needing pacemaker. Had a long discussion with Dr. Talavera and also Dr. Curt Gomes, wiring technician in [place], it is felt that patient would benefit overall from consideration for pacemaker placement. In this regard feel that electrophysiological consultation and consideration for pacemaker placement prior to discharge is felt necessary. Elevated troponin I: Possibly related to CHF. Nuclear stress test was negative for any significant ischemia. Atrial fibrillation: Probably paroxysmal. Patient already on Eliquis therapy. Continue with it. Rate is well controlled. Overall prognosis is guarded. - Time Time with patient: Greater than 35 minutes - Patient was seen multiple times. Total time exceeds 40 minutes. In the morning nuclear stress test procedure, risks benefits, alternatives were discussed. Patient seen during the stress test. Patient also seen after stress test when results were discussed with the patient in detail. Patient's questions were answered. Nuclear stress test results were discussed with the patient. Patient was informed that no definitive evidence of pharmacologic stress-induced ischemia noted. No definite fixed defects were noted. Patient informed that occasionally significant single vessel disease or balanced ischemia could be missed. However based on the current study results, would recommend aggressive risk factor modification and medical therapy. It may also be worthwhile to consider evaluation or empiric management of other causes of chest pain. Should no other cause be found and if persistent in having chest pain, then cardiac catheterization should be considered. Right now, recommendations are for aggressive risk factor modification and medical management. Patient also being considered for transfer to tertiary care for electrophysiological consultation and placement of pacemaker if needed.
--- NOTE | 2017-12-27 12:16 | PDOC PROGRESS REPORT ---
Subjective Progress Note for:: 12/21/17 Subjective:: a little weak Reason For Visit: SHORTNESS OF BREATH ? ACUTE DIASTOLIC HEART Physical Exam Vital Signs: Temp Pulse Resp BP Pulse Ox 98.5 F 63 16 142/42 H 97 12/22/17 15:41 12/22/17 15:41 12/22/17 15:41 12/22/17 15:41 12/22/17 15:41 Intake & Output 12/22/17 12/23/17 12/24/17 06:59 06:59 06:59 Intake Total 1352 1183 Balance 1352 1183 Weight 96.7 kg General appearance: PRESENT: no acute distress, disheveled Head exam: PRESENT: atraumatic Eye exam: PRESENT: conjunctiva pale. ABSENT: nystagmus, periorbital swelling, scleral icterus Mouth exam: PRESENT: dry mucosa, neck supple, tongue midline Neck exam: ABSENT: carotid bruit, JVD, lymphadenopathy, thyromegaly, tracheal deviation, tracheostomy Respiratory exam: PRESENT: decreased breath sounds, prolonged expiratory phas, rhonchi, wheezes. ABSENT: stridor, tachypnea Cardiovascular exam: PRESENT: RRR, +S1, +S2 Pulses: PRESENT: normal radial pulses - [id number] GI/Abdominal exam: PRESENT: diminished bowel sounds, soft - [id number] Musculoskeletal exam: ABSENT: deformity, dislocation Neurological exam: PRESENT: awake Skin exam: PRESENT: dry, warm Results Laboratory Results: 12/20/17 05:26 12/22/17 05:51 12/16/17 12/16/17 12/16/17 20:55 20:55 20:55 Creatine Kinase Cancelled 59 CK-MB (CK-2) 1.09 Troponin I 0.162 NT-Pro-B Natriuret Pep 12/17/17 12/17/17 12/17/17 02:52 02:52 02:52 Creatine Kinase 52 L CK-MB (CK-2) 1.51 Troponin I 0.114 NT-Pro-B Natriuret Pep 34253 H 12/17/17 12/17/17 12/17/17 08:28 08:28 14:17 Creatine Kinase 49 L 48 L CK-MB (CK-2) 1.77 Troponin I 0.088 NT-Pro-B Natriuret Pep 04/12/17/17 12/17/17 14:17 21:20 21:20 Creatine Kinase 52 L CK-MB (CK-2) 1.96 2.04 Troponin I 0.083 0.069 NT-Pro-B Natriuret Pep 12/18/17 12/18/17 12/18/17 08:49 08:49 15:25 Creatine Kinase 45 L 43 L CK-MB (CK-2) 1.43 Troponin I 0.049 NT-Pro-B Natriuret Pep 12/18/17 12/18/17 12/18/17 15:25 21:05 21:05 Creatine Kinase 48 L CK-MB (CK-2) 1.41 1.57 Troponin I 0.038 0.039 NT-Pro-B Natriuret Pep Impressions: Chest/Abdomen CTA 12/16/17 00:00 IMPRESSION: Bilateral pleural effusions with basilar opacities. Patchy areas of ground-glass. No pulmonary emboli. Vascular congestion. Chest X-Ray 12/19/17 00:00 IMPRESSION: Findings likely reflecting mild CHF. Vascular congestion and cardiomegaly. Assessment & Plan - Diagnosis (1) Acute heart failure Qualifiers: Heart failure type: unspecified Qualified Code(s): I50.9 - Heart failure, unspecified (2) Hypoxemia Is this a current diagnosis for this admission?: Yes (3) Leukocytosis Qualifiers: Leukocytosis type: unspecified Qualified Code(s): D72.829 - Elevated white blood cell count, unspecified Is this a current diagnosis for this admission?: Yes (4) Paroxysmal atrial fibrillation Is this a current diagnosis for this admission?: Yes (5) Acute and chronic respiratory failure Qualifiers: Respiratory failure complication: hypoxia Qualified Code(s): J96.21 - Acute and chronic respiratory failure with hypoxia Is this a current diagnosis for this admission?: Yes
== END 2017-12-22 18:44 | disposition short-term general hospital (02) | DRG 291 ==
LOC: ER 15:40 → EH 18:23 → 3S 21:35
PROVIDERS: ADMIT Internal Medicine; ATTEND Family Medicine
PROC: 3E0F73Z Introduction of Anti-inflammatory into Respiratory Tract, Via Natural or Artificial Opening (ICD-10-PCS; principal; 2017-12-16)
DX: I13.0 Hypertensive heart and chronic kidney disease with heart failure and stage 1 through stage 4 chronic kidney disease, or unspecified chronic kidney disease (principal); I50.43 Acute on chronic combined systolic (congestive) and diastolic (congestive) heart failure; J96.21 Acute and chronic respiratory failure with hypoxia; J44.0 Chronic obstructive pulmonary disease with (acute) lower respiratory infection; N18.3 Chronic kidney disease, stage 3 (moderate); J20.9 Acute bronchitis, unspecified; I48.0 Paroxysmal atrial fibrillation; J44.9 Chronic obstructive pulmonary disease, unspecified; K21.9 Gastro-esophageal reflux disease without esophagitis; M19.90 Unspecified osteoarthritis, unspecified site; F32.9 Major depressive disorder, single episode, unspecified; D72.829 Elevated white blood cell count, unspecified; E78.5 Hyperlipidemia, unspecified; R00.1 Bradycardia, unspecified; I34.0 Nonrheumatic mitral (valve) insufficiency; Z87.891 Personal history of nicotine dependence; Z79.02 Long term (current) use of antithrombotics/antiplatelets; Z82.49 Family history of ischemic heart disease and other diseases of the circulatory system
CPT/HCPCS: 36415; 71045; 71046; 71275; 78452; 80048; 80053; 80061; 80076; 80307; 81001; 82140; 82150; 82550; 82553; 82803; 83036; 83605; 83690; 83735; 83880; 84100; 84439; 84443; 84481; 84484; 85025; 85379; 85610; 85730; 87040; 87086; 93005; 93010; 93017; 93306; 94640; 96374; 96375; 99291; A9500; J0280; J1940; J1956; J2785; J2930; J3490; J7620; Q9969

== ENCOUNTER 2018-05-21 16:42 | Emergency (ER) | payer MEDICARE, MEDICAID ==
[2018-05-21 17:01] VITALS: BP 128/69
[2018-05-21] MEDS ORDERED: LIDOCAINE 1%/EPINEPHRINE INJ 20 ML VIAL INJ ONE (18:26)
[2018-05-21] MEDS ORDERED: ACETAMINOPHEN 325 MG TABLET PO ONE (18:26)
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
--- NOTE | 2018-05-21 19:08 | RADIOLOGY REPORT (SQ) ---
EXAM DESCRIPTION: CT HEAD WITHOUT COMPLETED DATE/TIME: 05/21/2018 6:54 pm REASON FOR STUDY: head injury, head lac COMPARISON: 08/18/2015. TECHNIQUE: Axial images acquired through the brain without intravenous contrast. Images reviewed wi th bone, brain and subdural windows. Additional sagittal and coronal reconstructions were generated. Images stored on PACS. All CT scanners at this facility use dose modulation, iterative reconstruction, and/or weight based d osing when appropriate to reduce radiation dose to as low as reasonably achievable (ALARA). [facility]: Dose Right [facility]: CareDose [facility]: Dose Right [facility]: Teradose 4D [facility]: [employer] RADIATION DOSE: CT Rad equipment meets quality standard of care and radiation dose reduction techniq ues were employed. CTDIvol: 53.2 mGy. DLP: 1017 mGy-cm. mGy. LIMITATIONS: None. FINDINGS: VENTRICLES: Prominent. CEREBRUM: No masses. No hemorrhage. No midline shift. Areas of low density in the white matter mos t likely due to chronic micro-vascular ischemic change. No evidence for acute infarction. CEREBELLUM: No masses. No hemorrhage. No alteration of density. No evidence for acute infarction. EXTRAAXIAL SPACES: Mild age-related involutional change. No fluid collections. No masses. ORBITS AND GLOBE: No intra- or extraconal masses. Normal contour of globe without masses. CALVARIUM: No fracture. PARANASAL SINUSES: No fluid or mucosal thickening. SOFT TISSUES: Frontal soft tissue injury. OTHER: No other significant finding. IMPRESSION: MILD CHRONIC CHANGES OF ATROPHY AND MICROVASCULAR ISCHEMIA. FRONTAL SOFT TISSUE INJURY. NO ACUTE PROCESS. EVIDENCE OF ACUTE STROKE: NO. TECHNICAL DOCUMENTATION: JOB ID: [id number] Quality ID # [id number]: Final reports with documentation of one or more dose reduction techniques (e.g., Au tomated exposure control, adjustment of the mA and/or kV according to patient size, use of iterative reconstruction technique) 2010 [email or web address]- All Rights Reserved Reading location - IP/workstation name: [email or web address]
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
== END 2018-05-21 21:14 | disposition home or self-care (01) ==
LOC: ER 16:42
DX: S01.81XA Laceration without foreign body of other part of head, initial encounter (principal); R51 Headache; W20.8XXA Other cause of strike by thrown, projected or falling object, initial encounter; Y93.89 Activity, other specified; I10 Essential (primary) hypertension; J44.9 Chronic obstructive pulmonary disease, unspecified; Z88.5 Allergy status to narcotic agent; Z79.02 Long term (current) use of antithrombotics/antiplatelets
CPT/HCPCS: 12013; 99283; 70450; A9270; J3490

== ENCOUNTER → 2018-06-28 | Outpatient (CLI) | payer MEDICARE, MEDICAID ==
[2018-06-28 09:34] LABS: ALANINE AMINOTRANSFERASE 13 U/L (21-72); ALBUMIN 3.9 g/dL (3.5-5.0); ALKALINE PHOSPHATASE 133 U/L (38-126); ANION GAP 10 (5-19); ASPARTATE AMINO TRANSFERASE 20 U/L (17-59); BILIRUBIN,DIRECT 0.3 mg/dL (0.0-0.4); BILIRUBIN,TOTAL 0.5 mg/dL (0.2-1.3); BLOOD UREA NITROGEN 20 mg/dL (7-20); CALCIUM 8.8 mg/dL (8.4-10.2); CARBON DIOXIDE 29 mmol/L (22-30); CHLORIDE 103 mmol/L (98-107); GLUCOSE 108 mg/dL (75-110); POTASSIUM 4.3 mmol/L (3.6-5.0); SODIUM 141.9 mmol/L (137-145); TOTAL PROTEIN 6.6 g/dL (6.3-8.2); TRIGLYCERIDES 117 mg/dL (<150)
[2018-06-28 09:45] LABS: DIRECT LDL 85 mg/dL (<100)
== END ==
LOC: OD 08:41
PROVIDERS: ATTEND Internal Medicine
DX: I11.0 Hypertensive heart disease with heart failure (principal); I50.32 Chronic diastolic (congestive) heart failure; I50.22 Chronic systolic (congestive) heart failure; I49.3 Ventricular premature depolarization; I42.9 Cardiomyopathy, unspecified; R06.09 Other forms of dyspnea; E78.5 Hyperlipidemia, unspecified; Z79.899 Other long term (current) drug therapy
CPT/HCPCS: 36415; 80053; 80061

== ENCOUNTER 2019-04-20 11:24 | Inpatient (IN) | payer MEDICARE, MEDICAID ==
--- NOTE | 2019-04-20 12:04 | ER Document Report ---
ED Medical Screen (RME) - General Chief Complaint: Breathing Difficulty Stated Complaint: DIFFICULTY BREATHING Time Seen by Provider: 04/20/19 11:54 Primary Care Provider: JACOBO ANSARI MD [Primary Care Provider] - Follow up as needed Notes: Patient is a 83-year-old male with a history of CHF, atrial fibrillation, pacemaker placement, anemia, COPD, hypertension who presents to the emergency department with a chief complaint of shortness of breath. Patient states around 10 PM last night he developed shortness of breath. Patient states he had a rough night as he cannot get comfortable or take a good deep breath. Patient reports generalized weakness that has been present over 2 months. Patient states he has had increased swelling to his bilateral lower extremities. Patient states he has been taking his medication as prescribed. Patient denies chest pain or palpitations. Patient denies fever. Patient denies cough. TRAVEL OUTSIDE OF THE [place] IN LAST 30 DAYS: No - Related Data Allergies/Adverse Reactions: meperidine HCl [From Demerol] Allergy (Verified 04/20/19 11:25) Past Medical History - Past Medical History Cardiac Medical History: Reports: Hx Hypertension Pulmonary Medical History: Reports: Hx Asthma, Hx Bronchitis, Hx COPD, Hx Pneumonia Denies: Hx Tuberculosis Neurological Medical History: Denies: Hx Seizures Renal/ Medical History: Reports: Hx Benign Prostatic Hyperplasia. Denies: Hx Peritoneal Dialysis GI Medical History: Reports: Hx Gastroesophageal Reflux Disease Musculoskeltal Medical History: Reports Hx Arthritis Psychiatric Medical History: Reports: Hx Depression Past Surgical History: Reports: Hx Herniorrhaphy - Bilateral inguinal repair. Denies: Hx Pacemaker - Immunizations Hx Diphtheria, Pertussis, Tetanus Vaccination: Yes Physical Exam - Vital signs Vitals: Temp Pulse Resp BP Pulse Ox 98.7 F 106 H 17 149/56 H 93 04/20/19 11:34 04/20/19 11:34 04/20/19 11:34 04/20/19 11:34 04/20/19 11:34 - Respiratory Respiratory status: No respiratory distress Chest status: Nontender Breath sounds: Normal Chest palpation: Normal - Cardiovascular Rhythm: Regular Heart sounds: Normal auscultation Course - Re-evaluation Re-evalutation: 04/20/19 12:04 I have greeted and performed a rapid initial assessment of this patient. A comprehensive ED assessment and evaluation of the patient, analysis of test results and completion of the medical decision making process will be conducted by additional ED providers. - Vital Signs Vital signs: Temp Pulse Resp BP Pulse Ox 98.7 F 106 H 17 149/56 H 93 04/20/19 11:34 04/20/19 11:34 04/20/19 11:34 04/20/19 11:34 04/20/19 11:34 Doctor's Discharge - Discharge Referrals: JACOBO ANSARI MD [Primary Care Provider] - Follow up as needed
[2019-04-20 12:27] LABS: HEMOGLOBIN 11.5 g/dL (13.5-17.0); MEAN CORPUSCULAR HEMOGLOBIN 29.4 pg (27.0-33.4); MEAN CORPUSCULAR HGB CONC 33.9 g/dL (32.0-36.0); MEAN CORPUSCULAR VOLUME 87 fl (80-97); PLATELET COUNT 222 10^3/uL (150-450); RED BLOOD COUNT 3.92 10^6/uL (4.35-5.55); WHITE BLOOD COUNT 18.1 10^3/uL (4.0-10.5)
[2019-04-20 12:41] LABS: ALKALINE PHOSPHATASE 110 U/L (38-126); ANION GAP 10 (5-19); ASPARTATE AMINO TRANSFERASE 19 U/L (17-59); BILIRUBIN,DIRECT 0.2 mg/dL (0.0-0.4); BILIRUBIN,TOTAL 0.4 mg/dL (0.2-1.3); BLOOD UREA NITROGEN 20 mg/dL (7-20); CALCIUM 8.6 mg/dL (8.4-10.2); CARBON DIOXIDE 28 mmol/L (22-30); CHLORIDE 99 mmol/L (98-107); GLUCOSE 100 mg/dL (75-110); POTASSIUM 3.6 mmol/L (3.6-5.0); TOTAL PROTEIN 6.6 g/dL (6.3-8.2)
[2019-04-20 12:49] LABS: ABSOLUTE LYMPHOCYTES# (MANUAL) 0.2 10^3/uL (0.5-4.7); ABSOLUTE MONOCYTES # (MANUAL) 1.1 10^3/uL (0.1-1.4); BASOPHILS % (MANUAL) 0 % (0-2); EOSINOPHILS % (MANUAL) 0 % (0-6); LYMPHOCYTES % (MANUAL) 1 % (13-45); MONOCYTES % (MANUAL) 6 % (3-13); SEGMENTED NEUTROPHILS % (MAN) 93 % (42-78); TOTAL CELLS COUNTED 100
[2019-04-20 12:50] LABS: ANISOCYTOSIS SLIGHT; OVALOCYTES 1+; PLATELET CLUMPS PRESENT; PLATELET COMMENT ADEQUATE; POIKILOCYTOSIS 1+
[2019-04-20 12:53] LABS: NT PRO BNP 882 pg/mL (<450)
[2019-04-20 12:55] LABS: TROPONIN I < 0.012 ng/mL
[2019-04-20 13:02] LABS: APPEARANCE,URINE CLEAR; BILIRUBIN,URINE NEGATIVE (NEGATIVE); COLOR,URINE YELLOW; GLUCOSE, URINE NEGATIVE (NEGATIVE); KETONES,URINE NEGATIVE (NEGATIVE); LEUKOCYTE ESTERASE,URINE NEGATIVE (NEGATIVE); NITRITE,URINE NEGATIVE (NEGATIVE); PROTEIN,URINE 30 mg/dL (NEGATIVE); URINE SPECIFIC GRAVITY 1.017; UROBILINOGEN,URINE NEGATIVE mg/dL (<2.0)
--- NOTE | 2019-04-20 13:54 | RADIOLOGY REPORT (SQ) ---
EXAM DESCRIPTION: CHEST 2 VIEWS COMPLETED DATE/TIME: 04/20/2019 1:43 pm REASON FOR STUDY: shortness of breath COMPARISON: 12/19/2017 TECHNIQUE: Frontal and lateral radiographic views of the chest acquired. NUMBER OF VIEWS: Two view. LIMITATIONS: None. FINDINGS: LUNGS AND PLEURA: No pneumothorax. Focal airspace disease- atelectasis in the inferior- l ateral aspect of the right upper lobe. Similar chronic interstitial changes. No significant pleural effusion. MEDIASTINUM AND HILAR STRUCTURES: Stable. HEART AND VASCULAR STRUCTURES: Stable. BONES: No acute findings. HARDWARE: Cardiac pacer. OTHER: No other significant finding. IMPRESSION: Focal airspace disease- atelectasis in the inferior- lateral aspect of the right upper lobe. Similar chronic interstitial changes. No significant pleural effusion. TECHNICAL DOCUMENTATION: JOB ID: [id number] [id number] 2010 [employer]- All Rights Reserved Reading location - IP/workstation name: [email or web address]
--- NOTE | 2019-04-20 14:33 | ER Document Report ---
ED General - General Chief Complaint: Breathing Difficulty Stated Complaint: DIFFICULTY BREATHING Time Seen by Provider: 04/20/19 11:54 Primary Care Provider: JACOBO ANSARI MD [ACTIVE STAFF] - Follow up as needed TRAVEL OUTSIDE OF THE [place] IN LAST 30 DAYS: No - HPI Notes: Patient is an 83-year-old male with a history of history of CHF, atrial fibrillation, pacemaker placement, anemia, COPD (on oxygen at night), hypertension who presents complaining of semi-productive cough and feeling short of breath primarily with exertion. Patient states that he feels that he cannot take a deep breath which began yesterday. Patient states that he has felt weak over the past 2 months, but is otherwise able to perform ADLs without difficulties. He has been taking his medicines as prescribed. His pacer/defib did not fire on him. He is able to eat and drink without difficulty. He is urinating normally and having normal bowel movements. Patient states that the swelling in his legs is normal for him. Denies any headache, fever, neck pain, URI, sore throat, chest pain, palpitations, syncope, abdominal pain, nausea/vomiting/diarrhea, urinary retention, dysuria, hematuria, or rash. - Related Data Allergies/Adverse Reactions: meperidine HCl [From Demerol] Allergy (Verified 04/20/19 11:25) Past Medical History - Social History Smoking Status: Former Smoker Family History: CAD, Hypertension Patient has suicidal ideation: No Patient has homicidal ideation: No - Past Medical History Cardiac Medical History: Reports: Hx Atrial Fibrillation, Hx Congestive Heart Failure, Hx Hypertension Pulmonary Medical History: Reports: Hx Asthma, Hx Bronchitis, Hx COPD, Hx Pneumonia Denies: Hx Tuberculosis Neurological Medical History: Denies: Hx Seizures Renal/ Medical History: Reports: Hx Benign Prostatic Hyperplasia. Denies: Hx Peritoneal Dialysis GI Medical History: Reports: Hx Gastroesophageal Reflux Disease Musculoskeletal Medical History: Reports Hx Arthritis Psychiatric Medical History: Reports: Hx Depression Past Surgical History: Reports: Hx Cardiac Surgery - pacemaker, Hx Genitourinary Surgery - prostate, Hx Herniorrhaphy - Bilateral inguinal repair. Denies: Hx Pacemaker - Immunizations Hx Diphtheria, Pertussis, Tetanus Vaccination: Yes Hx Pneumococcal Vaccination: 09/03/11 Review of Systems - Review of Systems -: Yes All other systems reviewed and negative Physical Exam - Vital signs Vitals: Temp Pulse Resp BP Pulse Ox 98.7 F 106 H 17 149/56 H 93 04/20/19 11:34 04/20/19 11:34 04/20/19 11:34 04/20/19 11:34 04/20/19 11:34 - Notes Notes: PHYSICAL EXAMINATION: GENERAL: Well-appearing, well-nourished and in no acute distress. A&Ox4. Answers questions appropriately. HEAD: Atraumatic, normocephalic. EYES: Pupils equal round and reactive to light, extraocular movements intact, sc milvia anicteric, conjunctiva are normal. ENT: Nares patent and without discharge. oropharynx clear without exudates. No tonsilar hypertrophy or erythema. Moist mucous membranes. NECK: Normal range of motion, supple without lymphadenopathy LUNGS: diminished b/l. no retractions HEART: RRR ABDOMEN: Soft, nontender, nondistended abdomen. No guarding, no rebound. Normal bowel sounds present. No CVA tenderness bilaterally. Musculoskeletal: FROM to passive/active. Strength 5+/5. Azul neg. Extremities: 1+ pitting b/l LE's. Peripheral pulses 2+. Capillary refill less than 3 seconds. NEUROLOGICAL: Normal speech, normal gait. PSYCH: Normal mood, normal affect. SKIN: Warm, Dry, normal turgor, no rashes or lesions noted. Course - Re-evaluation Re-evalutation: 04/20/19 14:54 Patient is an 83-year-old male who presents with suspected pneumonia. He has an elevated white count at 18 with an increasing temperature at 99.9 and focal airspace disease on x-ray. Cardiacs otherwise unremarkable. I did obtain blood cultures and the lactic. I did call and review Dr. Felton per Dr. Talavera's patient who accepted patient to the [facility]. We will start Zithromax as well as Rocephin IV. Fluids also ordered. Patient in agreement with plan. - Vital Signs Vital signs: Temp Pulse Resp BP Pulse Ox 99.9 F 106 H 21 H 173/58 H 96 04/20/19 14:32 04/20/19 11:34 04/20/19 13:01 04/20/19 13:01 04/20/19 13:01 - Laboratory Result Diagrams: 04/20/19 12:11 04/20/19 12:11 Laboratory results interpreted by me: 04/20/19 04/20/19 04/20/19 12:11 12:11 12:11 WBC 18.1 H RBC 3.92 L Hgb 11.5 L Hct 34.0 L Seg Neuts % (Manual) 93 H Lymphocytes % (Manual) 1 L Abs Neuts (Manual) 16.8 H Abs Lymphs (Manual) 0.2 L Sodium 136.9 L Creatinine 1.35 H Est GFR (Non-Af Amer) 51 L NT-Pro-B Natriuret Pep 882 H Urine Protein 04/20/19 12:41 WBC RBC Hgb Hct Seg Neuts % (Manual) Lymphocytes % (Manual) Abs Neuts (Manual) Abs Lymphs (Manual) Sodium Creatinine Est GFR (Non-Af Amer) NT-Pro-B Natriuret Pep Urine Protein 30 H Discharge - Discharge Clinical Impression: Pneumonia Qualifiers: Pneumonia type: due to unspecified organism Laterality: right Lung location: upper lobe of lung Qualified Code(s): J18.1 - Lobar pneumonia, unspecified organism Condition: Stable Disposition: ADMITTED INPATIENT Admitting Provider: [facility] Admitted: [facility] Referrals: JACOBO ANSARI MD [ACTIVE STAFF] - Follow up as needed
[2019-04-20] MEDS ORDERED: CEFTRIAXONE 1 GM/D5W RTU 1 GM/50 ML RTUPB IV ONE (14:41)
[2019-04-20] MEDS ORDERED: AZITHROMYCIN INJ 500 MG VIAL IV ONE (14:47)
[2019-04-20] MEDS ORDERED: NORMAL SALINE 1000 ML 1,000 ML IV ONE (14:49)
[2019-04-20] MEDS ORDERED: NORMAL SALINE 1000 ML 1,000 ML IV PRN ×2 (17:13→18:54)
[2019-04-20 18:00] LABS: CREATINE KINASE MB 0.59 ng/mL (<4.55); TROPONIN I 0.02 ng/mL
[2019-04-20] MEDS ORDERED: ENOXAPARIN SODIUM INJ 40 MG/0.4 ML DISP.SYRIN SUBCUT ONE (18:00)
[2019-04-20] MEDS ORDERED: CEFEPIME 2 GM/D5W RTU 2 GM/50 ML RTUPB IV ONE (18:35)
[2019-04-20] MEDS: CEFEPIME 2 GM/D5W RTU 2 GM/50 ML RTUPB IV SCH (18:44)
--- NOTE | 2019-04-20 20:04 | PDOC H&P ---
History of Present Illness Admission Date/PCP: 04/20/19 15:55 JOELLEN JIMENEZ MD History of Present Illness: DARCIE AUSTIN is a 83 year old male, he has a history of cardiomyopathy he came to the emergency room today for evaluation of respiratory symptoms, cough, shortness of breath, in the emergency room a chest x-ray was done, it demonstrated focal airspace disease in the right upper lobe there was leukocytosis with a left shift consistent with right lower lobe pneumonia. He was recently admitted in this hospital in December 2018 for the evaluation of cardiomyopathy at that time he was transferred for pacemaker placement. He presently has a pacemaker in place Past Medical History Cardiac Medical History: Reports: Atrial Fibrillation, Congestive Heart Failure, Hypertension Pulmonary Medical History: Reports: Asthma, Bronchitis, Chronic Obstructive Pulmonary Disease (COPD), Pneumonia GI Medical History: Reports: Gastroesophageal Reflux Disease Musculoskeltal Medical History: Reports: Arthritis Psychiatric Medical History: Reports: Depression Past Surgical History Past Surgical History: Reports: Herniorrhaphy - Bilateral inguinal repair Denies: Pacemaker Social History Smoking Status: Never Smoker Frequency of Alcohol Use: None Hx Recreational Drug Use: No Drugs: None Hx Prescription Drug Abuse: No Family History Family History: CAD, Hypertension Parental Family History Reviewed: Yes Children Family History Reviewed: Yes Sibling(s) Family History Reviewed.: Yes Medication/Allergy Home Medications: Budesonide/Formoterol Fumarate [Symbicort HFA 160-4.5 mcg Inhaler 6 gm] 2 puff IH Q12 12/17/17 Cetirizine HCl [Zyrtec 10 mg Tablet] 10 mg PO DAILY 12/17/17 Doxazosin Mesylate [Cardura] 8 mg PO DAILY 12/17/17 Ferrous Sulfate [Feosol 325 mg Tablet] 325 mg PO DAILY 12/17/17 Fluticasone Propionate [Flonase Nasal Hubbell 50 Mcg/Hubbell 16 gm] 1 spray NASL DAILY 12/17/17 Furosemide [Lasix 20 mg Tablet] 20 mg PO BID 12/17/17 Isosorbide Mononitrate [Imdur 60 mg Tablet.er] 60 mg PO DAILY 12/17/17 Nifedipine [Nifedipine ER] 60 mg PO Q12 12/17/17 Omeprazole 40 mg PO DAILY 12/17/17 Polyethylene Glycol 3350 [Miralax Powder 17 gm/Packet] 17 gm PO DAILYP PRN 12/17/17 Tiotropium Stephenson [Spiriva Handihaler 5 Cap/Kit (18 Mcg/Cap)] 1 puff IH DAILY 12/17/17 Cephalexin Monohydrate [Keflex 500 mg Capsule] 500 mg PO TID #15 capsule 05/21/18 Allergies/Adverse Reactions: meperidine HCl [From Demerol] Allergy (Verified 04/20/19 11:25) Review of Systems Constitutional: ABSENT: chills, fever(s), headache(s), weight gain, weight loss Eyes: ABSENT: visual disturbances Ears: ABSENT: hearing changes Cardiovascular: ABSENT: chest pain, dyspnea on exertion, edema, orthropnea, palpitations Respiratory: PRESENT: cough, dyspnea, sputum Gastrointestinal: ABSENT: abdominal pain, constipation, diarrhea, hematemesis, hematochezia, nausea, vomiting Genitourinary: ABSENT: dysuria, hematuria Musculoskeletal: ABSENT: joint swelling Integumentary: ABSENT: rash, wounds Neurological: ABSENT: abnormal gait, abnormal speech, confusion, dizziness, focal weakness, syncope Psychiatric: ABSENT: anxiety, depression, homidical ideation, suicidal ideation Endocrine: ABSENT: cold intolerance, heat intolerance, menstrual abnormalities, polydipsia, polyuria Hematologic/Lymphatic: ABSENT: easy bleeding, easy bruising, lymphadenopathy Physical Exam Vital Signs: Temp Pulse Resp BP Pulse Ox 98.6 F 89 18 155/60 H 96 04/20/19 17:54 04/20/19 17:54 04/20/19 17:54 04/20/19 17:54 04/20/19 17:54 Intake & Output 04/19/19 04/20/19 04/21/19 06:59 06:59 06:59 Intake Total 1308 Balance 1308 Weight 104.326 kg General appearance: PRESENT: no acute distress, well-developed, well-nourished Head exam: PRESENT: atraumatic, normocephalic Eye exam: PRESENT: conjunctiva pink, EOMI, PERRLA Ear exam: PRESENT: normal external ear exam Mouth exam: PRESENT: moist, tongue midline Neck exam: PRESENT: full ROM. ABSENT: carotid bruit, JVD, lymphadenopathy, thyromegaly Respiratory exam: PRESENT: rhonchi Cardiovascular exam: PRESENT: RRR, +S1, +S2 Vascular exam: PRESENT: normal capillary refill GI/Abdominal exam: PRESENT: normal bowel sounds, soft Rectal exam: PRESENT: deferred Neurological exam: PRESENT: alert, awake, oriented to person, oriented to place, oriented to time, oriented to situation, CN II-XII grossly intact Psychiatric exam: PRESENT: appropriate affect, normal mood Skin exam: PRESENT: dry, intact, warm Results Laboratory Results: 04/20/19 12:11 04/20/19 12:11 04/20/19 04/20/19 04/20/19 12:11 12:11 12:41 WBC 18.1 H RBC 3.92 L Hgb 11.5 L Hct 34.0 L MCV 87 MCH 29.4 MCHC 33.9 RDW 14.0 Plt Count 222 Seg Neutrophils % Not Reportable Lymphocytes % Not Reportable Monocytes % Not Reportable Eosinophils % Not Reportable Basophils % Not Reportable Absolute Neutrophils Not Reportable Absolute Lymphocytes Not Reportable Absolute Monocytes Not Reportable Absolute Eosinophils Not Reportable Absolute Basophils Not Reportable Sodium 136.9 L Potassium 3.6 Chloride 99 Carbon Dioxide 28 Anion Gap 10 BUN 20 Creatinine 1.35 H Est GFR ( Amer) > 60 Est GFR (Non-Af Amer) 51 L Glucose 100 Lactic Acid Calcium 8.6 Total Bilirubin 0.4 AST 19 Alkaline Phosphatase 110 Total Protein 6.6 Albumin 4.0 Urine Color YELLOW Urine Appearance CLEAR Urine pH 7.0 Ur Specific [place] 1.017 Urine Protein 30 H Urine Glucose (UA) NEGATIVE Urine Ketones NEGATIVE Urine Blood NEGATIVE Urine Nitrite NEGATIVE Ur Leukocyte Esterase NEGATIVE Urine WBC (Auto) 1 Urine RBC (Auto) 2 04/20/19 04/20/19 14:35 15:00 WBC RBC Hgb Hct MCV MCH MCHC RDW Plt Count Seg Neutrophils % Lymphocytes % Monocytes % Eosinophils % Basophils % Absolute Neutrophils Absolute Lymphocytes Absolute Monocytes Absolute Eosinophils Absolute Basophils Sodium Potassium Chloride Carbon Dioxide Anion Gap BUN Creatinine Est GFR ( Amer) Est GFR (Non-Af Amer) Glucose Lactic Acid 1.1 1.4 Calcium Total Bilirubin AST Alkaline Phosphatase Total Protein Albumin Urine Color Urine Appearance Urine pH Ur Specific [place] Urine Protein Urine Glucose (UA) Urine Ketones Urine Blood Urine Nitrite Ur Leukocyte Esterase Urine WBC (Auto) Urine RBC (Auto) 04/20/19 04/20/19 04/20/19 12:11 15:00 15:00 Creatine Kinase 63 CK-MB (CK-2) 0.59 Troponin I < 0.012 0.020 NT-Pro-B Natriuret Pep 882 H 1390 H Impressions: Chest X-Ray 04/20/19 12:02 IMPRESSION: Focal airspace disease- atelectasis in the inferior- lateral aspect of the right upper lobe. Similar chronic interstitial changes. No significant pleural effusion. Assessment & Plan - Diagnosis (1) Right upper lobe pneumonia Qualifiers: Pneumonia type: due to unspecified organism Qualified Code(s): J18.1 - Lobar pneumonia, unspecified organism Is this a current diagnosis for this admission?: Yes Plan: Start IV antibiotic to cover community-acquired pathogens, including cefepime and Levaquin (2) Chronic systolic heart failure Is this a current diagnosis for this admission?: Yes (3) Paroxysmal atrial fibrillation Is this a current diagnosis for this admission?: Yes
[2019-04-20] MEDS: LEVOFLOXACIN 750 MG/D5W RTU 750 MG/150 ML RTUPB IV SCH (20:40)
[2019-04-20 21:19] LABS: ARTERIAL BLOOD H2CO3 1.13 mmol/L (1.05-1.35); ARTERIAL BLOOD O2 SATURATION 95.4 % (94-98); ARTERIAL BLOOD PCO2 37.6 mmHg (35-45); ARTERIAL BLOOD PH 7.44 (7.35-7.45); ARTERIAL BLOOD PO2 73.5 mmHg (80-100); ARTERIAL BLOOD TOTAL CO2 26.2 mmol/L (23-27)
[2019-04-20 21:20] LABS: ARTERIAL BLOOD FIO2 21%
[2019-04-20 22:20] LABS: APPEARANCE,URINE CLEAR; BILIRUBIN,URINE NEGATIVE (NEGATIVE); COLOR,URINE YELLOW; GLUCOSE, URINE NEGATIVE (NEGATIVE); KETONES,URINE NEGATIVE (NEGATIVE); LEUKOCYTE ESTERASE,URINE NEGATIVE (NEGATIVE); NITRITE,URINE NEGATIVE (NEGATIVE); PROTEIN,URINE NEGATIVE (NEGATIVE); URINE SPECIFIC GRAVITY 1.011; UROBILINOGEN,URINE NEGATIVE mg/dL (<2.0)
--- NOTE | 2019-04-21 00:29 | EKG REPORT ---
SEVERITY:- ABNORMAL ECG - VENTRICULAR-PACED COMPLEXES VPCs : Confirmed by: Aisha Araujo 21-Apr-2019 00:28:20
[2019-04-21] MEDS ORDERED: CEFEPIME 2 GM/D5W RTU 2 GM/50 ML RTUPB IV ONE (05:34)
[2019-04-21] MEDS: CEFEPIME 2 GM/D5W RTU 2 GM/50 ML RTUPB IV SCH (05:53)
[2019-04-21 06:23] LABS: ABSOLUTE LYMPHOCYTES (AUTO) 1.5 10^3/uL (0.5-4.7); ABSOLUTE MONOCYTES (AUTO) 1.1 10^3/uL (0.1-1.4); ABSOLUTE NEUT (AUTO) 7.6 10^3/uL (1.7-8.2); BASOPHILS % (AUTO) 0.2 % (0-2); EOSINOPHILS % (AUTO) 0.5 % (0-6); HEMATOCRIT 28.4 % (37.9-51.0); HEMOGLOBIN 9.9 g/dL (13.5-17.0); LYMPHOCYTES % (AUTO) 14.7 % (13-45); MEAN CORPUSCULAR HEMOGLOBIN 30.1 pg (27.0-33.4); MEAN CORPUSCULAR HGB CONC 34.8 g/dL (32.0-36.0); MEAN CORPUSCULAR VOLUME 86 fl (80-97); MONOCYTES % (AUTO) 10.9 % (3-13); PLATELET COUNT 186 10^3/uL (150-450); RED CELL DISTRIBUTION WIDTH 13.9 % (11.5-14.0); SEGMENTED NEUTROPHILS % (AUTO) 73.7 % (42-78); TOTAL CELLS COUNTED % (AUTO) 100 %; WHITE BLOOD COUNT 10.3 10^3/uL (4.0-10.5)
[2019-04-21 06:37] LABS: ANION GAP 6 (5-19); BLOOD UREA NITROGEN 18 mg/dL (7-20); CALCIUM 8.3 mg/dL (8.4-10.2); CARBON DIOXIDE 27 mmol/L (22-30); CHLORIDE 105 mmol/L (98-107); GLUCOSE 100 mg/dL (75-110); POTASSIUM 3.8 mmol/L (3.6-5.0)
[2019-04-21] MEDS: IPRATROPIUM/ALBUTEROL 0.5-2.5 MG/3 ML AMPUL NEB PRN ×2 (09:20→15:36)
[2019-04-21] MEDS ORDERED: ENOXAPARIN SODIUM INJ 40 MG/0.4 ML DISP.SYRIN SUBCUT SCH (10:00)
--- NOTE | 2019-04-21 13:52 | PDOC PROGRESS REPORT ---
Subjective Progress Note for:: 04/21/19 Subjective:: Patient is feeling much better Patient was admitting in the hospital for the pneumonia Patient's white count is also coming down She is denied any chest pain to than any shortness of the breath Patient was recently seen Dr. Medrano as outpatients cardiology was stable Reason For Visit: PNEUMONIA Physical Exam Vital Signs: Temp Pulse Resp BP Pulse Ox 98.4 F 75 15 158/53 H 97 04/21/19 11:33 04/21/19 11:33 04/21/19 11:33 04/21/19 11:33 04/21/19 11:33 Intake & Output 04/20/19 04/21/19 04/22/19 06:59 06:59 06:59 Intake Total 1558 554 Output Total 1150 900 Balance 408 -346 Weight 104.3 kg General appearance: PRESENT: no acute distress, well-developed, well-nourished Head exam: PRESENT: atraumatic, normocephalic Eye exam: PRESENT: conjunctiva pink, EOMI, PERRLA. ABSENT: scleral icterus Ear exam: PRESENT: normal external ear exam Mouth exam: PRESENT: moist, tongue midline Neck exam: PRESENT: full ROM. ABSENT: carotid bruit, JVD, lymphadenopathy, thyromegaly Respiratory exam: PRESENT: clear to auscultation alphonse Cardiovascular exam: PRESENT: RRR. ABSENT: diastolic murmur, rubs, systolic murmur Pulses: PRESENT: normal dorsalis pedis pul, +2 pedal pulses bilateral Vascular exam: PRESENT: normal capillary refill GI/Abdominal exam: PRESENT: normal bowel sounds, soft. ABSENT: distended, guarding, mass, organolmegaly, rebound, tenderness Rectal exam: PRESENT: deferred Musculoskeletal exam: PRESENT: ambulatory Neurological exam: PRESENT: alert, awake, oriented to person, oriented to place, oriented to time, oriented to situation, CN II-XII grossly intact. ABSENT: motor sensory deficit Psychiatric exam: PRESENT: appropriate affect, normal mood. ABSENT: homicidal ideation, suicidal ideation Skin exam: PRESENT: dry, intact, warm. ABSENT: cyanosis, rash Results Laboratory Results: 04/21/19 05:39 04/21/19 05:39 04/20/19 04/20/19 04/20/19 14:35 15:00 20:48 WBC RBC Hgb Hct MCV MCH MCHC RDW Plt Count Seg Neutrophils % Lymphocytes % Monocytes % Eosinophils % Basophils % Absolute Neutrophils Absolute Lymphocytes Absolute Monocytes Absolute Eosinophils Absolute Basophils Carbonic Acid HCO3/H2CO3 Ratio ABG pH ABG pCO2 ABG pO2 ABG HCO3 ABG O2 Saturation ABG Base Excess FiO2 Sodium Potassium Chloride Carbon Dioxide Anion Gap BUN Creatinine Est GFR ( Amer) Est GFR (Non-Af Amer) Glucose Lactic Acid 1.1 1.4 Calcium Urine Color YELLOW Urine Appearance CLEAR Urine pH 7.0 Ur Specific [place] 1.011 Urine Protein NEGATIVE Urine Glucose (UA) NEGATIVE Urine Ketones NEGATIVE Urine Blood NEGATIVE Urine Nitrite NEGATIVE Ur Leukocyte Esterase NEGATIVE Urine WBC (Auto) 0 Urine RBC (Auto) 1 04/20/19 04/21/19 04/21/19 21:07 05:39 05:39 WBC 10.3 RBC 3.30 L Hgb 9.9 L Hct 28.4 L MCV 86 MCH 30.1 MCHC 34.8 RDW 13.9 Plt Count 186 Seg Neutrophils % 73.7 Lymphocytes % 14.7 Monocytes % 10.9 Eosinophils % 0.5 Basophils % 0.2 Absolute Neutrophils 7.6 Absolute Lymphocytes 1.5 Absolute Monocytes 1.1 Absolute Eosinophils 0.0 Absolute Basophils 0.0 Carbonic Acid 1.13 HCO3/H2CO3 Ratio 22:1 ABG pH 7.44 ABG pCO2 37.6 ABG pO2 73.5 L ABG HCO3 25.0 H ABG O2 Saturation 95.4 ABG Base Excess 1.0 FiO2 21% Sodium 138.2 Potassium 3.8 Chloride 105 Carbon Dioxide 27 Anion Gap 6 BUN 18 Creatinine 1.23 Est GFR ( Amer) > 60 Est GFR (Non-Af Amer) 56 L Glucose 100 Lactic Acid Calcium 8.3 L Urine Color Urine Appearance Urine pH Ur Specific [place] Urine Protein Urine Glucose (UA) Urine Ketones Urine Blood Urine Nitrite Ur Leukocyte Esterase Urine WBC (Auto) Urine RBC (Auto) 04/20/19 04/20/19 04/20/19 12:11 15:00 15:00 Creatine Kinase 63 CK-MB (CK-2) 0.59 Troponin I < 0.012 0.020 NT-Pro-B Natriuret Pep 882 H 1390 H Impressions: Chest X-Ray 04/20/19 12:02 IMPRESSION: Focal airspace disease- atelectasis in the inferior- lateral aspect of the right upper lobe. Similar chronic interstitial changes. No significant pleural effusion. Assessment & Plan - Diagnosis (1) Pneumonia Qualifiers: Pneumonia type: due to unspecified organism Laterality: right Lung location: upper lobe of lung Qualified Code(s): J18.1 - Lobar pneumonia, unspecified organism Is this a current diagnosis for this admission?: Yes Plan: Currently all improving continues to antibiotic (2) Chronic systolic heart failure Is this a current diagnosis for this admission?: Yes Plan: Currently all stable continues to Lasix (3) Anemia Qualifiers: Anemia type: other cause Is this a current diagnosis for this admission?: Yes (4) Atrial fibrillation Qualifiers: Atrial fibrillation type: unspecified Qualified Code(s): I48.91 - Unspecified atrial fibrillation Is this a current diagnosis for this admission?: Yes Plan: Currently well under control continues to current medication and currently on Eliquis (5) COPD (chronic obstructive pulmonary disease) with acute bronchitis Is this a current diagnosis for this admission?: Yes Plan: Continues to PRN nebulizer treatments (6) Chronic kidney disease Qualifiers: Chronic kidney disease stage: stage 3 (moderate) Qualified Code(s): N18.3 - Chronic kidney disease, stage 3 (moderate) Is this a current diagnosis for this admission?: Yes (7) Hypertension Qualifiers: Hypertension type: essential hypertension Qualified Code(s): I10 - Essential (primary) hypertension Is this a current diagnosis for this admission?: Yes Plan: Continues to current medications - Time Time Spent with patient: 25-34 minutes Medications reviewed and adjusted accordingly: Yes Anticipated discharge: Home Within: Other - Plan Summary Plan Summary: Continues to current medications
[2019-04-21] MEDS: ISOSORBIDE MONONITRATE 60 MG TAB.ER.24H PO SCH (15:23)
[2019-04-21] MEDS: FUROSEMIDE 20 MG TABLET PO SCH (18:01)
[2019-04-21] MEDS: APIXABAN 5 MG TABLET PO SCH (18:01)
[2019-04-21] MEDS: CEFEPIME HCL 2 GM in DEXTROSE 5%-WATER 50 ML IV SCH (18:18)
[2019-04-21] MEDS: NIFEDIPINE 30 MG TAB.ER.24 PO SCH (21:10)
[2019-04-21] MEDS: RANOLAZINE 500 MG TAB.SR.12H PO SCH (21:10)
[2019-04-21] MEDS: ATORVASTATIN CALCIUM 20 MG TABLET PO SCH (21:10)
[2019-04-21] MEDS: LEVOFLOXACIN 750 MG/D5W RTU 750 MG/150 ML RTUPB IV SCH (21:11)
[2019-04-21] MEDS ORDERED: (PENDING PHARMACY ID) (Nifedipine [Nifedipine Er] 60 MG) PO SCH (22:00)
[2019-04-22 05:40] LABS: ABSOLUTE EOSINOPHILS # (AUTO) 0.2 10^3/uL (0.0-0.6); ABSOLUTE LYMPHOCYTES (AUTO) 1.4 10^3/uL (0.5-4.7); ABSOLUTE NEUT (AUTO) 5.9 10^3/uL (1.7-8.2); BASOPHILS % (AUTO) 0.2 % (0-2); EOSINOPHILS % (AUTO) 1.8 % (0-6); HEMATOCRIT 31.4 % (37.9-51.0); HEMOGLOBIN 10.7 g/dL (13.5-17.0); LYMPHOCYTES % (AUTO) 16.9 % (13-45); MEAN CORPUSCULAR HEMOGLOBIN 29.4 pg (27.0-33.4); MEAN CORPUSCULAR VOLUME 86 fl (80-97); MONOCYTES % (AUTO) 11.6 % (3-13); PLATELET COUNT 203 10^3/uL (150-450); RED BLOOD COUNT 3.64 10^6/uL (4.35-5.55); SEGMENTED NEUTROPHILS % (AUTO) 69.5 % (42-78); TOTAL CELLS COUNTED % (AUTO) 100 %; WHITE BLOOD COUNT 8.4 10^3/uL (4.0-10.5)
[2019-04-22 05:46] LABS: ANION GAP 8 (5-19); BLOOD UREA NITROGEN 19 mg/dL (7-20); CALCIUM 8.3 mg/dL (8.4-10.2); CARBON DIOXIDE 25 mmol/L (22-30); CHLORIDE 105 mmol/L (98-107); GLUCOSE 101 mg/dL (75-110); POTASSIUM 3.7 mmol/L (3.6-5.0)
[2019-04-22] MEDS ORDERED: CEFEPIME 2 GM/D5W RTU 2 GM/50 ML RTUPB IV ONE (06:10)
[2019-04-22] MEDS: PANTOPRAZOLE SODIUM 40 MG TABLET.DR PO SCH (06:18)
[2019-04-22] MEDS: CEFEPIME HCL 2 GM in DEXTROSE 5%-WATER 50 ML IV SCH ×2 (06:22→17:04)
--- NOTE | 2019-04-22 08:41 | PDOC PROGRESS REPORT ---
Subjective Progress Note for:: 04/22/19 Subjective:: Patient is feeling much better Patient is denied any chest pain to than any shortness of the breath Cough is all improving Reason For Visit: PNEUMONIA Physical Exam Vital Signs: Temp Pulse Resp BP Pulse Ox 98.6 F 78 16 138/65 H 95 04/22/19 04:13 04/22/19 06:42 04/22/19 04:13 04/22/19 04:13 04/22/19 04:13 Intake & Output 04/21/19 04/22/19 04/23/19 06:59 06:59 06:59 Intake Total 1558 2018 50 Output Total 1150 3350 Balance 408 -1331 50 Weight 104.3 kg 101.6 kg General appearance: PRESENT: no acute distress, well-developed, well-nourished Head exam: PRESENT: atraumatic, normocephalic Eye exam: PRESENT: conjunctiva pink, EOMI, PERRLA. ABSENT: scleral icterus Ear exam: PRESENT: normal external ear exam Mouth exam: PRESENT: moist, tongue midline Neck exam: PRESENT: full ROM. ABSENT: carotid bruit, JVD, lymphadenopathy, thyromegaly Respiratory exam: PRESENT: clear to auscultation alphonse Cardiovascular exam: PRESENT: RRR. ABSENT: diastolic murmur, rubs, systolic murmur Pulses: PRESENT: normal dorsalis pedis pul, +2 pedal pulses bilateral Vascular exam: PRESENT: normal capillary refill GI/Abdominal exam: PRESENT: normal bowel sounds, soft. ABSENT: distended, guarding, mass, organolmegaly, rebound, tenderness Rectal exam: PRESENT: deferred Musculoskeletal exam: PRESENT: ambulatory Neurological exam: PRESENT: alert, awake, oriented to person, oriented to place, oriented to time, oriented to situation, CN II-XII grossly intact. ABSENT: motor sensory deficit Psychiatric exam: PRESENT: appropriate affect, normal mood. ABSENT: homicidal ideation, suicidal ideation Skin exam: PRESENT: dry, intact, warm. ABSENT: cyanosis, rash Results Laboratory Results: 04/22/19 04:32 04/22/19 04:32 04/22/19 04/22/19 04:32 04:32 WBC 8.4 RBC 3.64 L Hgb 10.7 L Hct 31.4 L MCV 86 MCH 29.4 MCHC 34.0 RDW 14.0 Plt Count 203 Seg Neutrophils % 69.5 Lymphocytes % 16.9 Monocytes % 11.6 Eosinophils % 1.8 Basophils % 0.2 Absolute Neutrophils 5.9 Absolute Lymphocytes 1.4 Absolute Monocytes 1.0 Absolute Eosinophils 0.2 Absolute Basophils 0.0 Sodium 138.2 Potassium 3.7 Chloride 105 Carbon Dioxide 25 Anion Gap 8 BUN 19 Creatinine 1.26 H Est GFR ( Amer) > 60 Est GFR (Non-Af Amer) 55 L Glucose 101 Calcium 8.3 L 04/20/19 04/20/19 04/20/19 12:11 15:00 15:00 Creatine Kinase 63 CK-MB (CK-2) 0.59 Troponin I < 0.012 0.020 NT-Pro-B Natriuret Pep 882 H 1390 H Impressions: Chest X-Ray 04/20/19 12:02 IMPRESSION: Focal airspace disease- atelectasis in the inferior- lateral aspect of the right upper lobe. Similar chronic interstitial changes. No significant pleural effusion. Assessment & Plan - Diagnosis (1) Pneumonia Qualifiers: Pneumonia type: due to unspecified organism Laterality: right Lung location: upper lobe of lung Qualified Code(s): J18.1 - Lobar pneumonia, unspecified organism Is this a current diagnosis for this admission?: Yes Plan: Currently all improving consider p.o. Levaquin after the chest x-ray (2) Chronic systolic heart failure Is this a current diagnosis for this admission?: Yes Plan: Currently all stable continues to Lasix (3) Anemia Qualifiers: Anemia type: other cause Is this a current diagnosis for this admission?: Yes (4) Atrial fibrillation Qualifiers: Atrial fibrillation type: unspecified Qualified Code(s): I48.91 - Unspecified atrial fibrillation Is this a current diagnosis for this admission?: Yes Plan: Currently well under control continues to current medication and currently on Eliquis (5) COPD (chronic obstructive pulmonary disease) with acute bronchitis Is this a current diagnosis for this admission?: Yes Plan: Continues to PRN nebulizer treatments (6) Chronic kidney disease Qualifiers: Chronic kidney disease stage: stage 3 (moderate) Qualified Code(s): N18.3 - Chronic kidney disease, stage 3 (moderate) Is this a current diagnosis for this admission?: Yes (7) Hypertension Qualifiers: Hypertension type: essential hypertension Qualified Code(s): I10 - Essential (primary) hypertension Is this a current diagnosis for this admission?: Yes Plan: Continues to current medications - Time Time Spent with patient: 25-34 minutes Medications reviewed and adjusted accordingly: Yes Anticipated discharge: Home Within: within 48 hours - Plan Summary Plan Summary: We will repeat the chest x-ray Physical therapy with the walking
[2019-04-22] MEDS ORDERED: (PENDING PHARMACY ID) (Ascorbate Calcium [Vitamin C] 500 MG) PO SCH (10:00)
[2019-04-22] MEDS ORDERED: (PENDING PHARMACY ID) (Doxazosin Mesylate [Cardura] 8 MG) PO SCH (10:00)
[2019-04-22] MEDS: APIXABAN 5 MG TABLET PO SCH ×2 (10:13→17:04)
[2019-04-22] MEDS: FUROSEMIDE 20 MG TABLET PO SCH ×2 (10:13→17:04)
[2019-04-22] MEDS: NIFEDIPINE 30 MG TAB.ER.24 PO SCH ×2 (10:13→21:49)
[2019-04-22] MEDS: ASCORBIC ACID 500 MG TABLET PO SCH (10:13)
[2019-04-22] MEDS: DOCUSATE SODIUM 100 MG CAPSULE PO SCH (10:13)
[2019-04-22] MEDS: DOXAZOSIN MESYLATE 4 MG TABLET PO SCH (10:13)
[2019-04-22] MEDS: ISOSORBIDE MONONITRATE 60 MG TAB.ER.24H PO SCH (10:13)
[2019-04-22] MEDS: FLUTICASONE/VILANTEROL 200-25 MCG/DOSE IH SCH (10:14)
[2019-04-22] MEDS: RANOLAZINE 500 MG TAB.SR.12H PO SCH ×2 (10:14→21:48)
--- NOTE | 2019-04-22 15:51 | RADIOLOGY REPORT (SQ) ---
EXAM DESCRIPTION: CHEST 2 VIEWS COMPLETED DATE/TIME: 04/22/2019 3:44 pm REASON FOR STUDY: pnemonia COMPARISON: 04/20/2019 EXAM PARAMETERS: NUMBER OF VIEWS: two views TECHNIQUE: Digital Frontal and Lateral radiographic views of the chest acquired. RADIATION DOSE: NA LIMITATIONS: none FINDINGS: LUNGS AND PLEURA: Resolving airspace disease in the right upper lobe. Minimal left basila r atelectasis. No effusions. MEDIASTINUM AND HILAR STRUCTURES: No masses or contour abnormalities. HEART AND VASCULAR STRUCTURES: Stable in appearance. BONES: No acute findings. HARDWARE: Unchanged. OTHER: No other significant finding. IMPRESSION: Minimal residual right upper lobe infiltrate. Significantly improved from prior study. TECHNICAL DOCUMENTATION: JOB ID: [id number] [employer]- All Rights Reserved Reading location - IP/workstation name: [email or web address]
[2019-04-22] MEDS: LEVOFLOXACIN 750 MG/D5W RTU 750 MG/150 ML RTUPB IV SCH (20:06)
[2019-04-22] MEDS: ATORVASTATIN CALCIUM 20 MG TABLET PO SCH (21:48)
[2019-04-23 05:51] LABS: ANION GAP 8 (5-19); BLOOD UREA NITROGEN 27 mg/dL (7-20); CALCIUM 8.9 mg/dL (8.4-10.2); CARBON DIOXIDE 25 mmol/L (22-30); CHLORIDE 104 mmol/L (98-107); GLUCOSE 101 mg/dL (75-110); POTASSIUM 4.1 mmol/L (3.6-5.0)
[2019-04-23 05:55] LABS: ABSOLUTE EOSINOPHILS # (AUTO) 0.3 10^3/uL (0.0-0.6); ABSOLUTE LYMPHOCYTES (AUTO) 1.5 10^3/uL (0.5-4.7); ABSOLUTE NEUT (AUTO) 5.5 10^3/uL (1.7-8.2); BASOPHILS % (AUTO) 0.3 % (0-2); EOSINOPHILS % (AUTO) 3.3 % (0-6); HEMATOCRIT 29.6 % (37.9-51.0); HEMOGLOBIN 10.4 g/dL (13.5-17.0); LYMPHOCYTES % (AUTO) 17.9 % (13-45); MEAN CORPUSCULAR HEMOGLOBIN 29.8 pg (27.0-33.4); MEAN CORPUSCULAR VOLUME 85 fl (80-97); MONOCYTES % (AUTO) 12.3 % (3-13); PLATELET COUNT 196 10^3/uL (150-450); RED BLOOD COUNT 3.48 10^6/uL (4.35-5.55); RED CELL DISTRIBUTION WIDTH 13.9 % (11.5-14.0); SEGMENTED NEUTROPHILS % (AUTO) 66.2 % (42-78); TOTAL CELLS COUNTED % (AUTO) 100 %; WHITE BLOOD COUNT 8.2 10^3/uL (4.0-10.5)
[2019-04-23] MEDS ORDERED: CEFEPIME 2 GM/D5W RTU 2 GM/50 ML RTUPB IV ONE (06:15)
[2019-04-23] MEDS: PANTOPRAZOLE SODIUM 40 MG TABLET.DR PO SCH (06:34)
[2019-04-23] MEDS: CEFEPIME HCL 2 GM in DEXTROSE 5%-WATER 50 ML IV SCH (06:36)
--- NOTE | 2019-04-23 08:36 | PDOC PROGRESS REPORT ---
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 Lunsford have extensive work-up done and suggest that if the not actively bleeding he will see next week and further evaluateNeed to do any interventions right now in the hospital due to the infections Since chest x-ray is also improving Reason For Visit: PNEUMONIA Physical Exam Vital Signs: Temp Pulse Resp BP Pulse Ox 98.6 F 77 20 137/61 H 99 04/23/19 03:09 04/23/19 03:09 04/23/19 03:09 04/23/19 03:09 04/23/19 03:09 Intake & Output 04/22/19 04/23/19 04/24/19 06:59 06:59 06:59 Intake Total 2019 1515 Output Total 3350 1275 Balance -1331 240 Weight 101.6 kg 102 kg General appearance: PRESENT: no acute distress, well-developed, well-nourished Head exam: PRESENT: atraumatic, normocephalic Eye exam: PRESENT: conjunctiva pink, EOMI, PERRLA. ABSENT: scleral icterus Ear exam: PRESENT: normal external ear exam Mouth exam: PRESENT: moist, tongue midline Neck exam: PRESENT: full ROM. ABSENT: carotid bruit, JVD, lymphadenopathy, thyromegaly Respiratory exam: PRESENT: clear to auscultation alphonse Cardiovascular exam: PRESENT: RRR. ABSENT: diastolic murmur, rubs, systolic murmur Pulses: PRESENT: normal dorsalis pedis pul, +2 pedal pulses bilateral Vascular exam: PRESENT: normal capillary refill GI/Abdominal exam: PRESENT: normal bowel sounds, soft. ABSENT: distended, guarding, mass, organolmegaly, rebound, tenderness Rectal exam: PRESENT: deferred Musculoskeletal exam: PRESENT: ambulatory Neurological exam: PRESENT: alert, awake, oriented to person, oriented to place, oriented to time, oriented to situation, CN II-XII grossly intact. ABSENT: motor sensory deficit Psychiatric exam: PRESENT: appropriate affect, normal mood. ABSENT: homicidal ideation, suicidal ideation Skin exam: PRESENT: dry, intact, warm. ABSENT: cyanosis, rash Results Laboratory Results: 04/23/19 04:44 04/23/19 04:44 04/22/19 04/23/19 04/23/19 10:23 04:44 04:44 WBC 8.2 RBC 3.48 L Hgb 10.4 L Hct 29.6 L MCV 85 MCH 29.8 MCHC 35.0 RDW 13.9 Plt Count 196 Seg Neutrophils % 66.2 Lymphocytes % 17.9 Monocytes % 12.3 Eosinophils % 3.3 Basophils % 0.3 Absolute Neutrophils 5.5 Absolute Lymphocytes 1.5 Absolute Monocytes 1.0 Absolute Eosinophils 0.3 Absolute Basophils 0.0 Sodium 137.0 Potassium 4.1 Chloride 104 Carbon Dioxide 25 Anion Gap 8 BUN 27 H Creatinine 1.75 H Est GFR ( Amer) 45 L Est GFR (Non-Af Amer) 38 L Glucose 101 Calcium 8.9 Stool Occult Blood POSITIVE 04/20/19 04/20/19 04/20/19 12:11 15:00 15:00 Creatine Kinase 63 CK-MB (CK-2) 0.59 Troponin I < 0.012 0.020 NT-Pro-B Natriuret Pep 882 H 1390 H Impressions: Chest X-Ray 04/22/19 00:00 IMPRESSION: Minimal residual right upper lobe infiltrate. Significantly improved from prior study. Assessment & Plan - Diagnosis (1) Pneumonia Qualifiers: Pneumonia type: due to unspecified organism Laterality: right Lung location: upper lobe of lung Qualified Code(s): J18.1 - Lobar pneumonia, unspecified organism Is this a current diagnosis for this admission?: Yes Plan: Switch to the p.o. Levaquin (2) Chronic systolic heart failure Is this a current diagnosis for this admission?: Yes Plan: Currently all stable (3) Anemia Qualifiers: Anemia type: other cause Is this a current diagnosis for this admission?: Yes (4) Atrial fibrillation Qualifiers: Atrial fibrillation type: unspecified Qualified Code(s): I48.91 - Unsp ecified atrial fibrillation Is this a current diagnosis for this admission?: Yes Plan: Currently well under control continues to current medication and currently on Eliquis (5) COPD (chronic obstructive pulmonary disease) with acute bronchitis Is this a current diagnosis for this admission?: Yes Plan: Continues to PRN nebulizer treatments (6) Chronic kidney disease Qualifiers: Chronic kidney disease stage: stage 3 (moderate) Qualified Code(s): N18.3 - Chronic kidney disease, stage 3 (moderate) Is this a current diagnosis for this admission?: Yes Plan: We will hold the Lasix today give a little mild hydrations (7) Hypertension Qualifiers: Hypertension type: essential hypertension Qualified Code(s): I10 - Essential (primary) hypertension Is this a current diagnosis for this admission?: Yes Plan: Continues to current medications - Time Time Spent with patient: 25-34 minutes Medications reviewed and adjusted accordingly: Yes Anticipated discharge: Home Within: within 24 hours - Plan Summary Plan Summary: Repeat the Chem-7 in the morning Patient is remained stable discharge home tomorrow
[2019-04-23] MEDS: DOXAZOSIN MESYLATE 4 MG TABLET PO SCH (09:52)
[2019-04-23] MEDS: APIXABAN 5 MG TABLET PO SCH ×2 (09:52→17:35)
[2019-04-23] MEDS: RANOLAZINE 500 MG TAB.SR.12H PO SCH ×2 (09:53→21:59)
[2019-04-23] MEDS: DOCUSATE SODIUM 100 MG CAPSULE PO SCH (09:53)
[2019-04-23] MEDS: NIFEDIPINE 30 MG TAB.ER.24 PO SCH ×2 (09:53→21:59)
[2019-04-23] MEDS: ISOSORBIDE MONONITRATE 60 MG TAB.ER.24H PO SCH (09:53)
[2019-04-23] MEDS ORDERED: LEVOFLOXACIN 500 MG TABLET PO SCH (10:00)
[2019-04-23] MEDS: FLUTICASONE/VILANTEROL 200-25 MCG/DOSE IH SCH (10:10)
[2019-04-23] MEDS: ASCORBIC ACID 500 MG TABLET PO SCH (10:10)
[2019-04-23] MEDS: ATORVASTATIN CALCIUM 20 MG TABLET PO SCH (21:59)
[2019-04-24] MEDS: PANTOPRAZOLE SODIUM 40 MG TABLET.DR PO SCH (05:09)
[2019-04-24 05:34] LABS: ABSOLUTE EOSINOPHILS # (AUTO) 0.2 10^3/uL (0.0-0.6); ABSOLUTE LYMPHOCYTES (AUTO) 1.2 10^3/uL (0.5-4.7); ABSOLUTE MONOCYTES (AUTO) 0.8 10^3/uL (0.1-1.4); ABSOLUTE NEUT (AUTO) 4.4 10^3/uL (1.7-8.2); BASOPHILS % (AUTO) 0.3 % (0-2); EOSINOPHILS % (AUTO) 3.5 % (0-6); HEMATOCRIT 28.6 % (37.9-51.0); HEMOGLOBIN 9.9 g/dL (13.5-17.0); LYMPHOCYTES % (AUTO) 18.1 % (13-45); MEAN CORPUSCULAR HEMOGLOBIN 29.7 pg (27.0-33.4); MEAN CORPUSCULAR HGB CONC 34.6 g/dL (32.0-36.0); MEAN CORPUSCULAR VOLUME 86 fl (80-97); MONOCYTES % (AUTO) 12.4 % (3-13); PLATELET COUNT 193 10^3/uL (150-450); RED BLOOD COUNT 3.33 10^6/uL (4.35-5.55); RED CELL DISTRIBUTION WIDTH 13.5 % (11.5-14.0); SEGMENTED NEUTROPHILS % (AUTO) 65.7 % (42-78); TOTAL CELLS COUNTED % (AUTO) 100 %; WHITE BLOOD COUNT 6.8 10^3/uL (4.0-10.5)
[2019-04-24 05:48] LABS: ANION GAP 9 (5-19); BLOOD UREA NITROGEN 29 mg/dL (7-20); CALCIUM 8.5 mg/dL (8.4-10.2); CARBON DIOXIDE 22 mmol/L (22-30); CHLORIDE 104 mmol/L (98-107); GLUCOSE 107 mg/dL (75-110)
[2019-04-24 09:29] VITALS: BP 155/60
--- NOTE | 2019-04-24 10:01 | PDOC DISCHARGE SUMMARY ---
General - Admit/Disc Date/PCP Admission Date/Primary Care Provider: 04/20/19 15:55 JOELLEN JIMENEZ MD Discharge Date: 04/24/19 - Discharge Diagnosis (1) Pneumonia Is this a current diagnosis for this admission?: Yes Summary: Continues to p.o. Levaquin for another 6 daysClear all resolved (2) Chronic systolic heart failure Is this a current diagnosis for this admission?: Yes Summary: Continues to Lasix follow with the Dr. Medrano (3) Anemia Is this a current diagnosis for this admission?: Yes Summary: Currently all stable (4) Atrial fibrillation Is this a current diagnosis for this admission?: Yes Summary: Continues to Eliquis (5) COPD (chronic obstructive pulmonary disease) with acute bronchitis Is this a current diagnosis for this admission?: Yes Summary: Continues to current inhaler (6) Chronic kidney disease Is this a current diagnosis for this admission?: Yes Summary: Currently stable (7) Hypertension Is this a current diagnosis for this admission?: Yes Summary: Currently all stable - Additional Information Discharge Diet: Cardiac Discharge Activity: Activity As Tolerated, Balance Activity w/Rest Prescriptions: Levofloxacin [Levaquin 500 mg Tablet] 500 mg PO DAILY #6 tablet Home Medications: Budesonide/Formoterol Fumarate [Symbicort HFA 160-4.5 mcg Inhaler 6 gm] 2 puff IH Q12 12/17/17 Doxazosin Mesylate [Cardura] 8 mg PO DAILY 12/17/17 Furosemide [Lasix 20 mg Tablet] 20 mg PO BID 12/17/17 Isosorbide Mononitrate [Imdur 60 mg Tablet.er] 60 mg PO DAILY 12/17/17 Nifedipine [Nifedipine ER] 60 mg PO Q12 12/17/17 Omeprazole 40 mg PO DAILY 12/17/17 Apixaban [Eliquis 5 mg Tablet] 5 mg PO BID 04/21/19 Ascorbate Calcium [Vitamin C] 500 mg PO DAILY 04/21/19 Atorvastatin Calcium [Lipitor 20 mg Tablet] 20 mg PO QHS 04/21/19 Docusate Sodium [Colace 100 mg Capsule] 100 mg PO DAILY 04/21/19 Guaifenesin/D-Methorphan Hb [Robitussin Cough-Adrian Syrup] 1 dose PO BIDP PRN 04/21/19 Ranolazine [Ranolazine ER] 500 mg PO BID 04/21/19 Levofloxacin [Levaquin 500 mg Tablet] 500 mg PO DAILY #6 tablet 04/24/19 History of Present Illness History of Present Illness: DARCIE AUSTIN is a 84 year old male This is a 84-year-old male admitting in the hospital for the cough congestions and diagnosed with a right-sided pneumonia Hospital Course Hospital Course: This is a 84-year-old male's with the multiple medical problem as above admitting in the hospital for the right-sided pneumonia patient was started on IV antibiotic including cefepime and Levaquin Response very well with the antibiotic switch to the p.o. Levaquin Remain afebrile's patient's white count is normal patient's other multiple medical problem was all stable Patient is walking the hallway without any problems and patient's p.o. intake is good Was discharged home with the p.o. antibiotic Physical Exam Vital Signs: Temp Pulse Resp BP Pulse Ox 98.2 F 75 22 H 155/60 H 97 04/24/19 09:27 04/24/19 09:27 04/24/19 09:27 04/24/19 09:27 04/24/19 09:27 Intake & Output 04/23/19 04/24/19 04/25/19 06:59 06:59 06:59 Intake Total 1515 2100 Output Total 1275 2300 Balance 240 -200 Weight 102 kg 101.4 kg General appearance: PRESENT: no acute distress, well-developed, well-nourished Head exam: PRESENT: atraumatic, normocephalic Eye exam: PRESENT: conjunctiva pink, EOMI, PERRLA. ABSENT: scleral icterus Ear exam: PRESENT: normal external ear exam Mouth exam: PRESENT: moist, tongue midline Neck exam: PRESENT: full ROM. ABSENT: carotid bruit, JVD, lymphadenopathy, thyromegaly Respiratory exam: PRESENT: clear to auscultation alphonse Cardiovascular exam: PRESENT: RRR. ABSENT: diastolic murmur, rubs, systolic murmur Pulses: PRESENT: normal dorsalis pedis pul, +2 pedal pulses bilateral Vascular exam: PRESENT: normal capillary refill GI/Abdominal exam: PRESENT: normal bowel sounds, soft. ABSENT: distended, guarding, mass, organolmegaly, rebound, tenderness Rectal exam: PRESENT: deferred Extremities exam: ABSENT: pedal edema Musculoskeletal exam: PRESENT: ambulatory Neurological exam: PRESENT: alert, awake, oriented to person, oriented to place, oriented to time, oriented to situation, CN II-XII grossly intact. ABSENT: motor sensory deficit Psychiatric exam: PRESENT: appropriate affect, normal mood. ABSENT: homicidal ideation, suicidal ideation Skin exam: PRESENT: dry, intact, warm. ABSENT: cyanosis, rash Results Laboratory Results: 04/24/19 05:09 04/24/19 05:09 04/24/19 04/24/19 05:09 05:09 WBC 6.8 RBC 3.33 L Hgb 9.9 L Hct 28.6 L MCV 86 MCH 29.7 MCHC 34.6 RDW 13.5 Plt Count 193 Seg Neutrophils % 65.7 Sodium 135.1 L Potassium 4.0 Chloride 104 Carbon Dioxide 22 Anion Gap 9 BUN 29 H Creatinine 1.48 H Est GFR ( Amer) 55 L Glucose 107 Calcium 8.5 04/20/19 04/20/19 04/20/19 12:11 15:00 15:00 Creatine Kinase 63 CK-MB (CK-2) 0.59 Troponin I < 0.012 0.020 NT-Pro-B Natriuret Pep 882 H 1390 H Impressions: Chest X-Ray 04/22/19 00:00 IMPRESSION: Minimal residual right upper lobe infiltrate. Significantly improved from prior study. Qualifiers - * PATIENT BEING DISCHARGED WITH ANY OF THE FOLLOWING DIAGNOSIS: No VTE patient discharged on overlapping Therapy?: Yes Acute Heart Failure - Is this a Heart Failure Patient?: No Plan Time Spent: Greater than 30 Minutes - Follow in office 1 week Recheck the CBC a nd Chem-7 Follow-up with the cardiology and nephrology
== END 2019-04-24 10:30 | disposition home health service (06) | DRG 194 ==
LOC: ER 11:24 → EH 15:55 → 3N 17:50
PROVIDERS: ADMIT Internal Medicine; ATTEND Family Medicine
DX: J18.9 Pneumonia, unspecified organism (principal); J44.0 Chronic obstructive pulmonary disease with (acute) lower respiratory infection; I50.22 Chronic systolic (congestive) heart failure; I13.0 Hypertensive heart and chronic kidney disease with heart failure and stage 1 through stage 4 chronic kidney disease, or unspecified chronic kidney disease; J20.9 Acute bronchitis, unspecified; N18.3 Chronic kidney disease, stage 3 (moderate); I48.0 Paroxysmal atrial fibrillation; D64.9 Anemia, unspecified; Z95.0 Presence of cardiac pacemaker; K21.9 Gastro-esophageal reflux disease without esophagitis; F32.9 Major depressive disorder, single episode, unspecified; M19.90 Unspecified osteoarthritis, unspecified site; Z79.02 Long term (current) use of antithrombotics/antiplatelets; Z82.49 Family history of ischemic heart disease and other diseases of the circulatory system; Z79.899 Other long term (current) drug therapy
CPT/HCPCS: 36415; 36600; 71046; 80048; 80053; 81001; 82272; 82550; 82553; 82803; 83036; 83605; 83880; 84484; 85025; 87040; 93005; 93010; 94640; 96365; 96375; 99285; J0456; J0692; J0696; J1650; J1956; J3490; J7030; J7060; J7620

== ENCOUNTER → 2019-05-26 | Outpatient (CLI) | payer MEDICARE, MEDICAID ==
[2019-05-26 10:11] LABS: ALBUMIN 4.1 g/dL (3.5-5.0); ALKALINE PHOSPHATASE 111 U/L (38-126); ASPARTATE AMINO TRANSFERASE 20 U/L (17-59); BILIRUBIN,DIRECT 0.2 mg/dL (0.0-0.4); BILIRUBIN,TOTAL 0.4 mg/dL (0.2-1.3); TOTAL PROTEIN 6.6 g/dL (6.3-8.2); TRIGLYCERIDES 98 mg/dL (<150)
[2019-05-26 10:22] LABS: DIRECT LDL 54 mg/dL (<100)
== END ==
LOC: OD 08:54
PROVIDERS: ATTEND Specialist
DX: I11.0 Hypertensive heart disease with heart failure (principal); I50.32 Chronic diastolic (congestive) heart failure; I50.22 Chronic systolic (congestive) heart failure; I12.9 Hypertensive chronic kidney disease with stage 1 through stage 4 chronic kidney disease, or unspecified chronic kidney disease; N18.2 Chronic kidney disease, stage 2 (mild); I49.3 Ventricular premature depolarization; Z95.810 Presence of automatic (implantable) cardiac defibrillator; I27.20 Pulmonary hypertension, unspecified; I42.9 Cardiomyopathy, unspecified; J44.9 Chronic obstructive pulmonary disease, unspecified; R06.09 Other forms of dyspnea; E78.5 Hyperlipidemia, unspecified; Z79.899 Other long term (current) drug therapy
CPT/HCPCS: 36415; 80061; 80076

== ENCOUNTER 2019-08-19 07:12 | Inpatient (IN) | payer MEDICARE, MEDICAID ==
[2019-08-19] MEDS ORDERED: CEFEPIME INJ 1 GM VIAL IM ONE (08:10)
[2019-08-19] MEDS: NORMAL SALINE IV ONE (08:30)
[2019-08-19 08:45] LABS: HEMATOCRIT 30.1 % (37.9-51.0); HEMOGLOBIN 10.1 g/dL (13.5-17.0); MEAN CORPUSCULAR HEMOGLOBIN 28.5 pg (27.0-33.4); MEAN CORPUSCULAR HGB CONC 33.6 g/dL (32.0-36.0); MEAN CORPUSCULAR VOLUME 85 fl (80-97); PLATELET COUNT 200 10^3/uL (150-450); RED BLOOD COUNT 3.54 10^6/uL (4.35-5.55); RED CELL DISTRIBUTION WIDTH 14.4 % (11.5-14.0); VENOUS BLOOD PCO2 48.3 mmHg (35-63); VENOUS BLOOD PH 7.35 (7.30-7.42); WHITE BLOOD COUNT 11.3 10^3/uL (4.0-10.5)
[2019-08-19 08:46] LABS: INTERNATIONAL RATION (INR) 1.22; PROTHROMBIN TIME 15.5 SEC (11.4-15.4)
[2019-08-19 08:49] LABS: ALBUMIN 3.7 g/dL (3.5-5.0); ALKALINE PHOSPHATASE 125 U/L (38-126); ANION GAP 12 (5-19); ASPARTATE AMINO TRANSFERASE 16 U/L (17-59); BILIRUBIN,DIRECT 0.2 mg/dL (0.0-0.4); BILIRUBIN,TOTAL 0.3 mg/dL (0.2-1.3); BLOOD UREA NITROGEN 20 mg/dL (7-20); CALCIUM 8.3 mg/dL (8.4-10.2); CARBON DIOXIDE 28 mmol/L (22-30); CHLORIDE 100 mmol/L (98-107); GLUCOSE 106 mg/dL (75-110); POTASSIUM 3.5 mmol/L (3.6-5.0); TOTAL PROTEIN 6.6 g/dL (6.3-8.2)
--- NOTE | 2019-08-19 08:49 | RADIOLOGY REPORT (SQ) ---
EXAM DESCRIPTION: CHEST SINGLE VIEW COMPLETED DATE/TIME: 08/19/2019 8:25 am REASON FOR STUDY: fever/sob COMPARISON: 04/22/2019 EXAM PARAMETERS: NUMBER OF VIEWS: One view. TECHNIQUE: Single frontal radiographic view of the chest acquired. RADIATION DOSE: NA LIMITATIONS: None. FINDINGS: LUNGS AND PLEURA: There is left upper and lower lobe airspace disease consistent with pneu monia. This is new from prior study. MEDIASTINUM AND HILAR STRUCTURES: No masses. Contour normal. HEART AND VASCULAR STRUCTURES: Heart is enlarged. No failure. BONES: No acute findings. HARDWARE: Battery pack and leads are in place. OTHER: No other significant finding. IMPRESSION: Left upper and lower lobe infiltrate consistent with pneumonia. TECHNICAL DOCUMENTATION: JOB ID: [id number] [employer]- All Rights Reserved Reading location - IP/workstation name: [email or web address]
[2019-08-19 09:07] LABS: ABSOLUTE LYMPHOCYTES# (MANUAL) 0.5 10^3/uL (0.5-4.7); ABSOLUTE MONOCYTES # (MANUAL) 0.6 10^3/uL (0.1-1.4); BAND NEUTROPHILS % (MANUAL) 1 % (3-5); BASOPHILS % (MANUAL) 0 % (0-2); EOSINOPHILS % (MANUAL) 0 % (0-6); LYMPHOCYTES % (MANUAL) 4 % (13-45); MONOCYTES % (MANUAL) 5 % (3-13); SEGMENTED NEUTROPHILS % (MAN) 90 % (42-78); TOTAL CELLS COUNTED 100
[2019-08-19 09:09] LABS: OVALOCYTES SLIGHT; PLATELET CLUMPS PRESENT; PLATELET COMMENT ADEQUATE; PLATELET LARGE PRESENT; TEAR DROP CELLS SLIGHT
[2019-08-19 09:10] LABS: ANISOCYTOSIS SLIGHT
[2019-08-19] MEDS ORDERED: CEFEPIME 2 GM/D5W RTU 2 GM/50 ML RTUPB IV SCH ×2 (10:00→22:00)
[2019-08-19 10:02] LABS: APPEARANCE,URINE CLEAR; BILIRUBIN,URINE NEGATIVE (NEGATIVE); COLOR,URINE YELLOW; GLUCOSE, URINE NEGATIVE (NEGATIVE); KETONES,URINE NEGATIVE (NEGATIVE); PROTEIN,URINE 30 mg/dL (NEGATIVE); URINE SPECIFIC GRAVITY 1.019; UROBILINOGEN,URINE NEGATIVE mg/dL (<2.0)
[2019-08-19] MEDS ORDERED: ACETAMINOPHEN 325 MG TABLET PO PRN (10:15)
[2019-08-19] MEDS ORDERED: POTASSIUM CHLORIDE 20 MEQ PACKET PO ONE (10:22)
--- NOTE | 2019-08-19 10:22 | ER Document Report ---
ED General - General Chief Complaint: Shortness Of Breath Stated Complaint: SHORTNESS OF BREATH Time Seen by Provider: 08/19/19 07:20 Primary Care Provider: JOELLEN JIMENEZ MD [Primary Care Provider] - Follow up as needed Mode of Arrival: Medic Information source: Patient TRAVEL OUTSIDE OF THE [place] IN LAST 30 DAYS: No - HPI Notes: Patient presents with shortness of breath. This is been going on for approximately 2 days. It is constant and severe. It is worse with exertion and better with rest. There is no known radiation symptoms. He has had some mild chest discomfort. He has had no significant vomiting or diarrhea. He has also been feeling weak. - Related Data Allergies/Adverse Reactions: meperidine HCl [From Demerol] Allergy (Verified 04/20/19 11:25) Past Medical History - General Information source: Patient - Social History Smoking Status: Former Smoker Frequency of alcohol use: None Drug Abuse: None Family History: CAD, Hypertension Patient has suicidal ideation: No Patient has homicidal ideation: No - Past Medical History Cardiac Medical History: Reports: Hx Atrial Fibrillation, Hx Congestive Heart Failure, Hx Hypertension Pulmonary Medical History: Reports: Hx Asthma, Hx Bronchitis, Hx COPD, Hx Pneumonia Denies: Hx Tuberculosis Neurological Medical History: Denies: Hx Seizures Renal/ Medical History: Reports: Hx Benign Prostatic Hyperplasia. Denies: Hx Peritoneal Dialysis GI Medical History: Reports: Hx Gastroesophageal Reflux Disease Musculoskeletal Medical History: Reports Hx Arthritis Psychiatric Medical History: Reports: Hx Depression Past Surgical History: Reports: Hx Cardiac Surgery - pacemaker, Hx Genitourinary Surgery - prostate, Hx Herniorrhaphy - Bilateral inguinal repair. Denies: Hx Pacemaker - Immunizations Hx Diphtheria, Pertussis, Tetanus Vaccination: Yes Hx Pneumococcal Vaccination: 09/03/11 Review of Systems - Review of Systems Constitutional: Chills, Fever, Malaise, Weakness Cardiovascular: Chest pain. denies: Palpitations Respiratory: Cough, Short of breath -: Yes All other systems reviewed and negative Physical Exam - Vital signs Vitals: Temp Pulse Resp BP 99.4 F 102 H 25 H 170/63 H 08/19/19 07:30 08/19/19 07:30 08/19/19 07:30 08/19/19 07:30 Interpretation: Hypertensive, Tachycardic, Febrile - General General appearance: Alert In distress: None - HEENT Head: Normocephalic, Atraumatic Eyes: Normal Pupils: PERRL - Respiratory Respiratory status: No respiratory distress Chest status: Nontender Breath sounds: Decreased air movement Chest palpation: Normal - Cardiovascular Rhythm: Tachycardia Heart sounds: Normal auscultation Murmur: No - Abdominal Inspection: Normal Distension: No distension Bowel sounds: Normal Tenderness: Nontender Organomegaly: No organomegaly - Back Back: Normal, Nontender - Extremities General upper extremity: Normal inspection, Nontender, Normal color, Normal ROM, Normal temperature General lower extremity: Nontender, Edema - 2+ bilateral lower extremities, Normal color, Normal ROM, Normal temperature. No: Azul's sign - Neurological Neuro grossly intact: Yes Cognition: Normal Orientation: AAOx4 [place] Coma Scale Eye Opening: Spontaneous Tru Coma Scale Verbal: Oriented [place] Coma Scale Motor: Obeys Commands Tru Coma Scale Total: 15 Speech: Normal Motor strength normal: LUE, RUE, LLE, RLE Sensory: Normal - Psychological Associated symptoms: Normal affect, Normal mood - Skin Skin Temperature: Warm Skin Moisture: Dry Skin Color: Normal Course - Re-evaluation Re-evalutation: 08/19/19 10:20 Patient presents with fever, tachypnea, tachycardia, and hypoxia. Chest x-ray is consistent as is exam with pneumonia. Patient is febrile. He will be treated with antibiotics fluids and Tylenol. His lactate is normal. I have spoken with Dr. Jimenez who will admit the patient. - Vital Signs Vital signs: Temp Pulse Resp BP Pulse Ox 102.4 F H 102 H 26 H 157/56 H 97 08/19/19 08:08 08/19/19 07:30 08/19/19 09:01 08/19/19 09:01 08/19/19 09:01 - Laboratory Result Diagrams: 08/19/19 07:54 08/19/19 07:54 Laboratory results interpreted by me: 08/19/19 08/19/19 08/19/19 07:54 07:54 07:54 WBC 11.3 H RBC 3.54 L Hgb 10.1 L Hct 30.1 L RDW 14.4 H Seg Neuts % (Manual) 90 H Band Neutrophils % 1 L Lymphocytes % (Manual) 4 L Abs Neuts (Manual) 10.3 H PT 15.5 H Potassium 3.5 L Creatinine 1.29 H Est GFR (MDRD) Non-Af 53 L Lactic Acid (Sepsis) Calcium 8.3 L AST 16 L Urine Protein 08/19/19 08/19/19 08:45 09:42 WBC RBC Hgb Hct RDW Seg Neuts % (Manual) Band Neutrophils % Lymphocytes % (Manual) Abs Neuts (Manual) PT Potassium Creatinine Est GFR (MDRD) Non-Af Lactic Acid (Sepsis) 0.6 L Calcium AST Urine Protein 30 H - Diagnostic Test Radiology reviewed: Image reviewed, Reports reviewed - EKG Interpretation by Me Rate: Normal - 94 Rhythm: Other - paced [place]/QRS: Right axis deviation Discharge - Discharge Clinical Impression: Pneumonia Condition: Stable Disposition: ADMITTED INPATIENT Admitting Provider: Ilan Unit Admitted: IMCU Referrals: JOELLEN JIMENEZ MD [Primary Care Provider] - Follow up as needed
[2019-08-19] MEDS ORDERED: ACETAMINOPHEN 325 MG TABLET PO ONE (10:25)
[2019-08-19] MEDS: LEVOFLOXACIN 500 MG/D5W RTU 500 MG/100 ML RTUPB IV SCH (11:39)
[2019-08-19 12:57] LABS: ANION GAP 10 (5-19); BLOOD UREA NITROGEN 19 mg/dL (7-20); CALCIUM 7.8 mg/dL (8.4-10.2); CARBON DIOXIDE 24 mmol/L (22-30); CHLORIDE 104 mmol/L (98-107); CREATINE KINASE 64 U/L (55-170); GLUCOSE 107 mg/dL (75-110); POTASSIUM 3.5 mmol/L (3.6-5.0)
[2019-08-19 13:08] LABS: CREATINE KINASE MB 1.24 ng/mL (<4.55); TROPONIN I 0.033 ng/mL
[2019-08-19] MEDS: IPRATROPIUM/ALBUTEROL 0.5-2.5 MG/3 ML AMPUL NEB SCH ×2 (14:20→21:43)
--- NOTE | 2019-08-19 14:24 | EKG REPORT ---
SEVERITY:- ABNORMAL ECG - VENTRICULAR-PACED RHYTHM : Confirmed by: Aisha Araujo 19-Aug-2019 14:23:36
[2019-08-19 15:49] LABS: A TYPE INFLUENZA AG NEGATIVE (NEGATIVE); B INFLUENZA AG NEGATIVE (NEGATIVE)
--- NOTE | 2019-08-19 16:36 | PDOC H&P ---
History of Present Illness Admission Date/PCP: 08/19/19 10:34 JOELLEN JIMENEZ MD Patient complains of: Shortness of the breath and cough History of Present Illness: DARCIE AUSTIN is a 84 year old male This is a 84-year-old male's with a history of the COPD history of the congestive heart failure chronic A. fib hypertension's hyperlipidemia history of the pneumonia in the past came to the emergency department by the ambulance because of the increasing the shortness of the breath for the last 2 days and cough and congestions Patient's denied any chest pain but patient had a rectal temperature of 102 in the emergency department and patient's white count is elevated and chest x-ray is consistent with the pneumonia He was also hypoxic tachypnea and tachycardia due to the fever patient still received the IV antibiotics nebulizer treatments When I saw the patient is feeling better denied any chest pains still have a some cough Patient is follow outpatients Dr. CHINCHILLA for the heart and patient also see Dr. Gill Past Medical History Cardiac Medical History: Reports: Atrial Fibrillation, Congestive Heart Failure, Coronary Artery Disease, Hyperlipidema, Hypertension Pulmonary Medical History: Reports: Asthma, Bronchitis, Chronic Obstructive Pulmonary Disease (COPD), Pneumonia Denies: Tuberculosis Neurological Medical History: Denies: Seizures GI Medical History: Reports: Gastroesophageal Reflux Disease Musculoskeltal Medical History: Reports: Arthritis Psychiatric Medical History: Reports: Depression Past Surgical History Past Surgical History: Reports: Herniorrhaphy - Bilateral inguinal repair Denies: Pacemaker Social History Information Source: Patient Smoking Status: Former Smoker Electronic Cigarette use?: No Frequency of Alcohol Use: None Hx Recreational Drug Use: No Drugs: None Hx Prescription Drug Abuse: No Family History Family History: Reviewed & Not Pertinent, CAD, Hypertension Parental Family History Reviewed: Yes Children Family History Reviewed: Yes Sibling(s) Family History Reviewed.: Yes Medication/Allergy Home Medications: Budesonide/Formoterol Fumarate [Symbicort HFA 160-4.5 mcg Inhaler 6 gm] 2 puff IH Q12 12/17/17 Doxazosin Mesylate [Cardura] 8 mg PO DAILY 12/17/17 Furosemide [Lasix 20 mg Tablet] 20 mg PO BID 12/17/17 Isosorbide Mononitrate [Imdur 60 mg Tablet.er] 60 mg PO DAILY 12/17/17 Nifedipine [Nifedipine ER] 60 mg PO Q12 12/17/17 Omeprazole 40 mg PO DAILY 12/17/17 Apixaban [Eliquis 5 mg Tablet] 5 mg PO BID 04/21/19 Ascorbate Calcium [Vitamin C] 500 mg PO DAILY 04/21/19 Atorvastatin Calcium [Lipitor 20 mg Tablet] 20 mg PO QHS 04/21/19 Docusate Sodium [Colace 100 mg Capsule] 100 mg PO DAILY 04/21/19 Ranolazine [Ranolazine ER] 500 mg PO BID 04/21/19 Levofloxacin [Levaquin 500 mg Tablet] 500 mg PO DAILY #6 tablet 04/24/19 Ascorbic Acid 500 mg PO DAILY 08/19/19 Aspirin [Ecotrin 81 mg EC Tablet] 81 mg PO DAILY 08/19/19 Ferrous Sulfate [Feosol 325 mg Tablet] 325 mg PO DAILY 08/19/19 Losartan Potassium [Cozaar 25 mg Tablet] 25 mg PO DAILY 08/19/19 Multivitamin [Daily Multiple Vitamin] 1 ea PO DAILY 08/19/19 Mupirocin [Bactroban 2% Ointment 22 gm] 1 applic TOP BID 08/19/19 Allergies/Adverse Reactions: meperidine HCl [From Demerol] Allergy (Verified 04/20/19 11:25) Review of Systems Constitutional: PRESENT: chills, fever(s). ABSENT: headache(s), weight gain, weight loss Eyes: ABSENT: visual disturbances Ears: ABSENT: hearing changes Cardiovascular: PRESENT: dyspnea on exertion. ABSENT: chest pain, edema, orthropnea, palpitations Respiratory: PRESENT: cough, dyspnea. ABSENT: hemoptysis Gastrointestinal: ABSENT: abdominal pain, constipation, diarrhea, hematemesis, hematochezia, nausea, vomiting Genitourinary: ABSENT: dysuria, hematuria Musculoskeletal: ABSENT: joint swelling Integumentary: ABSENT: rash, wounds Neurological: ABSENT: abnormal gait, abnormal speech, confusion, dizziness, focal weakness, syncope Psychiatric: ABSENT: anxiety, depression, homidical ideation, suicidal ideation Endocrine: ABSENT: cold intolerance, heat intolerance, menstrual abnormalities, polydipsia, polyuria Hematologic/Lymphatic: ABSENT: easy bleeding, easy bruising, lymphadenopathy Physical Exam Vital Signs: Temp Pulse Resp BP Pulse Ox 100.8 F H 102 H 22 H 169/63 H 92 08/19/19 12:19 08/19/19 07:30 08/19/19 11:01 08/19/19 11:01 08/19/19 11:01 Intake & Output 08/18/19 08/19/19 08/20/19 06:59 06:59 06:59 Intake Total 2049 Balance 2049 Weight 106.594 kg General appearance: PRESENT: no acute distress, well-developed, well-nourished Head exam: PRESENT: atraumatic, normocephalic Eye exam: PRESENT: conjunctiva pink, EOMI, PERRLA. ABSENT: scleral icterus Ear exam: PRESENT: normal external ear exam Mouth exam: PRESENT: moist, tongue midline Neck exam: PRESENT: full ROM. ABSENT: carotid bruit, JVD, lymphadenopathy, thyromegaly Respiratory exam: PRESENT: decreased breath sounds Cardiovascular exam: PRESENT: RRR. ABSENT: diastolic murmur, rubs, systolic murmur Pulses: PRESENT: normal dorsalis pedis pul, +2 pedal pulses bilateral Vascular exam: PRESENT: normal capillary refill GI/Abdominal exam: PRESENT: normal bowel sounds, soft. ABSENT: distended, guarding, mass, organolmegaly, rebound, tenderness Rectal exam: PRESENT: deferred Neurological exam: PRESENT: alert, awake, oriented to person, oriented to place, oriented to time, oriented to situation, CN II-XII grossly intact. ABSENT: motor sensory deficit Psychiatric exam: PRESENT: appropriate affect, normal mood. ABSENT: homicidal ideation, suicidal ideation Skin exam: PRESENT: dry, intact, warm. ABSENT: cyanosis, rash Results Laboratory Results: 08/19/19 07:54 08/19/19 08/19/19 08/19/19 07:54 07:54 07:54 WBC 11.3 H RBC 3.54 L Hgb 10.1 L Hct 30.1 L MCV 85 MCH 28.5 MCHC 33.6 RDW 14.4 H Plt Count 200 Seg Neutrophils % Not Reportable VBG pH 7.35 VBG pCO2 48.3 VBG HCO3 26.0 VBG Base Excess 0 Sodium 139.7 Potassium 3.5 L Chloride 100 Carbon Dioxide 28 Anion Gap 12 BUN 20 Creatinine 1.29 H Est GFR ( Amer) > 60 Glucose 106 Calcium 8.3 L Total Bilirubin 0.3 AST 16 L Alkaline Phosphatase 125 Total Protein 6.6 Albumin 3.7 Urine Color Urine Appearance Urine pH Ur Specific [place] Urine Protein Urine Glucose (UA) Urine Ketones Urine Blood Urine RBC (Auto) 08/19/19 09:42 WBC RBC Hgb Hct MCV MCH MCHC RDW Plt Count Seg Neutrophils % VBG pH VBG pCO2 VBG HCO3 VBG Base Excess Sodium Potassium Chloride Carbon Dioxide Anion Gap BUN Creatinine Est GFR ( Amer) Glucose Calcium Total Bilirubin AST Alkaline Phosphatase Total Protein Albumin Urine Color YELLOW Urine Appearance CLEAR Urine pH 6.0 Ur Specific [place] 1.019 Urine Protein 30 H Urine Glucose (UA) NEGATIVE Urine Ketones NEGATIVE Urine Blood NEGATIVE Urine RBC (Auto) 2 08/19/19 07:54 Troponin I < 0.012 Impressions: Chest X-Ray 08/19/19 08:11 IMPRESSION: Left upper and lower lobe infiltrate consistent with pneumonia. Assessment & Plan - Diagnosis (1) Pneumonia Qualifiers: Laterality: right Lung location: lower lobe of lung Is this a current diagnosis for this admission?: Yes Plan: Mostly community-acquired pneumonia we will start the patient on IV cefepime and Levaquin (2) Acute and chronic respiratory failure Qualifiers: Respiratory failure complication: hypoxia Is this a current diagnosis for this admission?: Yes Plan: Due to the COPD currently getting better continue some nebulizer treatments (3) Atrial fibrillation Qualifiers: Atrial fibrillation type: unspecified Is this a current diagnosis for this admission?: Yes Plan: Patient is currently on Eliquis (4) COPD (chronic obstructive pulmonary disease) with acute bronchitis Is this a current diagnosis for this admission?: Yes Plan: Continue some nebulizer treatments (5) Chronic kidney disease Qualifiers: Chronic kidney disease stage: stage 2 (mild) Qualified Code(s): N18.2 - Chronic kidney disease, stage 2 (mild) Is this a current diagnosis for this admission?: Yes Plan: Currently all stable (6) Congestive heart failure Is this a current diagnosis for this admission?: Yes Plan: Patient is currently follow with the Dr. Medrano currently all stable (7) Hypertension Qualifiers: Hypertension type: essential hypertension Is this a current diagnosis for this admission?: Yes - Time Time Spent: 30 to 50 Minutes Medications reviewed and adjusted accordingly: Yes Anticipated discharge: Home Within: Other - Inpatient Certification Based on my medical assessment, after consideration of the patient's comorbi dities, presenting symptoms, or acuity I expect that the services needed warrant INPATIENT care.: Yes I certify that my determination is in accordance with my understanding of Medicare's requirements for reasonable and necessary INPATIENT services [42 CFR 412.3e].: Yes Medical Necessity: Significant Comorbidiites Make Outpatient Treatment Too Risky, Need For Continuous Telemetry Monitoring, Need for Nebulizer Therapy and Monitoring of Response, Need for IV Antibiotics Post Hospital Care: D/C Division Service Manager Documentation - Plan Summary Plan Summary: Admit the patient in IMCU for pneumonia protocol See orders
[2019-08-19 16:58] LABS: CREATINE KINASE MB 1.83 ng/mL (<4.55)
[2019-08-19 17:05] LABS: TROPONIN I 0.041 ng/mL
[2019-08-19] MEDS: DOCUSATE SODIUM 100 MG CAPSULE PO SCH (18:11)
[2019-08-19] MEDS: RANOLAZINE 500 MG TAB.SR.12H PO SCH (18:15)
[2019-08-19] MEDS: FUROSEMIDE 20 MG TABLET PO SCH (18:17)
[2019-08-19] MEDS: APIXABAN 5 MG TABLET PO SCH (18:37)
[2019-08-19] MEDS: MUPIROCIN 2% OINTMENT 22 GM TOP SCH (21:43)
[2019-08-19] MEDS: CEFEPIME HCL 2 GM in DEXTROSE 5%-WATER 50 ML IV SCH (21:44)
[2019-08-19] MEDS: ATORVASTATIN CALCIUM 20 MG TABLET PO SCH (21:44)
[2019-08-19] MEDS: FAMOTIDINE 20 MG TABLET PO SCH (23:17)
[2019-08-20 00:30] LABS: CREATINE KINASE MB 2.57 ng/mL (<4.55); TROPONIN I 0.042 ng/mL
[2019-08-20 05:09] LABS: ABSOLUTE LYMPHOCYTES (AUTO) 1.1 10^3/uL (0.5-4.7); ABSOLUTE MONOCYTES (AUTO) 1.1 10^3/uL (0.1-1.4); ABSOLUTE NEUT (AUTO) 7.1 10^3/uL (1.7-8.2); BASOPHILS % (AUTO) 0.2 % (0-2); EOSINOPHILS % (AUTO) 0.1 % (0-6); HEMATOCRIT 26.1 % (37.9-51.0); HEMOGLOBIN 8.7 g/dL (13.5-17.0); LYMPHOCYTES % (AUTO) 12.2 % (13-45); MEAN CORPUSCULAR HEMOGLOBIN 28.5 pg (27.0-33.4); MEAN CORPUSCULAR HGB CONC 33.5 g/dL (32.0-36.0); MEAN CORPUSCULAR VOLUME 85 fl (80-97); PLATELET COUNT 168 10^3/uL (150-450); RED BLOOD COUNT 3.07 10^6/uL (4.35-5.55); RED CELL DISTRIBUTION WIDTH 14.5 % (11.5-14.0); SEGMENTED NEUTROPHILS % (AUTO) 75.5 % (42-78); TOTAL CELLS COUNTED % (AUTO) 100 %; WHITE BLOOD COUNT 9.4 10^3/uL (4.0-10.5)
[2019-08-20] MEDS: PANTOPRAZOLE SODIUM 40 MG TABLET.DR PO SCH (05:57)
[2019-08-20 07:20] LABS: ABSOLUTE RETICS # 0.065 10^6/uL (0.028-0.122); RETICULOCYTE COUNT (AUTO) 2.16 % (0.66-2.85)
[2019-08-20 07:22] LABS: IRON(TIBC) 14.6 ug/dL (49-181)
[2019-08-20 08:02] LABS: ALKALINE PHOSPHATASE 73 U/L (38-126); ANION GAP 9 (5-19); ASPARTATE AMINO TRANSFERASE 18 U/L (17-59); BILIRUBIN,DIRECT 0.2 mg/dL (0.0-0.4); BILIRUBIN,TOTAL 0.4 mg/dL (0.2-1.3); BLOOD UREA NITROGEN 19 mg/dL (7-20); CALCIUM 8.4 mg/dL (8.4-10.2); CARBON DIOXIDE 25 mmol/L (22-30); CHLORIDE 104 mmol/L (98-107); GLUCOSE 91 mg/dL (75-110); POTASSIUM 3.4 mmol/L (3.6-5.0); TOTAL PROTEIN 5.5 g/dL (6.3-8.2)
[2019-08-20 08:28] LABS: FOLATE > 20.00 ng/mL (>2.76)
--- NOTE | 2019-08-20 08:32 | PDOC CONSULTATION ---
Consultation Consult Date: 08/20/19 Attending physician:: JOELLEN JIMENEZ Provider Consulted: MIGUELINA WEBBER Consult reason:: Anemia History of Present Illness Admission Date/PCP: 08/19/19 10:34 JOELLEN JIMENEZ MD Patient complains of: Shortness of breath, weakness, fever History of Present Illness: DARCIE AUSTIN is a 84 year old male who is going to see us for anemia as an outpatient but presented here with shortness of breath, weakness, fever, ultimately has been diagnosed with a pneumonia, and is being treated with IV antibiotics upon presentation his hemoglobin was 10, as an outpatient however it was low as 8, after 24 hours of admission and fell from 10-8. He is on Eliquis for atrial fibrillation. There was a question of whether that was causing some bleeding. He apparently had some sort of endoscopies by Dr. Lunsford, we are getting those records now. I see an EGD from several years ago that was negative. Iron studies are pending, stool guaiac is pending, I added myeloma labs as well. Past Medical History Cardiac Medical History: Reports: Atrial Fibrillation, Congestive Heart Failure, Coronary Artery Disease, Hyperlipidema, Hypertension Pulmonary Medical History: Reports: Asthma, Bronchitis, Chronic Obstructive Pulmonary Disease (COPD), Pneumonia Denies: Tuberculosis Neurological Medical History: Denies: Seizures GI Medical History: Reports: Gastroesophageal Reflux Disease Musculoskeltal Medical History: Reports: Arthritis Psychiatric Medical History: Reports: Depression Past Surgical History Past Surgical History: Reports: Herniorrhaphy - Bilateral inguinal repair Denies: Pacemaker Social History Smoking Status: Former Smoker Electronic Cigarette use?: No Frequency of Alcohol Use: None Hx Recreational Drug Use: No Drugs: None Hx Prescription Drug Abuse: No - Advance Directive Resuscitation Status: Full Code Family History Family History: Reviewed & Not Pertinent, CAD, Hypertension Parental Family History Reviewed: Yes Children Family History Reviewed: Yes Sibling(s) Family History Reviewed.: Yes Medication/Allergy Home Medications: Budesonide/Formoterol Fumarate [Symbicort HFA 160-4.5 mcg Inhaler 6 gm] 2 puff IH Q12 12/17/17 Doxazosin Mesylate [Cardura] 8 mg PO DAILY 12/17/17 Furosemide [Lasix 20 mg Tablet] 20 mg PO BID 12/17/17 Isosorbide Mononitrate [Imdur 60 mg Tablet.er] 60 mg PO DAILY 12/17/17 Nifedipine [Nifedipine ER] 60 mg PO Q12 12/17/17 Omeprazole 40 mg PO DAILY 12/17/17 Apixaban [Eliquis 5 mg Tablet] 5 mg PO BID 04/21/19 Ascorbate Calcium [Vitamin C] 500 mg PO DAILY 04/21/19 Atorvastatin Calcium [Lipitor 20 mg Tablet] 20 mg PO QHS 04/21/19 Docusate Sodium [Colace 100 mg Capsule] 100 mg PO DAILY 04/21/19 Ranolazine [Ranolazine ER] 500 mg PO BID 04/21/19 Levofloxacin [Levaquin 500 mg Tablet] 500 mg PO DAILY #6 tablet 04/24/19 Ascorbic Acid 500 mg PO DAILY 08/19/19 Aspirin [Ecotrin 81 mg EC Tablet] 81 mg PO DAILY 08/19/19 Ferrous Sulfate [Feosol 325 mg Tablet] 325 mg PO DAILY 08/19/19 Losartan Potassium [Cozaar 25 mg Tablet] 25 mg PO DAILY 08/19/19 Multivitamin [Daily Multiple Vitamin] 1 ea PO DAILY 08/19/19 Mupirocin [Bactroban 2% Ointment 22 gm] 1 applic TOP BID 08/19/19 Allergies/Adverse Reactions: meperidine HCl [From Demerol] Allergy (Verified 04/20/19 11:25) Review of Systems Constitutional: ABSENT: chills, fever(s), headache(s), weight gain, weight loss Eyes: ABSENT: visual disturbances Ears: ABSENT: hearing changes Cardiovascular: ABSENT: chest pain, dyspnea on exertion, edema, orthropnea, palpitations Respiratory: ABSENT: cough, hemoptysis Gastrointestinal: ABSENT: abdominal pain, constipation, diarrhea, hematemesis, hematochezia, nausea, vomiting Genitourinary: ABSENT: dysuria, hematuria Musculoskeletal: ABSENT: joint swelling Integumentary: ABSENT: rash, wounds Neurological: ABSENT: abnormal gait, abnormal speech, confusion, dizziness, focal weakness, syncope Psychiatric: ABSENT: anxiety, depression, homidical ideation, suicidal ideation Endocrine: ABSENT: cold intolerance, heat intolerance, polydipsia, polyuria Hematologic/Lymphatic: ABSENT: easy bleeding, easy bruising Physical Exam Vital Signs: Temp Pulse Resp BP Pulse Ox 98.9 F 76 19 159/58 H 95 08/19/19 22:29 08/20/19 07:00 08/19/19 22:01 08/19/19 22:01 08/19/19 22:01 Intake & Output 08/19/19 08/20/19 08/21/19 06:59 06:59 06:59 Intake Total 2942 Output Total 150 Balance 2792 Weight 108.3 kg General appearance: PRESENT: no acute distress, well-developed, well-nourished Head exam: PRESENT: atraumatic, normocephalic Eye exam: PRESENT: conjunctiva pink, EOMI, PERRLA. ABSENT: scleral icterus Ear exam: PRESENT: normal external ear exam Mouth exam: PRESENT: moist, tongue midline Neck exam: ABSENT: carotid bruit, JVD, lymphadenopathy, thyromegaly Respiratory exam: PRESENT: clear to auscultation alphonse. ABSENT: rales, rhonchi, wheezes Cardiovascular exam: PRESENT: RRR. ABSENT: diastolic murmur, rubs, systolic murmur Pulses: PRESENT: normal dorsalis pedis pul Vascular exam: PRESENT: normal capillary refill GI/Abdominal exam: PRESENT: normal bowel sounds, soft. ABSENT: distended, guarding, mass, organolmegaly, rebound, tenderness Rectal exam: PRESENT: deferred Extremities exam: PRESENT: full ROM. ABSENT: calf tenderness, clubbing, pedal edema Neurological exam: PRESENT: alert, awake, oriented to person, oriented to place, oriented to time, oriented to situation, CN II-XII grossly intact. ABSENT: motor sensory deficit Psychiatric exam: PRESENT: appropriate affect, normal mood. ABSENT: homicidal ideation, suicidal ideation Skin exam: PRESENT: dry, intact, warm. ABSENT: cyanosis, rash Results Laboratory Results: 08/20/19 04:55 08/20/19 04:55 08/19/19 08/19/19 08/19/19 07:54 07:54 07:54 WBC 11.3 H RBC 3.54 L Hgb 10.1 L Hct 30.1 L MCV 85 MCH 28.5 MCHC 33.6 RDW 14.4 H Plt Count 200 Seg Neutrophils % Not Reportable Retic Count (auto) VBG pH 7.35 VBG pCO2 48.3 VBG HCO3 26.0 VBG Base Excess 0 Sodium 139.7 Potassium 3.5 L Chloride 100 Carbon Dioxide 28 Anion Gap 12 BUN 20 Creatinine 1.29 H Est GFR ( Amer) > 60 Glucose 106 Calcium 8.3 L Magnesium Total Bilirubin 0.3 AST 16 L Alkaline Phosphatase 125 Total Protein 6.6 Albumin 3.7 Urine Color Urine Appearance Urine pH Ur Specific [place] Urine Protein Urine Glucose (UA) Urine Ketones Urine Blood Urine RBC (Auto) 08/19/19 08/19/19 08/20/19 09:42 12:13 04:55 WBC 9.4 RBC 3.07 L Hgb 8.7 L Hct 26.1 L MCV 85 MCH 28.5 MCHC 33.5 RDW 14.5 H Plt Count 168 Seg Neutrophils % 75.5 Retic Count (auto) VBG pH VBG pCO2 VBG HCO3 VBG Base Excess Sodium 138.0 Potassium 3.5 L Chloride 104 Carbon Dioxide 24 Anion Gap 10 BUN 19 Creatinine 1.17 Est GFR ( Amer) > 60 Glucose 107 Calcium 7.8 L Magnesium Total Bilirubin AST Alkaline Phosphatase Total Protein Albumin Urine Color YELLOW Urine Appearance CLEAR Urine pH 6.0 Ur Specific [place] 1.019 Urine Protein 30 H Urine Glucose (UA) NEGATIVE Urine Ketones NEGATIVE Urine Blood NEGATIVE Urine RBC (Auto) 2 08/20/19 08/20/19 08/20/19 04:55 04:55 04:55 WBC RBC Hgb Hct MCV MCH MCHC RDW Plt Count Seg Neutrophils % Retic Count (auto) 2.16 VBG pH VBG pCO2 VBG HCO3 VBG Base Excess Sodium 138.1 Potassium 3.4 L Chloride 104 Carbon Dioxide 25 Anion Gap 9 BUN 19 Creatinine 1.21 Est GFR ( Amer) > 60 Glucose 91 Calcium 8.4 Magnesium 2.1 Total Bilirubin 0.4 AST 18 Alkaline Phosphatase 73 Total Protein 5.5 L Albumin 3.0 L Urine Color Urine Appearance Urine pH Ur Specific [place] Urine Protein Urine Glucose (UA) Urine Ketones Urine Blood Urine RBC (Auto) 08/19/19 08/19/19 08/19/19 07:54 12:13 12:13 Creatine Kinase 64 CK-MB (CK-2) 1.24 Troponin I < 0.012 0.033 08/19/19 08/19/19 08/19/19 16:10 16:10 23:55 Creatine Kinase 87 133 CK-MB (CK-2) 1.83 Troponin I 0.041 08/19/19 23:55 Creatine Kinase CK-MB (CK-2) 2.57 Troponin I 0.042 Impressions: Chest X-Ray 08/19/19 08:11 IMPRESSION: Left upper and lower lobe infiltrate consistent with pneumonia. Assessment & Plan - Diagnosis (1) Anemia Qualifiers: Anemia type: other cause Other causes of anemia: other cause, not classified Qualified Code(s): D64.89 - Other specified anemias Is this a current diagnosis for this admission?: Yes Plan: Work-up is pending, if he is profoundly iron deficient we will plan to give him IV iron, but in that setting I would be very concerned about bleed. Hold Eliquis for now until we have iron labs back. If iron studies are normal, and his hemoglobin is stable, then we can restart Eliquis but I would do 2.5 twice daily. His anemia may be related to chronic disease in that case. Myeloma labs are pending. - Time Time Spent: 50 to 70 Minutes
[2019-08-20] MEDS: IPRATROPIUM/ALBUTEROL 0.5-2.5 MG/3 ML AMPUL NEB SCH ×3 (09:14→20:15)
[2019-08-20] MEDS: CEFEPIME HCL 2 GM in DEXTROSE 5%-WATER 50 ML IV SCH ×2 (09:32→21:48)
[2019-08-20] MEDS: DOXAZOSIN MESYLATE 4 MG TABLET PO SCH (09:33)
[2019-08-20] MEDS: NIFEDIPINE 30 MG TAB.ER.24 PO SCH ×2 (09:33→21:48)
[2019-08-20] MEDS: ASPIRIN 81 MG TABLET, ENT COATED PO SCH (09:33)
[2019-08-20] MEDS: DOCUSATE SODIUM 100 MG CAPSULE PO SCH ×3 (09:34→20:03)
[2019-08-20] MEDS: LOSARTAN POTASSIUM 25 MG TABLET PO SCH (09:34)
[2019-08-20] MEDS: FUROSEMIDE 20 MG TABLET PO SCH ×2 (09:34→21:47)
[2019-08-20] MEDS: RANOLAZINE 500 MG TAB.SR.12H PO SCH ×2 (09:34→20:03)
[2019-08-20] MEDS: FAMOTIDINE 20 MG TABLET PO SCH ×2 (09:34→21:47)
[2019-08-20] MEDS: MULTIVITAMIN TABLET PO SCH (09:34)
[2019-08-20] MEDS: APIXABAN 5 MG TABLET PO SCH (09:34)
[2019-08-20] MEDS: ASCORBIC ACID 500 MG TABLET PO SCH (09:34)
[2019-08-20] MEDS: LEVOFLOXACIN 500 MG/D5W RTU 500 MG/100 ML RTUPB IV SCH (09:38)
[2019-08-20] MEDS: MUPIROCIN 2% OINTMENT 22 GM TOP SCH ×2 (09:39→21:49)
[2019-08-20] MEDS: FLUTICASONE/VILANTEROL 200-25 MCG/DOSE IH SCH (09:39)
[2019-08-20] MEDS: ISOSORBIDE MONONITRATE 60 MG TAB.ER.24H PO SCH (09:47)
[2019-08-20] MEDS ORDERED: FERROUS SULFATE 325 MG TABLET PO SCH (10:00)
[2019-08-20] MEDS ORDERED: ASCORBIC ACID 500 MG TABLET PO SCH (10:00)
--- NOTE | 2019-08-20 12:01 | PDOC PROGRESS REPORT ---
Subjective Progress Note for:: 08/20/19 Subjective:: Patient is currently doing much better Patient's denied any chest pain denied any shortness of the breath Patient hemoglobin is 8.7 Patient had a endoscopy and colonoscopy done by Dr. Lunsford as per discussed with him all stable no AV malformations patient also have a capsule endoscopy done couple of years back was also stable Discussed with the Dr. Lunsford and he suggested patients may be a get a benefit with a capsule endoscopy as an outpatient if he continues to be a problems per suggested currently hold the Eliquis may be consider put on aspirin's Patient seen by the hematology and suggest that currently hold the Eliquis Reason For Visit: PNEUMONIA Physical Exam Vital Signs: Temp Pulse Resp BP Pulse Ox 98.6 F 86 16 165/56 H 95 08/20/19 08:16 08/20/19 09:14 08/20/19 09:14 08/20/19 08:16 08/20/19 09:14 Intake & Output 08/19/19 08/20/19 08/21/19 06:59 06:59 06:59 Intake Total 2942 Output Total 150 Balance 2792 Weight 108.3 kg General appearance: PRESENT: no acute distress, well-developed, well-nourished Head exam: PRESENT: atraumatic, normocephalic Eye exam: PRESENT: conjunctiva pink, EOMI, PERRLA. ABSENT: scleral icterus Ear exam: PRESENT: normal external ear exam Mouth exam: PRESENT: moist, tongue midline Neck exam: PRESENT: full ROM. ABSENT: carotid bruit, JVD, lymphadenopathy, thyromegaly Respiratory exam: PRESENT: clear to auscultation alphonse Cardiovascular exam: PRESENT: RRR. ABSENT: diastolic murmur, rubs, systolic murmur Pulses: PRESENT: normal dorsalis pedis pul, +2 pedal pulses bilateral Vascular exam: PRESENT: normal capillary refill GI/Abdominal exam: PRESENT: normal bowel sounds, soft. ABSENT: distended, guard ing, mass, organolmegaly, rebound, tenderness Rectal exam: PRESENT: deferred Neurological exam: PRESENT: alert, awake, oriented to person, oriented to place, oriented to time, oriented to situation, CN II-XII grossly intact. ABSENT: motor sensory deficit Psychiatric exam: PRESENT: appropriate affect, normal mood. ABSENT: homicidal ideation, suicidal ideation Skin exam: PRESENT: dry, intact, warm. ABSENT: cyanosis, rash Results Laboratory Results: 08/20/19 04:55 08/20/19 04:55 08/19/19 08/20/19 08/20/19 12:13 04:55 04:55 WBC 9.4 RBC 3.07 L Hgb 8.7 L Hct 26.1 L MCV 85 MCH 28.5 MCHC 33.5 RDW 14.5 H Plt Count 168 Seg Neutrophils % 75.5 Retic Count (auto) Sodium 138.0 Potassium 3.5 L Chloride 104 Carbon Dioxide 24 Anion Gap 10 BUN 19 Creatinine 1.17 Est GFR ( Amer) > 60 Glucose 107 Calcium 7.8 L Magnesium 2.1 Iron TIBC % Saturation Ferritin Total Bilirubin AST Alkaline Phosphatase Total Protein Albumin Vitamin B12 Folate 08/20/19 08/20/19 08/20/19 04:55 04:55 04:55 WBC RBC Hgb Hct MCV MCH MCHC RDW Plt Count Seg Neutrophils % Retic Count (auto) 2.16 Sodium 138.1 Potassium 3.4 L Chloride 104 Carbon Dioxide 25 Anion Gap 9 BUN 19 Creatinine 1.21 Est GFR ( Amer) > 60 Glucose 91 Calcium 8.4 Magnesium Iron 14.6 L TIBC 270 % Saturation 5 Ferritin 30.80 Total Bilirubin 0.4 AST 18 Alkaline Phosphatase 73 Total Protein 5.5 L Albumin 3.0 L Vitamin B12 306.0 Folate > 20.00 08/19/19 08/19/19 08/19/19 07:54 12:13 12:13 Creatine Kinase 64 CK-MB (CK-2) 1.24 Troponin I < 0.012 0.033 08/19/19 08/19/19 08/19/19 16:10 16:10 23:55 Creatine Kinase 87 133 CK-MB (CK-2) 1.83 Troponin I 0.041 08/19/19 23:55 Creatine Kinase CK-MB (CK-2) 2.57 Troponin I 0.042 Impressions: Chest X-Ray 08/19/19 08:11 IMPRESSION: Left upper and lower lobe infiltrate consistent with pneumonia. Assessment & Plan - Diagnosis (1) Pneumonia Qualifiers: Laterality: right Lung location: lower lobe of lung Is this a current diagnosis for this admission?: Yes Plan: Mostly community-acquired pneumonia we will start the patient on IV cefepime and Levaquin (2) Acute and chronic respiratory failure Qualifiers: Respiratory failure complication: hypoxia Is this a current diagnosis for this admission?: Yes Plan: Due to the COPD currently getting better continue some nebulizer treatments (3) Atrial fibrillation Qualifiers: Atrial fibrillation type: unspecified Is this a current diagnosis for this admission?: Yes Plan: We currently hold the Eliquis due to the anemia with ongoing problems continues to aspirin 81 mg discussed with the patient and the son understand very well (4) COPD (chronic obstructive pulmonary disease) with acute bronchitis Is this a current diagnosis for this admission?: Yes Plan: Continue some nebulizer treatments (5) Chronic kidney disease Qualifiers: Chronic kidney disease stage: stage 2 (mild) Qualified Code(s): N18.2 - Chronic kidney disease, stage 2 (mild) Is this a current diagnosis for this admission?: Yes Plan: Currently all stable (6) Congestive heart failure Is this a current diagnosis for this admission?: Yes Plan: Patient is currently follow with the Dr. Medrano currently all stable (7) Hypertension Qualifiers: Hypertension type: essential hypertension Is this a current diagnosis for this admission?: Yes (8) Anemia Qualifiers: Anemia type: other cause Other causes of anemia: other cause, not classified Qualified Code(s): D64.89 - Other specified anemias Is this a current diagnosis for this admission?: Yes Plan: Discussed with the Dr. Lunsford and suggest no need for endoscopy colonoscopy will just have recently done he will do outpatients capsule endoscopy Currently hold Eliquis - Time Time Spent with patient: 15-24 minutes Level of Care: IMCU Medications reviewed and adjusted accordingly: Yes Anticipated discharge: Home with Homehealth Within: Other - Plan Summary Plan Summary: Continues to IV antibiotic
[2019-08-20] MEDS: ATORVASTATIN CALCIUM 20 MG TABLET PO SCH (21:48)
[2019-08-21] MEDS: PANTOPRAZOLE SODIUM 40 MG TABLET.DR PO SCH (06:17)
[2019-08-21 06:31] LABS: ABSOLUTE EOSINOPHILS # (AUTO) 0.1 10^3/uL (0.0-0.6); ABSOLUTE LYMPHOCYTES (AUTO) 1.2 10^3/uL (0.5-4.7); ABSOLUTE NEUT (AUTO) 6.5 10^3/uL (1.7-8.2); BASOPHILS % (AUTO) 0.1 % (0-2); EOSINOPHILS % (AUTO) 0.9 % (0-6); HEMATOCRIT 26.2 % (37.9-51.0); HEMOGLOBIN 8.9 g/dL (13.5-17.0); LYMPHOCYTES % (AUTO) 13.4 % (13-45); MEAN CORPUSCULAR HEMOGLOBIN 28.5 pg (27.0-33.4); MEAN CORPUSCULAR HGB CONC 33.9 g/dL (32.0-36.0); MEAN CORPUSCULAR VOLUME 84 fl (80-97); MONOCYTES % (AUTO) 10.9 % (3-13); PLATELET COUNT 173 10^3/uL (150-450); RED BLOOD COUNT 3.13 10^6/uL (4.35-5.55); RED CELL DISTRIBUTION WIDTH 14.1 % (11.5-14.0); SEGMENTED NEUTROPHILS % (AUTO) 74.7 % (42-78); TOTAL CELLS COUNTED % (AUTO) 100 %; WHITE BLOOD COUNT 8.7 10^3/uL (4.0-10.5)
[2019-08-21 06:54] LABS: ANION GAP 9 (5-19); BLOOD UREA NITROGEN 19 mg/dL (7-20); CALCIUM 8.5 mg/dL (8.4-10.2); CARBON DIOXIDE 26 mmol/L (22-30); CHLORIDE 104 mmol/L (98-107); GLUCOSE 102 mg/dL (75-110); POTASSIUM 3.7 mmol/L (3.6-5.0)
--- NOTE | 2019-08-21 07:31 | PDOC PROGRESS REPORT ---
Subjective Progress Note for:: 08/21/19 Subjective:: Patient states that he is feeling well, only weak. He tells me that he has been on oral iron therapy for over a year, but is not sure that they are giving it to him here. ROS: No pain. No dyspnea. Reason For Visit: PNEUMONIA Physical Exam Vital Signs: Temp Pulse Resp BP Pulse Ox 98.8 F 87 19 156/52 H 95 08/21/19 03:16 08/21/19 03:16 08/21/19 03:16 08/21/19 03:16 08/21/19 03:16 Intake & Output 08/20/19 08/21/19 08/22/19 06:59 06:59 06:59 Intake Total 2942 1130 Output Total 150 100 Balance 2792 1030 Weight 108.3 kg 106.5 kg General appearance: PRESENT: no acute distress, well-developed, well-nourished Head exam: PRESENT: normocephalic Respiratory exam: PRESENT: unlabored Extremities exam: ABSENT: pedal edema Neurological exam: PRESENT: alert, awake Psychiatric exam: PRESENT: appropriate affect Skin exam: PRESENT: normal color Results Laboratory Results: 08/21/19 05:36 08/21/19 05:36 08/20/19 08/20/19 08/21/19 04:55 04:55 05:36 WBC 8.7 RBC 3.13 L Hgb 8.9 L Hct 26.2 L MCV 84 MCH 28.5 MCHC 33.9 RDW 14.1 H Plt Count 173 Seg Neutrophils % 74.7 Sodium 138.1 Potassium 3.4 L Chloride 104 Carbon Dioxide 25 Anion Gap 9 BUN 19 Creatinine 1.21 Est GFR ( Amer) > 60 Glucose 91 Calcium 8.4 Iron 14.6 L TIBC 270 % Saturation 5 Ferritin 30.80 Total Bilirubin 0.4 AST 18 Alkaline Phosphatase 73 Total Protein 5.5 L Albumin 3.0 L Vitamin B12 306.0 Folate > 20.00 08/21/19 05:36 WBC RBC Hgb Hct MCV MCH MCHC RDW Plt Count Seg Neutrophils % Sodium 139.2 Potassium 3.7 Chloride 104 Carbon Dioxide 26 Anion Gap 9 BUN 19 Creatinine 1.41 H Est GFR ( Amer) 58 L Glucose 102 Calcium 8.5 Iron TIBC % Saturation Ferritin Total Bilirubin AST Alkaline Phosphatase Total Protein Albumin Vitamin B12 Folate 08/19/19 08/19/19 08/19/19 07:54 12:13 12:13 Creatine Kinase 64 CK-MB (CK-2) 1.24 Troponin I < 0.012 0.033 08/19/19 08/19/19 08/19/19 16:10 16:10 23:55 Creatine Kinase 87 133 CK-MB (CK-2) 1.83 Troponin I 0.041 08/19/19 23:55 Creatine Kinase CK-MB (CK-2) 2.57 Troponin I 0.042 Impressions: Chest X-Ray 08/19/19 08:11 IMPRESSION: Left upper and lower lobe infiltrate consistent with pneumonia. Assessment & Plan - Diagnosis (1) Anemia Qualifiers: Anemia type: iron deficiency Is this a current diagnosis for this admission?: Yes Plan: His ferritin is still low, despite oral iron. SPEP is still pending, as is stool for occult blood. I will order Injectafer 750 mg x 1 dose to see if this will help the anemia. Await further study results. (2) Leukocytosis Qualifiers: Leukocytosis type: unspecified Qualified Code(s): D72.829 - Elevated white blood cell count, unspecified Is this a current diagnosis for this admission?: Yes Plan: Now resolved. - Time Time Spent with patient: 15-24 minutes - Plan Summary Plan Summary: Continue to hold Eliquis today, await occult blood results. If no evidence of bleeding, then OK to restart Eliquis at 2.5 mg po BID.
[2019-08-21] MEDS ORDERED: FERRIC CARBOXYMALTOSE INJ 750 MG/15 ML VIAL IV SCH (07:45)
[2019-08-21] MEDS: IPRATROPIUM/ALBUTEROL 0.5-2.5 MG/3 ML AMPUL NEB SCH ×3 (08:18→20:07)
[2019-08-21] MEDS ORDERED: FERRIC CARBOXYMALTOSE 750 MG in NORMAL SALINE 250 ML IV ONE (10:00)
[2019-08-21] MEDS: FLUTICASONE/VILANTEROL 200-25 MCG/DOSE IH SCH (10:41)
[2019-08-21] MEDS: FUROSEMIDE 20 MG TABLET PO SCH ×2 (10:42→19:19)
[2019-08-21] MEDS: NIFEDIPINE 30 MG TAB.ER.24 PO SCH ×2 (10:42→21:28)
[2019-08-21] MEDS: ASPIRIN 81 MG TABLET, ENT COATED PO SCH (10:42)
[2019-08-21] MEDS: LOSARTAN POTASSIUM 25 MG TABLET PO SCH (10:42)
[2019-08-21] MEDS: DOCUSATE SODIUM 100 MG CAPSULE PO SCH ×3 (10:42→19:21)
[2019-08-21] MEDS: RANOLAZINE 500 MG TAB.SR.12H PO SCH ×2 (10:42→19:19)
[2019-08-21] MEDS: ASCORBIC ACID 500 MG TABLET PO SCH (10:42)
[2019-08-21] MEDS: MULTIVITAMIN TABLET PO SCH (10:42)
[2019-08-21] MEDS: FAMOTIDINE 20 MG TABLET PO SCH ×2 (10:42→21:27)
[2019-08-21] MEDS: DOXAZOSIN MESYLATE 4 MG TABLET PO SCH (10:42)
[2019-08-21] MEDS: LEVOFLOXACIN 500 MG/D5W RTU 500 MG/100 ML RTUPB IV SCH (10:43)
[2019-08-21] MEDS: MUPIROCIN 2% OINTMENT 22 GM TOP SCH ×2 (10:44→21:28)
[2019-08-21] MEDS: ISOSORBIDE MONONITRATE 60 MG TAB.ER.24H PO SCH (10:45)
[2019-08-21] MEDS: CEFEPIME HCL 2 GM in DEXTROSE 5%-WATER 50 ML IV SCH ×2 (10:47→21:28)
--- NOTE | 2019-08-21 11:18 | PDOC PROGRESS REPORT ---
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 ABSENT: scleral icterus Ear exam: PRESENT: normal external ear exam Mouth exam: PRESENT: moist, tongue midline Neck exam: PRESENT: full ROM. ABSENT: carotid bruit, JVD, lymphadenopathy, thyromegaly Respiratory exam: PRESENT: clear to auscultation alphonse Cardiovascular exam: PRESENT: RRR. ABSENT: diastolic murmur, rubs, systolic murmur Pulses: PRESENT: normal dorsalis pedis pul, +2 pedal pulses bilateral Vascular exam: PRESENT: normal capillary refill GI/Abdominal exam: PRESENT: normal bowel sounds, soft. ABSENT: distended, guarding, mass, organolmegaly, rebound, tenderness Rectal exam: PRESENT: deferred Musculoskeletal exam: PRESENT: ambulatory Neurological exam: PRESENT: alert, awake, oriented to person, oriented to place, oriented to time, oriented to situation, CN II-XII grossly intact. ABSENT: motor sensory deficit Psychiatric exam: PRESENT: appropriate affect, normal mood. ABSENT: homicidal ideation, suicidal ideation Skin exam: PRESENT: dry, intact, warm. ABSENT: cyanosis, rash Results Laboratory Results: 08/21/19 05:36 08/21/19 05:36 08/21/19 08/21/19 05:36 05:36 WBC 8.7 RBC 3.13 L Hgb 8.9 L Hct 26.2 L MCV 84 MCH 28.5 MCHC 33.9 RDW 14.1 H Plt Count 173 Seg Neutrophils % 74.7 Sodium 139.2 Potassium 3.7 Chloride 104 Carbon Dioxide 26 Anion Gap 9 BUN 19 Creatinine 1.41 H Est GFR ( Amer) 58 L Glucose 102 Calcium 8.5 08/19/19 11:40 Sputum Gram Stain - Final 08/19/19 11:40 Sputum Sputum Culture - Final NORMAL FIDELINA 08/19/19 08/19/19 08/19/19 07:54 12:13 12:13 Creatine Kinase 64 CK-MB (CK-2) 1.24 Troponin I < 0.012 0.033 08/19/19 08/19/19 08/19/19 16:10 16:10 23:55 Creatine Kinase 87 133 CK-MB (CK-2) 1.83 Troponin I 0.041 08/19/19 23:55 Creatine Kinase CK-MB (CK-2) 2.57 Troponin I 0.042 Impressions: Chest X-Ray 08/19/19 08:11 IMPRESSION: Left upper and lower lobe infiltrate consistent with pneumonia. Assessment & Plan - Diagnosis (1) Pneumonia Qualifiers: Laterality: right Lung location: lower lobe of lung Is this a current diagnosis for this admission?: Yes Plan: Continues to IV antibiotic (2) Acute and chronic respiratory failure Qualifiers: Respiratory failure complication: hypoxia Is this a current diagnosis for this admission?: Yes Plan: Currently all stable (3) Atrial fibrillation Qualifiers: Atrial fibrillation type: unspecified Is this a current diagnosis for this admission?: Yes Plan: We currently hold the Eliquis due to the anemia with ongoing problems continues to aspirin 81 mg discussed with the patient and the son understand very well (4) COPD (chronic obstructive pulmonary disease) with acute bronchitis Is this a current diagnosis for this admission?: Yes Plan: Continue some nebulizer treatments (5) Chronic kidney disease Qualifiers: Chronic kidney disease stage: stage 2 (mild) Qualified Code(s): N18.2 - Chronic kidney disease, stage 2 (mild) Is this a current diagnosis for this admission?: Yes Plan: Currently all stable (6) Congestive heart failure Is this a current diagnosis for this admission?: Yes Plan: Patient is currently follow with the Dr. Medrano currently all stable (7) Hypertension Qualifiers: Hypertension type: essential hypertension Is this a current diagnosis for this admission?: Yes (8) Anemia Qualifiers: Anemia type: iron deficiency Is this a current diagnosis for this admission?: Yes Plan: Plan for IV transfusions discussed with the Dr. Lunsford follow outpatients recently have endoscopy and colonoscopy done was all stable - Time Time Spent with patient: 15-24 minutes Level of Care: IMCU Medications reviewed and adjusted accordingly: Yes Anticipated discharge: Home with Homehealth Within: Other - Plan Summary Plan Summary: Continues to current medications
[2019-08-21 17:36] LABS: FREE KAPPA LIGHT CHAINS 28.5 mg/L (3.3-19.4); FREE LAMBDA LIGHT CHAINS 36.4 mg/L (5.7-26.3)
[2019-08-21] MEDS: ATORVASTATIN CALCIUM 20 MG TABLET PO SCH (21:28)
[2019-08-22 01:22] LABS: ARTERIAL BLOOD BASE EXCESS -0.6 mmol/L; ARTERIAL BLOOD H2CO3 1.01 mmol/L (1.05-1.35); ARTERIAL BLOOD O2 SATURATION 95.6 % (94-98); ARTERIAL BLOOD PCO2 33.7 mmHg (35-45); ARTERIAL BLOOD PH 7.45 (7.35-7.45); ARTERIAL BLOOD PO2 73.7 mmHg (80-100)
--- NOTE | 2019-08-22 02:00 | RADIOLOGY REPORT (SQ) ---
EXAM DESCRIPTION: XR CHEST 1 VIEW COMPLETED DATE/TME: 08/22/2019 00:00 CLINICAL HISTORY: 84 years Male, SOB Tachypnea COMPARISON: 3 days prior. NUMBER OF VIEWS/TECHNIQUE: 1/AP FINDINGS: Moderate mixed airspace and interstitial opacity, left more than right including moderate patchy opacities of the left lower and midlung field. Normal cardiac silhouette. Left cardiac stimulator with leads. No pneumothorax. Stable bony thorax. IMPRESSION: No significant change.
[2019-08-22 05:27] LABS: ABSOLUTE EOSINOPHILS # (AUTO) 0.1 10^3/uL (0.0-0.6); ABSOLUTE LYMPHOCYTES (AUTO) 0.8 10^3/uL (0.5-4.7); ABSOLUTE NEUT (AUTO) 6.4 10^3/uL (1.7-8.2); BASOPHILS % (AUTO) 0.2 % (0-2); EOSINOPHILS % (AUTO) 1.4 % (0-6); HEMATOCRIT 24.1 % (37.9-51.0); HEMOGLOBIN 8.4 g/dL (13.5-17.0); LYMPHOCYTES % (AUTO) 9.5 % (13-45); MEAN CORPUSCULAR HEMOGLOBIN 28.7 pg (27.0-33.4); MEAN CORPUSCULAR HGB CONC 34.7 g/dL (32.0-36.0); MEAN CORPUSCULAR VOLUME 83 fl (80-97); MONOCYTES % (AUTO) 11.8 % (3-13); PLATELET COUNT 193 10^3/uL (150-450); RED BLOOD COUNT 2.91 10^6/uL (4.35-5.55); RED CELL DISTRIBUTION WIDTH 14.2 % (11.5-14.0); SEGMENTED NEUTROPHILS % (AUTO) 77.1 % (42-78); TOTAL CELLS COUNTED % (AUTO) 100 %; WHITE BLOOD COUNT 8.3 10^3/uL (4.0-10.5)
[2019-08-22] MEDS: PANTOPRAZOLE SODIUM 40 MG TABLET.DR PO SCH (05:43)
[2019-08-22 05:54] LABS: ANION GAP 12 (5-19); BLOOD UREA NITROGEN 22 mg/dL (7-20); CALCIUM 8.5 mg/dL (8.4-10.2); CARBON DIOXIDE 25 mmol/L (22-30); CHLORIDE 102 mmol/L (98-107); GLUCOSE 109 mg/dL (75-110); POTASSIUM 3.4 mmol/L (3.6-5.0)
[2019-08-22] MEDS ORDERED: POTASSIUM CHLORIDE 20 MEQ PACKET PO ONE ×2 (06:35→13:00)
[2019-08-22] MEDS ORDERED: POTASSIUM CHLORIDE 10 MEQ TABLET.ER PO ONE (06:48)
[2019-08-22 07:08] LABS: KAPPA LAMBDA RATIO 0.78 (0.26-1.65)
--- NOTE | 2019-08-22 08:14 | PDOC PROGRESS REPORT ---
Subjective Subjective:: Patient stte he had episode of hypoxia last night. He was placed on BiPAP, Today, he is feeling better. No reaction yesterday to IV iron. Reason For Visit: PNEUMONIA Physical Exam Vital Signs: Temp Pulse Resp BP Pulse Ox 98.2 F 84 20 146/57 H 92 08/21/19 23:45 08/22/19 07:00 08/22/19 04:17 08/22/19 04:17 08/22/19 04:17 Intake & Output 08/21/19 08/22/19 08/23/19 06:59 06:59 06:59 Intake Total 1130 2115 Output Total 100 Balance 1030 2115 Weight 106.5 kg 106 kg General appearance: PRESENT: well-developed, well-nourished Head exam: PRESENT: normocephalic Respiratory exam: PRESENT: clear to auscultation alphonse, unlabored Cardiovascular exam: PRESENT: RRR GI/Abdominal exam: PRESENT: soft. ABSENT: tenderness Neurological exam: PRESENT: alert, awake Skin exam: PRESENT: normal color Results Laboratory Results: 08/22/19 05:04 08/22/19 05:04 08/22/19 08/22/19 08/22/19 01:10 05:04 05:04 WBC 8.3 RBC 2.91 L Hgb 8.4 L Hct 24.1 L MCV 83 MCH 28.7 MCHC 34.7 RDW 14.2 H Plt Count 193 Seg Neutrophils % 77.1 Carbonic Acid 1.01 L HCO3/H2CO3 Ratio 22:1 ABG pH 7.45 ABG pCO2 33.7 L ABG pO2 73.7 L ABG HCO3 23.0 ABG O2 Saturation 95.6 ABG Base Excess -0.6 FiO2 15% Sodium 138.6 Potassium 3.4 L Chloride 102 Carbon Dioxide 25 Anion Gap 12 BUN 22 H Creatinine 1.46 H Est GFR ( Amer) 56 L Glucose 109 Calcium 8.5 08/19/19 09:20 Clean Catch Midstream Urine Culture - Final NO GROWTH 2 DAYS 08/19/19 11:40 Sputum Gram Stain - Final 08/19/19 11:40 Sputum Sputum Culture - Final NORMAL FIDELINA 08/19/19 08/19/19 08/19/19 07:54 12:13 12:13 Creatine Kinase 64 CK-MB (CK-2) 1.24 Troponin I < 0.012 0.033 08/19/19 08/19/19 08/19/19 16:10 16:10 23:55 Creatine Kinase 87 133 CK-MB (CK-2) 1.83 Troponin I 0.041 08/19/19 23:55 Creatine Kinase CK-MB (CK-2) 2.57 Troponin I 0.042 Impressions: Chest X-Ray 08/22/19 00:00 IMPRESSION: No significant change. Assessment & Plan - Diagnosis (1) Anemia Qualifiers: Anemia type: iron deficiency Is this a current diagnosis for this admission?: Yes Plan: stable, s/p IV iron. Will repeat all levels in about 4-6 weeks as outpatient. (2) Leukocytosis Qualifiers: Leukocytosis type: unspecified Qualified Code(s): D72.829 - Elevated white blood cell count, unspecified Is this a current diagnosis for this admission?: Yes Plan: Most likely reactive. Now resolved. I will sign off. Please call if needed. - Time Time Spent with patient: Less than 15 minutes
[2019-08-22] MEDS: IPRATROPIUM/ALBUTEROL 0.5-2.5 MG/3 ML AMPUL NEB SCH ×3 (08:34→20:56)
--- NOTE | 2019-08-22 11:45 | PDOC PROGRESS REPORT ---
Subjective Progress Note for:: 08/22/19 Subjective:: Patients have a shortness of the breath episode last night patient was put on a BiPAP She is currently doing much better Patient's pH was all normal CO2 is also normal and chest x-ray is all stable Is currently hold the Eliquis Denied any chest pain denied any shortness of the breath Reason For Visit: PNEUMONIA Physical Exam Vital Signs: Temp Pulse Resp BP Pulse Ox 98.0 F 87 18 143/56 H 100 08/22/19 08:39 08/22/19 08:39 08/22/19 08:39 08/22/19 08:39 08/22/19 08:39 Intake & Output 08/21/19 08/22/19 08/23/19 06:59 06:59 06:59 Intake Total 1130 2115 Output Total 100 Balance 1030 2115 Weight 106.5 kg 106 kg General appearance: PRESENT: no acute distress, well-developed, well-nourished Head exam: PRESENT: atraumatic, normocephalic Eye exam: PRESENT: conjunctiva pink, EOMI, PERRLA. ABSENT: scleral icterus Ear exam: PRESENT: normal external ear exam Mouth exam: PRESENT: moist, tongue midline Neck exam: PRESENT: full ROM. ABSENT: carotid bruit, JVD, lymphadenopathy, t hyromegaly Respiratory exam: PRESENT: clear to auscultation alphonse Cardiovascular exam: PRESENT: RRR. ABSENT: diastolic murmur, rubs, systolic murmur Pulses: PRESENT: normal dorsalis pedis pul, +2 pedal pulses bilateral Vascular exam: PRESENT: normal capillary refill GI/Abdominal exam: PRESENT: normal bowel sounds, soft. ABSENT: distended, guarding, mass, organolmegaly, rebound, tenderness Rectal exam: PRESENT: deferred Musculoskeletal exam: PRESENT: ambulatory Neurological exam: PRESENT: alert, awake, oriented to person, oriented to place, oriented to time, oriented to situation, CN II-XII grossly intact. ABSENT: motor sensory deficit Psychiatric exam: PRESENT: appropriate affect, normal mood. ABSENT: homicidal ideation, suicidal ideation Skin exam: PRESENT: dry, intact, warm. ABSENT: cyanosis, rash Results Laboratory Results: 08/22/19 05:04 08/22/19 05:04 12/20/19 12/20/19 12/20/19 01:10 05:04 05:04 WBC 8.3 RBC 2.91 L Hgb 8.4 L Hct 24.1 L MCV 83 MCH 28.7 MCHC 34.7 RDW 14.2 H Plt Count 193 Seg Neutrophils % 77.1 Carbonic Acid 1.01 L HCO3/H2CO3 Ratio 22:1 ABG pH 7.45 ABG pCO2 33.7 L ABG pO2 73.7 L ABG HCO3 23.0 ABG O2 Saturation 95.6 ABG Base Excess -0.6 FiO2 15% Sodium 138.6 Potassium 3.4 L Chloride 102 Carbon Dioxide 25 Anion Gap 12 BUN 22 H Creatinine 1.46 H Est GFR ( Amer) 56 L Glucose 109 Calcium 8.5 08/19/19 09:20 Clean Catch Midstream Urine Culture - Final NO GROWTH 2 DAYS 08/19/19 11:40 Sputum Gram Stain - Final 08/19/19 11:40 Sputum Sputum Culture - Final NORMAL FIDELINA 08/19/19 08/19/19 08/19/19 07:54 12:13 12:13 Creatine Kinase 64 CK-MB (CK-2) 1.24 Troponin I < 0.012 0.033 08/19/19 08/19/19 08/19/19 16:10 16:10 23:55 Creatine Kinase 87 133 CK-MB (CK-2) 1.83 Troponin I 0.041 08/19/19 23:55 Creatine Kinase CK-MB (CK-2) 2.57 Troponin I 0.042 Impressions: Chest X-Ray 08/22/19 00:00 IMPRESSION: No significant change. Assessment & Plan - Diagnosis (1) Pneumonia Qualifiers: Laterality: right Lung location: lower lobe of lung Is this a current diagnosis for this admission?: Yes Plan: Continues to IV antibiotic (2) Acute and chronic respiratory failure Qualifiers: Respiratory failure complication: hypoxia Is this a current diagnosis for this admission?: Yes Plan: Currently all stable (3) Atrial fibrillation Qualifiers: Atrial fibrillation type: unspecified Is this a current diagnosis for this admission?: Yes Plan: We currently hold the Eliquis due to the anemia with ongoing problems continues to aspirin 81 mg discussed with the patient and the son understand very well (4) COPD (chronic obstructive pulmonary disease) with acute bronchitis Is this a current diagnosis for this admission?: Yes Plan: Continue some nebulizer treatments (5) Chronic kidney disease Qualifiers: Chronic kidney disease stage: stage 2 (mild) Qualified Code(s): N18.2 - Chronic kidney disease, stage 2 (mild) Is this a current diagnosis for this admission?: Yes Plan: Currently all stable (6) Congestive heart failure Is this a current diagnosis for this admission?: Yes Plan: Patient is currently follow with the Dr. Medrano currently all stable (7) Hypertension Qualifiers: Hypertension type: essential hypertension Is this a current diagnosis for this admission?: Yes (8) Anemia Qualifiers: Anemia type: iron deficiency Is this a current diagnosis for this admission?: Yes - Time Time Spent with patient: 15-24 minutes Level of Care: IMCU Medications reviewed and adjusted accordingly: Yes Anticipated discharge: Home with Homehealth Within: Other - Plan Summary Plan Summary: Continues to current antibiotic
[2019-08-22] MEDS: LEVOFLOXACIN 500 MG/D5W RTU 500 MG/100 ML RTUPB IV SCH (12:03)
[2019-08-22] MEDS: DOXAZOSIN MESYLATE 4 MG TABLET PO SCH (12:04)
[2019-08-22] MEDS: FUROSEMIDE 20 MG TABLET PO SCH ×2 (12:04→18:38)
[2019-08-22] MEDS: NIFEDIPINE 30 MG TAB.ER.24 PO SCH ×2 (12:04→21:30)
[2019-08-22] MEDS: LOSARTAN POTASSIUM 25 MG TABLET PO SCH (12:04)
[2019-08-22] MEDS: ISOSORBIDE MONONITRATE 60 MG TAB.ER.24H PO SCH (12:04)
[2019-08-22] MEDS: RANOLAZINE 500 MG TAB.SR.12H PO SCH ×2 (12:05→18:37)
[2019-08-22] MEDS: MULTIVITAMIN TABLET PO SCH (12:05)
[2019-08-22] MEDS: ASPIRIN 81 MG TABLET, ENT COATED PO SCH (12:05)
[2019-08-22] MEDS: FAMOTIDINE 20 MG TABLET PO SCH ×2 (12:05→21:30)
[2019-08-22] MEDS: DOCUSATE SODIUM 100 MG CAPSULE PO SCH ×3 (12:05→18:38)
[2019-08-22] MEDS: ASCORBIC ACID 500 MG TABLET PO SCH (12:05)
[2019-08-22] MEDS: MUPIROCIN 2% OINTMENT 22 GM TOP SCH ×2 (12:06→21:30)
[2019-08-22] MEDS: FLUTICASONE/VILANTEROL 200-25 MCG/DOSE IH SCH (12:06)
[2019-08-22] MEDS: CEFEPIME HCL 2 GM in DEXTROSE 5%-WATER 50 ML IV SCH ×2 (12:38→21:30)
[2019-08-22 16:37] LABS: A/G RATIO. 1.4 (0.7-1.7); ALPHA-1-GLOBULIN 0.3 g/dL (0.0-0.4); BETA GLOBULIN 0.7 g/dL (0.7-1.3); GAMMA GLOBULINS 0.5 g/dL (0.4-1.8); IMMUNOGLOBULIN A 199 mg/dL (61-437); IMMUNOGLOBULIN G 644 mg/dL (700-1600); IMMUNOGLOBULIN M 32 mg/dL (15-143); MONOCLONAL-SPIKE Not Observed g/dL (Not Observ); PROTEIN TOTAL SERUM 5.2 g/dL (6.0-8.5)
[2019-08-22] MEDS: ATORVASTATIN CALCIUM 20 MG TABLET PO SCH (21:30)
[2019-08-23] MEDS: PANTOPRAZOLE SODIUM 40 MG TABLET.DR PO SCH (05:34)
[2019-08-23 06:11] LABS: ANION GAP 10 (5-19); BLOOD UREA NITROGEN 23 mg/dL (7-20); CALCIUM 8.5 mg/dL (8.4-10.2); CARBON DIOXIDE 26 mmol/L (22-30); CHLORIDE 105 mmol/L (98-107); GLUCOSE 95 mg/dL (75-110); POTASSIUM 3.5 mmol/L (3.6-5.0)
[2019-08-23] MEDS: IPRATROPIUM/ALBUTEROL 0.5-2.5 MG/3 ML AMPUL NEB SCH ×3 (08:19→20:39)
[2019-08-23] MEDS: DOCUSATE SODIUM 100 MG CAPSULE PO SCH ×3 (09:26→17:21)
[2019-08-23] MEDS: CEFEPIME HCL 2 GM in DEXTROSE 5%-WATER 50 ML IV SCH ×2 (09:29→22:44)
[2019-08-23] MEDS: FLUTICASONE/VILANTEROL 200-25 MCG/DOSE IH SCH (09:33)
[2019-08-23] MEDS: ASCORBIC ACID 500 MG TABLET PO SCH (09:34)
[2019-08-23] MEDS: MULTIVITAMIN TABLET PO SCH (09:34)
[2019-08-23] MEDS: MUPIROCIN 2% OINTMENT 22 GM TOP SCH ×2 (09:34→22:45)
[2019-08-23] MEDS: ISOSORBIDE MONONITRATE 60 MG TAB.ER.24H PO SCH (09:35)
[2019-08-23] MEDS: LEVOFLOXACIN 500 MG/D5W RTU 500 MG/100 ML RTUPB IV SCH (09:35)
[2019-08-23] MEDS: ASPIRIN 81 MG TABLET, ENT COATED PO SCH (09:35)
[2019-08-23] MEDS: NIFEDIPINE 30 MG TAB.ER.24 PO SCH ×2 (09:35→22:45)
[2019-08-23] MEDS: FUROSEMIDE 20 MG TABLET PO SCH ×2 (09:35→17:21)
[2019-08-23] MEDS: DOXAZOSIN MESYLATE 4 MG TABLET PO SCH (09:35)
[2019-08-23] MEDS: FAMOTIDINE 20 MG TABLET PO SCH ×2 (09:35→22:45)
[2019-08-23] MEDS: RANOLAZINE 500 MG TAB.SR.12H PO SCH ×2 (09:35→17:21)
[2019-08-23] MEDS: LOSARTAN POTASSIUM 25 MG TABLET PO SCH (09:35)
--- NOTE | 2019-08-23 20:06 | PDOC PROGRESS REPORT ---
Subjective Progress Note for:: 08/23/19 Subjective:: Patient seen by the bedside, he was admitted for the management of pneumonia, he has no new complaints Reason For Visit: PNEUMONIA Physical Exam Vital Signs: Temp Pulse Resp BP Pulse Ox 98.4 F 79 16 121/46 L 93 08/23/19 15:43 08/23/19 15:43 08/23/19 15:43 08/23/19 15:43 08/23/19 15:43 Intake & Output 08/22/19 08/23/19 08/24/19 06:59 06:59 06:59 Intake Total 2114 1538 1929 Balance 2114 1538 1929 Weight 106 kg 104 kg General appearance: PRESENT: no acute distress Eye exam: PRESENT: PERRLA Respiratory exam: PRESENT: clear to auscultation alphonse Cardiovascular exam: PRESENT: +S1, +S2 GI/Abdominal exam: PRESENT: soft Neurological exam: PRESENT: alert, CN II-XII grossly intact Results Laboratory Results: 08/22/19 05:04 08/23/19 04:54 08/23/19 04:54 Sodium 140.5 Potassium 3.5 L Chloride 105 Carbon Dioxide 26 Anion Gap 10 BUN 23 H Creatinine 1.45 H Est GFR ( Amer) 56 L Glucose 95 Calcium 8.5 08/19/19 08/19/19 08/19/19 07:54 12:13 12:13 Creatine Kinase 64 CK-MB (CK-2) 1.24 Troponin I < 0.012 0.033 08/19/19 08/19/19 08/19/19 16:10 16:10 23:55 Creatine Kinase 87 133 CK-MB (CK-2) 1.83 Troponin I 0.041 08/19/19 23:55 Creatine Kinase CK-MB (CK-2) 2.57 Troponin I 0.042 Impressions: Chest X-Ray 08/22/19 00:00 IMPRESSION: No significant change. Assessment & Plan - Diagnosis (1) Right upper lobe pneumonia Qualifiers: Pneumonia type: due to unspecified organism Qualified Code(s): J18.9 - Pneumonia, unspecified organism Is this a current diagnosis for this admission?: Yes Plan: Continue IV antibiotic (2) Paroxysmal atrial fibrillation Is this a current diagnosis for this admission?: Yes (3) Prostate cancer Is this a current diagnosis for this admission?: Yes - Time Time Spent with patient: 15-24 minutes
[2019-08-23] MEDS: ATORVASTATIN CALCIUM 20 MG TABLET PO SCH (22:45)
[2019-08-24] MEDS: PANTOPRAZOLE SODIUM 40 MG TABLET.DR PO SCH (05:49)
[2019-08-24] MEDS: IPRATROPIUM/ALBUTEROL 0.5-2.5 MG/3 ML AMPUL NEB SCH ×3 (08:35→20:04)
[2019-08-24] MEDS: DOCUSATE SODIUM 100 MG CAPSULE PO SCH ×2 (09:34→17:46)
[2019-08-24] MEDS: RANOLAZINE 500 MG TAB.SR.12H PO SCH ×2 (09:34→17:46)
[2019-08-24] MEDS: MUPIROCIN 2% OINTMENT 22 GM TOP SCH ×2 (09:34→23:11)
[2019-08-24] MEDS: ASPIRIN 81 MG TABLET, ENT COATED PO SCH (09:34)
[2019-08-24] MEDS: ISOSORBIDE MONONITRATE 60 MG TAB.ER.24H PO SCH (09:34)
[2019-08-24] MEDS: NIFEDIPINE 30 MG TAB.ER.24 PO SCH ×2 (09:34→23:10)
[2019-08-24] MEDS: FLUTICASONE/VILANTEROL 200-25 MCG/DOSE IH SCH (09:34)
[2019-08-24] MEDS: DOXAZOSIN MESYLATE 4 MG TABLET PO SCH (09:35)
[2019-08-24] MEDS: LOSARTAN POTASSIUM 25 MG TABLET PO SCH (09:35)
[2019-08-24] MEDS: FAMOTIDINE 20 MG TABLET PO SCH ×2 (09:35→23:11)
[2019-08-24] MEDS: ASCORBIC ACID 500 MG TABLET PO SCH (09:35)
[2019-08-24] MEDS: FUROSEMIDE 20 MG TABLET PO SCH ×2 (09:35→17:46)
[2019-08-24] MEDS: LEVOFLOXACIN 500 MG/D5W RTU 500 MG/100 ML RTUPB IV SCH (09:35)
[2019-08-24] MEDS: MULTIVITAMIN TABLET PO SCH (09:35)
[2019-08-24] MEDS: CEFEPIME HCL 2 GM in DEXTROSE 5%-WATER 50 ML IV SCH ×2 (11:05→23:10)
--- NOTE | 2019-08-24 16:11 | PDOC PROGRESS REPORT ---
Subjective Progress Note for:: 08/24/19 Subjective:: Patient is seen by the bedside he has no new complaints today Reason For Visit: PNEUMONIA Physical Exam Vital Signs: Temp Pulse Resp BP Pulse Ox 97.8 F 75 18 149/57 H 96 08/24/19 11:18 08/24/19 14:00 08/24/19 14:00 08/24/19 11:18 08/24/19 14:00 Intake & Output 08/23/19 08/24/19 08/25/19 06:59 06:59 06:59 Intake Total 1539 1979 Balance 1539 1979 Weight 104 kg 104.2 kg General appearance: PRESENT: no acute distress Eye exam: PRESENT: PERRLA Respiratory exam: PRESENT: rhonchi Cardiovascular exam: PRESENT: +S1, +S2 GI/Abdominal exam: PRESENT: soft Results Laboratory Results: 08/22/19 05:04 08/23/19 04:54 08/20/19 08/24/19 09:52 12:00 Total Protein 5.2 L Stool Occult Blood POSITIVE 08/19/19 09:18 Blood Blood Culture - Final NO GROWTH IN 5 DAYS 08/19/19 07:54 Blood Blood Culture - Final NO GROWTH IN 5 DAYS 08/19/19 08/19/19 08/19/19 07:54 12:13 12:13 Creatine Kinase 64 CK-MB (CK-2) 1.24 Troponin I < 0.012 0.033 08/19/19 08/19/19 08/19/19 16:10 16:10 23:55 Creatine Kinase 87 133 CK-MB (CK-2) 1.83 Troponin I 0.041 08/19/19 23:55 Creatine Kinase CK-MB (CK-2) 2.57 Troponin I 0.042 Impressions: Chest X-Ray 08/22/19 00:00 IMPRESSION: No significant change. Assessment & Plan - Diagnosis (1) Right upper lobe pneumonia Qualifiers: Pneumonia type: due to unspecified organism Qualified Code(s): J18.9 - Pneumonia, unspecified organism Is this a current diagnosis for this admission?: Yes Plan: Continue IV antibiotic (2) Paroxysmal atrial fibrillation Is this a current diagnosis for this admission?: Yes (3) Prostate cancer Is this a current diagnosis for this admission?: Yes - Time Time Spent with patient: 15-24 minutes Level of Care: IMCU
[2019-08-24 16:46] LABS: ALKALINE PHOSPHATASE 73 U/L (38-126); ANION GAP 12 (5-19); ASPARTATE AMINO TRANSFERASE 23 U/L (17-59); BILIRUBIN,DIRECT 0.2 mg/dL (0.0-0.4); BILIRUBIN,TOTAL 0.4 mg/dL (0.2-1.3); BLOOD UREA NITROGEN 23 mg/dL (7-20); CALCIUM 8.2 mg/dL (8.4-10.2); CARBON DIOXIDE 25 mmol/L (22-30); CHLORIDE 102 mmol/L (98-107); GLUCOSE 100 mg/dL (75-110); POTASSIUM 3.3 mmol/L (3.6-5.0); TOTAL PROTEIN 5.7 g/dL (6.3-8.2)
[2019-08-24 16:48] LABS: ABSOLUTE EOSINOPHILS # (AUTO) 0.2 10^3/uL (0.0-0.6); ABSOLUTE LYMPHOCYTES (AUTO) 0.9 10^3/uL (0.5-4.7); ABSOLUTE MONOCYTES (AUTO) 1.1 10^3/uL (0.1-1.4); ABSOLUTE NEUT (AUTO) 4.7 10^3/uL (1.7-8.2); BASOPHILS % (AUTO) 0.3 % (0-2); EOSINOPHILS % (AUTO) 3.5 % (0-6); HEMATOCRIT 24.3 % (37.9-51.0); HEMOGLOBIN 8.2 g/dL (13.5-17.0); LYMPHOCYTES % (AUTO) 12.4 % (13-45); MEAN CORPUSCULAR HEMOGLOBIN 28.6 pg (27.0-33.4); MEAN CORPUSCULAR VOLUME 84 fl (80-97); MONOCYTES % (AUTO) 15.5 % (3-13); PLATELET COUNT 244 10^3/uL (150-450); RED BLOOD COUNT 2.88 10^6/uL (4.35-5.55); RED CELL DISTRIBUTION WIDTH 14.3 % (11.5-14.0); SEGMENTED NEUTROPHILS % (AUTO) 68.3 % (42-78); TOTAL CELLS COUNTED % (AUTO) 100 %; WHITE BLOOD COUNT 6.9 10^3/uL (4.0-10.5)
[2019-08-24] MEDS: ATORVASTATIN CALCIUM 20 MG TABLET PO SCH (23:11)
[2019-08-25 05:12] LABS: HEMATOCRIT 25.6 % (37.9-51.0); HEMOGLOBIN 8.7 g/dL (13.5-17.0); MEAN CORPUSCULAR HEMOGLOBIN 28.6 pg (27.0-33.4); MEAN CORPUSCULAR HGB CONC 33.9 g/dL (32.0-36.0); MEAN CORPUSCULAR VOLUME 84 fl (80-97); PLATELET COUNT 246 10^3/uL (150-450); RED BLOOD COUNT 3.03 10^6/uL (4.35-5.55); RED CELL DISTRIBUTION WIDTH 14.4 % (11.5-14.0); WHITE BLOOD COUNT 6.6 10^3/uL (4.0-10.5)
[2019-08-25] MEDS: PANTOPRAZOLE SODIUM 40 MG TABLET.DR PO SCH (05:20)
[2019-08-25 05:39] LABS: ALBUMIN 3.1 g/dL (3.5-5.0); ALKALINE PHOSPHATASE 83 U/L (38-126); ANION GAP 12 (5-19); ASPARTATE AMINO TRANSFERASE 23 U/L (17-59); BILIRUBIN,DIRECT 0.2 mg/dL (0.0-0.4); BILIRUBIN,TOTAL 0.4 mg/dL (0.2-1.3); BLOOD UREA NITROGEN 21 mg/dL (7-20); CALCIUM 8.3 mg/dL (8.4-10.2); CARBON DIOXIDE 27 mmol/L (22-30); CHLORIDE 102 mmol/L (98-107); GLUCOSE 95 mg/dL (75-110); POTASSIUM 3.3 mmol/L (3.6-5.0); TOTAL PROTEIN 5.8 g/dL (6.3-8.2)
[2019-08-25 05:49] LABS: ABSOLUTE LYMPHOCYTES# (MANUAL) 1.1 10^3/uL (0.5-4.7); ABSOLUTE MONOCYTES # (MANUAL) 0.3 10^3/uL (0.1-1.4); BAND NEUTROPHILS % (MANUAL) 3 % (3-5); BASOPHILS % (MANUAL) 1 % (0-2); EOSINOPHILS % (MANUAL) 5 % (0-6); LYMPHOCYTES % (MANUAL) 17 % (13-45); MONOCYTES % (MANUAL) 4 % (3-13); SEGMENTED NEUTROPHILS % (MAN) 70 % (42-78); TOTAL CELLS COUNTED 100
[2019-08-25 05:50] LABS: ANISOCYTOSIS 1+; PLATELET COMMENT ADEQUATE; POLYCHROMASIA 1+
[2019-08-25] MEDS ORDERED: POTASSIUM CHLORIDE 20 MEQ PACKET PO ONE ×2 (07:45→10:30)
[2019-08-25] MEDS: IPRATROPIUM/ALBUTEROL 0.5-2.5 MG/3 ML AMPUL NEB SCH ×3 (08:17→20:40)
[2019-08-25] MEDS: FAMOTIDINE 20 MG TABLET PO SCH ×2 (10:11→21:52)
[2019-08-25] MEDS: LOSARTAN POTASSIUM 25 MG TABLET PO SCH (10:11)
[2019-08-25] MEDS: DOXAZOSIN MESYLATE 4 MG TABLET PO SCH (10:11)
[2019-08-25] MEDS: ASCORBIC ACID 500 MG TABLET PO SCH (10:11)
[2019-08-25] MEDS: NIFEDIPINE 30 MG TAB.ER.24 PO SCH ×2 (10:11→21:52)
[2019-08-25] MEDS: FUROSEMIDE 20 MG TABLET PO SCH ×2 (10:12→18:11)
[2019-08-25] MEDS: MULTIVITAMIN TABLET PO SCH (10:12)
[2019-08-25] MEDS: ISOSORBIDE MONONITRATE 60 MG TAB.ER.24H PO SCH (10:12)
[2019-08-25] MEDS: DOCUSATE SODIUM 100 MG CAPSULE PO SCH ×2 (10:12→18:11)
[2019-08-25] MEDS: RANOLAZINE 500 MG TAB.SR.12H PO SCH ×2 (10:12→18:11)
[2019-08-25] MEDS: ASPIRIN 81 MG TABLET, ENT COATED PO SCH (10:12)
[2019-08-25] MEDS: CEFEPIME HCL 2 GM in DEXTROSE 5%-WATER 50 ML IV SCH (10:12)
[2019-08-25] MEDS: FLUTICASONE/VILANTEROL 200-25 MCG/DOSE IH SCH (10:13)
[2019-08-25] MEDS: LEVOFLOXACIN 500 MG/D5W RTU 500 MG/100 ML RTUPB IV SCH (10:13)
[2019-08-25] MEDS: MUPIROCIN 2% OINTMENT 22 GM TOP SCH ×2 (10:13→21:52)
--- NOTE | 2019-08-25 11:34 | PDOC PROGRESS REPORT ---
Subjective Progress Note for:: 08/25/19 Subjective:: Patient is currently doing well And any chest pain to than any shortness of the breath Please also better Reason For Visit: PNEUMONIA Physical Exam Vital Signs: Temp Pulse Resp BP Pulse Ox 97.4 F 86 16 138/60 H 96 08/25/19 07:56 08/25/19 08:15 08/25/19 08:15 08/25/19 07:56 08/25/19 08:15 Intake & Output 08/24/19 08/25/19 08/26/19 06:59 06:59 06:59 Intake Total 1979 1380 Balance 1979 1380 Weight 104.2 kg 102.1 kg General appearance: PRESENT: no acute distress, well-developed, well-nourished Head exam: PRESENT: atraumatic, normocephalic Eye exam: PRESENT: conjunctiva pink, EOMI, PERRLA. ABSENT: scleral icterus Ear exam: PRESENT: normal external ear exam Mouth exam: PRESENT: moist, tongue midline Neck exam: PRESENT: full ROM. ABSENT: carotid bruit, JVD, lymphadenopathy, thyromegaly Respiratory exam: PRESENT: clear to auscultation alphonse Cardiovascular exam: PRESENT: RRR. ABSENT: diastolic murmur, rubs, systolic murmur Pulses: PRESENT: normal dorsalis pedis pul, +2 pedal pulses bilateral Vascular exam: PRESENT: normal capillary refill GI/Abdominal exam: PRESENT: normal bowel sounds, soft. ABSENT: distended, guarding, mass, organolmegaly, rebound, tenderness Rectal exam: PRESENT: deferred Musculoskeletal exam: PRESENT: ambulatory Neurological exam: PRESENT: alert, awake, oriented to person, oriented to place, oriented to time, oriented to situation, CN II-XII grossly intact. ABSENT: motor sensory deficit Psychiatric exam: PRESENT: appropriate affect, normal mood. ABSENT: homicidal ideation, suicidal ideation Skin exam: PRESENT: dry, intact, warm. ABSENT: cyanosis, rash Results Laboratory Results: 08/25/19 04:30 08/25/19 04:30 08/20/19 08/24/19 08/24/19 09:52 12:00 16:10 WBC 6.9 RBC 2.88 L Hgb 8.2 L Hct 24.3 L MCV 84 MCH 28.6 MCHC 34.0 RDW 14.3 H Plt Count 244 Seg Neutrophils % 68.3 Sodium Potassium Chloride Carbon Dioxide Anion Gap BUN Creatinine Est GFR ( Amer) Glucose Calcium Total Bilirubin AST Alkaline Phosphatase Total Protein 5.2 L Albumin Stool Occult Blood POSITIVE 08/24/19 08/25/19 08/25/19 16:10 04:30 04:30 WBC 6.6 RBC 3.03 L Hgb 8.7 L Hct 25.6 L MCV 84 MCH 28.6 MCHC 33.9 RDW 14.4 H Plt Count 246 Seg Neutrophils % Not Reportable Sodium 138.5 140.5 Potassium 3.3 L 3.3 L Chloride 102 102 Carbon Dioxide 25 27 Anion Gap 12 12 BUN 23 H 21 H Creatinine 1.35 H 1.33 H Est GFR ( Amer) > 60 > 60 Glucose 100 95 Calcium 8.2 L 8.3 L Total Bilirubin 0.4 0.4 AST 23 23 Alkaline Phosphatase 73 83 Total Protein 5.7 L 5.8 L Albumin 3.0 L 3.1 L Stool Occult Blood 08/19/19 09:18 Blood Blood Culture - Final NO GROWTH IN 5 DAYS 08/19/19 07:54 Blood Blood Culture - Final NO GROWTH IN 5 DAYS 08/19/19 08/19/19 08/19/19 07:54 12:13 12:13 Creatine Kinase 64 CK-MB (CK-2) 1.24 Troponin I < 0.012 0.033 08/19/19 08/19/19 08/19/19 16:10 16:10 23:55 Creatine Kinase 87 133 CK-MB (CK-2) 1.83 Troponin I 0.041 08/19/19 23:55 Creatine Kinase CK-MB (CK-2) 2.57 Troponin I 0.042 Impressions: Chest X-Ray 08/22/19 00:00 IMPRESSION: No significant change. Assessment & Plan - Diagnosis (1) Pneumonia Qualifiers: Laterality: right Lung location: lower lobe of lung Is this a current diagnosis for this admission?: Yes Plan: Continues to p.o. Levaquin (2) Acute and chronic respiratory failure Qualifiers: Respiratory failure complication: hypoxia Is this a current diagnosis for this admission?: Yes Plan: Currently all stable (3) Atrial fibrillation Qualifiers: Atrial fibrillation type: unspecified Is this a current diagnosis for this admission?: Yes Plan: We currently hold the Eliquis due to the anemia with ongoing problems continues to aspirin 81 mg discussed with the patient and the son understand very well (4) COPD (chronic obstructive pulmonary disease) with acute bronchitis Is this a current diagnosis for this admission?: Yes Plan: Continue some nebulizer treatments (5) Chronic kidney disease Qualifiers: Chronic kidney disease stage: stage 2 (mild) Qualified Code(s): N18.2 - Chronic kidney disease, stage 2 (mild) Is this a current diagnosis for this admission?: Yes Plan: Currently all stable (6) Congestive heart failure Is this a current diagnosis for this admission?: Yes Plan: Patient is currently follow with the Dr. Medrano currently all stable (7) Hypertension Qualifiers: Hypertension type: essential hypertension Is this a current diagnosis for this admission?: Yes (8) Anemia Qualifiers: Anemia type: iron deficiency Is this a current diagnosis for this admission?: Yes Plan: Currently all stable - Time Time Spent with patient: 15-24 minutes Level of Care: IMCU Medications reviewed and adjusted accordingly: Yes Anticipated discharge: Home with Homehealth Within: within 24 hours - Plan Summary Plan Summary: Continues the p.oHaresh John repeat the chest x-ray Needs to discharge tomorrow if remains stable with a 2 L nasal cannula which patient already at home
--- NOTE | 2019-08-25 12:09 | RADIOLOGY REPORT (SQ) ---
EXAM DESCRIPTION: CHEST 2 VIEWS COMPLETED DATE/TIME: 08/25/2019 11:51 am REASON FOR STUDY: pnemonia COMPARISON: Chest films 08/22/2019, 08/19/2019, 08/23/2015 EXAM PARAMETERS: NUMBER OF VIEWS: two views TECHNIQUE: Digital Frontal and Lateral radiographic views of the chest acquired. RADIATION DOSE: NA LIMITATIONS: none FINDINGS: LUNGS AND PLEURA: Trace pleural fluid blunting the left lateral and posterior costophrenic sulcus, unchanged. Partial clearing of the diffuse left lower lobe airspace disease compared to and 08/19/2019, compatible with partial clearing of pneumonia. Right lung grossly clear. No right pleural effusion. No right or left pneumothorax MEDIASTINUM AND HILAR STRUCTURES: No masses or contour abnormalities. HEART AND VASCULAR STRUCTURES: No cardiomegaly. BONES: No acute findings. HARDWARE: Left-sided pacemaker unchanged OTHER: No other significant finding. IMPRESSION: Further clearing of left lower lobe pneumonia. Trace left pleural effusion TECHNICAL DOCUMENTATION: JOB ID: [id number] [employer]- All Rights Reserved Reading location - IP/workstation name: [email or web address]
[2019-08-25] MEDS: ATORVASTATIN CALCIUM 20 MG TABLET PO SCH (21:52)
[2019-08-26 06:06] LABS: ANION GAP 9 (5-19); BLOOD UREA NITROGEN 24 mg/dL (7-20); CALCIUM 8.6 mg/dL (8.4-10.2); CARBON DIOXIDE 27 mmol/L (22-30); CHLORIDE 103 mmol/L (98-107); GLUCOSE 91 mg/dL (75-110)
[2019-08-26] MEDS: PANTOPRAZOLE SODIUM 40 MG TABLET.DR PO SCH (06:31)
[2019-08-26] MEDS: IPRATROPIUM/ALBUTEROL 0.5-2.5 MG/3 ML AMPUL NEB SCH (07:30)
[2019-08-26 08:06] VITALS: BP 154/71
--- NOTE | 2019-08-26 08:45 | PDOC DISCHARGE SUMMARY ---
Impression - Admit/DC Date/PCP Admission Date/Primary Care Provider: 08/19/19 10:34 JOELLEN JIMENEZ MD Discharge Date: 08/26/19 - Discharge Diagnosis (1) Pneumonia Is this a current diagnosis for this admission?: Yes (2) Acute and chronic respiratory failure Is this a current diagnosis for this admission?: Yes (3) Atrial fibrillation Is this a current diagnosis for this admission?: Yes (4) COPD (chronic obstructive pulmonary disease) with acute bronchitis Is this a current diagnosis for this admission?: Yes (5) Chronic kidney disease Is this a current diagnosis for this admission?: Yes (6) Congestive heart failure Is this a current diagnosis for this admission?: Yes (7) Hypertension Is this a current diagnosis for this admission?: Yes (8) Anemia Is this a current diagnosis for this admission?: Yes - Additional Information Resuscitation Status: Full Code Discharge Diet: Cardiac Discharge Activity: Activity As Tolerated Referrals: SUMI MARI MD [ACTIVE STAFF] - (4 weeks. Please call office to arrange. f/u with dr suárez ) ADRIANA MARCUS MD [ACTIVE STAFF] - JOELLEN JIMENEZ MD [Primary Care Provider] - Follow up as needed (next week after the 1st.) Prescriptions: Levofloxacin [Levaquin 500 mg Tablet] 500 mg PO DAILY #7 tablet Home Medications: Budesonide/Formoterol Fumarate [Symbicort HFA 160-4.5 mcg Inhaler 6 gm] 2 puff IH Q12 12/17/17 Doxazosin Mesylate [Cardura] 8 mg PO DAILY 12/17/17 Furosemide [Lasix 20 mg Tablet] 20 mg PO BID 12/17/17 Isosorbide Mononitrate [Imdur 60 mg Tablet.er] 60 mg PO DAILY 12/17/17 Nifedipine [Nifedipine ER] 60 mg PO Q12 12/17/17 Omeprazole 40 mg PO DAILY 12/17/17 Ascorbate Calcium [Vitamin C] 500 mg PO DAILY 04/21/19 Atorvastatin Calcium [Lipitor 20 mg Tablet] 20 mg PO QHS 04/21/19 Docusate Sodium [Colace 100 mg Capsule] 100 mg PO DAILY 04/21/19 Ranolazine [Ranolazine ER] 500 mg PO BID 04/21/19 Levofloxacin [Levaquin 500 mg Tablet] 500 mg PO DAILY #6 tablet 04/24/19 Ascorbic Acid 500 mg PO DAILY 08/19/19 Aspirin [Ecotrin 81 mg EC Tablet] 81 mg PO DAILY 08/19/19 Ferrous Sulfate [Feosol 325 mg Tablet] 325 mg PO DAILY 08/19/19 Losartan Potassium [Cozaar 25 mg Tablet] 25 mg PO DAILY 08/19/19 Multivitamin [Daily Multiple Vitamin] 1 ea PO DAILY 08/19/19 Mupirocin [Bactroban 2% Ointment 22 gm] 1 applic TOP BID 08/19/19 Levofloxacin [Levaquin 500 mg Tablet] 500 mg PO DAILY #7 tablet 08/26/19 History of Present Illiness History of Present Illness: DARCIE AUSTIN is a 84 year old male This is a 84-year-old male's with a history of the COPD history of the congestive heart failure chronic A. fib hypertension's hyperlipidemia history of the pneumonia in the past came to the emergency department by the ambulance because of the increasing the shortness of the breath for the last 2 days and cough and congestions Patient's denied any chest pain but patient had a rectal temperature of 102 in the emergency department and patient's white count is elevated and chest x-ray is consistent with the pneumonia He was also hypoxic tachypnea and tachycardia due to the fever patient still received the IV antibiotics nebulizer treatments When I saw the patient is feeling better denied any chest pains still have a some cough Patient is follow outpatients Dr. CHINCHILLA for the heart and patient also see Dr. Gill Hospital Course Hospital Course: Is a 84-year-old male admitting in the hospital for the pneumonia respiratory distressed and patient is treat with the IV antibiotics and nebulizer treatments Patient has responded very well clearing of the pneumonia Patient walking the hallway with a 2 L nasal cannula with the baseline at home without any problems Patient switched to the IV to the p.o. Levaquin remain afebrile white count is normal Patient also on Eliquis with ongoing anemia problems seen by the sales representative raw fibers giving iron transfusions Patient seen by Dr. Marcus as outpatient recently for endoscopy colonoscopy done as per discussed with him suggest that patient is pretty much at this point hold the Eliquis patient had already a capsule endoscopy done 3 years back but he wi ll repeat it again in this office Patient's not actively bleeding Risk and benefit with the Eliquis discussed with the patient is to hold the Eliquis due to the bleeding problems continues the baby aspirin Patient's otherwise denied any other symptoms patient's follow outpatient hematology In 1 week Patient outpatient follow in my office will repeat the CBC and Chem-7 Discussed with the patient's cardiology about the Eliquis Dr. Medrano and suggest the continues to hold until the bleeding issues resolve and take a baby aspirin discuss with the patient's son regarding the patient's current conditions follow-up plan Physical Exam Vital Signs: Temp Pulse Resp BP Pulse Ox 97.5 F 80 17 154/71 H 98 08/26/19 07:07 08/26/19 07:07 08/26/19 07:07 08/26/19 07:07 08/26/19 07:07 Intake & Output 08/25/19 08/26/19 08/27/19 06:59 06:59 06:59 Intake Total 1380 840 Balance 1380 840 Weight 102.1 kg 102 kg General appearance: PRESENT: no acute distress, well-developed, well-nourished Head exam: PRESENT: atraumatic, normocephalic Eye exam: PRESENT: conjunctiva pink, EOMI, PERRLA. ABSENT: scleral icterus Ear exam: PRESENT: normal external ear exam Mouth exam: PRESENT: moist, tongue midline Neck exam: ABSENT: carotid bruit, JVD, lymphadenopathy, thyromegaly Respiratory exam: PRESENT: clear to auscultation alphonse. ABSENT: rales, rhonchi, wheezes Cardiovascular exam: PRESENT: RRR. ABSENT: diastolic murmur, rubs, systolic murmur Pulses: PRESENT: normal dorsalis pedis pul Vascular exam: PRESENT: normal capillary refill GI/Abdominal exam: PRESENT: normal bowel sounds, soft. ABSENT: distended, guarding, mass, organolmegaly, rebound, tenderness Rectal exam: PRESENT: deferred Extremities exam: PRESENT: full ROM. ABSENT: calf tenderness, clubbing, pedal edema Neurological exam: PRESENT: alert, awake, oriented to person, oriented to place, oriented to time, oriented to situation, CN II-XII grossly intact. ABSENT: motor sensory deficit Psychiatric exam: PRESENT: appropriate affect, normal mood. ABSENT: homicidal ideation, suicidal ideation Skin exam: PRESENT: dry, intact, warm. ABSENT: cyanosis, rash Results Laboratory Results: WBC 6.6 10^3/uL (4.0-10.5) 08/25/19 04:30 RBC 3.03 10^6/uL (4.35-5.55) L 08/25/19 04:30 Hgb 8.7 g/dL (13.5-17.0) L 08/25/19 04:30 Hct 25.6 % (37.9-51.0) L 08/25/19 04:30 MCV 84 fl (80-97) 08/25/19 04:30 MCH 28.6 pg (27.0-33.4) 08/25/19 04:30 MCHC 33.9 g/dL (32.0-36.0) 08/25/19 04:30 RDW 14.4 % (11.5-14.0) H 08/25/19 04:30 Plt Count 246 10^3/uL (150-450) 08/25/19 04:30 Lymph % (Auto) Not Reportable 08/25/19 04:30 [place] % (Auto) Not Reportable 08/25/19 04:30 Eos % (Auto) Not Reportable 08/25/19 04:30 Baso % (Auto) Not Reportable 08/25/19 04:30 Reticulocyte # 0.065 10^6/uL (0.028-0.122) 08/20/19 04:55 Absolute Neuts (auto) Not Reportable 08/25/19 04:30 Absolute Lymphs (auto) Not Reportable 08/25/19 04:30 Absolute Monos (auto) Not Reportable 08/25/19 04:30 Absolute Eos (auto) Not Reportable 08/25/19 04:30 Absolute Basos (auto) Not Reportable 08/25/19 04:30 Total Counted 100 08/25/19 04:30 Seg Neutrophils % Not Reportable 08/25/19 04:30 Seg Neuts % (Manual) 70 % (42-78) 08/25/19 04:30 Band Neutrophils % 3 % (3-5) 08/25/19 04:30 Lymphocytes % (Manual) 17 % (13-45) 08/25/19 04:30 Monocytes % (Manual) 4 % (3-13) 08/25/19 04:30 Eosinophils % (Manual) 5 % (0-6) 08/25/19 04:30 Basophils % (Manual) 1 % (0-2) 08/25/19 04:30 Abs Neuts (Manual) 4.8 10^3/uL (1.7-8.2) 08/25/19 04:30 Abs Lymphs (Manual) 1.1 10^3/uL (0.5-4.7) 08/25/19 04:30 Abs Monocytes (Manual) 0.3 10^3/uL (0.1-1.4) 08/25/19 04:30 Absolute Eos (Manual) 0.3 10^3/uL (0.0-0.6) 08/25/19 04:30 Abs Basophils (Manual) 0.1 10^3/uL (0.0-0.2) 08/25/19 04:30 Clumped Platelets PRESENT 08/19/19 07:54 Large Platelets PRESENT 08/19/19 07:54 Platelet Comment ADEQUATE 08/25/19 04:30 Polychromasia 1+ 08/25/19 04:30 Anisocytosis 1+ 08/25/19 04:30 Tear Drop Cells SLIGHT 08/19/19 07:54 Ovalocytes SLIGHT 08/19/19 07:54 Retic Count (auto) 2.16 % (0.66-2.85) 08/20/19 04:55 PT 15.5 SEC (11.4-15.4) H 08/19/19 07:54 INR 1.22 08/19/19 07:54 Carbonic Acid 1.01 mmol/L (1.05-1.35) L 08/22/19 01:10 HCO3/H2CO3 Ratio 22:1 08/22/19 01:10 ABG pH 7.45 (7.35-7.45) 08/22/19 01:10 ABG pCO2 33.7 mmHg (35-45) L 08/22/19 01:10 ABG pO2 73.7 mmHg (80-100) L 08/22/19 01:10 ABG HCO3 23.0 mmol/L (20-24) 08/22/19 01:10 ABG Total CO2 24.0 mmol/L (23-27) 08/22/19 01:10 ABG O2 Saturation 95.6 % (94-98) 08/22/19 01:10 ABG Base Excess -0.6 mmol/L 08/22/19 01:10 VBG pH 7.35 (7.30-7.42) 08/19/19 07:54 VBG pCO2 48.3 mmHg (35-63) 08/19/19 07:54 VBG HCO3 26.0 mmol/L (20-32) 08/19/19 07:54 VBG Base Excess 0 mmol/L 08/19/19 07:54 FiO2 15% 08/22/19 01:10 Sodium 139.3 mmol/L (137-145) 08/26/19 05:06 Potassium 4.0 mmol/L (3.6-5.0) 08/26/19 05:06 Chloride 103 mmol/L (98-107) 08/26/19 05:06 Carbon Dioxide 27 mmol/L (22-30) 08/26/19 05:06 Anion Gap 9 (5-19) 08/26/19 05:06 BUN 24 mg/dL (7-20) H 08/26/19 05:06 Creatinine 1.56 mg/dL (0.52-1.25) H 08/26/19 05:06 Est GFR ( Amer) 52 (>60) L 08/26/19 05:06 Est GFR (MDRD) Non-Af 43 (>60) L 08/26/19 05:06 Glucose 91 mg/dL (75-110) 08/26/19 05:06 POC Glucose 110 mg/dL (70-110) 08/19/19 08:50 Lactic Acid (Sepsis) 1.7 mmol/L (0.7-2.1) 08/19/19 16:10 Calcium 8.6 mg/dL (8.4-10.2) 08/26/19 05:06 Magnesium 2.1 mg/dL (1.6-2.3) 08/20/19 04:55 Iron 14.6 ug/dL (49-181) L 08/20/19 04:55 TIBC 270 ug/dL (250-450) 08/20/19 04:55 % Saturation 5 % 08/20/19 04:55 Ferritin 30.80 ng/mL (17.9-464.0) 08/20/19 04:55 Total Bilirubin 0.4 mg/dL (0.2-1.3) 08/25/19 04:30 Direct Bilirubin 0.2 mg/dL (0.0-0.4) 08/25/19 04:30 Neonat Total Bilirubin Not Reportable 08/25/19 04:30 Neonat Direct Bilirubin Not Reportable 08/25/19 04:30 Neonat Indirect Bili Not Reportable 08/25/19 04:30 AST 23 U/L (17-59) 08/25/19 04:30 ALT 9 U/L (<50) 08/25/19 04:30 Alkaline Phosphatase 83 U/L (38-126) 08/25/19 04:30 Creatine Kinase 133 U/L (55-170) 08/19/19 23:55 CK-MB (CK-2) 2.57 ng/mL (<4.55) 08/19/19 23:55 Troponin I 0.042 ng/mL 08/19/19 23:55 Total Protein 5.8 g/dL (6.3-8.2) L 08/25/19 04:30 Albumin 3.1 g/dL (3.5-5.0) L 08/25/19 04:30 Globulin 2.2 g/dL (2.2-3.9) 08/20/19 09:52 Alb/Glob Ratio Alt Meth 1.4 (0.7-1.7) 08/20/19 09:52 Uqbkl-2-Zscmknldk 0.3 g/dL (0.0-0.4) 08/20/19 09:52 Oindd-0-Rcfoptwya 0.7 g/dL (0.4-1.0) 08/20/19 09:52 Beta Globulins 0.7 g/dL (0.7-1.3) 08/20/19 09:52 Gamma Globulins 0.5 g/dL (0.4-1.8) 08/20/19 09:52 M-Wilfred Not Observed g/dL (Not Observ) 08/20/19 09:52 Vitamin B12 306.0 pg/mL (239-931) 08/20/19 04:55 Folate > 20.00 ng/mL (>2.76) 08/20/19 04:55 Immunoglobulin A 199 mg/dL (61-437) 08/20/19 09:52 Immunoglobulin A 206 mg/dL (61-437) 08/20/19 09:52 Immunoglobulin G 644 mg/dL (700-1600) L 08/20/19 09:52 Immunoglobulin G 672 mg/dL (700-1600) L 08/20/19 09:52 Immunoglobulin M 31 mg/dL (15-143) 08/20/19 09:52 Immunoglobulin M 32 mg/dL (15-143) 08/20/19 09:52 Serum Immunofixation Comment (.) 08/20/19 09:52 Immunofixation Note Comment (.) 08/20/19 09:52 Urine Color YELLOW 08/19/19 09:42 Urine Appearance CLEAR 08/19/19 09:42 Urine pH 6.0 (5.0-9.0) 08/19/19 09:42 Ur Specific [place] 1.019 08/19/19 09:42 Urine Protein 30 mg/dL (NEGATIVE) H 08/19/19 09:42 Urine Glucose (UA) NEGATIVE mg/dL (NEGATIVE) 08/19/19 09:42 Urine Ketones NEGATIVE mg/dL (NEGATIVE) 08/19/19 09:42 Urine Blood NEGATIVE (NEGATIVE) 08/19/19 09:42 Urine Nitrite (Reflex) NEGATIVE (NEGATIVE) 08/19/19 09:42 Urine Bilirubin NEGATIVE (NEGATIVE) 08/19/19 09:42 Urine Urobilinogen NEGATIVE mg/dL (<2.0) 08/19/19 09:42 Leukocyte Esterase Rfl NEGATIVE (NEGATIVE) 08/19/19 09:42 Urine RBC (Auto) 2 /HPF 08/19/19 09:42 Urine WBC (Reflex) < 1 /HPF 08/19/19 09:42 Squamous Epi Cells Auto <1 /HPF 08/19/19 09:42 Urine Mucus (Auto) RARE /LPF 08/19/19 09:42 Urine Ascorbic Acid NEGATIVE (NEGATIVE) 08/19/19 09:42 Stool Occult Blood POSITIVE (NEGATIVE) 08/24/19 12:00 IgE 2042 IU/mL (6-495) H 08/20/19 09:52 Albumin (CHUCHO) 3.0 g/dL (2.9-4.4) 08/20/19 09:52 Free [place] LC, Quant 28.5 mg/L (3.3-19.4) H 08/20/19 09:52 Free Lambda LC, Quant 36.4 mg/L (5.7-26.3) H 08/20/19 09:52 Free [place]/Lambda Ratio 0.78 (0.26-1.65) 08/20/19 09:52 Influenza A (Rapid) NEGATIVE (NEGATIVE) 08/19/19 15:14 Influenza B (Rapid) NEGATIVE (NEGATIVE) 08/19/19 15:14 08/19/19 08/19/19 08/19/19 07:54 12:13 16:10 CK-MB (CK-2) 1.24 1.83 Troponin I < 0.012 0.033 0.041 08/19/19 23:55 CK-MB (CK-2) 2.57 Troponin I 0.042 Impressions: Chest X-Ray 08/19/19 08:11 IMPRESSION: Left upper and lower lobe infiltrate consistent with pneumonia. Chest X-Ray 08/22/19 00:00 IMPRESSION: No significant change. Chest X-Ray 08/25/19 00:00 IMPRESSION: Further clearing of left lower lobe pneumonia. Trace left pleural effusion Plan Time Spent: Greater than 30 Minutes - Follow in office 1 week Check a CBC and Chem-7 Follow-up with the Dr. Marcus Stroke Is this a Stroke Patient?: No Acute Heart Failure - Is this a Heart Failure Patient?: No
[2019-08-26] MEDS: MUPIROCIN 2% OINTMENT 22 GM TOP SCH (09:03)
[2019-08-26] MEDS: ISOSORBIDE MONONITRATE 60 MG TAB.ER.24H PO SCH (09:04)
[2019-08-26] MEDS: ASCORBIC ACID 500 MG TABLET PO SCH (09:04)
[2019-08-26] MEDS: DOXAZOSIN MESYLATE 4 MG TABLET PO SCH (09:04)
[2019-08-26] MEDS: FAMOTIDINE 20 MG TABLET PO SCH (09:04)
[2019-08-26] MEDS: ASPIRIN 81 MG TABLET, ENT COATED PO SCH (09:04)
[2019-08-26] MEDS: MULTIVITAMIN TABLET PO SCH (09:04)
[2019-08-26] MEDS: DOCUSATE SODIUM 100 MG CAPSULE PO SCH (09:04)
[2019-08-26] MEDS: FUROSEMIDE 20 MG TABLET PO SCH (09:04)
[2019-08-26] MEDS: NIFEDIPINE 30 MG TAB.ER.24 PO SCH (09:04)
[2019-08-26] MEDS: LOSARTAN POTASSIUM 25 MG TABLET PO SCH (09:04)
[2019-08-26] MEDS: RANOLAZINE 500 MG TAB.SR.12H PO SCH (09:04)
[2019-08-26] MEDS: FLUTICASONE/VILANTEROL 200-25 MCG/DOSE IH SCH (09:05)
[2019-08-26] MEDS ORDERED: LEVOFLOXACIN 500 MG TABLET PO SCH (10:00)
== END 2019-08-26 12:33 | disposition home health service (06) | DRG 190 ==
LOC: ER 07:12 → EH 10:34 → 3W 22:51
PROVIDERS: ADMIT Family Medicine; ATTEND Family Medicine
PROC: 5A09357 Assistance with Respiratory Ventilation, Less than 24 Consecutive Hours, Continuous Positive Airway Pressure (ICD-10-PCS; principal; 2019-08-24)
DX: J44.0 Chronic obstructive pulmonary disease with (acute) lower respiratory infection (principal); J18.9 Pneumonia, unspecified organism; J96.21 Acute and chronic respiratory failure with hypoxia; I13.0 Hypertensive heart and chronic kidney disease with heart failure and stage 1 through stage 4 chronic kidney disease, or unspecified chronic kidney disease; I48.20 Chronic atrial fibrillation, unspecified; D63.1 Anemia in chronic kidney disease; I50.9 Heart failure, unspecified; J44.1 Chronic obstructive pulmonary disease with (acute) exacerbation; J20.9 Acute bronchitis, unspecified; E78.5 Hyperlipidemia, unspecified; I25.10 Atherosclerotic heart disease of native coronary artery without angina pectoris; K21.9 Gastro-esophageal reflux disease without esophagitis; M19.90 Unspecified osteoarthritis, unspecified site; F32.9 Major depressive disorder, single episode, unspecified; N18.2 Chronic kidney disease, stage 2 (mild); D50.9 Iron deficiency anemia, unspecified; Z87.01 Personal history of pneumonia (recurrent); Z87.891 Personal history of nicotine dependence; Z88.6 Allergy status to analgesic agent; Z79.82 Long term (current) use of aspirin; Z79.899 Other long term (current) drug therapy; Z82.49 Family history of ischemic heart disease and other diseases of the circulatory system
CPT/HCPCS: 36415; 36600; 71045; 71046; 80048; 80053; 81001; 82272; 82550; 82553; 82607; 82728; 82746; 82784; 82785; 82803; 82962; 83540; 83550; 83605; 83735; 83883; 84484; 85025; 85045; 85610; 86320; 87040; 87070; 87086; 87205; 87804; 93005; 93010; 94640; 94660; 96361; 96365; 99285; J0692; J1439; J1956; J3490; J7030; J7050; J7060; J7620

== ENCOUNTER → 2019-09-17 | Outpatient (CLI) | payer MEDICARE, MEDICAID ==
--- NOTE | 2019-09-17 16:15 | RADIOLOGY REPORT (SQ) ---
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 FLUOROSCOPY TIME: 0.9 minutes 4 images saved to PACS. LIMITATIONS: None. PROCEDURE: Initial beater dumper image of abdomen acquired, followed by administration of oral contrast. Se rial radiographic images acquired. Fluoroscopic images recorded of the terminal ileum and other yaya cated areas. All images stored on PACS. FINDINGS: TRANSCRIBER KUB: Non-obstructive bowel pattern. No abnormal calcifications. Soft tissue planes normal. An endoscopic capsule is seen in the right lower quadrant. Multiple surgical clips in the pelvis. STOMACH: No significant reflux. Normal distention without abnormality. DUODENUM: Normal mucosal pattern with adequate distention. No displacement or obstruction. Couple o f diverticula are identified. JEJUNUM: Normal mucosal pattern. No dilatation, segmentation, strictures or masses. ILEUM: Normal mucosal pattern. No dilatation, segmentation, strictures or masses. TERMINAL ILEUM AND ILEO-CECAL VALVE: Distal ileum is somewhat narrowed, but no "cobble-stoning" or st rictures are identified. Appearance may be due to nondistention. PROXIMAL COLON: Incompletely imaged. No abnormality. OTHER: Small bowel transit time about 4 hours. IMPRESSION: MILDLY NARROWED DISTAL ILEUM PROBABLY DUE TO NONDISTENTION. NO MUCOSAL IRREGULARITIES I DENTIFIED. REMAINDER SMALL BOWEL IS UNREMARKABLE. COMMENT: NONE Quality ID [id number]: Final reports for procedures using fluoroscopy that document radiation exposure yaya debora, or exposure time and number of fluorographic images (if radiation exposure indices are not avail able) TECHNICAL DOCUMENTATION: JOB ID: [id number] [employer]- All Rights Reserved Reading location - IP/workstation name: [email or web address]
== END ==
LOC: RAD 07:39
PROVIDERS: ATTEND Internal Medicine Gastroenterology
DX: K57.91 Diverticulosis of intestine, part unspecified, without perforation or abscess with bleeding (principal); D50.0 Iron deficiency anemia secondary to blood loss (chronic)
CPT/HCPCS: 74250

== ENCOUNTER → 2019-10-02 | Outpatient (CLI) | payer MEDICARE, MEDICAID ==
--- NOTE | 2019-10-02 11:46 | RADIOLOGY REPORT (SQ) ---
EXAM DESCRIPTION: KUB/ABDOMEN (SINGLE VIEW) COMPLETED DATE/TIME: 10/02/2019 11:29 am REASON FOR STUDY: ABN FINDINGS ON DX IMAGING OF OTHER PARTS OF DIGESTIVE TRACT (R93.3) R93.3 ABNORM AL FINDINGS ON DX IMAGING OF PRT DIGESTIVE TRACT COMPARISON: CT abdomen pelvis 12/27/2015 KUB 08/21/2015 NUMBER OF VIEWS: One view. TECHNIQUE: Supine radiographic image of the abdomen acquired. LIMITATIONS: None. FINDINGS: BOWEL GAS PATTERN: Grossly nonobstructive bowel gas pattern with gas and stool in the colo n, air in few nondistended small bowel loops. No stomach distention. CALCIFICATIONS: No suspicious calcifications. SOFT TISSUES: No gross mass or suggestion of organomegaly. HARDWARE: Surgical clips in the pelvis post prostatectomy BONES: No acute fracture. No worrisome bone lesions. OTHER: No other significant finding. IMPRESSION: NO RADIOGRAPHIC EVIDENCE FOR ACUTE ABDOMINAL DISEASE. TECHNICAL DOCUMENTATION: JOB ID: [id number] [employer]- All Rights Reserved Reading location - IP/workstation name: [email or web address]
== END ==
LOC: RAD 11:02
PROVIDERS: ATTEND Internal Medicine Gastroenterology
DX: R93.3 Abnormal findings on diagnostic imaging of other parts of digestive tract (principal)
CPT/HCPCS: 74018

== ENCOUNTER 2019-10-09 07:26 | Emergency (ER) | payer MEDICARE, MEDICAID ==
[2019-10-09 07:56] LABS: ABSOLUTE EOSINOPHILS # (AUTO) 0.2 10^3/uL (0.0-0.6); ABSOLUTE LYMPHOCYTES (AUTO) 0.8 10^3/uL (0.5-4.7); ABSOLUTE MONOCYTES (AUTO) 0.9 10^3/uL (0.1-1.4); ABSOLUTE NEUT (AUTO) 6.7 10^3/uL (1.7-8.2); BASOPHILS % (AUTO) 0.3 % (0-2); EOSINOPHILS % (AUTO) 2.7 % (0-6); HEMATOCRIT 27.7 % (37.9-51.0); HEMOGLOBIN 9.5 g/dL (13.5-17.0); LYMPHOCYTES % (AUTO) 8.9 % (13-45); MEAN CORPUSCULAR HEMOGLOBIN 29.1 pg (27.0-33.4); MEAN CORPUSCULAR HGB CONC 34.2 g/dL (32.0-36.0); MEAN CORPUSCULAR VOLUME 85 fl (80-97); MONOCYTES % (AUTO) 10.6 % (3-13); PLATELET COUNT 199 10^3/uL (150-450); RED BLOOD COUNT 3.25 10^6/uL (4.35-5.55); RED CELL DISTRIBUTION WIDTH 16.1 % (11.5-14.0); SEGMENTED NEUTROPHILS % (AUTO) 77.5 % (42-78); TOTAL CELLS COUNTED % (AUTO) 100 %; WHITE BLOOD COUNT 8.7 10^3/uL (4.0-10.5)
[2019-10-09 08:23] LABS: ALBUMIN 3.6 g/dL (3.5-5.0); ALKALINE PHOSPHATASE 105 U/L (38-126); ANION GAP 8 (5-19); ASPARTATE AMINO TRANSFERASE 16 U/L (17-59); BILIRUBIN,TOTAL 0.4 mg/dL (0.2-1.3); BLOOD UREA NITROGEN 17 mg/dL (7-20); CALCIUM 8.2 mg/dL (8.4-10.2); CARBON DIOXIDE 28 mmol/L (22-30); CHLORIDE 100 mmol/L (98-107); GLUCOSE 101 mg/dL (75-110); POTASSIUM 3.9 mmol/L (3.6-5.0); TOTAL PROTEIN 6.1 g/dL (6.3-8.2)
--- NOTE | 2019-10-09 08:28 | RADIOLOGY REPORT (SQ) ---
EXAM DESCRIPTION: CHEST SINGLE VIEW COMPLETED DATE/TIME: 10/09/2019 7:53 am REASON FOR STUDY: SOB COMPARISON: 08/25/2019, 08/22/2019, 04/20/2019 EXAM PARAMETERS: NUMBER OF VIEWS: One view. TECHNIQUE: Single frontal radiographic view of the chest acquired. RADIATION DOSE: NA LIMITATIONS: None. FINDINGS: LUNGS AND PLEURA: New right medial basal air space disease, atelectasis versus pneumonia. Left basilar air space disease has resolved compared to 08/25/2019. No pleural effusions or pneumothorax. MEDIASTINUM AND HILAR STRUCTURES: No masses. Contour normal. HEART AND VASCULAR STRUCTURES: Marked cardiomegaly, accentuated by lordotic technique. BONES: No acute findings. HARDWARE: Left-sided dual lead pacemaker. OTHER: No other significant finding. IMPRESSION: No airspace disease in the medial right lung base, atelectasis versus pneumonia Cardiomegaly accentuated by lordotic portable technique. Left basilar airspace disease seen August 2019 has resolved TECHNICAL DOCUMENTATION: JOB ID: [id number] [employer]- All Rights Reserved Reading location - IP/workstation name: [email or web address]
[2019-10-09 08:34] LABS: NT PRO BNP 1670 pg/mL (<450)
[2019-10-09 08:43] LABS: APPEARANCE,URINE CLEAR; BILIRUBIN,URINE NEGATIVE (NEGATIVE); COLOR,URINE YELLOW; GLUCOSE, URINE NEGATIVE (NEGATIVE); KETONES,URINE NEGATIVE (NEGATIVE); LEUKOCYTE ESTERASE,URINE NEGATIVE (NEGATIVE); NITRITE,URINE NEGATIVE (NEGATIVE); PROTEIN,URINE 30 mg/dL (NEGATIVE); URINE SPECIFIC GRAVITY 1.017; UROBILINOGEN,URINE NEGATIVE mg/dL (<2.0)
[2019-10-09 08:47] LABS: TROPONIN I < 0.012 ng/mL
--- NOTE | 2019-10-09 10:30 | ER Document Report ---
ED General - General Chief Complaint: Shortness Of Breath Stated Complaint: SHORTNESS OF BREATH Time Seen by Provider: 10/09/19 10:04 Primary Care Provider: JOELLEN JIMENEZ MD [Primary Care Provider] - Follow up as needed TRAVEL OUTSIDE OF THE [place] IN LAST 30 DAYS: No - HPI Notes: This is a 84-year-old male's with a history of oxygen dependent COPD and congestive heart failure chronic A. fib hypertension and hyperlipidemia history of the pneumonia in the past presenting to ED via EMS because of 2 days history of increased peripheral edema and shortness of breath. He denies fever. He denies sputum production. He denies chills. He denies chest pain. No vomiting. Patient has taken a flu immunization this season. Previously hospitalized by his primary care provider Dr. Jimenez in August for pneumonia. - Related Data Allergies/Adverse Reactions: meperidine HCl [From Demerol] Allergy (Verified 04/20/19 11:25) Past Medical History - General Information source: Patient - Social History Smoking Status: Former Smoker Family History: Reviewed & Not Pertinent, CAD, Hypertension Patient has suicidal ideation: No Patient has homicidal ideation: No - Past Medical History Cardiac Medical History: Reports: Hx Atrial Fibrillation, Hx Congestive Heart Failure, Hx Coronary Artery Disease, Hx Hypercholesterolemia, Hx Hypertension Pulmonary Medical History: Reports: Hx Asthma, Hx Bronchitis, Hx COPD, Hx Pneumonia Denies: Hx Tuberculosis Neurological Medical History: Denies: Hx Seizures Renal/ Medical History: Reports: Hx Benign Prostatic Hyperplasia. Denies: Hx Peritoneal Dialysis GI Medical History: Reports: Hx Gastroesophageal Reflux Disease Musculoskeletal Medical History: Reports Hx Arthritis Psychiatric Medical History: Reports: Hx Depression Past Surgical History: Reports: Hx Cardiac Surgery - pacemaker, Hx Genitourinary Surgery - prostate, Hx Herniorrhaphy - Bilateral inguinal repair. Denies: Hx Pacemaker - Immunizations Hx Diphtheria, Pertussis, Tetanus Vaccination: Yes Hx Pneumococcal Vaccination: 09/03/11 Review of Systems - Review of Systems Notes: Constitutional: Negative for fever. HENT: Negative for sore throat. Eyes: Negative for visual changes. Cardiovascular: Negative for chest pain. Respiratory: As per HPI. Gastrointestinal: Had some loose stools 2 days ago now resolved. Genitourinary: Negative for dysuria. Musculoskeletal: Negative for back pain. Skin: Negative for rash. Neurological: Negative for headaches, weakness or numbness. 10 point ROS negative except as marked above and in HPI. Physical Exam - Vital signs Vitals: Pulse Ox 95 10/09/19 07:36 - Notes Notes: GENERAL: Chronically ill appearing in no acute distress. SKIN: Chronic actinic changes over the face and neck. HEAD: Normocephalic atraumatic. EYES: PERRLA. EOMI. Conjunctivae and sclerae clear. EARS: CANALS AND TMS CLEAR. NOSE: CLEAR. MOUTH: Moist mucosa. Good dentition. No stridor or edema. No drooling. NECK: Supple. No masses or thyromegaly. No adenopathy. Carotids 2+ without bruits. No JVD. BACK: Symmetrical without tenderness. CHEST: Mildly tachypneic. Respirations unlabored. Breath sounds clear and symmetrical. HEART: Pacemaker left anterior chest wall. Regular rhythm. No murmur gallop or rub. ABDOMEN: Mildly obese with question of small amount of ascites present soft nontender without masses, organomegaly or rebound. Bowel sounds normally active. No bruits. GENITALIA: Deferred. EXTREMITIES: 2+ edema both lower legs. No calf tenderness. Cap refill less than 1.5 seconds. Dorsalis pedis and posterior tibial pulses 3+ and symmetrical. NEUROLOGICAL: GCS 15. Alert and oriented x3. Normal gait. Fluent speech. Cranial nerves II through XII intact. Sensorimotor and cerebellar normal. Normal tone. PSYCHIATRIC: Appropriate affect. Course - Re-evaluation Re-evalutation: 10/09/19 10:35 Troponin is normal. Clinically the patient appears to be in failure and has an elevated BNP. Chest x-ray shows some atelectasis at the right base with no obvious new pneumonia. White count is normal and he is afebrile. He is requiring 3 at liters of oxygen to maintain a 98% saturation. I am going to check an arterial blood gas. Abdomen to give him a nebulizer treatment and also a dose of IV Lasix and then reevaluate. 10/09/19 13:01 Recheck at this time shows patient is back on 2 L of nasal O2 and is maintaining 97% O2 saturation breathing comfortably. He has had 40 mg of IV Lasix and has had a brisk diuresis. He feels much better. He is requesting discharge home and I think this is appropriate. Reviewing the patient's medications I find that he is taking 20 mg of Lasix twice daily currently. I am going to increase him to 40 mg in the morning keep him on 20 mg in the evening and have him follow-up with his primary physician Dr. Jimenez within the next 3 to 5 days. He return here as needed for new or worsening symptoms. - Vital Signs Vital signs: Temp Pulse Resp BP Pulse Ox 98.0 F 21 H 149/65 H 94 10/09/19 07:40 10/09/19 12:32 10/09/19 12:32 10/09/19 12:32 - Laboratory Result Diagrams: 10/09/19 07:40 10/09/19 07:40 Laboratory results interpreted by me: 10/09/19 10/09/19 10/09/19 07:40 07:40 07:40 RBC 3.25 L Hgb 9.5 L Hct 27.7 L RDW 16.1 H Lymph % (Auto) 8.9 L ABG pO2 ABG HCO3 ABG Total CO2 ABG O2 Saturation Sodium 135.8 L Creatinine 1.29 H Est GFR (MDRD) Non-Af 53 L Calcium 8.2 L AST 16 L NT-Pro-B Natriuret Pep 1670 H Total Protein 6.1 L Urine Protein Urine Ascorbic Acid 10/09/19 10/09/19 08:25 11:10 RBC Hgb Hct RDW Lymph % (Auto) ABG pO2 60.6 L ABG HCO3 26.3 H ABG Total CO2 27.5 H ABG O2 Saturation 92.2 L Sodium Creatinine Est GFR (MDRD) Non-Af Calcium AST NT-Pro-B Natriuret Pep Total Protein Urine Protein 30 H Urine Ascorbic Acid 40 H - Diagnostic Test Radiology reviewed: Reports reviewed - Atelectasis versus airspace disease right base. Cardiomegaly. - EKG Interpretation by Me Additional EKG results interpreted by me: 10/09/19 10:33 Twelve-lead EKG from 0743 hrs. today is reviewed by me contemporaneously demonstrating an atrial sensed ventricular paced rhythm with occasional fusion beats. Discharge - Discharge Clinical Impression: Dyspnea Qualifiers: Dyspnea type: shortness of breath Qualified Code(s): R06.02 - Shortness of breath; R06.00 - Dyspnea, unspecified; R06.01 - Orthopnea Congestive heart failure (CHF) Qualifiers: Heart failure type: unspecified Heart failure chronicity: acute on chronic Qualified Code(s): I50.9 - Heart failure, unspecified Condition: Stable Disposition: HOME, SELF-CARE Additional Instructions: Increase your Lasix dose to 40 mg each morning and continue taking 20 mg each evening. Continue all other medications as previously prescribed. See your doctor within the next 3 to 5 days for follow-up as previously arranged. Return here as needed for new or worsening symptoms: Increasing shortness of breath. Uncontrolled vomiting High fever or shaking chills Overall worsening Referrals: JOELELN JIMENEZ MD [Primary Care Provider] - Follow up as needed
[2019-10-09] MEDS ORDERED: FUROSEMIDE INJ/PF 40 MG/4 ML SDV IV ONE (10:35)
[2019-10-09] MEDS ORDERED: IPRATROPIUM/ALBUTEROL 0.5-2.5 MG/3 ML AMPUL NEB ONE (10:36)
[2019-10-09 11:21] LABS: ARTERIAL BLOOD BASE EXCESS 2.1 mmol/L; ARTERIAL BLOOD H2CO3 1.18 mmol/L (1.05-1.35); ARTERIAL BLOOD HCO3 26.3 mmol/L (20-24); ARTERIAL BLOOD O2 SATURATION 92.2 % (94-98); ARTERIAL BLOOD PCO2 39.3 mmHg (35-45); ARTERIAL BLOOD PH 7.44 (7.35-7.45); ARTERIAL BLOOD PO2 60.6 mmHg (80-100); ARTERIAL BLOOD TOTAL CO2 27.5 mmol/L (23-27)
[2019-10-09 11:25] LABS: ARTERIAL BLOOD FIO2 ROOM AIR
[2019-10-09 13:19] VITALS: BP 157/70
--- NOTE | 2019-10-09 19:37 | EKG REPORT ---
SEVERITY:- ABNORMAL ECG - ATRIAL-SENSED VENTRICULAR-PACED COMPLEXES RIGHT BUNDLE BRANCH BLOCK NONSPECIFIC ST DEPRESSION, ANT-LAT LEADS : Confirmed by: Saranya Medrano MD 09-Oct-2019 19:36:23
== END 2019-10-09 13:45 | disposition home or self-care (01) ==
LOC: ER 07:26
DX: R06.02 Shortness of breath (principal); R06.00 Dyspnea, unspecified; R06.01 Orthopnea; I50.9 Heart failure, unspecified; J44.9 Chronic obstructive pulmonary disease, unspecified; I48.91 Unspecified atrial fibrillation; Z99.81 Dependence on supplemental oxygen; Z95.0 Presence of cardiac pacemaker
CPT/HCPCS: 93005; 36415; 82803; 85025; 80053; 81001; 84484; 83880; 71045; 93010; J1940; A9270; J7620

== ENCOUNTER 2019-10-11 11:03 | Inpatient (IN) | payer MEDICARE, MEDICAID ==
--- NOTE | 2019-10-11 11:18 | ER Document Report ---
ED Medical Screen (RME) - General Chief Complaint: Shortness Of Breath Stated Complaint: DIFFICULTY BREATHING Time Seen by Provider: 10/11/19 11:09 Primary Care Provider: JOELLEN JIMENEZ MD [Primary Care Provider] - Follow up as needed Mode of Arrival: Ambulatory Information source: Patient Notes: 84-year-old male with history of COPD and CHF presents emergency department with chief complaint of difficulty breathing. Patient reports he was seen in this emergency department last week, states he was discharged home with instructions to increase his Lasix. Patient's shortness of breath and dyspnea has worsened since that time. He has 3+ pitting edema to his lower extremities. He reports it is difficult to sleep as he feels like he cannot breathe. Patient also reports that he has had acute urinary retention over the last 24 to 36 hours although he states right when he got to the emergency department today he was finally able to use the bathroom and feels much improved as far as that goes. Exam: 3+ pitting edema to bilateral lower extremities. Mildly increased work of breathing, lung sounds clear and equal. I have greeted and performed a rapid initial assessment of this patient. A comprehensive ED assessment and evaluation of the patient, analysis of test results and completion of the medical decision making process will be conducted by additional ED providers. I have specifically instructed the patient or family members with the patient to immediately return to any nursing staff should anything change in the patient's condition or with their chief complaint. TRAVEL OUTSIDE OF THE [place] IN LAST 30 DAYS: No - Related Data Allergies/Adverse Reactions: meperidine HCl [From Demerol] Allergy (Verified 10/11/19 11:06) Past Medical History - Social History Chew tobacco use (# tins/day): No Frequency of alcohol use: None Drug Abuse: None - Past Medical History Cardiac Medical History: Reports: Hx Atrial Fibrillation, Hx Congestive Heart Failure, Hx Coronary Artery Disease, Hx Hypercholesterolemia, Hx Hypertension Pulmonary Medical History: Reports: Hx Asthma, Hx Bronchitis, Hx COPD, Hx Pneumonia Denies: Hx Tuberculosis Neurological Medical History: Denies: Hx Seizures Renal/ Medical History: Reports: Hx Benign Prostatic Hyperplasia. Denies: Hx Peritoneal Dialysis GI Medical History: Reports: Hx Gastroesophageal Reflux Disease Musculoskeltal Medical History: Reports Hx Arthritis Psychiatric Medical History: Reports: Hx Depression Past Surgical History: Reports: Hx Cardiac Surgery - pacemaker, Hx Genitourinary Surgery - prostate, Hx Herniorrhaphy - Bilateral inguinal repair. Denies: Hx Pacemaker - Immunizations Hx Diphtheria, Pertussis, Tetanus Vaccination: Yes Physical Exam - Vital signs Vitals: Temp Pulse Resp BP Pulse Ox 97.7 F 85 28 H 148/58 H 92 10/11/19 11:09 10/11/19 11:09 10/11/19 11:10/11/19 11:10/11/19 11:09 Course - Vital Signs Vital signs: Temp Pulse Resp BP Pulse Ox 97.7 F 85 28 H 148/58 H 92 10/11/19 11:09 10/11/19 11:09 10/11/19 11:09 10/11/19 11:09 10/11/19 11:09 Doctor's Discharge - Discharge Referrals: JOELLEN JIMENEZ MD [Primary Care Provider] - Follow up as needed
[2019-10-11 11:49] LABS: APPEARANCE,URINE CLEAR; BILIRUBIN,URINE NEGATIVE (NEGATIVE); COLOR,URINE STRAW; GLUCOSE, URINE NEGATIVE (NEGATIVE); KETONES,URINE NEGATIVE (NEGATIVE); LEUKOCYTE ESTERASE,URINE NEGATIVE (NEGATIVE); NITRITE,URINE NEGATIVE (NEGATIVE); PROTEIN,URINE NEGATIVE (NEGATIVE); URINE SPECIFIC GRAVITY 1.004; UROBILINOGEN,URINE NEGATIVE mg/dL (<2.0)
[2019-10-11 12:07] LABS: ABSOLUTE EOSINOPHILS # (AUTO) 0.2 10^3/uL (0.0-0.6); ABSOLUTE LYMPHOCYTES (AUTO) 0.8 10^3/uL (0.5-4.7); ABSOLUTE MONOCYTES (AUTO) 0.9 10^3/uL (0.1-1.4); ABSOLUTE NEUT (AUTO) 5.2 10^3/uL (1.7-8.2); BASOPHILS % (AUTO) 0.3 % (0-2); MEAN CORPUSCULAR HEMOGLOBIN 29.1 pg (27.0-33.4); TOTAL CELLS COUNTED % (AUTO) 100 %; WHITE BLOOD COUNT 7.2 10^3/uL (4.0-10.5)
[2019-10-11] MEDS ORDERED: LIDOCAINE 2% URO-JET 5 ML KIT MM ONE (12:23)
--- NOTE | 2019-10-11 12:24 | ER Document Report ---
ED Respiratory Problem - General Chief Complaint: Shortness Of Breath Stated Complaint: DIFFICULTY BREATHING Time Seen by Provider: 10/11/19 11:09 Primary Care Provider: JOELLEN JIMENEZ MD [Primary Care Provider] - Follow up as needed Mode of Arrival: Ambulatory Notes: HPI: Patient is an 84-year-old male with extensive past medical history as recorded including diastolic heart failure, cardiac dysrhythmia, baseline elevated troponin, COPD on oxygen at home as needed, who presents today with some progressive shortness of breath. It has been much worse over the last week with some fatigue. He denies any and all anterior chest pain. He states some slightly increased bilateral lower extremity swelling. No nausea, vomiting, fevers, or diaphoresis. Mild constant nonproductive cough. No nasal congestion or fevers. Patient is also complaining of some decreased urination. Normal bow el movements. He denies any dysuria or flank pain. Patient was seen here a few days ago with evaluation consistent of worsening heart failure. He had his Lasix increased and was provided a duo nebulizer. Patient chose to go home at that time. ROS: See HPI All other review of systems reviewed and otherwise negative Reviewed vital signs and nursing note as charted by RN. PHYSICAL EXAM: CONSTITUTIONAL: Alert and oriented and responds appropriately to questions. Well-appearing; well-nourished HEAD: Normocephalic; atraumatic EYES: PERRL; Conjunctivae clear, sclerae non-icteric ENT: Normal nose; no rhinorrhea; moist mucous membranes; pharynx without lesions noted NECK: Supple without meningismus; non-tender; no cervical lymphadenopathy, no masses CARD: Regular rate and rhythm; no murmurs; symmetric distal pulses RESP: Normal chest excursion without splinting or tachypnea; breath sounds clear and equal bilaterally; minimal rales without wheezing or rhonchi appreciated ABD/GI: Normal bowel sounds; non-distended; soft, non-tender with no suprapubic fullness appreciated. No penile lesions or testicular pain or swelling BACK: The back appears normal and is non-tender to palpation EXT: Normal ROM in all joints; non-tender to palpation; no edema SKIN: No acute lesions noted NEURO: CN 2-12 intact; 5/5 bilateral upper and lower extremity strength with sensation intact to light touch PSYCH: The patient's mood and manner are appropriate. Grooming and personal hygiene are appropriate. TRAVEL OUTSIDE OF THE [place] IN LAST 30 DAYS: No - Related Data Allergies/Adverse Reactions: meperidine HCl [From Demerol] Allergy (Verified 10/11/19 11:06) Past Medical History - General Information source: Patient - Social History Smoking Status: Former Smoker Chew tobacco use (# tins/day): No Frequency of alcohol use: None Drug Abuse: None Family History: Reviewed & Not Pertinent, CAD, Hypertension Patient has suicidal ideation: No Patient has homicidal ideation: No - Past Medical History Cardiac Medical History: Reports: Hx Atrial Fibrillation, Hx Congestive Heart Failure, Hx Coronary Artery Disease, Hx Hypercholesterolemia, Hx Hypertension Pulmonary Medical History: Reports: Hx Asthma, Hx Bronchitis, Hx COPD, Hx Pneumonia Denies: Hx Tuberculosis Neurological Medical History: Denies: Hx Seizures Renal/ Medical History: Reports: Hx Benign Prostatic Hyperplasia. Denies: Hx Peritoneal Dialysis GI Medical History: Reports: Hx Gastroesophageal Reflux Disease Musculoskeletal Medical History: Reports Hx Arthritis Psychiatric Medical History: Reports: Hx Depression Past Surgical History: Reports: Hx Cardiac Surgery - pacemaker, Hx Genitourinary Surgery - prostate, Hx Herniorrhaphy - Bilateral inguinal repair. Denies: Hx Pacemaker - Immunizations Hx Diphtheria, Pertussis, Tetanus Vaccination: Yes Hx Pneumococcal Vaccination: 09/03/11 Physical Exam - Vital signs Vitals: Temp Pulse Resp BP Pulse Ox 97.7 F 85 28 H 148/58 H 92 10/11/19 11:09 10/11/19 11:09 10/11/19 11:09 10/11/19 11:09 10/11/19 11:09 Course - Re-evaluation Re-evalutation: 10/11/19 12:22 Given the history and physical we will obtain basic labs, cardiac labs, repeat BNP, x-ray of the chest, EKG, and perform a catheterized urine analysis to assess for the possibility. I will provide a duo nebulizer and obtain an ABG and reassess. I currently do not hear any wheezing. 10/11/19 12:46 EKG shows a rate of 75, ventricularly paced rhythm, PVCs present. Inverted T waves in aVL. Poor wave progression. 10/11/19 13:40 Patient's BNP is slightly increased from previous value a few days ago. X-ray shows some fluid congestion with possible pleural effusion. Patient has had no fevers with a nonproductive cough for many years that has not increased in intensity. I do believe pneumonia to be unlikely. Troponin as recorded. I do believe that the patient requires diuresis and possibly an echo. We did attempt to pass a Rapp catheter for strict I and O calculation and have been unsuccessful x 2 attempts. Bladder scanning however shows only around 200 cc and the patient has urinated. I will provide a dose of IV Lasix. - Vital Signs Vital signs: Temp Pulse Resp BP Pulse Ox 97.7 F 85 28 H 148/58 H 92 10/11/19 11:09 10/11/19 11:09 10/11/19 11:09 10/11/19 11:09 10/11/19 11:09 - Laboratory Result Diagrams: 10/11/19 11:42 10/11/19 11:42 Laboratory results interpreted by me: 10/11/19 10/11/19 10/11/19 11:42 11:42 11:42 RBC 3.13 L Hgb 9.1 L Hct 26.3 L RDW 16.1 H Lymph % (Auto) 10.9 L ABG pH ABG pO2 ABG HCO3 ABG Total CO2 ABG O2 Saturation Sodium 134.9 L Chloride 97 L BUN 23 H Creatinine 1.45 H Est GFR ( Amer) 56 L Est GFR (MDRD) Non-Af 47 L Calcium 8.0 L NT-Pro-B Natriuret Pep 1790 H 10/11/19 12:40 RBC Hgb Hct RDW Lymph % (Auto) ABG pH 7.46 H ABG pO2 53.3 L ABG HCO3 27.8 H ABG Total CO2 29.1 H ABG O2 Saturation 89.3 L Sodium Chloride BUN Creatinine Est GFR ( Amer) Est GFR (MDRD) Non-Af Calcium NT-Pro-B Natriuret Pep Discharge - Discharge Clinical Impression: Shortness of breath Acute congestive heart failure Qualifiers: Heart failure type: unspecified Qualified Code(s): I50.9 - Heart failure, unspecified Condition: Fair Disposition: ADMITTED INPATIENT Unit Admitted: IMCU Referrals: JOELLEN JIMENEZ MD [Primary Care Provider] - Follow up as needed
[2019-10-11 12:25] LABS: ALBUMIN 3.6 g/dL (3.5-5.0); ALKALINE PHOSPHATASE 107 U/L (38-126); ANION GAP 9 (5-19); ASPARTATE AMINO TRANSFERASE 29 U/L (17-59); BILIRUBIN,TOTAL 0.5 mg/dL (0.2-1.3); BLOOD UREA NITROGEN 23 mg/dL (7-20); CARBON DIOXIDE 29 mmol/L (22-30); CHLORIDE 97 mmol/L (98-107); GLUCOSE 97 mg/dL (75-110); TOTAL PROTEIN 6.4 g/dL (6.3-8.2)
[2019-10-11 12:30] LABS: EOSINOPHILS % (AUTO) 2.7 % (0-6); HEMATOCRIT 26.3 % (37.9-51.0); HEMOGLOBIN 9.1 g/dL (13.5-17.0); LYMPHOCYTES % (AUTO) 10.9 % (13-45); MEAN CORPUSCULAR HGB CONC 34.8 g/dL (32.0-36.0); MEAN CORPUSCULAR VOLUME 84 fl (80-97); PLATELET COUNT 213 10^3/uL (150-450); RED BLOOD COUNT 3.13 10^6/uL (4.35-5.55); RED CELL DISTRIBUTION WIDTH 16.1 % (11.5-14.0); SEGMENTED NEUTROPHILS % (AUTO) 73.1 % (42-78)
[2019-10-11] MEDS ORDERED: IPRATROPIUM/ALBUTEROL 0.5-2.5 MG/3 ML AMPUL NEB SCH (12:30)
--- NOTE | 2019-10-11 12:31 | RADIOLOGY REPORT (SQ) ---
EXAM DESCRIPTION: CHEST SINGLE VIEW COMPLETED DATE/TIME: 10/11/2019 12:16 pm REASON FOR STUDY: eval for CHF COMPARISON: Chest x-ray 10/09/2019, 08/25/2019. EXAM PARAMETERS: NUMBER OF VIEWS: One view. TECHNIQUE: Single frontal radiographic view of the chest acquired. RADIATION DOSE: NA LIMITATIONS: None. FINDINGS: LUNGS AND PLEURA: There is a small left pleural effusion with airspace opacity at the left lung base. No pneumothorax. MEDIASTINUM AND HILAR STRUCTURES: No masses. Contour normal. HEART AND VASCULAR STRUCTURES: The heart is mildly enlarged. There is mild central vascular congesti on. BONES: No acute findings. HARDWARE: There is a left-sided pacemaker. IMPRESSION: Mild cardiomegaly and mild central vascular congestion. Small left pleural effusion wit h airspace opacity at the left lung base, may be secondary to atelectasis or pneumonia. TECHNICAL DOCUMENTATION: JOB ID: [id number] 2010 [employer]- All Rights Reserved Reading location - IP/workstation name: [email or web address]
[2019-10-11 12:36] LABS: NT PRO BNP 1790 pg/mL (<450)
[2019-10-11 12:38] LABS: TROPONIN I < 0.012 ng/mL
[2019-10-11 13:02] LABS: ARTERIAL BLOOD BASE EXCESS 3.7 mmol/L; ARTERIAL BLOOD H2CO3 1.21 mmol/L (1.05-1.35); ARTERIAL BLOOD HCO3 27.8 mmol/L (20-24); ARTERIAL BLOOD O2 SATURATION 89.3 % (94-98); ARTERIAL BLOOD PCO2 40.3 mmHg (35-45); ARTERIAL BLOOD PH 7.46 (7.35-7.45); ARTERIAL BLOOD PO2 53.3 mmHg (80-100); ARTERIAL BLOOD TOTAL CO2 29.1 mmol/L (23-27)
[2019-10-11 13:03] LABS: ARTERIAL BLOOD FIO2 ROOM AIR
[2019-10-11] MEDS ORDERED: FUROSEMIDE INJ/PF 40 MG/4 ML SDV IV ONE (13:45)
[2019-10-11 17:43] LABS: INTERNATIONAL RATION (INR) 1.47
[2019-10-11 17:44] LABS: PARTIAL THROMBOPLASTIN TIME 36.5 SEC (23.5-35.8)
[2019-10-11 17:59] LABS: CREATINE KINASE MB 1.97 ng/mL (<4.55); NT PRO BNP 1800 pg/mL (<450); TROPONIN I < 0.012 ng/mL
[2019-10-11] MEDS: RANOLAZINE 500 MG TAB.SR.12H PO SCH (17:59)
[2019-10-11] MEDS: CARVEDILOL 3.125 MG TABLET PO SCH ×2 (18:00→21:43)
[2019-10-11] MEDS: HEPARIN SOD (PORCINE) 5,000 UNIT/ML 1 ML VIAL SUBCUT SCH ×2 (18:00→21:43)
[2019-10-11 18:04] LABS: FREE T4 (FREE THYROXINE) 1.1 ng/dL (0.78-2.19)
[2019-10-11] MEDS: SACUBITRIL/VALSARTAN 24 MG/26 MG TABLET PO SCH (18:04)
[2019-10-11 18:18] LABS: THYROID STIMULATING HORMONE 2.18 uIU/mL (0.47-4.68)
[2019-10-11] MEDS: NORMAL SALINE 250 ML with FUROSEMIDE 250 MG IV PRN ×2 (19:34)
--- NOTE | 2019-10-11 19:58 | PDOC H&P ---
History of Present Illness Admission Date/PCP: 10/11/19 14:13 JOELLEN JIMENEZ MD History of Present Illness: DARCIE AUSTIN is a 84 year old male, He came to the emergency room for evaluation of shortness of breath, he has a history of chronic systolic heart failure, chronic respiratory failure due to chronic obstructive pulmonary disease on home oxygen, he has a pacemaker as well he also complained of progressive worsening bilateral lower extremity swelling. He was evaluated in the emergency room, EKG that was done demonstrated a paced rhythm, he was in the emergency room couple of days ago for evaluation of similar symptoms, he was seen evaluated and discharged home from the emergency room. The serum B type natruretic peptide was increased from the previous value 3 days ago. In the emergency room attempt was made to catheterize the patient without success.The arterial blood gas on ambient air demonstrated hypoxemia Past Medical History Cardiac Medical History: Reports: Atrial Fibrillation, Congestive Heart Failure, Coronary Artery Disease, Hyperlipidema, Hypertension Pulmonary Medical History: Reports: Asthma, Bronchitis, Chronic Obstructive Pulmonary Disease (COPD), Pneumonia Denies: Tuberculosis Neurological Medical History: Denies: Seizures GI Medical History: Reports: Gastroesophageal Reflux Disease Musculoskeltal Medical History: Reports: Arthritis Psychiatric Medical History: Reports: Depression Past Surgical History Past Surgical History: Reports: Herniorrhaphy - Bilateral inguinal repair Denies: Pacemaker Social History Smoking Status: Former Smoker Electronic Cigarette use?: No Last Time Smoked: 1981 Frequency of Alcohol Use: None Hx Recreational Drug Use: No Drugs: None Hx Prescription Drug Abuse: No - Advance Directive Resuscitation Status: Full Code Family History Family History: Reviewed & Not Pertinent, CAD, Hypertension Parental Family History Reviewed: Yes Children Family History Reviewed: Yes Sibling(s) Family History Reviewed.: Yes Medication/Allergy Home Medications: Atorvastatin Calcium [Lipitor 20 mg Tablet] 20 mg PO QHS 10/11/19 Furosemide [Lasix 20 mg Tablet] 40 mg PO DAILY 10/11/19 Ranolazine [Ranolazine ER] 1,000 mg PO DAILY 10/11/19 Allergies/Adverse Reactions: meperidine HCl [From Demerol] Allergy (Verified 10/11/19 11:06) Review of Systems Constitutional: ABSENT: chills, fever(s), headache(s), weight gain, weight loss Eyes: ABSENT: visual disturbances Ears: ABSENT: hearing changes Cardiovascular: PRESENT: dyspnea on exertion, edema Respiratory: ABSENT: cough, hemoptysis Gastrointestinal: ABSENT: abdominal pain, constipation, diarrhea, hematemesis, hematochezia, nausea, vomiting Genitourinary: ABSENT: dysuria, hematuria Musculoskeletal: ABSENT: joint swelling Integumentary: ABSENT: rash, wounds Neurological: ABSENT: abnormal gait, abnormal speech, confusion, dizziness, focal weakness, syncope Psychiatric: ABSENT: anxiety, depression, homidical ideation, suicidal ideation Endocrine: ABSENT: cold intolerance, heat intolerance, menstrual abnormalities, polydipsia, polyuria Hematologic/Lymphatic: ABSENT: easy bleeding, easy bruising, lymphadenopathy Physical Exam Vital Signs: Temp Pulse Resp BP Pulse Ox 98.4 F 76 20 144/56 H 95 10/11/19 15:54 10/11/19 15:54 10/11/19 15:54 10/11/19 15:54 10/11/19 15:54 Intake & Output 10/10/19 10/11/19 10/12/19 06:59 06:59 06:59 Intake Total 480 Output Total 775 Balance -295 Weight 106.3 kg General appearance: PRESENT: no acute distress, well-developed, well-nourished Head exam: PRESENT: atraumatic, normocephalic Eye exam: PRESENT: conjunctiva pink, EOMI, PERRLA. ABSENT: scleral icterus Ear exam: PRESENT: normal external ear exam Mouth exam: PRESENT: moist, tongue midline Neck exam: PRESENT: full ROM. ABSENT: carotid bruit, JVD, lymphadenopathy, thyromegaly Respiratory exam: PRESENT: rhonchi Cardiovascular exam: PRESENT: RRR, +S1, +S2 Vascular exam: PRESENT: normal capillary refill GI/Abdominal exam: PRESENT: normal bowel sounds, soft Rectal exam: PRESENT: deferred Extremities exam: PRESENT: pedal edema, other - Bilateral lower extremity edema Neurological exam: PRESENT: alert, awake, oriented to person, oriented to place, oriented to time, oriented to situation, CN II-XII grossly intact Psychiatric exam: PRESENT: appropriate affect, normal mood Skin exam: PRESENT: dry, intact, warm Results Laboratory Results: 10/11/19 11:42 10/11/19 11:42 10/11/19 10/11/19 10/11/19 11:30 11:42 11:42 WBC 7.2 RBC 3.13 L Hgb 9.1 L Hct 26.3 L MCV 84 MCH 29.1 MCHC 34.8 RDW 16.1 H Plt Count 213 Seg Neutrophils % 73.1 Carbonic Acid HCO3/H2CO3 Ratio ABG pH ABG pCO2 ABG pO2 ABG HCO3 ABG O2 Saturation ABG Base Excess FiO2 Sodium 134.9 L Potassium 4.0 Chloride 97 L Carbon Dioxide 29 Anion Gap 9 BUN 23 H Creatinine 1.45 H Est GFR ( Amer) 56 L Glucose 97 Calcium 8.0 L Magnesium Total Bilirubin 0.5 AST 29 Alkaline Phosphatase 107 Total Protein 6.4 Albumin 3.6 TSH Free T4 Urine Color STRAW Urine Appearance CLEAR Urine pH 7.0 Ur Specific Gracey 1.004 Urine Protein NEGATIVE Urine Glucose (UA) NEGATIVE Urine Ketones NEGATIVE Urine Blood NEGATIVE Urine Nitrite NEGATIVE Ur Leukocyte Esterase NEGATIVE Urine WBC (Auto) 0 10/11/19 10/11/19 10/11/19 12:40 17:00 17:00 WBC RBC Hgb Hct MCV MCH MCHC RDW Plt Count Seg Neutrophils % Carbonic Acid 1.21 HCO3/H2CO3 Ratio 22:1 ABG pH 7.46 H ABG pCO2 40.3 ABG pO2 53.3 L ABG HCO3 27.8 H ABG O2 Saturation 89.3 L ABG Base Excess 3.7 FiO2 ROOM AIR Sodium Potassium Chloride Carbon Dioxide Anion Gap BUN Creatinine Est GFR ( Amer) Glucose Calcium Magnesium 2.6 H Total Bilirubin AST Alkaline Phosphatase Total Protein Albumin TSH 2.18 Free T4 1.10 Urine Color Urine Appearance Urine pH Ur Specific Gracey Urine Protein Urine Glucose (UA) Urine Ketones Urine Blood Urine Nitrite Ur Leukocyte Esterase Urine WBC (Auto) 10/11/19 10/11/19 10/11/19 11:42 17:00 17:00 Creatine Kinase 170 CK-MB (CK-2) 1.97 Troponin I < 0.012 < 0.012 NT-Pro-B Natriuret Pep 1790 H 1800 H Impressions: Chest X-Ray 10/11/19 11:15 IMPRESSION: Mild cardiomegaly and mild central vascular congestion. Small left pleural effusion with airspace opacity at the left lung base, may be secondary to atelectasis or pneumonia. Assessment & Plan - Diagnosis (1) Acute hypoxemic respiratory failure Is this a current diagnosis for this admission?: Yes Plan: The differential diagnosis includes CHF, pneumonia, pulmonary embolism. I reviewed the chest x-ray,, It does not look overly abnormal to the extent to cause significant hypoxemia, PE is a possibility especially in the patient with chronic lower extremity edema, CT angiogram of the chest is contraindicated especially in this patient with chronic kidney disease, VQ scan will return as indeterminate, (2) Acute systolic heart failure Is this a current diagnosis for this admission?: Yes Plan: Start furosemide infusion, Entresto, Order 2D echo (3) Chronic kidney disease, stage 3 (moderate) Is this a current diagnosis for this admission?: Yes
--- NOTE | 2019-10-11 21:19 | EKG REPORT ---
SEVERITY:- ABNORMAL ECG - VENTRICULAR-PACED RHYTHM PVC NONSPECIFIC IVCD WITH LAD : Confirmed by: Saranya Medrano MD 11-Oct-2019 21:19:19
[2019-10-11] MEDS: ATORVASTATIN CALCIUM 20 MG TABLET PO SCH (21:43)
--- NOTE | 2019-10-12 00:05 | RADIOLOGY REPORT (SQ) ---
EXAM DESCRIPTION: CLINICAL HISTORY: 84 years Male ACUTE HYPOXEMIC ? PE TECHNIQUE: Nuclear medicine ventilation/perfusion scan performed using 32 mCi of technetium DTPA and 5.7 mCi intravenous technetium 99m MAA. 8 views of each. COMPARISON: Chest radiograph obtained earlier in the day FINDINGS: Ventilation: Ventilation images are nondiagnostic. Perfusion: Homogeneous perfusion throughout the lungs is identified. No moderate or large defects. IMPRESSION: Low probability for pulmonary embolism.
[2019-10-12 01:04] LABS: TROPONIN I < 0.012 ng/mL
[2019-10-12] MEDS: HEPARIN SOD (PORCINE) 5,000 UNIT/ML 1 ML VIAL SUBCUT SCH ×4 (05:55→21:40)
[2019-10-12 07:20] LABS: ALBUMIN 3.7 g/dL (3.5-5.0); ALKALINE PHOSPHATASE 113 U/L (38-126); ANION GAP 10 (5-19); ASPARTATE AMINO TRANSFERASE 24 U/L (17-59); BILIRUBIN,DIRECT 0.1 mg/dL (0.0-0.4); BILIRUBIN,TOTAL 0.7 mg/dL (0.2-1.3); BLOOD UREA NITROGEN 17 mg/dL (7-20); CALCIUM 8.4 mg/dL (8.4-10.2); CARBON DIOXIDE 26 mmol/L (22-30); CHLORIDE 101 mmol/L (98-107); CHOLESTEROL 101.04 mg/dL (0-200); CREATINE KINASE 122 U/L (55-170); GLUCOSE 92 mg/dL (75-110); POTASSIUM 3.5 mmol/L (3.6-5.0); TOTAL PROTEIN 6.4 g/dL (6.3-8.2); TRIGLYCERIDES 111 mg/dL (<150)
[2019-10-12 07:25] LABS: ABSOLUTE EOSINOPHILS # (AUTO) 0.2 10^3/uL (0.0-0.6); ABSOLUTE LYMPHOCYTES (AUTO) 0.9 10^3/uL (0.5-4.7); ABSOLUTE MONOCYTES (AUTO) 0.9 10^3/uL (0.1-1.4); ABSOLUTE NEUT (AUTO) 5.6 10^3/uL (1.7-8.2); BASOPHILS % (AUTO) 0.3 % (0-2); EOSINOPHILS % (AUTO) 2.4 % (0-6); HEMATOCRIT 29.2 % (37.9-51.0); HEMOGLOBIN 10.1 g/dL (13.5-17.0); LYMPHOCYTES % (AUTO) 11.9 % (13-45); MEAN CORPUSCULAR HGB CONC 34.5 g/dL (32.0-36.0); MEAN CORPUSCULAR VOLUME 84 fl (80-97); MONOCYTES % (AUTO) 12.4 % (3-13); PLATELET COUNT 208 10^3/uL (150-450); RED BLOOD COUNT 3.48 10^6/uL (4.35-5.55); TOTAL CELLS COUNTED % (AUTO) 100 %; WHITE BLOOD COUNT 7.6 10^3/uL (4.0-10.5)
[2019-10-12 07:31] LABS: DIRECT LDL 50 mg/dL (<100)
[2019-10-12 07:34] LABS: CREATINE KINASE MB 1.22 ng/mL (<4.55)
[2019-10-12 07:39] LABS: TROPONIN I < 0.012 ng/mL
[2019-10-12] MEDS: SACUBITRIL/VALSARTAN 24 MG/26 MG TABLET PO SCH ×2 (10:05→18:00)
[2019-10-12] MEDS: RANOLAZINE 500 MG TAB.SR.12H PO SCH (10:05)
[2019-10-12] MEDS: CARVEDILOL 3.125 MG TABLET PO SCH ×2 (10:05→21:39)
[2019-10-12 13:12] LABS: CREATINE KINASE MB 0.87 ng/mL (<4.55)
[2019-10-12 13:14] LABS: TROPONIN I < 0.012 ng/mL
[2019-10-12] MEDS: POTASSIUM CHLORIDE 10 MEQ TABLET.ER PO SCH ×2 (13:52→18:00)
--- NOTE | 2019-10-12 14:24 | PDOC PROGRESS REPORT ---
Subjective Progress Note for:: 10/12/19 Subjective:: Patient was admitted yesterday when he presented with acute hypoxemic respiratory failure associated with acute systolic heart failure. A VQ scan was done last night, it was low probability for PE. Patient said he feels better this morning, he diuresed quite effectively over the night. Reason For Visit: ACUTE SYSTOLIC HEART FAILURE Physical Exam Vital Signs: Temp Pulse Resp BP Pulse Ox 98.3 F 80 16 160/66 H 99 10/12/19 12:17 10/12/19 12:17 10/12/19 12:17 10/12/19 12:17 10/12/19 12:17 Intake & Output 10/11/19 10/12/19 10/13/19 06:59 06:59 06:59 Intake Total 1280 Output Total 1731 Balance -451 Weight 106.3 kg 100.6 kg General appearance: PRESENT: no acute distress, well-developed, well-nourished Head exam: PRESENT: atraumatic, normocephalic Eye exam: PRESENT: conjunctiva pink, EOMI, PERRLA Ear exam: PRESENT: normal external ear exam Mouth exam: PRESENT: moist, tongue midline Neck exam: PRESENT: full ROM Respiratory exam: PRESENT: clear to auscultation alphonse Cardiovascular exam: PRESENT: RRR, +S1, +S2 Pulses: PRESENT: normal dorsalis pedis pul, +2 pedal pulses bilateral Vascular exam: PRESENT: normal capillary refill GI/Abdominal exam: PRESENT: normal bowel sounds, soft Rectal exam: PRESENT: deferred Neurological exam: PRESENT: alert, awake, oriented to person, oriented to place, oriented to time, oriented to situation, CN II-XII grossly intact Psychiatric exam: PRESENT: appropriate affect, normal mood Skin exam: PRESENT: dry, intact, warm Results Laboratory Results: 10/12/19 06:23 10/12/19 06:23 10/11/19 10/11/19 10/12/19 17:00 17:00 06:23 WBC RBC Hgb Hct MCV MCH MCHC RDW Plt Count Seg Neutrophils % Sodium 136.9 L Potassium 3.5 L Chloride 101 Carbon Dioxide 26 Anion Gap 10 BUN 17 Creatinine 1.29 H Est GFR ( Amer) > 60 Glucose 92 Calcium 8.4 Magnesium 2.6 H Total Bilirubin 0.7 AST 24 Alkaline Phosphatase 113 Total Protein 6.4 Albumin 3.7 Triglycerides 111 Cholesterol 101.04 LDL Cholesterol Direct 50 VLDL Cholesterol 22.0 HDL Cholesterol 40 TSH 2.18 Free T4 1.10 10/12/19 06:23 WBC 7.6 RBC 3.48 L Hgb 10.1 L Hct 29.2 L MCV 84 MCH 29.0 MCHC 34.5 RDW 16.0 H Plt Count 208 Seg Neutrophils % 73.0 Sodium Potassium Chloride Carbon Dioxide Anion Gap BUN Creatinine Est GFR ( Amer) Glucose Calcium Magnesium Total Bilirubin AST Alkaline Phosphatase Total Protein Albumin Triglycerides Cholesterol LDL Cholesterol Direct VLDL Cholesterol HDL Cholesterol TSH Free T4 10/11/19 10/11/19 10/11/19 11:42 17:00 17:00 Creatine Kinase 170 CK-MB (CK-2) 1.97 Troponin I < 0.012 < 0.012 NT-Pro-B Natriuret Pep 1790 H 1800 H 10/12/19 10/12/19 10/12/19 00:21 00:21 06:23 Creatine Kinase 133 122 CK-MB (CK-2) 1.30 Troponin I < 0.012 NT-Pro-B Natriuret Pep 10/12/19 10/12/19 10/12/19 06:23 12:18 12:18 Creatine Kinase 92 CK-MB (CK-2) 1.22 0.87 Troponin I < 0.012 < 0.012 NT-Pro-B Natriuret Pep Impressions: Lung Scan-VQ NM 10/11/19 00:00 IMPRESSION: Low probability for pulmonary embolism. Chest X-Ray 10/11/19 11:15 IMPRESSION: Mild cardiomegaly and mild central vascular congestion. Small left pleural effusion with airspace opacity at the left lung base, may be secondary to atelectasis or pneumonia. Assessment & Plan - Diagnosis (1) Acute hypoxemic respiratory failure Is this a current diagnosis for this admission?: Yes Plan: Continue oxygen via nasal cannula (2) Acute systolic heart failure Is this a current diagnosis for this admission?: Yes Plan: Continue diuresis with Lasix infusion, beta-danyelle, Entresto, 2D echo ordered hopefully done in the morning (3) Chronic kidney disease, stage 3 (moderate) Is this a current diagnosis for this admission?: Yes - Time Time Spent with patient: 35 or more minutes Level of Care: IMCU
[2019-10-12 18:19] LABS: CREATINE KINASE MB 1.05 ng/mL (<4.55)
[2019-10-12 18:25] LABS: TROPONIN I < 0.012 ng/mL
[2019-10-12] MEDS: ATORVASTATIN CALCIUM 20 MG TABLET PO SCH (21:39)
[2019-10-13] MEDS: HEPARIN SOD (PORCINE) 5,000 UNIT/ML 1 ML VIAL SUBCUT SCH ×3 (06:47→22:25)
[2019-10-13] MEDS: NORMAL SALINE 250 ML with FUROSEMIDE 250 MG IV PRN ×2 (06:51)
[2019-10-13 08:28] LABS: ABSOLUTE EOSINOPHILS # (AUTO) 0.3 10^3/uL (0.0-0.6); ABSOLUTE LYMPHOCYTES (AUTO) 1.2 10^3/uL (0.5-4.7); ABSOLUTE MONOCYTES (AUTO) 0.9 10^3/uL (0.1-1.4); ABSOLUTE NEUT (AUTO) 4.4 10^3/uL (1.7-8.2); BASOPHILS % (AUTO) 0.4 % (0-2); EOSINOPHILS % (AUTO) 4.5 % (0-6); HEMATOCRIT 35.8 % (37.9-51.0); LYMPHOCYTES % (AUTO) 17.5 % (13-45); MEAN CORPUSCULAR HEMOGLOBIN 28.4 pg (27.0-33.4); MEAN CORPUSCULAR VOLUME 84 fl (80-97); MONOCYTES % (AUTO) 12.7 % (3-13); PLATELET COUNT 282 10^3/uL (150-450); RED BLOOD COUNT 4.27 10^6/uL (4.35-5.55); RED CELL DISTRIBUTION WIDTH 15.9 % (11.5-14.0); SEGMENTED NEUTROPHILS % (AUTO) 64.9 % (42-78); TOTAL CELLS COUNTED % (AUTO) 100 %; WHITE BLOOD COUNT 6.8 10^3/uL (4.0-10.5)
[2019-10-13 08:43] LABS: HEMOGLOBIN 12.2 g/dL (13.5-17.0)
--- NOTE | 2019-10-13 09:26 | PDOC PROGRESS REPORT ---
Subjective Progress Note for:: 10/13/19 Subjective:: Patient was admitted for the acute congestive heart failure's patient was put on Lasix drip currently feeling better pt usually wear the 2 L nasal cannula oxygen at home Patient denied any chest pains no short of breath no cough no congestions Patient's see her Dr. CHINCHILLA as outpatients Reason For Visit: ACUTE SYSTOLIC HEART FAILURE Physical Exam Vital Signs: Temp Pulse Resp BP Pulse Ox 97.2 F 84 18 116/73 98 10/13/19 07:30 10/13/19 07:30 10/13/19 07:30 10/13/19 07:30 10/13/19 07:30 Intake & Output 10/12/19 10/13/19 10/14/19 06:59 06:59 06:59 Intake Total 1280 1516 275 Output Total 1731 1025 Balance -451 491 275 Weight 106.3 kg 100.3 kg General appearance: PRESENT: no acute distress, well-developed, well-nourished Head exam: PRESENT: atraumatic, normocephalic Eye exam: PRESENT: conjunctiva pink, EOMI, PERRLA. ABSENT: scleral icterus Ear exam: PRESENT: normal external ear exam Mouth exam: PRESENT: moist, tongue midline Neck exam: PRESENT: full ROM. ABSENT: carotid bruit, JVD, lymphadenopathy, thyromegaly Respiratory exam: PRESENT: clear to auscultation alphonse Cardiovascular exam: PRESENT: RRR. ABSENT: diastolic murmur, rubs, systolic murmur Pulses: PRESENT: normal dorsalis pedis pul, +2 pedal pulses bilateral Vascular exam: PRESENT: normal capillary refill GI/Abdominal exam: PRESENT: normal bowel sounds, soft. ABSENT: distended, gua rding, mass, organolmegaly, rebound, tenderness Rectal exam: PRESENT: deferred Extremities exam: ABSENT: pedal edema Musculoskeletal exam: PRESENT: ambulatory Neurological exam: PRESENT: alert, awake, oriented to person, oriented to place, oriented to time, oriented to situation, CN II-XII grossly intact. ABSENT: motor sensory deficit Psychiatric exam: PRESENT: appropriate affect, normal mood. ABSENT: homicidal ideation, suicidal ideation Skin exam: PRESENT: dry, intact, warm. ABSENT: cyanosis, rash Results Laboratory Results: 10/13/19 07:50 10/12/19 06:23 10/13/19 07:50 WBC 6.8 RBC 4.27 L Hgb 12.2 L D Hct 35.8 L MCV 84 MCH 28.4 MCHC 34.0 RDW 15.9 H Plt Count 282 Seg Neutrophils % 64.9 10/11/19 10/11/19 10/11/19 11:42 17:00 17:00 Creatine Kinase 170 CK-MB (CK-2) 1.97 Troponin I < 0.012 < 0.012 NT-Pro-B Natriuret Pep 1790 H 1800 H 10/12/19 10/12/19 10/12/19 00:21 00:21 06:23 Creatine Kinase 133 122 CK-MB (CK-2) 1.30 Troponin I < 0.012 NT-Pro-B Natriuret Pep 10/12/19 10/12/19 10/12/19 06:23 12:18 12:18 Creatine Kinase 92 CK-MB (CK-2) 1.22 0.87 Troponin I < 0.012 < 0.012 NT-Pro-B Natriuret Pep 10/12/19 10/12/19 17:45 17:45 Creatine Kinase 96 CK-MB (CK-2) 1.05 Troponin I < 0.012 NT-Pro-B Natriuret Pep Impressions: Lung Scan-VQ NM 10/11/19 00:00 IMPRESSION: Low probability for pulmonary embolism. Assessment & Plan - Diagnosis (1) Acute congestive heart failure Qualifiers: Heart failure type: combined systolic and diastolic Qualified Code(s): I50.41 - Acute combined systolic (congestive) and diastolic (congestive) heart failure Is this a current diagnosis for this admission?: Yes Plan: Switch to the IV Lasix to the p.o. Lasix twice a day (2) Chronic kidney disease, stage 3 (moderate) Is this a current diagnosis for this admission?: Yes Plan: Check the kidney functions (3) Anemia Qualifiers: Anemia type: iron deficiency Is this a current diagnosis for this admission?: Yes Plan: Currently all stable (4) Atrial fibrillation Qualifiers: Atrial fibrillation type: unspecified Is this a current diagnosis for this admission?: Yes Plan: Continues to current medications (5) COPD (chronic obstructive pulmonary disease) with acute bronchitis Is this a current diagnosis for this admission?: Yes Plan: Continue some nebulizer treatments (6) Hypertension Qualifiers: Hypertension type: essential hypertension Is this a current diagnosis for this admission?: Yes - Time Time Spent with patient: 15-24 minutes Level of Care: IMCU Medications reviewed and adjusted accordingly: Yes Anticipated discharge: Home with Homehealth Within: within 24 hours - Plan Summary Plan Summary: We will consult the Dr. CHINCHILLA for further evaluations switch IV to the p.o. Lasix
[2019-10-13] MEDS: POTASSIUM CHLORIDE 10 MEQ TABLET.ER PO SCH ×3 (09:32→17:24)
[2019-10-13] MEDS: RANOLAZINE 500 MG TAB.SR.12H PO SCH (09:32)
[2019-10-13] MEDS: SACUBITRIL/VALSARTAN 24 MG/26 MG TABLET PO SCH ×2 (09:32→17:24)
[2019-10-13] MEDS: CARVEDILOL 3.125 MG TABLET PO SCH (09:32)
[2019-10-13] MEDS: FUROSEMIDE 40 MG TABLET PO SCH ×2 (09:32→17:24)
--- NOTE | 2019-10-13 09:37 | RADIOLOGY REPORT (SQ) ---
EXAM DESCRIPTION: CHEST SINGLE VIEW COMPLETED DATE/TIME: 10/13/2019 9:13 am REASON FOR STUDY: chf COMPARISON: AP view of the chest from 10/11/2019. EXAM PARAMETERS: NUMBER OF VIEWS: One view. TECHNIQUE: An AP view of the chest was obtained. RADIATION DOSE: NA LIMITATIONS: None. FINDINGS: LUNGS AND PLEURA: Unchanged pleural and parenchymal opacities in the inferior left hemitho rax that blunt the left lateral costophrenic sulcus. There is no consolidation or pneumothorax. MEDIASTINUM AND HILAR STRUCTURES: No mediastinal or hilar contour abnormality. HEART AND VASCULAR STRUCTURES: Stable cardiomegaly. BONES: No acute findings. HARDWARE: Intact left subclavian vein approach transvenous pacemaker. OTHER: No other finding. IMPRESSION: Unchanged pleural and parenchymal opacities in the inferior left hemithorax that could r epresent a combination of pleural fluid and atelectasis. TECHNICAL DOCUMENTATION: JOB ID: [id number] 2010 [employer]- All Rights Reserved Reading location - IP/workstation name: [email or web address]
[2019-10-13] MEDS ORDERED: METOPROLOL SUCCINATE 25 MG TAB.SR.24H PO ONE (14:52)
[2019-10-13] MEDS: LEVOFLOXACIN 500 MG TABLET PO SCH (15:42)
--- NOTE | 2019-10-13 19:05 | PDOC CONSULTATION ---
Consultation-Blank Consultation: CARDIOLOGY CONSULTATION by Dr. Saranya Medrano on 10/13/2019. Patient seen at 3 PM on 10/13/2019. 60 minutes spent with patient more than 50% of time spent direct patient care. CONSULT REQUESTING PHYSICIAN: Dr. Talavera. REASON FOR CONSULTATION: Suspected heart failure in a patient is a history of cardiomyopathy, and coronary artery disease. HISTORY OF PRESENT ILLNESS: Patient is a 84-year-old male male with a history of cardiomyopathy with LV ejection fraction of around 45%, history of coronary artery disease with no anginal symptoms, and history of complete heart block status post biventricular pacemaker, and history of proximal atrial fibrillation, and history of asthma/severe COPD on home oxygen admitted with a few days of increasing shortness of breath with orthopnea. There is no PND or leg edema. The patient also has been having intermittent wheezing and also has been coughing up scanty sputum which is malcolm in color. There is no hemoptysis. The patient denies any palpitations or symptoms suggestive of recurrence of atrial fibrillation. He used to be on amiodarone in the past but after he converted to sinus this was taken off. He denies any fever chills or rigors. His chest x-ray shows mild heart failure and also left lower lobe pneumonia. He states with current treatment he feels better. Past Medical History Cardiac Medical History: Reports: Remote history of paroxysmal atrial Fibrillation. There is been no recurrence of atrial fibrillation. Congestive Heart Failure, Coronary Artery Disease, Hyperlipidema, Hypertension Pulmonary Medical History: Reports: Asthma, Bronchitis, Chronic Obstructive Pulmonary Disease (COPD), Pneumonia Denies: Tuberculosis Neurological Medical History: Denies: Seizures GI Medical History: Reports: Gastroesophageal Reflux Disease Musculoskeltal Medical History: Reports: Arthritis Psychiatric Medical History: Reports: Depression Past Surgical History Past Surgical History: Reports: Herniorrhaphy - Bilateral inguinal repair History of pacemaker Social History Smoking Status: Former Smoker Electronic Cigarette use?: No Last Time Smoked: 1981 Frequency of Alcohol Use: None Hx Recreational Drug Use: No Drugs: None Hx Prescription Drug Abuse: No - Advance Directive Resuscitation Status: Full Code. The patient's son is a surrogate healthcare decision maker. Family History Family History: Reviewed & Not Pertinent, CAD, Hypertension Parental Family History Reviewed: Yes Children Family History Reviewed: Yes Sibling(s) Family History Reviewed.: Yes Medication/Allergy Home Medications: Atorvastatin Calcium [Lipitor 20 mg Tablet] 20 mg PO QHS 10/11/19 Furosemide [Lasix 20 mg Tablet] 40 mg PO DAILY 10/11/19 Ranolazine [Ranolazine ER] 1,000 mg PO DAILY 10/11/19 Allergies/Adverse Reactions: meperidine HCl [From Demerol] Allergy (Verified 10/11/19 11:06) Review of Systems Constitutional: ABSENT: chills, fever(s), headache(s), weight gain, weight loss Eyes: ABSENT: visual disturbances Ears: ABSENT: hearing changes Cardiovascular: PRESENT: dyspnea on exertion, edema Respiratory: ABSENT: cough, hemoptysis Gastrointestinal: ABSENT: abdominal pain, constipation, diarrhea, hematemesis, hematochezia, nausea, vomiting Genitourinary: ABSENT: dysuria, hematuria Musculoskeletal: ABSENT: joint swelling Integumentary: ABSENT: rash, wounds Neurological: ABSENT: abnormal gait, abnormal speech, confusion, dizziness, focal weakness, syncope Psychiatric: ABSENT: anxiety, depression, homidical ideation, suicidal ideation Endocrine: ABSENT: cold intolerance, heat intolerance, menstrual abnormalities, polydipsia, polyuria Hematologic/Lymphatic: ABSENT: easy bleeding, easy bruising, lymphadenopathy. Current Medications Generic Name Dose Route Start Last Admin Trade Name Freq PRN Reason Stop Dose Admin Atorvastatin Calcium 20 mg 10/11/19 22:00 10/13/19 22:25 Lipitor 20 Mg Tablet PO 11/10/19 21:59 20 mg QHS PACHECO Administration Furosemide 40 mg 10/13/19 10:00 10/13/19 17:24 Lasix 40 Mg Tablet PO 11/12/19 09:59 40 mg BID PACHECO Administration Heparin Sodium (Porcine) 5,000 unit 10/11/19 16:15 10/13/19 22:25 Heparin Inj 5,000 Units/Ml 1 Ml Vial SUBCUT 11/10/19 16:14 5,000 unit Q8 PACHECO Administration Levofloxacin 500 mg 10/13/19 15:15 10/13/19 15:42 Levaquin 500 Mg Tablet PO 10/20/19 15:14 500 mg DAILY PACHECO Administration Metoprolol Succinate 50 mg 10/13/19 22:00 10/13/19 22:25 Toprol Xl 50 Mg Tab.Sr PO 11/12/19 21:59 50 mg Q12 PACHECO Administration Potassium Chloride 40 meq 10/12/19 12:45 10/13/19 17:24 Klor-Con 10 Meq Tablet Er PO 11/11/19 12:44 40 meq MEALS PACHECO Administration Ranolazine 1,000 mg 10/11/19 16:00 10/13/19 09:32 Ranexa 500 Mg Tab.Sr PO 11/10/19 15:59 1,000 mg DAILY PACHECO Administration Sodium Chloride 2.5 ml 10/11/19 16:15 10/13/19 15:19 Saline Flush 2.5 Ml Monoject Prefil Syrin IV 11/10/19 16:14 Not Given Q8 PACHECO Valsartan 80 mg 10/14/19 10:00 Diovan 80 Mg Tablet PO 11/13/19 09:59 Q12 PACHECO Discontinued Medications Generic Name Dose Route Start Last Admin Trade Name Freq PRN Reason Stop Dose Admin Albuterol/Ipratropium 3 ml 10/11/19 12:30 10/11/19 12:30 Duoneb 3 Ml Ampul NEB 10/11/19 12:31 3 ml Q15M PACHECO Administration Carvedilol 3.125 mg 10/11/19 17:00 10/13/19 09:32 Coreg 3.125 Mg Tablet PO 11/10/19 16:59 3.125 mg Q12 PACHECO Administration Furosemide 40 mg 10/11/19 13:45 10/11/19 14:19 Lasix Inj/Pf 40 Mg/4 Ml Sdv IV 10/11/19 13:46 40 mg NOW ONE Administration Furosemide 250 mg/ Sodium 275 mls @ 3.3 mls/hr 10/11/19 17:00 10/13/19 08:45 Chloride IV 11/10/19 16:59 Infused CONTINUOUS PRN Infusion THIS MED IS NOT "PRN" 3 MG/HR Lidocaine HCl 5 ml 10/11/19 12:23 10/11/19 12:28 Xylocaine 2% Uro-Jet 5 Ml Kit MM 10/11/19 12:24 5 ml NOW ONE Administration Metoprolol Succinate 25 mg 10/13/19 14:52 10/13/19 15:42 Toprol Xl 25 Mg Tab.Sr PO 10/13/19 14:53 25 mg NOW ONE Administration Sacubitril/Valsartan 1 tab 10/11/19 18:00 10/13/19 17:24 Entresto 24 Mg/26 Mg Tablet PO 11/10/19 17:59 1 tab BID PACHECO Administration PHYSICAL EXAMINATION: The patient is mildly obese. In no major distress. He is on oxygen. And is sitting up in the chair. Selected Entries 10/13/19 15:28 Temperature 97.3 F Temperature Oral Source Pulse Rate 76 Respiratory 16 Rate Blood Pressure 151/58 H Blood Pressure 89 Mean BP Location Right Arm BP Position Sitting O2 Sat by Pulse 100 Oximetry Oxygen Flow 1.50 Rate Oxygen Delivery Nasal Cannula Method Head: Is atraumatic and normocephalic. EYES: Pupils are equal round regular reactive light accommodation. Extraocular movements are normal. There is no conjunctival pallor. There is no scleral icterus. EARS: Tympanic membranes are intact external auditory canals are clear. NOSE: There is no deviated nasal septum. There is no inflammation nasal mucous membrane. MOUTH: Mucous membranes of mouth are moist. Tongue is moist. There is no ulcers. There is no bleeding from the gums. THROAT: There is no redness of the oropharynx. There is no exudates. SKIN: There is no skin rashes. There is no petechia or ecchymosis. There is no skin lesions. NECK: Is supple. There is no JVD. Carotids are equal there is no bruit. There is no lymphadenopathy. There is no accessory muscle respiration use. Trachea is central. LUNGS: There is di minished air entry prolonged expiration. There is scattered rhonchi. There is no wheezing. There is a few dry crackles in the left base. There is fine rales in both the bases which are minimal. On percussion there is hyperresonance. HEART: S1-S2 is heard. There is no S3 gallop. There is no S4 gallop. There is systolic murmur left sternal border and apex there is no rub. ABDOMEN: Is soft. There is nontender. There is no paraspinal megaly. Bowel sounds are well heard. Bowel sounds well heard. EXTREMITIES: Femorals are well felt. There is no femoral bruits. Leg pulses well felt. There is trace pedal edema bilaterally. There is no DVT cellulitis. There is no calf tenderness. CAN RUNNER: The patient is conscious awake alert oriented x3 with no focal deficits. Labs- Entire Visit 10/11/19 10/11/19 10/11/19 11:30 11:42 11:42 WBC 7.2 RBC 3.13 L Hgb 9.1 L Hct 26.3 L MCV 84 MCH 29.1 MCHC 34.8 RDW 16.1 H Plt Count 213 Lymph % (Auto) 10.9 L [place] % (Auto) 13.0 Eos % (Auto) 2.7 Baso % (Auto) 0.3 Absolute Neuts (auto) 5.2 Absolute Lymphs (auto) 0.8 Absolute Monos (auto) 0.9 Absolute Eos (auto) 0.2 Absolute Basos (auto) 0.0 Seg Neutrophils % 73.1 PT INR APTT Carbonic Acid HCO3/H2CO3 Ratio ABG pH ABG pCO2 ABG pO2 ABG HCO3 ABG Total CO2 ABG O2 Saturation ABG Base Excess FiO2 Sodium 134.9 L Potassium 4.0 Chloride 97 L Carbon Dioxide 29 Anion Gap 9 BUN 23 H Creatinine 1.45 H Est GFR ( Amer) 56 L Est GFR (MDRD) Non-Af 47 L Glucose 97 Hemoglobin A1c % Calcium 8.0 L Magnesium Total Bilirubin 0.5 Direct Bilirubin 0.0 Neonat Total Bilirubin Not Reportable Neonat Direct Bilirubin Not Reportable Neonat Indirect Bili Not Reportable AST 29 ALT 8 Alkaline Phosphatase 107 Creatine Kinase CK-MB (CK-2) Troponin I NT-Pro-B Natriuret Pep Total Protein 6.4 Albumin 3.6 Triglycerides Cholesterol LDL Cholesterol Direct VLDL Cholesterol HDL Cholesterol TSH Free T4 Urine Color STRAW Urine Appearance CLEAR Urine pH 7.0 Ur Specific [place] 1.004 Urine Protein NEGATIVE Urine Glucose (UA) NEGATIVE Urine Ketones NEGATIVE Urine Blood NEGATIVE Urine Nitrite NEGATIVE Urine Bilirubin NEGATIVE Urine Urobilinogen NEGATIVE Ur Leukocyte Esterase NEGATIVE Urine WBC (Auto) 0 Urine Mucus (Auto) RARE Urine Ascorbic Acid NEGATIVE 10/11/19 10/11/19 10/11/19 11:42 12:40 17:00 WBC RBC Hgb Hct MCV MCH MCHC RDW Plt Count Lymph % (Auto) [place] % (Auto) Eos % (Auto) Baso % (Auto) Absolute Neuts (auto) Absolute Lymphs (auto) Absolute Monos (auto) Absolute Eos (auto) Absolute Basos (auto) Seg Neutrophils % PT 18.0 H INR 1.47 APTT 36.5 H Carbonic Acid 1.21 HCO3/H2CO3 Ratio 22:1 ABG pH 7.46 H ABG pCO2 40.3 ABG pO2 53.3 L ABG HCO3 27.8 H ABG Total CO2 29.1 H ABG O2 Saturation 89.3 L ABG Base Excess 3.7 FiO2 ROOM AIR Sodium Potassium Chloride Carbon Dioxide Anion Gap BUN Creatinine Est GFR ( Amer) Est GFR (MDRD) Non-Af Glucose Hemoglobin A1c % Calcium Magnesium Total Bilirubin Direct Bilirubin Neonat Total Bilirubin Neonat Direct Bilirubin Neonat Indirect Bili AST ALT Alkaline Phosphatase Creatine Kinase CK-MB (CK-2) Troponin I < 0.012 NT-Pro-B Natriuret Pep 1790 H Total Protein Albumin Triglycerides Cholesterol LDL Cholesterol Direct VLDL Cholesterol HDL Cholesterol TSH Free T4 Urine Color Urine Appearance Urine pH Ur Specific [place] Urine Protein Urine Glucose (UA) Urine Ketones Urine Blood Urine Nitrite Urine Bilirubin Urine Urobilinogen Ur Leukocyte Esterase Urine WBC (Auto) Urine Mucus (Auto) Urine Ascorbic Acid 10/11/19 10/11/19 10/11/19 17:00 17:00 17:00 WBC RBC Hgb Hct MCV MCH MCHC RDW Plt Count Lymph % (Auto) [place] % (Auto) Eos % (Auto) Baso % (Auto) Absolute Neuts (auto) Absolute Lymphs (auto) Absolute Monos (auto) Absolute Eos (auto) Absolute Basos (auto) Seg Neutrophils % PT INR APTT Carbonic Acid HCO3/H2CO3 Ratio ABG pH ABG pCO2 ABG pO2 ABG HCO3 ABG Total CO2 ABG O2 Saturation ABG Base Excess FiO2 Sodium Potassium Chloride Carbon Dioxide Anion Gap BUN Creatinine Est GFR ( Amer) Est GFR (MDRD) Non-Af Glucose Hemoglobin A1c % Calcium Magnesium 2.6 H Total Bilirubin Direct Bilirubin Neonat Total Bilirubin Neonat Direct Bilirubin Neonat Indirect Bili AST ALT Alkaline Phosphatase Creatine Kinase 170 CK-MB (CK-2) 1.97 Troponin I < 0.012 NT-Pro-B Natriuret Pep 1800 H Total Protein Albumin Triglycerides Cholesterol LDL Cholesterol Direct VLDL Cholesterol HDL Cholesterol TSH 2.18 Free T4 1.10 Urine Color Urine Appearance Urine pH Ur Specific [place] Urine Protein Urine Glucose (UA) Urine Ketones Urine Blood Urine Nitrite Urine Bilirubin Urine Urobilinogen Ur Leukocyte Esterase Urine WBC (Auto) Urine Mucus (Auto) Urine Ascorbic Acid 10/12/19 10/12/19 10/12/19 00:21 00:21 06:23 WBC RBC Hgb Hct MCV MCH MCHC RDW Plt Count Lymph % (Auto) [place] % (Auto) Eos % (Auto) Baso % (Auto) Absolute Neuts (auto) Absolute Lymphs (auto) Absolute Monos (auto) Absolute Eos (auto) Absolute Basos (auto) Seg Neutrophils % PT INR APTT Carbonic Acid HCO3/H2CO3 Ratio ABG pH ABG pCO2 ABG pO2 ABG HCO3 ABG Total CO2 ABG O2 Saturation ABG Base Excess FiO2 Sodium 136.9 L Potassium 3.5 L Chloride 101 Carbon Dioxide 26 Anion Gap 10 BUN 17 Creatinine 1.29 H Est GFR ( Amer) > 60 Est GFR (MDRD) Non-Af 53 L Glucose 92 Hemoglobin A1c % Calcium 8.4 Magnesium Total Bilirubin 0.7 Direct Bilirubin 0.1 Neonat Total Bilirubin Not Reportable Neonat Direct Bilirubin Not Reportable Neonat Indirect Bili Not Reportable AST 24 ALT 7 Alkaline Phosphatase 113 Creatine Kinase 133 122 CK-MB (CK-2) 1.30 Troponin I < 0.012 NT-Pro-B Natriuret Pep Total Protein 6.4 Albumin 3.7 Triglycerides 111 Cholesterol 101.04 LDL Cholesterol Direct 50 VLDL Cholesterol 22.0 HDL Cholesterol 40 TSH Free T4 Urine Color Urine Appearance Urine pH Ur Specific [place] Urine Protein Urine Glucose (UA) Urine Ketones Urine Blood Urine Nitrite Urine Bilirubin Urine Urobilinogen Ur Leukocyte Esterase Urine WBC (Auto) Urine Mucus (Auto) Urine Ascorbic Acid 10/12/19 10/12/19 10/12/19 06:23 06:23 06:23 WBC 7.6 RBC 3.48 L Hgb 10.1 L Hct 29.2 L MCV 84 MCH 29.0 MCHC 34.5 RDW 16.0 H Plt Count 208 Lymph % (Auto) 11.9 L [place] % (Auto) 12.4 Eos % (Auto) 2.4 Baso % (Auto) 0.3 Absolute Neuts (auto) 5.6 Absolute Lymphs (auto) 0.9 Absolute Monos (auto) 0.9 Absolute Eos (auto) 0.2 Absolute Basos (auto) 0.0 Seg Neutrophils % 73.0 PT INR APTT Carbonic Acid HCO3/H2CO3 Ratio ABG pH ABG pCO2 ABG pO2 ABG HCO3 ABG Total CO2 ABG O2 Saturation ABG Base Excess FiO2 Sodium Potassium Chloride Carbon Dioxide Anion Gap BUN Creatinine Est GFR ( Amer) Est GFR (MDRD) Non-Af Glucose Hemoglobin A1c % 5.2 Calcium Magnesium Total Bilirubin Direct Bilirubin Neonat Total Bilirubin Neonat Direct Bilirubin Neonat Indirect Bili AST ALT Alkaline Phosphatase Creatine Kinase CK-MB (CK-2) 1.22 Troponin I < 0.012 NT-Pro-B Natriuret Pep Total Protein Albumin Triglycerides Cholesterol LDL Cholesterol Direct VLDL Cholesterol HDL Cholesterol TSH Free T4 Urine Color Urine Appearance Urine pH Ur Specific [place] Urine Protein Urine Glucose (UA) Urine Ketones Urine Blood Urine Nitrite Urine Bilirubin Urine Urobilinogen Ur Leukocyte Esterase Urine WBC (Auto) Urine Mucus (Auto) Urine Ascorbic Acid 10/12/19 10/12/19 10/12/19 12:18 12:18 17:45 WBC RBC Hgb Hct MCV MCH MCHC RDW Plt Count Lymph % (Auto) [place] % (Auto) Eos % (Auto) Baso % (Auto) Absolute Neuts (auto) Absolute Lymphs (auto) Absolute Monos (auto) Absolute Eos (auto) Absolute Basos (auto) Seg Neutrophils % PT INR APTT Carbonic Acid HCO3/H2CO3 Ratio ABG pH ABG pCO2 ABG pO2 ABG HCO3 ABG Total CO2 ABG O2 Saturation ABG Base Excess FiO2 Sodium Potassium Chloride Carbon Dioxide Anion Gap BUN Creatinine Est GFR ( Amer) Est GFR (MDRD) Non-Af Glucose Hemoglobin A1c % Calcium Magnesium Total Bilirubin Direct Bilirubin Neonat Total Bilirubin Neonat Direct Bilirubin Neonat Indirect Bili AST ALT Alkaline Phosphatase Creatine Kinase 92 96 CK-MB (CK-2) 0.87 Troponin I < 0.012 NT-Pro-B Natriuret Pep Total Protein Albumin Triglycerides Cholesterol LDL Cholesterol Direct VLDL Cholesterol HDL Cholesterol TSH Free T4 Urine Color Urine Appearance Urine pH Ur Specific [place] Urine Protein Urine Glucose (UA) Urine Ketones Urine Blood Urine Nitrite Urine Bilirubin Urine Urobilinogen Ur Leukocyte Esterase Urine WBC (Auto) Urine Mucus (Auto) Urine Ascorbic Acid 10/12/19 10/13/19 17:45 07:50 WBC 6.8 RBC 4.27 L Hgb 12.2 L D Hct 35.8 L MCV 84 MCH 28.4 MCHC 34.0 RDW 15.9 H Plt Count 282 Lymph % (Auto) 17.5 [place] % (Auto) 12.7 Eos % (Auto) 4.5 Baso % (Auto) 0.4 Absolute Neuts (auto) 4.4 Absolute Lymphs (auto) 1.2 Absolute Monos (auto) 0.9 Absolute Eos (auto) 0.3 Absolute Basos (auto) 0.0 Seg Neutrophils % 64.9 PT INR APTT Carbonic Acid HCO3/H2CO3 Ratio ABG pH ABG pCO2 ABG pO2 ABG HCO3 ABG Total CO2 ABG O2 Saturation ABG Base Excess FiO2 Sodium Potassium Chloride Carbon Dioxide Anion Gap BUN Creatinine Est GFR ( Amer) Est GFR (MDRD) Non-Af Glucose Hemoglobin A1c % Calcium Magnesium Total Bilirubin Direct Bilirubin Neonat Total Bilirubin Neonat Direct Bilirubin Neonat Indirect Bili AST ALT Alkaline Phosphatase Creatine Kinase CK-MB (CK-2) 1.05 Troponin I < 0.012 NT-Pro-B Natriuret Pep Total Protein Albumin Triglycerides Cholesterol LDL Cholesterol Direct VLDL Cholesterol HDL Cholesterol TSH Free T4 Urine Color Urine Appearance Urine pH Ur Specific [place] Urine Protein Urine Glucose (UA) Urine Ketones Urine Blood Urine Nitrite Urine Bilirubin Urine Urobilinogen Ur Leukocyte Esterase Urine WBC (Auto) Urine Mucus (Auto) Urine Ascorbic Acid Lung Scan-VQ NM 10/11/19 00:00 IMPRESSION: Low probability for pulmonary embolism. Chest X-Ray 10/11/19 11:15 IMPRESSION: Mild cardiomegaly and mild central vascular congestion. Small left pleural effusion with airspace opacity at the left lung base, may be secondary to atelectasis or pneumonia. Chest X-Ray 10/13/19 00:00 IMPRESSION: Unchanged pleural and parenchymal opacities in the inferior left hemithorax that could represent a combination of pleural fluid and atelectasis. The patient echocardiogram done 05/22/2019 shows LV ejection fraction was felt to be normal limits but best estimate is approximately 45%. [??]. The patient had grade 2 diastolic dysfunction no definite regional wall motion abnormalities are noted there is mild diffuse hypokinesis noted. There is mild LVH. Right ventricle is of normal size and function. Left atrium is moderate to severely dilated. Right atrium is normal. There is no definite septal defect noted however small PFO could be missed. The aortic root is mildly dilated at 4 cm. Inferior vena cava was not well-visualized. There is mild thickening of the mitral valve leaflets. There is mild to moderate mitral regurgitation.. No mitral stenosis. There is no mitral prolapse. There is no aortic stenosis. There is no aortic regurgitation. There is trace trace tricuspid regurgitation. Estimated right RVSP cannot be accurately determined, but best estimate is upper normal limits. There is no pericardial effusion. The patient on 08/04/2019 had a IV Lexiscan Cardiolite stress test done in my office. There is a small area of ischemia in the apical myocardial wall. There is no scar/DE LV ejection fraction was calculated or estimated to be 46%. EKG: Interpreted by me shows atrial tracking and ventricular paced rhythm. IMPRESSION/RECOMMENDATION: 1. Shortness of breath: Multifactorial secondary to acute on chronic systolic heart failure, acute exacerbation of COPD, and pneumonia. 2. Mild congestive heart failure: This is secondary acute on chronic systolic heart failure. The patient has been started on Entresto. In view of the LV ejection fraction being only moderately reduced, and and with the cost of Entresto, will switch the patient to valsartan. We will also start the patient on a beta-danyelel. Continue diuretics. 3 left lower lobe pneumonia: I have discussed with Dr. Talavera and he is starting the patient on Levaquin. 4. COPD acute exacerbation: Continue nasal oxygen and bronchodilator therapy. 5. Coronary artery disease by stress testing: Only mild ischemia in a small area. Patient has no anginal symptoms. The patient used to be on Imdur we will start the patient on Imdur from tomorrow. Continue Ranexa 6. Hypertension: Blood pressure is reasonably controlled. 7. 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 8. Paroxysmal atrial fibrillation: No recurrence. Medications reviewed. Medications adjusted. Medical decision making is high complexity due to the need to change the patient's medical regimen. Medical regimen and management plan discussed with Dr. Talavera. 60 minutes spent with patient more than 50% time spent in direct patient care. Will follow.
[2019-10-13] MEDS: METOPROLOL SUCCINATE 50 MG TAB.SR.24H PO SCH (22:25)
[2019-10-13] MEDS: ATORVASTATIN CALCIUM 20 MG TABLET PO SCH (22:25)
[2019-10-14] MEDS: HEPARIN SOD (PORCINE) 5,000 UNIT/ML 1 ML VIAL SUBCUT SCH ×3 (05:12→23:04)
[2019-10-14 06:10] LABS: ABSOLUTE EOSINOPHILS # (AUTO) 0.4 10^3/uL (0.0-0.6); ABSOLUTE LYMPHOCYTES (AUTO) 1.3 10^3/uL (0.5-4.7); ABSOLUTE NEUT (AUTO) 4.5 10^3/uL (1.7-8.2); BASOPHILS % (AUTO) 0.5 % (0-2); EOSINOPHILS % (AUTO) 5.1 % (0-6); HEMATOCRIT 33.7 % (37.9-51.0); HEMOGLOBIN 11.6 g/dL (13.5-17.0); LYMPHOCYTES % (AUTO) 17.9 % (13-45); MEAN CORPUSCULAR HEMOGLOBIN 28.8 pg (27.0-33.4); MEAN CORPUSCULAR HGB CONC 34.5 g/dL (32.0-36.0); MEAN CORPUSCULAR VOLUME 83 fl (80-97); MONOCYTES % (AUTO) 14.3 % (3-13); PLATELET COUNT 281 10^3/uL (150-450); RED BLOOD COUNT 4.03 10^6/uL (4.35-5.55); RED CELL DISTRIBUTION WIDTH 15.5 % (11.5-14.0); SEGMENTED NEUTROPHILS % (AUTO) 62.2 % (42-78); TOTAL CELLS COUNTED % (AUTO) 100 %; WHITE BLOOD COUNT 7.2 10^3/uL (4.0-10.5)
[2019-10-14 06:33] LABS: ANION GAP 10 (5-19); BLOOD UREA NITROGEN 27 mg/dL (7-20); CARBON DIOXIDE 26 mmol/L (22-30); CHLORIDE 102 mmol/L (98-107); GLUCOSE 92 mg/dL (75-110); POTASSIUM 4.4 mmol/L (3.6-5.0)
[2019-10-14] MEDS: POTASSIUM CHLORIDE 10 MEQ TABLET.ER PO SCH ×2 (08:15→11:51)
--- NOTE | 2019-10-14 08:33 | PDOC PROGRESS REPORT ---
Subjective Progress Note for:: 10/14/19 Subjective:: Patient is currently doing well She is denied any chest pain no short of breath Patient's chest x-ray suggested some left-sided questionable atelectasis versus infiltrate Seen by the cardiology Dr. CHINCHILLA Reason For Visit: ACUTE SYSTOLIC HEART FAILURE Physical Exam Vital Signs: Temp Pulse Resp BP Pulse Ox 98.0 F 75 16 145/73 H 99 10/14/19 03:52 10/14/19 03:52 10/14/19 03:52 10/14/19 03:52 10/14/19 03:52 Intake & Output 10/13/19 10/14/19 10/15/19 06:59 06:59 06:59 Intake Total 1516 585 Output Total 1025 9 Balance 491 576 Weight 100.3 kg 95.4 kg General appearance: PRESENT: no acute distress, well-developed, well-nourished Head exam: PRESENT: atraumatic, normocephalic Eye exam: PRESENT: conjunctiva pink, EOMI, PERRLA. ABSENT: scleral icterus Ear exam: PRESENT: normal external ear exam Mouth exam: PRESENT: moist, tongue midline Neck exam: PRESENT: full ROM. ABSENT: carotid bruit, JVD, lymphadenopathy, thyromegaly Respiratory exam: PRESENT: clear to auscultation alphonse Cardiovascular exam: PRESENT: RRR. ABSENT: diastolic murmur, rubs, systolic murmur Pulses: PRESENT: normal dorsalis pedis pul, +2 pedal pulses bilateral Vascular exam: PRESENT: normal capillary refill GI/Abdominal exam: PRESENT: normal bowel sounds, soft. ABSENT: distended, guarding, mass, organolmegaly, rebound, tenderness Rectal exam: PRESENT: deferred Musculoskeletal exam: PRESENT: ambulatory Neurological exam: PRESENT: alert, awake, oriented to person, oriented to place, oriented to time, oriented to situation, CN II-XII grossly intact. ABSENT: motor sensory deficit Psychiatric exam: PRESENT: appropriate affect, normal mood. ABSENT: homicidal ideation, suicidal ideation Skin exam: PRESENT: dry, intact, warm. ABSENT: cyanosis, rash Results Laboratory Results: 10/14/19 05:30 10/14/19 05:36 10/13/19 10/14/19 10/14/19 07:50 05:30 05:36 WBC 6.8 7.2 RBC 4.27 L 4.03 L Hgb 12.2 L D 11.6 L Hct 35.8 L 33.7 L MCV 84 83 MCH 28.4 28.8 MCHC 34.0 34.5 RDW 15.9 H 15.5 H Plt Count 282 281 Seg Neutrophils % 64.9 62.2 Sodium 138.2 Potassium 4.4 Chloride 102 Carbon Dioxide 26 Anion Gap 10 BUN 27 H Creatinine 1.47 H Est GFR ( Amer) 55 L Glucose 92 Calcium 9.0 10/11/19 18:02 Sputum Gram Stain - Final 10/11/19 18:02 Sputum Sputum Culture - Final Yeast, Not Neida Albicans Normal Lorelei 10/11/19 18:10 Clean Catch Midstream Urine Culture - Final Mixed Urogenital Lorelei 10/11/19 10/11/19 10/11/19 11:42 17:00 17:00 Creatine Kinase 170 CK-MB (CK-2) 1.97 Troponin I < 0.012 < 0.012 NT-Pro-B Natriuret Pep 1790 H 1800 H 10/12/19 10/12/19 10/12/19 00:21 00:21 06:23 Creatine Kinase 133 122 CK-MB (CK-2) 1.30 Troponin I < 0.012 NT-Pro-B Natriuret Pep 10/12/19 10/12/19 10/12/19 06:23 12:18 12:18 Creatine Kinase 92 CK-MB (CK-2) 1.22 0.87 Troponin I < 0.012 < 0.012 NT-Pro-B Natriuret Pep 10/12/19 10/12/19 10/14/19 17:45 17:45 05:30 Creatine Kinase 96 CK-MB (CK-2) 1.05 Troponin I < 0.012 NT-Pro-B Natriuret Pep 4630 H Impressions: Lung Scan-VQ NM 10/11/19 00:00 IMPRESSION: Low probability for pulmonary embolism. Chest X-Ray 10/13/19 00:00 IMPRESSION: Unchanged pleural and parenchymal opacities in the inferior left hemithorax that could represent a combination of pleural fluid and atelectasis. Assessment & Plan - Diagnosis (1) Acute congestive heart failure Qualifiers: Heart failure type: combined systolic and diastolic Qualified Code(s): I50.41 - Acute combined systolic (congestive) and diastolic (congestive) heart failure Is this a current diagnosis for this admission?: Yes (2) Chronic kidney disease, stage 3 (moderate) Is this a current diagnosis for this admission?: Yes (3) Anemia Qualifiers: Anemia type: iron deficiency Is this a current diagnosis for this admission?: Yes (4) Atrial fibrillation Qualifiers: Atrial fibrillation type: unspecified Is this a current diagnosis for this admission?: Yes (5) COPD (chronic obstructive pulmonary disease) with acute bronchitis Is this a current diagnosis for this admission?: Yes (6) Hypertension Qualifiers: Hypertension type: essential hypertension Is this a current diagnosis for this admission?: Yes (7) Pneumonia Qualifiers: Aspiration pneumonia type: unspecified Laterality: left Is this a current diagnosis for this admission?: Yes Plan: Continues the p.o. Levaquin 500 mg daily nebulizer treatments - Time Time Spent with patient: 25-34 minutes Level of Care: IMCU Medications reviewed and adjusted accordingly: Yes Anticipated discharge: Home with Homehealth Within: Other - Plan Summary Plan Summary: Discussed with the nursing staff patients need a physical therapy and oxygen evaluations when the walking patient usually needed 2 L oxygen. Patient's not using at home will get the oxygen arrangement with the walking and at night times with continuous pulse ox
[2019-10-14] MEDS: LEVOFLOXACIN 500 MG TABLET PO SCH (09:33)
[2019-10-14] MEDS: RANOLAZINE 500 MG TAB.SR.12H PO SCH (09:33)
[2019-10-14] MEDS: VALSARTAN 80 MG TABLET PO SCH ×2 (09:36→23:03)
[2019-10-14] MEDS: FUROSEMIDE 40 MG TABLET PO SCH (09:36)
[2019-10-14] MEDS: METOPROLOL SUCCINATE 50 MG TAB.SR.24H PO SCH ×2 (09:36→23:03)
[2019-10-14] MEDS: ISOSORBIDE MONONITRATE 60 MG TAB.ER.24H PO SCH (11:52)
[2019-10-14] MEDS: ATORVASTATIN CALCIUM 20 MG TABLET PO SCH (23:04)
[2019-10-15] MEDS: HEPARIN SOD (PORCINE) 5,000 UNIT/ML 1 ML VIAL SUBCUT SCH ×4 (05:03→22:44)
[2019-10-15 06:20] LABS: ANION GAP 9 (5-19); BLOOD UREA NITROGEN 37 mg/dL (7-20); CALCIUM 9.1 mg/dL (8.4-10.2); CARBON DIOXIDE 23 mmol/L (22-30); CHLORIDE 105 mmol/L (98-107); GLUCOSE 97 mg/dL (75-110); POTASSIUM 4.8 mmol/L (3.6-5.0)
[2019-10-15] MEDS: ACETAMINOPHEN 325 MG TABLET PO PRN (06:46)
[2019-10-15] MEDS: POTASSIUM CHLORIDE 10 MEQ TABLET.ER PO SCH ×4 (07:39→17:49)
--- NOTE | 2019-10-15 08:20 | PDOC PROGRESS REPORT ---
Subjective Progress Note for:: 10/15/19 Subjective:: Patient is currently doing well Patient's denied any chest pain no short of breath Walk In the hallway try to assess the patient's need o2 Reason For Visit: ACUTE SYSTOLIC HEART FAILURE Physical Exam Vital Signs: Temp Pulse Resp BP Pulse Ox 97.4 F 76 20 156/75 H 99 10/15/19 06:56 10/15/19 06:56 10/15/19 06:56 10/15/19 06:56 10/15/19 06:56 Intake & Output 10/14/19 10/15/19 10/16/19 06:59 06:59 06:59 Intake Total 585 260 Output Total 9 Balance 576 260 Weight 95.4 kg 95.9 kg General appearance: PRESENT: no acute distress, well-developed, well-nourished Head exam: PRESENT: atraumatic, normocephalic Eye exam: PRESENT: conjunctiva pink, EOMI, PERRLA. ABSENT: scleral icterus Ear exam: PRESENT: normal external ear exam Mouth exam: PRESENT: moist, tongue midline Neck exam: PRESENT: full ROM. ABSENT: carotid bruit, JVD, lymphadenopathy, thyromegaly Respiratory exam: PRESENT: clear to auscultation alphonse Cardiovascular exam: PRESENT: RRR. ABSENT: diastolic murmur, rubs, systolic murmur Pulses: PRESENT: normal dorsalis pedis pul, +2 pedal pulses bilateral Vascular exam: PRESENT: normal capillary refill GI/Abdominal exam: PRESENT: normal bowel sounds, soft. ABSENT: distended, guarding, mass, organolmegaly, rebound, tenderness Rectal exam: PRESENT: deferred Neurological exam: PRESENT: alert, awake, oriented to person, oriented to place, oriented to time, oriented to situation, CN II-XII grossly intact. ABSENT: motor sensory deficit Psychiatric exam: PRESENT: appropriate affect, normal mood. ABSENT: homicidal ideation, suicidal ideation Skin exam: PRESENT: dry, intact, warm. ABSENT: cyanosis, rash Results Laboratory Results: 10/14/19 05:30 10/15/19 05:17 10/15/19 05:17 Sodium 137.4 Potassium 4.8 Chloride 105 Carbon Dioxide 23 Anion Gap 9 BUN 37 H Creatinine 1.56 H Est GFR ( Amer) 52 L Glucose 97 Calcium 9.1 02/04/2210/11/19 10/11/19 11:42 17:00 17:00 Creatine Kinase 170 CK-MB (CK-2) 1.97 Troponin I < 0.012 < 0.012 NT-Pro-B Natriuret Pep 1790 H 1800 H 10/12/19 10/12/19 10/12/19 00:21 00:21 06:23 Creatine Kinase 133 122 CK-MB (CK-2) 1.30 Troponin I < 0.012 NT-Pro-B Natriuret Pep 10/12/19 10/12/19 10/12/19 06:23 12:18 12:18 Creatine Kinase 92 CK-MB (CK-2) 1.22 0.87 Troponin I < 0.012 < 0.012 NT-Pro-B Natriuret Pep 10/12/19 10/12/19 10/14/19 17:45 17:45 05:30 Creatine Kinase 96 CK-MB (CK-2) 1.05 Troponin I < 0.012 NT-Pro-B Natriuret Pep 4630 H Impressions: Lung Scan-VQ NM 10/11/19 00:00 IMPRESSION: Low probability for pulmonary embolism. Chest X-Ray 10/13/19 00:00 IMPRESSION: Unchanged pleural and parenchymal opacities in the inferior left hemithorax that could represent a combination of pleural fluid and atelectasis. Assessment & Plan - Diagnosis (1) Acute congestive heart failure Qualifiers: Heart failure type: combined systolic and diastolic Qualified Code(s): I50.41 - Acute combined systolic (congestive) and diastolic (congestive) heart failure Is this a current diagnosis for this admission?: Yes (2) Chronic kidney disease, stage 3 (moderate) Is this a current diagnosis for this admission?: Yes (3) Anemia Qualifiers: Anemia type: iron deficiency Is this a current diagnosis for this admission?: Yes (4) Atrial fibrillation Qualifiers: Atrial fibrillation type: unspecified Is this a current diagnosis for this admission?: Yes (5) COPD (chronic obstructive pulmonary disease) with acute bronchitis Is this a current diagnosis for this admission?: Yes (6) Hypertension Qualifiers: Hypertension type: essential hypertension Is this a current diagnosis for this admission?: Yes (7) Pneumonia Qualifiers: Aspiration pneumonia type: unspecified Laterality: left Is this a current diagnosis for this admission?: Yes - Time Time Spent with patient: 15-24 minutes Level of Care: IMCU Anticipated discharge: Home with Homehealth Within: Other - Plan Summary Plan Summary: Continues to current medications hopefully discharge tomorrow if remains stable with the home health
[2019-10-15] MEDS: LEVOFLOXACIN 500 MG TABLET PO SCH (11:02)
[2019-10-15] MEDS: METOPROLOL SUCCINATE 50 MG TAB.SR.24H PO SCH ×2 (11:02→22:44)
[2019-10-15] MEDS: ISOSORBIDE MONONITRATE 60 MG TAB.ER.24H PO SCH (11:02)
[2019-10-15] MEDS: RANOLAZINE 500 MG TAB.SR.12H PO SCH (11:02)
[2019-10-15] MEDS: FUROSEMIDE 40 MG TABLET PO SCH (11:10)
[2019-10-15] MEDS: VALSARTAN 80 MG TABLET PO SCH ×2 (11:10→22:44)
[2019-10-15] MEDS: ATORVASTATIN CALCIUM 20 MG TABLET PO SCH (22:44)
[2019-10-16 05:44] LABS: ABSOLUTE EOSINOPHILS # (AUTO) 0.2 10^3/uL (0.0-0.6); ABSOLUTE LYMPHOCYTES (AUTO) 1.1 10^3/uL (0.5-4.7); ABSOLUTE MONOCYTES (AUTO) 1.2 10^3/uL (0.1-1.4); ABSOLUTE NEUT (AUTO) 3.5 10^3/uL (1.7-8.2); BASOPHILS % (AUTO) 0.4 % (0-2); EOSINOPHILS % (AUTO) 3.4 % (0-6); HEMOGLOBIN 10.9 g/dL (13.5-17.0); LYMPHOCYTES % (AUTO) 17.9 % (13-45); MEAN CORPUSCULAR HEMOGLOBIN 28.6 pg (27.0-33.4); MEAN CORPUSCULAR VOLUME 84 fl (80-97); MONOCYTES % (AUTO) 19.6 % (3-13); PLATELET COUNT 240 10^3/uL (150-450); RED CELL DISTRIBUTION WIDTH 16.1 % (11.5-14.0); SEGMENTED NEUTROPHILS % (AUTO) 58.7 % (42-78); TOTAL CELLS COUNTED % (AUTO) 100 %; WHITE BLOOD COUNT 5.9 10^3/uL (4.0-10.5)
[2019-10-16] MEDS: HEPARIN SOD (PORCINE) 5,000 UNIT/ML 1 ML VIAL SUBCUT SCH ×3 (05:48→21:22)
[2019-10-16 06:04] LABS: ANION GAP 12 (5-19); BLOOD UREA NITROGEN 37 mg/dL (7-20); CARBON DIOXIDE 21 mmol/L (22-30); CHLORIDE 105 mmol/L (98-107); GLUCOSE 100 mg/dL (75-110); POTASSIUM 5.3 mmol/L (3.6-5.0)
[2019-10-16] MEDS ORDERED: 1/2 NORMAL SALINE 1,000 ML IV PRN (08:53)
[2019-10-16] MEDS: LEVOFLOXACIN 500 MG TABLET PO SCH (09:32)
[2019-10-16] MEDS: VALSARTAN 80 MG TABLET PO SCH (09:35)
[2019-10-16] MEDS: RANOLAZINE 500 MG TAB.SR.12H PO SCH (09:36)
[2019-10-16] MEDS: FUROSEMIDE 40 MG TABLET PO SCH (09:36)
[2019-10-16] MEDS: METOPROLOL SUCCINATE 50 MG TAB.SR.24H PO SCH ×2 (09:36→21:23)
[2019-10-16] MEDS: ISOSORBIDE MONONITRATE 60 MG TAB.ER.24H PO SCH (09:36)
[2019-10-16] MEDS: POTASSIUM CHLORIDE 10 MEQ TABLET.ER PO SCH ×3 (09:36→21:20)
--- NOTE | 2019-10-16 10:16 | PDOC PROGRESS REPORT ---
Subjective Progress Note for:: 10/16/19 Subjective:: And is feeling better Patient's denied any chest pain no short of breath His kidney function is worse we will hold the Lasix today Reason For Visit: ACUTE SYSTOLIC HEART FAILURE Physical Exam Vital Signs: Temp Pulse Resp BP Pulse Ox 97.9 F 76 18 149/62 H 99 10/16/19 06:48 10/16/19 07:00 10/16/19 06:48 10/16/19 06:48 10/16/19 06:48 Intake & Output 10/15/19 10/16/19 10/17/19 06:59 06:59 06:59 Intake Total 260 1275 Output Total 50 Balance 260 1225 Weight 95.9 kg 95.1 kg General appearance: PRESENT: no acute distress, well-developed, well-nourished Head exam: PRESENT: atraumatic, normocephalic Eye exam: PRESENT: conjunctiva pink, EOMI, PERRLA. ABSENT: scleral icterus Ear exam: PRESENT: normal external ear exam Mouth exam: PRESENT: moist, tongue midline Neck exam: PRESENT: full ROM. ABSENT: carotid bruit, JVD, lymphadenopathy, thyromegaly Respiratory exam: PRESENT: clear to auscultation alphonse Cardiovascular exam: PRESENT: RRR. ABSENT: diastolic murmur, rubs, systolic murmur Pulses: PRESENT: normal dorsalis pedis pul, +2 pedal pulses bilateral Vascular exam: PRESENT: normal capillary refill GI/Abdominal exam: PRESENT: normal bowel sounds, soft. ABSENT: distended, guarding, mass, organolmegaly, rebound, tenderness Rectal exam: PRESENT: deferred Musculoskeletal exam: PRESENT: ambulatory Neurological exam: PRESENT: alert, awake, oriented to person, oriented to place, oriented to time, oriented to situation, CN II-XII grossly intact. ABSENT: motor sensory deficit Psychiatric exam: PRESENT: appropriate affect, normal mood. ABSENT: homicidal ideation, suicidal ideation Skin exam: PRESENT: dry, intact, warm. ABSENT: cyanosis, rash Results Laboratory Results: 10/16/19 05:07 10/16/19 05:07 10/16/19 10/16/19 05:07 05:07 WBC 5.9 RBC 3.80 L Hgb 10.9 L Hct 32.0 L MCV 84 MCH 28.6 MCHC 34.0 RDW 16.1 H Plt Count 240 Seg Neutrophils % 58.7 Sodium 138.2 Potassium 5.3 H Chloride 105 Carbon Dioxide 21 L Anion Gap 12 BUN 37 H Creatinine 1.65 H Est GFR ( Amer) 49 L Glucose 100 Calcium 9.0 10/11/19 10/11/19 10/11/19 11:42 17:00 17:00 Creatine Kinase 170 CK-MB (CK-2) 1.97 Troponin I < 0.012 < 0.012 NT-Pro-B Natriuret Pep 1790 H 1800 H 10/12/19 10/12/19 10/12/19 00:21 00:21 06:23 Creatine Kinase 133 122 CK-MB (CK-2) 1.30 Troponin I < 0.012 NT-Pro-B Natriuret Pep 10/12/19 10/12/19 10/12/19 06:23 12:18 12:18 Creatine Kinase 92 CK-MB (CK-2) 1.22 0.87 Troponin I < 0.012 < 0.012 NT-Pro-B Natriuret Pep 10/12/19 10/12/19 10/14/19 17:45 17:45 05:30 Creatine Kinase 96 CK-MB (CK-2) 1.05 Troponin I < 0.012 NT-Pro-B Natriuret Pep 4630 H Impressions: Lung Scan-VQ NM 10/11/19 00:00 IMPRESSION: Low probability for pulmonary embolism. Chest X-Ray 10/13/19 00:00 IMPRESSION: Unchanged pleural and parenchymal opacities in the inferior left hemithorax that could represent a combination of pleural fluid and atelectasis. Assessment & Plan - Diagnosis (1) Acute congestive heart failure Qualifiers: Heart failure type: combined systolic and diastolic Qualified Code(s): I5 0.41 - Acute combined systolic (congestive) and diastolic (congestive) heart failure Is this a current diagnosis for this admission?: Yes (2) Chronic kidney disease, stage 3 (moderate) Is this a current diagnosis for this admission?: Yes Plan: We hold the Lasix give a little IV fluid for the next 12 hours (3) Anemia Qualifiers: Anemia type: iron deficiency Is this a current diagnosis for this admission?: Yes (4) Atrial fibrillation Qualifiers: Atrial fibrillation type: unspecified Is this a current diagnosis for this admission?: Yes (5) COPD (chronic obstructive pulmonary disease) with acute bronchitis Is this a current diagnosis for this admission?: Yes (6) Hypertension Qualifiers: Hypertension type: essential hypertension Is this a current diagnosis for this admission?: Yes (7) Pneumonia Qualifiers: Aspiration pneumonia type: unspecified Laterality: left Is this a current diagnosis for this admission?: Yes - Time Time Spent with patient: 15-24 minutes Level of Care: IMCU Medications reviewed and adjusted accordingly: Yes Anticipated discharge: Home with Homehealth Within: Other - Plan Summary Plan Summary: We will give IV fluid for next 12 hours the Lasix today discussed with the Dr. Medrano
--- NOTE | 2019-10-16 17:59 | Progress Note ---
Provider Note Provider Note: CARDIOLOGY PROGRESS NOTE by Dr. Saranya Medrano on 10/16/2019. SUBJECTIVE: Note patient son at bedside. The patient states his cough is much improved and he has minimal cough which is productive of very scanty white sputum. There is no hemoptysis. The patient has no chest pain or discomfort. There is no PND orthopnea. He has no leg edema. Note that the patient due to overdiuresis his renal function has deteriorated. Hence the patient's Lasix had been held and the patient's Diovan has been decreased. We will recheck labs in the morning. There is no TIA CVA symptoms. There is no ventricle arrhythmia seen on the monitor. The patient is significantly hard of hearing. PHYSICAL EXAMINATION: The patient mildly obese. In no acute distress. Selected Entries 10/16/19 15:23 Temperature 98.5 F Temperature Oral Source Pulse Rate 75 Respiratory 18 Rate Blood Pressure 126/56 H Blood Pressure 79 Mean BP Location Left Arm BP Position Supine O2 Sat by Pulse 98 Oximetry Oxygen Flow 2.00 Rate Oxygen Delivery Nasal Cannula Method Head: Is atraumatic and normocephalic. EYES: Pupils are equal round regular reactive light accommodation. Extraocular movements are normal. There is no conjunctival pallor. There is no scleral icterus. EARS: Tympanic membranes are intact external auditory canals are clear. NOSE: There is no deviated nasal septum. There is no inflammation nasal mucous membrane. MOUTH: Mucous membranes of mouth are moist. Tongue is moist. There is no ulcers. There is no bleeding from the gums. THROAT: There is no redness of the oropharynx. There is no exudates. SKIN: There is no skin rashes. There is no petechia or e cchymosis. There is no skin lesions. NECK: Is supple. There is no JVD. Carotids are equal there is no bruit. There is no lymphadenopathy. There is no accessory muscle respiration use. Trachea is central. LUNGS: There is diminished air entry prolonged expiration. There is scattered rhonchi. There is no wheezing. There is a few dry crackles in the left base. There is fine rales in both the bases which are minimal. On percussion there is hyperresonance. HEART: S1-S2 is heard. There is no S3 gallop. There is no S4 gallop. There is systolic murmur left sternal border and apex there is no rub. ABDOMEN: Is soft. There is nontender. There is no paraspinal megaly. Bowel sounds are well heard. Bowel sounds well heard. EXTREMITIES: Femorals are well felt. There is no femoral bruits. Leg pulses well felt. There is trace pedal edema bilaterally. There is no DVT cellulitis. There is no calf tenderness. 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 Labs- All tests 24 hr 10/16/19 10/16/19 05:07 05:07 WBC 5.9 RBC 3.80 L Hgb 10.9 L Hct 32.0 L MCV 84 MCH 28.6 MCHC 34.0 RDW 16.1 H Plt Count 240 Lymph % (Auto) 17.9 Grainger % (Auto) 19.6 H Eos % (Auto) 3.4 Baso % (Auto) 0.4 Absolute Neuts (auto) 3.5 Absolute Lymphs (auto) 1.1 Absolute Monos (auto) 1.2 Absolute Eos (auto) 0.2 Absolute Basos (auto) 0.0 Seg Neutrophils % 58.7 Sodium 138.2 Potassium 5.3 H Chloride 105 Carbon Dioxide 21 L Anion Gap 12 BUN 37 H Creatinine 1.65 H Est GFR ( Amer) 49 L Est GFR (MDRD) Non-Af 40 L Glucose 100 Calcium 9.0 Lung Scan-VQ NM 10/11/19 00:00 IMPRESSION: Low probability for pulmonary embolism. Chest X-Ray 10/11/19 11:15 IMPRESSION: Mild cardiomegaly and mild central vascular congestion. Small left pleural effusion with airspace opacity at the left lung base, may be secondary to atelectasis or pneumonia. Chest X-Ray 10/13/19 00:00 IMPRESSION: Unchanged pleural and parenchymal opacities in the inferior left hemithorax that could represent a combination of pleural fluid and atelectasis. The patient intake and output record is not accurate. IMPRESSION/RECOMMENDATION: 1. Shortness of breath: Multifactorial secondary to acute on chronic systolic heart failure, acute exacerbation of COPD, and pneumonia. 2. Mild congestive heart failure: This is secondary acute on chronic systolic heart failure. The patient has been started on Entresto. In view of the LV ejection fraction being only moderately reduced, and and with the cost of Entresto, will switch the patient to valsartan. We will also start the patient on a beta-danyelle. Continue diuretics. 3 left lower lobe pneumonia: I have discussed with Dr. Talavera and he is starting the patient on Levaquin. 4. COPD acute exacerbation: Continue nasal oxygen and bronchodilator therapy. 5. Coronary artery disease by stress testing: Only mild ischemia in a small area. Patient has no anginal symptoms. The patient used to be on Imdur we will start the patient on Imdur from tomorrow. Continue Ranexa 6. Hypertension: Blood pressure is reasonably controlled. 7. 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 8. Paroxysmal atrial fibrillation: No recurrence. Medications reviewed. Medications adjusted. Medical decision making is of moderate complexity due to the need to change the patient's medical regimen. Medical regimen and management plan discussed with Dr. Talavera. 40 minutes spent with patient more than 50% time spent in direct patient care. Discussed with the patient and patient's son. Will follow.
[2019-10-16] MEDS: ATORVASTATIN CALCIUM 20 MG TABLET PO SCH (21:23)
[2019-10-17] MEDS: HEPARIN SOD (PORCINE) 5,000 UNIT/ML 1 ML VIAL SUBCUT SCH ×2 (05:46→15:23)
[2019-10-17] MEDS: ACETAMINOPHEN 325 MG TABLET PO PRN (05:49)
[2019-10-17 06:08] LABS: HEMOGLOBIN 10.8 g/dL (13.5-17.0); MEAN CORPUSCULAR HEMOGLOBIN 27.9 pg (27.0-33.4); MEAN CORPUSCULAR HGB CONC 33.7 g/dL (32.0-36.0); MEAN CORPUSCULAR VOLUME 83 fl (80-97); PLATELET COUNT 209 10^3/uL (150-450); RED BLOOD COUNT 3.86 10^6/uL (4.35-5.55); RED CELL DISTRIBUTION WIDTH 16.4 % (11.5-14.0); WHITE BLOOD COUNT 4.7 10^3/uL (4.0-10.5)
[2019-10-17 06:16] LABS: ANION GAP 9 (5-19); BLOOD UREA NITROGEN 33 mg/dL (7-20); CALCIUM 8.8 mg/dL (8.4-10.2); CARBON DIOXIDE 22 mmol/L (22-30); CHLORIDE 106 mmol/L (98-107); GLUCOSE 94 mg/dL (75-110); POTASSIUM 4.4 mmol/L (3.6-5.0)
[2019-10-17 06:51] LABS: ABSOLUTE LYMPHOCYTES# (MANUAL) 0.8 10^3/uL (0.5-4.7); ABSOLUTE MONOCYTES # (MANUAL) 0.8 10^3/uL (0.1-1.4); BASOPHILS % (MANUAL) 0 % (0-2); EOSINOPHILS % (MANUAL) 4 % (0-6); LYMPHOCYTES % (MANUAL) 17 % (13-45); MONOCYTES % (MANUAL) 16 % (3-13); SEGMENTED NEUTROPHILS % (MAN) 63 % (42-78); TOTAL CELLS COUNTED 100
[2019-10-17 06:59] LABS: ANISOCYTOSIS 1+; OVALOCYTES SLIGHT; PLATELET COMMENT ADEQUATE; POIKILOCYTOSIS SLIGHT; TEAR DROP CELLS SLIGHT
[2019-10-17] MEDS: POTASSIUM CHLORIDE 10 MEQ TABLET.ER PO SCH ×2 (07:59→15:22)
--- NOTE | 2019-10-17 09:38 | PDOC PROGRESS REPORT ---
Subjective Progress Note for:: 10/17/19 Subjective:: Patient is currently doing well Kidney function is all improving Reason For Visit: ACUTE SYSTOLIC HEART FAILURE Physical Exam Vital Signs: Temp Pulse Resp BP Pulse Ox 98.1 F 74 16 129/50 H 100 10/17/19 07:48 10/17/19 07:48 10/17/19 07:48 10/17/19 07:48 10/17/19 07:48 Intake & Output 10/16/19 10/17/19 10/18/19 06:59 06:59 06:59 Intake Total 1275 1490 Output Total 50 2 Balance 1225 1488 Weight 95.1 kg 96 kg General appearance: PRESENT: no acute distress, well-developed, well-nourished Head exam: PRESENT: atraumatic, normocephalic Eye exam: PRESENT: conjunctiva pink, EOMI, PERRLA. ABSENT: scleral icterus Ear exam: PRESENT: normal external ear exam Mouth exam: PRESENT: moist, tongue midline Neck exam: PRESENT: full ROM. ABSENT: carotid bruit, JVD, lymphadenopathy, thyr omegaly Respiratory exam: PRESENT: clear to auscultation alphonse Cardiovascular exam: PRESENT: RRR. ABSENT: diastolic murmur, rubs, systolic murmur Pulses: PRESENT: normal dorsalis pedis pul, +2 pedal pulses bilateral Vascular exam: PRESENT: normal capillary refill GI/Abdominal exam: PRESENT: normal bowel sounds, soft. ABSENT: distended, guarding, mass, organolmegaly, rebound, tenderness Rectal exam: PRESENT: deferred Extremities exam: ABSENT: pedal edema Musculoskeletal exam: PRESENT: ambulatory Neurological exam: PRESENT: alert, awake, oriented to person, oriented to place, oriented to time, oriented to situation, CN II-XII grossly intact. ABSENT: motor sensory deficit Psychiatric exam: PRESENT: appropriate affect, normal mood. ABSENT: homicidal ideation, suicidal ideation Skin exam: PRESENT: dry, intact, warm. ABSENT: cyanosis, rash Results Laboratory Results: 10/17/19 05:20 10/17/19 05:20 10/17/19 10/17/19 05:20 05:20 WBC 4.7 RBC 3.86 L Hgb 10.8 L Hct 32.0 L MCV 83 MCH 27.9 MCHC 33.7 RDW 16.4 H Plt Count 209 Seg Neutrophils % Not Reportable Sodium 136.5 L Potassium 4.4 Chloride 106 Carbon Dioxide 22 Anion Gap 9 BUN 33 H Creatinine 1.43 H Est GFR ( Amer) 57 L Glucose 94 Calcium 8.8 10/11/19 10/11/19 10/11/19 11:42 17:00 17:00 Creatine Kinase 170 CK-MB (CK-2) 1.97 Troponin I < 0.012 < 0.012 NT-Pro-B Natriuret Pep 1790 H 1800 H 10/12/19 10/12/19 10/12/19 00:21 00:21 06:23 Creatine Kinase 133 122 CK-MB (CK-2) 1.30 Troponin I < 0.012 NT-Pro-B Natriuret Pep 10/12/19 10/12/19 10/12/19 06:23 12:18 12:18 Creatine Kinase 92 CK-MB (CK-2) 1.22 0.87 Troponin I < 0.012 < 0.012 NT-Pro-B Natriuret Pep 10/12/19 10/12/19 10/14/19 17:45 17:45 05:30 Creatine Kinase 96 CK-MB (CK-2) 1.05 Troponin I < 0.012 NT-Pro-B Natriuret Pep 4630 H Impressions: Lung Scan-VQ NM 10/11/19 00:00 IMPRESSION: Low probability for pulmonary embolism. Chest X-Ray 10/13/19 00:00 IMPRESSION: Unchanged pleural and parenchymal opacities in the inferior left hemithorax that could represent a combination of pleural fluid and atelectasis. Assessment & Plan - Diagnosis (1) Acute congestive heart failure Qualifiers: Heart failure type: combined systolic and diastolic Qualified Code(s): I50.41 - Acute combined systolic (congestive) and diastolic (congestive) heart failure Is this a current diagnosis for this admission?: Yes (2) Chronic kidney disease, stage 3 (moderate) Is this a current diagnosis for this admission?: Yes (3) Anemia Qualifiers: Anemia type: iron deficiency Is this a current diagnosis for this admission?: Yes (4) Atrial fibrillation Qualifiers: Atrial fibrillation type: unspecified Is this a current diagnosis for this admission?: Yes (5) COPD (chronic obstructive pulmonary disease) with acute bronchitis Is this a current diagnosis for this admission?: Yes (6) Hypertension Qualifiers: Hypertension type: essential hypertension Is this a current diagnosis for this admission?: Yes (7) Pneumonia Qualifiers: Aspiration pneumonia type: unspecified Laterality: left Is this a current diagnosis for this admission?: Yes - Time Time Spent with patient: 15-24 minutes Level of Care: IMCU Medications reviewed and adjusted accordingly: Yes Anticipated discharge: Home, Home with Homehealth Within: Other - Plan Summary Plan Summary: Continues the current medication hopefully discharge within next 24 hoursAs we discussed with the Dr. Medrano
[2019-10-17] MEDS: LEVOFLOXACIN 500 MG TABLET PO SCH (09:57)
[2019-10-17] MEDS: VALSARTAN 80 MG TABLET PO SCH (09:57)
[2019-10-17] MEDS: METOPROLOL SUCCINATE 50 MG TAB.SR.24H PO SCH (09:57)
[2019-10-17] MEDS: FUROSEMIDE 40 MG TABLET PO SCH (09:57)
[2019-10-17] MEDS: RANOLAZINE 500 MG TAB.SR.12H PO SCH (09:58)
[2019-10-17] MEDS: ISOSORBIDE MONONITRATE 60 MG TAB.ER.24H PO SCH (09:59)
[2019-10-17 14:25] VITALS: BP 102/68
--- NOTE | 2019-10-20 16:06 | PDOC DISCHARGE SUMMARY ---
Impression - Admit/DC Date/PCP Admission Date/Primary Care Provider: 10/11/19 14:13 JOELLEN JIMENEZ MD Discharge Date: 10/17/19 - Discharge Diagnosis (1) Acute congestive heart failure Is this a current diagnosis for this admission?: Yes (2) Chronic kidney disease, stage 3 (moderate) Is this a current diagnosis for this admission?: Yes (3) Anemia Is this a current diagnosis for this admission?: Yes (4) Atrial fibrillation Is this a current diagnosis for this admission?: Yes (5) COPD (chronic obstructive pulmonary disease) with acute bronchitis Is this a current diagnosis for this admission?: Yes (6) Hypertension Is this a current diagnosis for this admission?: Yes (7) Pneumonia Is this a current diagnosis for this admission?: Yes - Additional Information Resuscitation Status: Full Code Discharge Diet: Cardiac Discharge Activity: Activity As Tolerated, Balance Activity w/Rest, Weigh Daily Referrals: JOELLEN JIMENEZ MD [Primary Care Provider] - 10/22/19 10:30 am (f/u with dr chinchilla) Prescriptions: Cefuroxime Axetil [Ceftin 500 mg Tablet] 1 tab PO BID #14 tablet Valsartan [Diovan 80 mg Tablet] 80 mg PO DAILY #30 tablet Isosorbide Mononitrate [Imdur 60 mg Tablet.er] 60 mg PO DAILY #30 tab.er.24h Potassium Chloride [Klor-Con 10 Meq Tablet ER] 40 meq PO MEALS #30 tablet.er Furosemide [Lasix 40 mg Tablet] 40 mg PO DAILY #30 tablet Metoprolol Succinate [Toprol Xl 50 mg Tab.sr] 50 mg PO Q12 #60 tab.sr.24h Home Medications: Atorvastatin Calcium [Lipitor 20 mg Tablet] 20 mg PO QHS 10/11/19 Ranolazine [Ranolazine ER] 1,000 mg PO DAILY 10/11/19 Cefuroxime Axetil [Ceftin 500 mg Tablet] 1 tab PO BID #14 tablet 10/17/19 Furosemide [Lasix 40 mg Tablet] 40 mg PO DAILY #30 tablet 10/17/19 Isosorbide Mononitrate [Imdur 60 mg Tablet.er] 60 mg PO DAILY #30 tab.er.24h 10/17/19 Metoprolol Succinate [Toprol Xl 50 mg Tab.sr] 50 mg PO Q12 #60 tab.sr.24h 10/17/19 Potassium Chloride [Klor-Con 10 Meq Tablet ER] 40 meq PO MEALS #30 tablet.er 10/17/19 Valsartan [Diovan 80 mg Tablet] 80 mg PO DAILY #30 tablet 10/17/19 History of Present Illiness History of Present Illness: DARCIE AUSTIN is a 84 year old male 74-year-old male admitting in the hospital for the shortness of the breath with a congestive heart failure pneumonia and COPD Hospital Course Hospital Course: This is a 84-year-old male admitting in the hospital for the congestive heart failure COPD and pneumonia Patient Treat with the IV Lasix and also start on a p.o. antibiotic nebulizer treatments Patient was also put on a 2 L nasal cannula on the discharge Patient is seen by Dr. 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 ABSENT: scleral icterus Ear exam: PRESENT: normal external ear exam Mouth exam: PRESENT: moist, tongue midline Neck exam: ABSENT: carotid bruit, JVD, lymphadenopathy, thyromegaly Respiratory exam: PRESENT: clear to auscultation alphonse. ABSENT: rales, rhonchi, wheezes Cardiovascular exam: PRESENT: RRR. ABSENT: diastolic murmur, rubs, systolic murmur Pulses: PRESENT: normal dorsalis pedis pul Vascular exam: PRESENT: normal capillary refill GI/Abdominal exam: PRESENT: normal bowel sounds, soft. ABSENT: distended, guarding, mass, organolmegaly, rebound, tenderness Rectal exam: PRESENT: deferred Extremities exam: PRESENT: full ROM. ABSENT: calf tenderness, clubbing, pedal edema Neurological exam: PRESENT: alert, awake, oriented to person, oriented to place, oriented to time, oriented to situation, CN II-XII grossly intact. ABSENT: motor sensory deficit Psychiatric exam: PRESENT: appropriate affect, normal mood. ABSENT: homicidal ideation, suicidal ideation Skin exam: PRESENT: dry, intact, warm. ABSENT: cyanosis, rash Results Laboratory Results: WBC 4.7 10^3/uL (4.0-10.5) 10/17/19 05:20 RBC 3.86 10^6/uL (4.35-5.55) L 10/17/19 05:20 Hgb 10.8 g/dL (13.5-17.0) L 10/17/19 05:20 Hct 32.0 % (37.9-51.0) L 10/17/19 05:20 MCV 83 fl (80-97) 10/17/19 05:20 MCH 27.9 pg (27.0-33.4) 10/17/19 05:20 MCHC 33.7 g/dL (32.0-36.0) 10/17/19 05:20 RDW 16.4 % (11.5-14.0) H 10/17/19 05:20 Plt Count 209 10^3/uL (150-450) 10/17/19 05:20 Lymph % (Auto) Not Reportable 10/17/19 05:20 [place] % (Auto) Not Reportable 10/17/19 05:20 Eos % (Auto) Not Reportable 10/17/19 05:20 Baso % (Auto) Not Reportable 10/17/19 05:20 Absolute Neuts (auto) Not Reportable 10/17/19 05:20 Absolute Lymphs (auto) Not Reportable 10/17/19 05:20 Absolute Monos (auto) Not Reportable 10/17/19 05:20 Absolute Eos (auto) Not Reportable 10/17/19 05:20 Absolute Basos (auto) Not Reportable 10/17/19 05:20 Total Counted 100 10/17/19 05:20 Seg Neutrophils % Not Reportable 10/17/19 05:20 Seg Neuts % (Manual) 63 % (42-78) 10/17/19 05:20 Lymphocytes % (Manual) 17 % (13-45) 10/17/19 05:20 Monocytes % (Manual) 16 % (3-13) H 10/17/19 05:20 Eosinophils % (Manual) 4 % (0-6) 10/17/19 05:20 Basophils % (Manual) 0 % (0-2) 10/17/19 05:20 Abs Neuts (Manual) 3.0 10^3/uL (1.7-8.2) 10/17/19 05:20 Abs Lymphs (Manual) 0.8 10^3/uL (0.5-4.7) 10/17/19 05:20 Abs Monocytes (Manual) 0.8 10^3/uL (0.1-1.4) 10/17/19 05:20 Absolute Eos (Manual) 0.2 10^3/uL (0.0-0.6) 10/17/19 05:20 Abs Basophils (Manual) 0.0 10^3/uL (0.0-0.2) 10/17/19 05:20 Platelet Comment ADEQUATE 10/17/19 05:20 Poikilocytosis SLIGHT 10/17/19 05:20 Anisocytosis 1+ 10/17/19 05:20 Tear Drop Cells SLIGHT 10/17/19 05:20 Ovalocytes SLIGHT 10/17/19 05:20 PT 18.0 SEC (11.4-15.4) H 10/11/19 17:00 INR 1.47 10/11/19 17:00 APTT 36.5 SEC (23.5-35.8) H 10/11/19 17:00 Carbonic Acid 1.21 mmol/L (1.05-1.35) 10/11/19 12:40 HCO3/H2CO3 Ratio 22:1 10/11/19 12:40 ABG pH 7.46 (7.35-7.45) H 10/11/19 12:40 ABG pCO2 40.3 mmHg (35-45) 10/11/19 12:40 ABG pO2 53.3 mmHg (80-100) L 10/11/19 12:40 ABG HCO3 27.8 mmol/L (20-24) H 10/11/19 12:40 ABG Total CO2 29.1 mmol/L (23-27) H 10/11/19 12:40 ABG O2 Saturation 89.3 % (94-98) L 10/11/19 12:40 ABG Base Excess 3.7 mmol/L 10/11/19 12:40 FiO2 ROOM AIR 10/11/19 12:40 Sodium 136.5 mmol/L (137-145) L 10/17/19 05:20 Potassium 4.4 mmol/L (3.6-5.0) 10/17/19 05:20 Chloride 106 mmol/L (98-107) 10/17/19 05:20 Carbon Dioxide 22 mmol/L (22-30) 10/17/19 05:20 Anion Gap 9 (5-19) 10/17/19 05:20 BUN 33 mg/dL (7-20) H 10/17/19 05:20 Creatinine 1.43 mg/dL (0.52-1.25) H 10/17/19 05:20 Est GFR ( Amer) 57 (>60) L 10/17/19 05:20 Est GFR (MDRD) Non-Af 47 (>60) L 10/17/19 05:20 Glucose 94 mg/dL (75-110) 10/17/19 05:20 Hemoglobin A1c % 5.2 % (4.7-6.0) 10/12/19 06:23 Calcium 8.8 mg/dL (8.4-10.2) 10/17/19 05:20 Magnesium 2.6 mg/dL (1.6-2.3) H 10/11/19 17:00 Total Bilirubin 0.7 mg/dL (0.2-1.3) 10/12/19 06:23 Direct Bilirubin 0.1 mg/dL (0.0-0.4) 10/12/19 06:23 Neonat Total Bilirubin Not Reportable 10/12/19 06:23 Neonat Direct Bilirubin Not Reportable 10/12/19 06:23 Neonat Indirect Bili Not Reportable 10/12/19 06:23 AST 24 U/L (17-59) 10/12/19 06:23 ALT 7 U/L (<50) 10/12/19 06:23 Alkaline Phosphatase 113 U/L (38-126) 10/12/19 06:23 Creatine Kinase 96 U/L (55-170) 10/12/19 17:45 CK-MB (CK-2) 1.05 ng/mL (<4.55) 02/09/20 17:45 Troponin I < 0.012 ng/mL 10/12/19 17:45 NT-Pro-B Natriuret Pep 4630 pg/mL (<450) H 10/14/19 05:30 Total Protein 6.4 g/dL (6.3-8.2) 10/12/19 06:23 Albumin 3.7 g/dL (3.5-5.0) 10/12/19 06:23 Triglycerides 111 mg/dL (<150) 10/12/19 06:23 Cholesterol 101.04 mg/dL (0-200) 10/12/19 06:23 LDL Cholesterol Direct 50 mg/dL (<100) 10/12/19 06:23 VLDL Cholesterol 22.0 mg/dL (10-31) 10/12/19 06:23 HDL Cholesterol 40 mg/dL (>40) 10/12/19 06:23 TSH 2.18 uIU/mL (0.47-4.68) 10/11/19 17:00 Free T4 1.10 ng/dL (0.78-2.19) 10/11/19 17:00 Urine Color STRAW 10/11/19 11:30 Urine Appearance CLEAR 10/11/19 11:30 Urine pH 7.0 (5.0-9.0) 10/11/19 11:30 Ur Specific [place] 1.004 10/11/19 11:30 Urine Protein NEGATIVE mg/dL (NEGATIVE) 10/11/19 11:30 Urine Glucose (UA) NEGATIVE mg/dL (NEGATIVE) 10/11/19 11:30 Urine Ketones NEGATIVE mg/dL (NEGATIVE) 10/11/19 11:30 Urine Blood NEGATIVE (NEGATIVE) 10/11/19 11:30 Urine Nitrite NEGATIVE (NEGATIVE) 10/11/19 11:30 Urine Bilirubin NEGATIVE (NEGATIVE) 10/11/19 11:30 Urine Urobilinogen NEGATIVE mg/dL (<2.0) 10/11/19 11:30 Ur Leukocyte Esterase NEGATIVE (NEGATIVE) 10/11/19 11:30 Urine WBC (Auto) 0 /HPF 10/11/19 11:30 Urine Mucus (Auto) RARE /LPF 10/11/19 11:30 Urine Ascorbic Acid NEGATIVE (NEGATIVE) 10/11/19 11:30 10/11/19 10/11/19 10/12/19 11:42 17:00 00:21 CK-MB (CK-2) 1.97 1.30 Troponin I < 0.012 < 0.012 < 0.012 NT-Pro-B Natriuret Pep 1790 H 1800 H 10/12/19 10/12/19 10/12/19 06:23 12:18 17:45 CK-MB (CK-2) 1.22 0.87 1.05 Troponin I < 0.012 < 0.012 < 0.012 NT-Pro-B Natriuret Pep 10/14/19 05:30 CK-MB (CK-2) Troponin I NT-Pro-B Natriuret Pep 4630 H Impressions: Lung Scan-VQ NM 10/11/19 00:00 IMPRESSION: Low probability for pulmonary embolism. Chest X-Ray 10/11/19 11:15 IMPRESSION: Mild cardiomegaly and mild central vascular congestion. Small left pleural effusion with airspace opacity at the left lung base, may be secondary to atelectasis or pneumonia. Chest X-Ray 10/13/19 00:00 IMPRESSION: Unchanged pleural and parenchymal opacities in the inferior left hemithorax that could represent a combination of pleural fluid and atelectasis. Plan Time Spent: Greater than 30 Minutes - Follow in office 1 week Stroke Is this a Stroke Patient?: No Acute Heart Failure - Is this a Heart Failure Patient?: Yes Documentation of LVEF assessment?: Yes LVEF < 40%?: No- if no continue to question #3 Follow-up Appointment scheduled within 7 days?: Yes
== END 2019-10-17 14:52 | disposition home health service (06) | DRG 291 ==
LOC: ER 11:03 → EH 14:13 → 3S 15:36
PROVIDERS: ADMIT Family Medicine; ATTEND Family Medicine
DX: I13.0 Hypertensive heart and chronic kidney disease with heart failure and stage 1 through stage 4 chronic kidney disease, or unspecified chronic kidney disease (principal); I50.41 Acute combined systolic (congestive) and diastolic (congestive) heart failure; J18.9 Pneumonia, unspecified organism; J44.0 Chronic obstructive pulmonary disease with (acute) lower respiratory infection; J44.1 Chronic obstructive pulmonary disease with (acute) exacerbation; J96.11 Chronic respiratory failure with hypoxia; I48.0 Paroxysmal atrial fibrillation; N18.3 Chronic kidney disease, stage 3 (moderate); J20.9 Acute bronchitis, unspecified; D50.9 Iron deficiency anemia, unspecified; Z95.0 Presence of cardiac pacemaker; I25.10 Atherosclerotic heart disease of native coronary artery without angina pectoris; K21.9 Gastro-esophageal reflux disease without esophagitis; M19.90 Unspecified osteoarthritis, unspecified site; F32.9 Major depressive disorder, single episode, unspecified; Z87.891 Personal history of nicotine dependence; Z99.81 Dependence on supplemental oxygen; Z79.899 Other long term (current) drug therapy; I42.9 Cardiomyopathy, unspecified
CPT/HCPCS: 36415; 71045; 78582; 80048; 80053; 80061; 80076; 81001; 82550; 82553; 82803; 83036; 83735; 83880; 84439; 84443; 84484; 85025; 85610; 85730; 87070; 87086; 87205; 93005; 93010; 94640; 96374; 99285; A9540; A9567; J1644; J1940; J3490; J7050; J7620; Q9969